=== PATIENT | female | born 1950 | race Caucasian/White ===

== ENCOUNTER → 2018-08-29 16:45 | Outpatient (REF) | payer MEDICARE, MEDICAID, SELFPAY ==
[2018-08-29 17:40] LABS: Alanine Aminotransferase 22 IU/L (9-52); Albumin 3.6 g/dL (3.5-5.0); Albumin Globulin Ratio 0.9 (1.0-2.8); Alkaline Phosphatase 146 U/L (38-126); Aspartate Aminotransferase 27 IU/L (14-36); BUN Creatinine Ratio 43.3 (6-22); Bilirubin Total 0.4 mg/dL (0.2-1.3); Blood Urea Nitrogen 65 mg/dL (7-17); Calcium 8.4 mg/dL (8.4-10.2); Carbon Dioxide 22 mmol/L (22-32); Chloride 106 mmol/L (98-107); Estimated Glomerular Filt Rate 34.4 mL/min (>60); Globulin 3.8 g/dL (1.7-4.1); Glucose 96 mg/dL (80-110); HEMOLYSIS < 15 (0-50); Sodium 140 mmol/L (137-145); Total Protein 7.4 g/dL (6.3-8.2)
[2018-08-29 17:43] LABS: Potassium 5.4 mmol/L (3.4-5.1)
[2018-08-29 18:14] LABS: Add Manual Diff / Slide Review NO; Basophils Absolute Auto 0 /uL (0-100); Basophils Percent Auto 0.9 % (0-2); Eosinophils Absolute Auto 300 /uL (0-450); Eosinophils Percent Auto 9.5 % (2-4); Hematocrit 30.8 % (36-46); Hemoglobin 9.7 g/dL (12.0-16.0); Lymphocytes Absolute Auto 600 /uL (1100-4500); Lymphocytes Percent Auto 20.4 % (25-40); Mean Corpuscular HGB Conc 31.6 % (30-36); Mean Corpuscular Hemoglobin 31.8 PG (26-34); Mean Corpuscular Volume 100.4 fL (80-100); Monocytes Absolute Auto 500 /uL (0-900); Monocytes Percent Auto 15.3 % (3-14); Neutrophils Absolute Auto 1700 /uL (1500-7000); Neutrophils Percent Auto 53.9 % (50-75); Platelet Count 181 X10^3/uL (150-400); Red Blood Cell Count 3.07 X10^6/uL (4.0-5.2); Red Cell Distribution Width 14.1 % (11.6-14.8); White Blood Cell Count 3.1 X10^3/uL (4.5-11.0)
== END ==
LOC: LAB 16:45
PROVIDERS: Visit Provider Nurse Practitioner Family
DX: I48.91 Unspecified atrial fibrillation (principal); M31.30 Wegener's granulomatosis without renal involvement; N18.9 Chronic kidney disease, unspecified
CPT/HCPCS: 80053; 85025

== ENCOUNTER → 2018-09-01 11:01 | Outpatient (REF) | payer MEDICARE, MEDICAID, SELFPAY ==
[2018-09-01 11:16] LABS: INR 1.5 (0.9-1.3); Prothrombin Time 17.6 SECONDS (10.1-12.7)
== END ==
LOC: LAB 11:01
PROVIDERS: Visit Provider Nurse Practitioner Family
DX: I48.91 Unspecified atrial fibrillation (principal)
CPT/HCPCS: 85610

== ENCOUNTER → 2018-09-04 07:12 | Outpatient (REF) | payer MEDICARE, MEDICAID, SELFPAY ==
[2018-09-04 08:14] LABS: Add Manual Diff / Slide Review NO; Basophils Absolute Auto 0 /uL (0-100); Eosinophils Absolute Auto 200 /uL (0-450); Eosinophils Percent Auto 7.8 % (2-4); Hematocrit 27.9 % (36-46); Hemoglobin 9.3 g/dL (12.0-16.0); Lymphocytes Absolute Auto 500 /uL (1100-4500); Lymphocytes Percent Auto 18.3 % (25-40); Mean Corpuscular HGB Conc 33.4 % (30-36); Mean Corpuscular Hemoglobin 32.8 PG (26-34); Mean Corpuscular Volume 98.2 fL (80-100); Monocytes Absolute Auto 500 /uL (0-900); Monocytes Percent Auto 17.6 % (3-14); Neutrophils Absolute Auto 1600 /uL (1500-7000); Neutrophils Percent Auto 55.3 % (50-75); Platelet Count 183 X10^3/uL (150-400); Red Blood Cell Count 2.84 X10^6/uL (4.0-5.2); Red Cell Distribution Width 13.6 % (11.6-14.8); White Blood Cell Count 2.9 X10^3/uL (4.5-11.0)
[2018-09-04 08:39] LABS: Alanine Aminotransferase 18 IU/L (9-52); Albumin 3.5 g/dL (3.5-5.0); Albumin Globulin Ratio 0.9 (1.0-2.8); Alkaline Phosphatase 140 U/L (38-126); Aspartate Aminotransferase 22 IU/L (14-36); BUN Creatinine Ratio 38.8 (6-22); Bilirubin Total 0.6 mg/dL (0.2-1.3); Blood Urea Nitrogen 66 mg/dL (7-17); Calcium 8.2 mg/dL (8.4-10.2); Carbon Dioxide 23 mmol/L (22-32); Chloride 105 mmol/L (98-107); Estimated Glomerular Filt Rate 29.8 mL/min (>60); Glucose 100 mg/dL (80-110); HEMOLYSIS < 15 (0-50); Sodium 139 mmol/L (137-145); Total Protein 7.5 g/dL (6.3-8.2)
== END ==
LOC: LAB 07:12
PROVIDERS: Visit Provider Registered Nurse
DX: N18.9 Chronic kidney disease, unspecified (principal); A50.02 Early congenital syphilitic osteochondropathy
CPT/HCPCS: 36415; 80053; 85025

== ENCOUNTER → 2018-09-09 07:46 | Outpatient (REF) | payer MEDICARE, MEDICAID, SELFPAY ==
[2018-09-09 08:13] LABS: INR 1.7 (0.9-1.3); Prothrombin Time 19.7 SECONDS (10.1-12.7)
== END ==
LOC: LAB 07:46
PROVIDERS: Visit Provider Internal Medicine
DX: I48.91 Unspecified atrial fibrillation (principal)
CPT/HCPCS: 36415; 85610

== ENCOUNTER 2018-09-09 21:55 | Emergency (ER) | payer MEDICARE, MEDICAID, SELFPAY ==
--- NOTE | 2018-09-09 22:00 | DI.RAD.S_ITS ---
PROCEDURE: XR CHEST 1V INDICATIONS: hypoxia, cyanosis TECHNIQUE: One view of the chest was acquired. COMPARISON: [facility], CT, CT ANGIO CHEST PE PROTOCOL, 09/09/2018, 23:33. [facility], CR, XR CHEST 1VW (PORTABLE), 03/22/2015, 13:01. FINDINGS: Surgical changes and devices: None. Lungs and pleura: Increased pulmonary vascularity is present. Trace effusions are noted. Mediastinum: Mediastinal contours appear normal. Heart size is enlarged. Bones and chest wall: No suspicious bony lesions. Overlying soft tissues appear unremarkable. IMPRESSION: Cardiomegaly with trace effusions and increased vascularity consistent with edema. Dictated by: Tracie Gallagher M.D. on 09/10/2018 at 8:19 Approved by: Tracie Gallagher M.D. on 09/10/2018 at 8:20
[2018-09-09 22:07] VITALS: BP 136/91; PULSE 104; RESP 25; TEMP 37.7; O2SAT 91
--- NOTE | 2018-09-09 22:15 | ED_ITS ---
HPI - SOB/Dyspnea General Chief Complaint: Shortness of Breath/Dyspnea Stated Complaint: Possible Cyanosis Time Seen by Provider: 09/09/18 21:55 Source: patient and EMS Mode of arrival: EMS Limitations: no limitations History of Present Illness 68-year-old female never smoker with extensive history including chronic kidney disease, CHF, AFib and pulmonary embolism presents with significant shortness of breath, hypoxia and cyanosis. the symptoms started these evening and on arrival EMS found the patient is cyanotic with a recent reported pulse ox of 55%. The patient quickly rebounded with 2 L by nasal cannula.She is remarkably calm and has very little to complain about, just stating she has been turning blue like this for ages and people always get super excited about it. She was recently converted from Coumadin to Eliquis because of recurrent nose bleeds. Most recent hospitalization was in [place] in July under similar circumstances in which she became very short of breath and hypoxic. MD Complaint: shortness of breath Onset (ago): minute(s) Severity: moderate Consistency/Duration: constant Relieving factors: nothing Exacerbating factors: nothing Treatment prior to arrival: oxygen Related Data Home oxygen amount: none Allergies Allergy/AdvReac Type Severity Reaction Status Date / Time acetaminophen [From Tylenol] Allergy Verified 09/09/18 22:36 adhesive tape Allergy Verified 09/09/18 22:36 basil Allergy Verified 09/09/18 22:36 cephalexin [From Keflex] Allergy Verified 09/09/18 22:36 marlena Allergy Verified 09/09/18 22:36 Penicillins Allergy Verified 09/09/18 22:36 Review of Systems Constitutional Denies chills, Denies fever(s), Denies lethargy and Denies weakness Eyes Denies change in vision, Denies eye discharge, Denies irritation and Denies loss of vision ENT Ears, Nose, Mouth, and Throat: Denies change in voice, Denies neck pain and Denies sore throat Cardiovascular Denies chest pain, Denies irregular heart rhythm, Denies lightheadedness, Denies palpitations, Reports dyspnea, Denies dyspnea on exertion and Denies orthopnea Respiratory Denies cough, Reports dyspnea, Denies dyspnea on exertion and Denies wheezing Gastrointestinal Gastrointestinal: Denies abdominal pain, Denies change in bowel habits, Denies diarrhea, Denies nausea and Denies vomiting Genitourinary Denies hematuria, Denies flank pain, Denies urinary incontinence and Denies urinary urgency Musculoskeletal Denies neck pain Integumentary/Breasts Denies pruritus, Denies erythema, Denies rash and Denies wounds Neurologic Denies confusion, Denies loss of vision and Denies weakness Psychiatric Denies anxiety, Denies confusion, Denies depression, Denies homicidal ideation and Denies suicidal ideation Endocrine Denies palpitations Hematologic/Lymphatic Denies easy bruising Allergic/Immunologic Denies wheezing [facility] Medical History (Updated 09/10/18 @ 01:11 by Ronak Ozuna DO) Chronic kidney disease (Acute) Cor pulmonale (Acute) Depression (Acute) Diastolic heart failure (Acute) Hyperlipidemia (Acute) Iron (Fe) deficiency anemia (Acute) Osteoarthritis (Acute) Polyneuropathy (Acute) Pulmonary embolism (Acute) Crow's granulomatosis (Acute) Social History Smoking Status: Never smoker Social History Smoking Status: Never smoker Exam Narrative Exam Narrative: GENERAL: 68F appears older than stated age. Cyanotic at rest with some respiratory difficulty including recruitment of accessory muscles. Ill appearing HEAD: Atraumatic. Normocephalic. No temporal or scalp tenderness. EYES: Pupils equal round and reactive. Extraocular motions intact. No scleral icterus. No injection or drainage. ENT: Nose without bleeding, purulent drainage or septal hematoma. Throat without erythema, tonsillar hypertrophy or exudate. Uvula midline. Airway patent. NECK: Trachea midline. No JVD or lymphadenopathy. Supple, nontender, no meningeal signs. CARDIOVASCULAR: Regular rate and rhythm without murmurs, gallops, or rubs. RESPIRATORY: Decreased breath sounds B/L with crackles, prolonged expiratory phase. GASTROINTESTINAL: Abdomen soft, non-tender, nondistended. No hepato-splenomega ly, or palpable masses. No guarding. EXTREMITIES: No clubbing, cyanosis, or edema. No joint tenderness, effusion, or edema noted. BACK: Nontender without deformity or crepitance. No flank tenderness. NEURO: AOx3. SKIN: No rash or erythema. Cyanotic lips and ears Initial Vital Signs Initial Vital Signs: Vital Signs Temperature 100 F H 09/09/18 22:07 Pulse Rate 104 H 09/09/18 22:07 Respiratory Rate 25 H 09/09/18 22:07 Blood Pressure 136/91 H 09/09/18 22:07 Pulse Oximetry 91 09/09/18 22:07 Course Orders Ordered: ED Orders 09/09/18 21:59 Consult to Respiratory Therapy Evaluate & Treat Arterial Blood Gas Stat EKG-12 Lead Stat 09/09/18 22:00 XR chest 1V Stat 09/09/18 22:10 B Type Natriuretic Peptide Stat Complete Blood Count AUTO DIFF Stat Procalcitonin Stat 09/09/18 22:12 Influenza A and B by PCR Rapid Stat Lactate (Lactic Acid) Stat 09/09/18 22:21 Arterial Blood Gas Stat 09/09/18 22:41 Basic Metabolic Panel Stat Blood Culture Stat Magnesium Stat Partial Thromboplastin Time Stat Prothrombin Time INR Stat Troponin & CK Cardiac Panel Stat 09/09/18 23:20 CT angio chest PE protocol Stat 09/09/18 23:23 Urine Culture Stat Urine Microscopic Stat Albuterol/Ipratropium (Duoneb) 3 ml INH NOW PRN PRN Reason: Wheezing Last Admin: 09/09/18 23:06 Dose: 3 ml Admin: 09/09/18 22:56 Dose: 3 ml Admin: 09/09/18 22:52 Dose: 3 ml Sodium Chloride (Normal Saline 0.9%) 1,000 mls @ 150 mls/hr IV CONT NOLA Last Admin: 09/09/18 22:56 Dose: 150 mls/hr Discontinued Medications Furosemide (Lasix) 40 mg IV NOW ONE Stop: 09/09/18 23:13 Last Admin: 09/09/18 23:19 Dose: 40 mg Reevaluation(s) Reevaluation #1: patient improves after use of oxygen by nasal cannula, but she is tiring, will switch to hi flow, hi humidity records requested from [place] (recent hospitalization in Jul) also location of pulmonology. Iron Piler is Dr. Hernandez from [facility]. patient improved with high flow / high humidity nasal cannula. She is making dilute urine after Lasix and pulse ox is now in the upper 90s Consultations Consultation #1: I've spoken with our hospitalist and discussed the case with him. She has a very complex medical history and the etiology of her decompensation is thus unclear. She very well may need consultation with cardiology, pulmonary, or nephrology. None of which are available here. He states that we are unable to care for this patient here given her impressive presentation with unclear etiology and very complex medical history which is likely to require specialty care not available at this hospital. This is explained to the patient whom then requests [facility] as that is where she is from, where her PCP is, and where her most recent hospitalization was Consultation #2: call to [place] nursing aircraft cleaning supervisor whom states that they have plenty of appropriate beds and asks that we call hospitalist. I've spoken to Dr. Bledsoe whom is happy to accept this patient. He states that it does not obviously need specialty involvement yet and that he would like patient to be eyeballed in the ED to get repeat vitals to ensure no decompensation during transport When resting her HR is 100-105, any exertion will cause her to bump to 115ish. Vital Signs - 8 hr 09/09/18 22:07 09/09/18 22:44 09/09/18 22:52 Temperature 100 F H Pulse Rate 104 H 105 H Respiratory Rate 25 H 29 H Blood Pressure 136/91 H Blood Pressure [Right Arm] 134/89 Pulse Oximetry 91 94 09/09/18 22:55 09/09/18 23:00 09/10/18 00:20 Temperature Pulse Rate 104 H 117 H Respiratory Rate 25 H 28 H Blood Pressure Blood Pressure [Right Arm] 133/92 H 121/90 Pulse Oximetry 94 09/10/18 01:01 09/10/18 01:30 Temperature Pulse Rate 115 H 117 H Respiratory Rate 15 25 H Blood Pressure Blood Pressure [Right Arm] 112/77 120/49 L Pulse Oximetry 98 98 MDM - SOB/Dyspnea Differential Diagnosis Likely congestive heart failure and pulmonary embolism Medical Records Attestation: I reviewed the patient's medical records. Lab Data Attestation: I reviewed the patient's lab results. Result diagrams: 09/09/18 22:10 09/09/18 22:41 Lab Results 09/09/18 09/09/18 09/09/18 Range/Units 22:10 22:10 22:12 WBC 7.9 (4.5-11.0) X10^3/uL RBC 3.38 L (4.0-5.2) X10^6/uL Hgb 10.9 L (12.0-16.0) g/dL Hct 33.6 L (36-46) % MCV 99.5 (80-100) fL MCH 32.3 (26-34) PG MCHC 32.4 (30-36) % RDW 14.4 (11.6-14.8) % Plt Count 216 (150-400) X10^3/uL Neut % (Auto) 86.5 H (50-75) % Lymph % (Auto) 5.5 L (25-40) % Jefferson % (Auto) 4.6 (3-14) % Eos % (Auto) 3.4 (2-4) % Baso % (Auto) 0.0 (0-2) % Neut # (Auto) 6800 (8978-9654) /uL Lymph # (Auto) 400 L (9451-5799) /uL Jefferson # (Auto) 400 (0-900) /uL Eos # (Auto) 300 (0-450) /uL Baso # (Auto) 0 (0-100) /uL PT (10.1-12.7) SECONDS INR (0.9-1.3) APTT (26.4-36.2) SECONDS ABG pH (7.35-7.45) ABG pCO2 (35-45) mmHg ABG pO2 (80-100) mmHg ABG HCO3 (22-26) mmol/L ABG Total CO2 (21-31) mmol/L ABG O2 Saturation (95-100) % ABG Base Excess (-2-2) mmol/L FiO2 Sodium (137-145) mmol/L Potassium (3.4-5.1) mmol/L Chloride (98-107) mmol/L Carbon Dioxide (22-32) mmol/L BUN (7-17) mg/dL Creatinine (0.52-1.04) mg/dL Estimated GFR (>60) mL/min BUN/Creatinine Ratio (6-22) Glucose (80-110) mg/dL Lactate 2.0 (0.7-2.1) mmol/L Calcium (8.4-10.2) mg/dL Magnesium (1.6-2.3) mg/dL Total Creatine Kinase (30-135) U/L CK-MB (CK-2) CK-MB (CK-2) Rel Index Troponin I (0.01-0.034) ng/mL B-Natriuretic Peptide 1020 H (<100) Procalcitonin < 0.05 (<0.5) ng/mL Urine RBC (0-5/HPF) Urine WBC (0-5/HPF) Ur Squamous Epith Cells Urine Bacteria (None) Ur Culture Indicated? Influenza A & B (PCR) (Negative) 09/09/18 09/09/18 09/09/18 Range/Units 22:12 22:21 22:41 WBC (4.5-11.0) X10^3/uL RBC (4.0-5.2) X10^6/uL Hgb (12.0-16.0) g/dL Hct (36-46) % MCV (80-100) fL MCH (26-34) PG MCHC (30-36) % RDW (11.6-14.8) % Plt Count (150-400) X10^3/uL Neut % (Auto) (50-75) % Lymph % (Auto) (25-40) % Jefferson % (Auto) (3-14) % Eos % (Auto) (2-4) % Baso % (Auto) (0-2) % Neut # (Auto) (1251-7318) /uL Lymph # (Auto) (5098-6539) /uL Jefferson # (Auto) (0-900) /uL Eos # (Auto) (0-450) /uL Baso # (Auto) (0-100) /uL PT 20.3 H (10.1-12.7) SECONDS INR 1.7 H (0.9-1.3) APTT 30 (26.4-36.2) SECONDS ABG pH 7.39 (7.35-7.45) ABG pCO2 33.5 L (35-45) mmHg ABG pO2 50 L (80-100) mmHg ABG HCO3 20 L (22-26) mmol/L ABG Total CO2 21 (21-31) mmol/L ABG O2 Saturation 85 L (95-100) % ABG Base Excess -5.0 L (-2-2) mmol/L FiO2 0.21 Sodium (137-145) mmol/L Potassium (3.4-5.1) mmol/L Chloride (98-107) mmol/L Carbon Dioxide (22-32) mmol/L BUN (7-17) mg/dL Creatinine (0.52-1.04) mg/dL Estimated GFR (>60) mL/min BUN/Creatinine Ratio (6-22) Glucose (80-110) mg/dL Lactate (0.7-2.1) mmol/L Calcium (8.4-10.2) mg/dL Magnesium (1.6-2.3) mg/dL Total Creatine Kinase (30-135) U/L CK-MB (CK-2) CK-MB (CK-2) Rel Index Troponin I (0.01-0.034) ng/mL B-Natriuretic Peptide (<100) Procalcitonin (<0.5) ng/mL Urine RBC (0-5/HPF) Urine WBC (0-5/HPF) Ur Squamous Epith Cells Urine Bacteria (None) Ur Culture Indicated? Influenza A & B (PCR) Negative (Negative) 09/09/18 09/09/18 Range/Units 22:41 23:23 WBC (4.5-11.0) X10^3/uL RBC (4.0-5.2) X10^6/uL Hgb (12.0-16.0) g/dL Hct (36-46) % MCV (80-100) fL MCH (26-34) PG MCHC (30-36) % RDW (11.6-14.8) % Plt Count (150-400) X10^3/uL Neut % (Auto) (50-75) % Lymph % (Auto) (25-40) % Jefferson % (Auto) (3-14) % Eos % (Auto) (2-4) % Baso % (Auto) (0-2) % Neut # (Auto) (3475-0463) /uL Lymph # (Auto) (2822-9085) /uL Jefferson # (Auto) (0-900) /uL Eos # (Auto) (0-450) /uL Baso # (Auto) (0-100) /uL PT (10.1-12.7) SECONDS INR (0.9-1.3) APTT (26.4-36.2) SECONDS ABG pH (7.35-7.45) ABG pCO2 (35-45) mmHg ABG pO2 (80-100) mmHg ABG HCO3 (22-26) mmol/L ABG Total CO2 (21-31) mmol/L ABG O2 Saturation (95-100) % ABG Base Excess (-2-2) mmol/L FiO2 Sodium 140 (137-145) mmol/L Potassium 5.5 H (3.4-5.1) mmol/L Chloride 106 (98-107) mmol/L Carbon Dioxide 20 L (22-32) mmol/L BUN 63 H (7-17) mg/dL Creatinine 1.80 H (0.52-1.04) mg/dL Estimated GFR 27.9 L (>60) mL/min BUN/Creatinine Ratio 35.0 H (6-22) Glucose 85 (80-110) mg/dL Lactate (0.7-2.1) mmol/L Calcium 8.6 (8.4-10.2) mg/dL Magnesium 2.0 (1.6-2.3) mg/dL Total Creatine Kinase < 20 L (30-135) U/L CK-MB (CK-2) TNP CK-MB (CK-2) Rel Index TNP Troponin I < 0.012 (0.01-0.034) ng/mL B-Natriuretic Peptide (<100) Procalcitonin (<0.5) ng/mL Urine RBC 0-1/hpf (0-5/HPF) Urine WBC 1-5/hpf (0-5/HPF) Ur Squamous Epith Cells 1-5 /hpf Urine Bacteria Few (2-10) H (None) Ur Culture Indicated? Specimen cultured Influenza A & B (PCR) (Negative) Urine Dip Bedside Urine Glucose Negative Bedside Urine Bilirubin - Negative Bedside Urine Ketone - Negative Urine Specific [place] 1.025 Bedside Urine Occult Blood - Negative Bedside Urine pH 5.0 Bedside Urine Protein + 30 Bedside Urine Nitrite - Negative Bedside Urine Leukocytes + 70 Esterase Imaging Data Chest x-ray: My impression: CHF CT scan - chest: Radiologist's impression: No PE, aneurysm or dissection CHF noted Critical Care Time Critical Care Time: Yes Total Critical Care Time: 30 Attestation: The high probability of a clinically significant, sudden or life threatening deterioration of the [] system(s) required my full and direct attention, intervention and personal management. The aggregate critical care time was [] minutes. This time is in addition to time spent performing reported procedures but includes the following: [x] Data Review and interpretation [x] Patient assessment and monitoring of vital signs [x] Documentation [x] Medication orders and management Discharge Plan Departure Patient Disposition: [facility] Clinical Impression: Acute and chronic respiratory failure with hypoxia Acute CHF Qualifiers: Heart failure type: combined systolic and diastolic Qualified Code(s): I50.41 - Acute combined systolic (congestive) and diastolic (congestive) heart failure Referrals: Bri Vargas MD [Primary Care Provider] -
[2018-09-09 22:23] LABS: Add Manual Diff / Slide Review NO; Basophils Absolute Auto 0 /uL (0-100); Eosinophils Absolute Auto 300 /uL (0-450); Eosinophils Percent Auto 3.4 % (2-4); Hematocrit 33.6 % (36-46); Hemoglobin 10.9 g/dL (12.0-16.0); Lymphocytes Absolute Auto 400 /uL (1100-4500); Lymphocytes Percent Auto 5.5 % (25-40); Mean Corpuscular HGB Conc 32.4 % (30-36); Mean Corpuscular Hemoglobin 32.3 PG (26-34); Mean Corpuscular Volume 99.5 fL (80-100); Monocytes Absolute Auto 400 /uL (0-900); Monocytes Percent Auto 4.6 % (3-14); Neutrophils Absolute Auto 6800 /uL (1500-7000); Neutrophils Percent Auto 86.5 % (50-75); Platelet Count 216 X10^3/uL (150-400); Red Blood Cell Count 3.38 X10^6/uL (4.0-5.2); Red Cell Distribution Width 14.4 % (11.6-14.8); White Blood Cell Count 7.9 X10^3/uL (4.5-11.0)
[2018-09-09 22:37] LABS: Influenza A and B by PCR Rapid Negative (Negative)
[2018-09-09 22:37] LABS: HCO3 ABG 20 mmol/L (22-26); Oxygen Saturation ABG 85 % (95-100); PCO2 ABG 33.5 mmHg (35-45); PO2 ABG 50 mmHg (80-100); TCO2 ABG 21 mmol/L (21-31); pH ABG 7.39 (7.35-7.45)
[2018-09-09 22:38] LABS: Fractionated Inspired Oxygen 0.21
[2018-09-09 22:44] VITALS: BP 134/89; PULSE 105; RESP 29
[2018-09-09 22:45] LABS: B Type Natriuretic Peptide 1020 (<100)
[2018-09-09 22:52] VITALS: O2SAT 94
[2018-09-09] MEDS: ALBUTEROL/IPRATROPIUM 3 ML AMPUL INH ×3 (22:52→23:06)
[2018-09-09 22:55] VITALS: O2SAT 94
[2018-09-09] MEDS: SODIUM CHLORIDE 0.9% 1,000 ML 150 ML IV (22:56)
[2018-09-09 22:57] LABS: Procalcitonin < 0.05 ng/mL (<0.5)
[2018-09-09 22:59] LABS: INR 1.7 (0.9-1.3); Prothrombin Time 20.3 SECONDS (10.1-12.7)
[2018-09-09 23:00] VITALS: BP 133/92; PULSE 104; RESP 25
[2018-09-09 23:00] LABS: Blood Urea Nitrogen 63 mg/dL (7-17); Calcium 8.6 mg/dL (8.4-10.2); Carbon Dioxide 20 mmol/L (22-32); Chloride 106 mmol/L (98-107); Creatine Kinase < 20 U/L (30-135); Estimated Glomerular Filt Rate 27.9 mL/min (>60); Glucose 85 mg/dL (80-110); HEMOLYSIS 25 (0-50); Sodium 140 mmol/L (137-145)
[2018-09-09 23:01] LABS: PTT Partial Thromboplastin Tim 30 SECONDS (26.4-36.2); Potassium 5.5 mmol/L (3.4-5.1)
[2018-09-09 23:11] LABS: Troponin I < 0.012 ng/mL (0.01-0.034)
[2018-09-09] MEDS: FUROSEMIDE 40 MG/4 ML VIAL IV (23:19)
--- NOTE | 2018-09-09 23:20 | DI.CT.S_ITS ---
PROCEDURE: CT ANGIO CHEST PE PROTOCOL INDICATIONS: severely hypoxic TECHNIQUE: After the administration of intravenous contrast, 2 mm thick sections acquired from the pulmonary apices to the posterior costophrenic angles. 3-dimensional maximum intensity projection (MIP) coronal and sagittal reformats were then acquired through the thorax. For radiation dose reduction, the following was used: automated exposure control, adjustment of mA and/or kV according to patient size. COMPARISON: [facility], CR, XR CHEST 1V, 09/09/2018, 22:09. FINDINGS: Image quality: Excellent. Pulmonary arteries: Pulmonary arteries are normal in size, and demonstrate no intraluminal filling defects to suggest central pulmonary embolism. Lungs and pleura: Minimal bilateral pleural effusions. Pulmonary interstitial edema is present. Central and peripheral airways are patent. Mediastinum: Heart size is enlarged, without pericardial effusion numerous mediastinal and hilar lymph nodes are present. While the majority are subcentimeter in size, there are several enlarged nodes identified ranging from 10-14 mm. Thoracic aorta is normal in caliber and enhancement. Esophagus is normal in caliber, without hiatal hernia. Bones and chest wall: No suspicious bony lesions. Ribs and thoracic spine appear intact throughout. Thyroid gland is unremarkable. No axillary or supraclavicular adenopathy. Abdomen: Elevated central venous pressure noted with contrast refluxing into the distended inferior vena cava and hepatic veins. Otherwise, visualized upper abdominal solid organs appear normal in the early arterial phase of enhancement. IMPRESSION: 1. No pulmonary embolism. 2. Minimal effusions with pulmonary vascularity consistent with edema. 3. Mild mediastinal and hilar adenopathy. This could be reactive in nature and recommend followup as indicated. The above findings are concordant with preliminary report. Dictated by: Tracie Gallagher M.D. on 09/10/2018 at 8:11 Approved by: Tracie Gallagher M.D. on 09/10/2018 at 8:15
[2018-09-09 23:49] LABS: Bacteria Urine Few (2-10); RBC Urine 0-1/HPF (0-5/HPF); Squamous Epithelial Cell Urine 1-5 /HPF; WBC Urine 1-5/HPF (0-5/HPF)
[2018-09-09 23:50] LABS: Culture Indicated Urine Specimen Cultured
[2018-09-10 00:20] VITALS: BP 121/90; PULSE 117; RESP 28
[2018-09-10 01:01] VITALS: BP 112/77; PULSE 115; RESP 15; O2SAT 98
--- NOTE | 2018-09-10 01:04 | PC.NURSE ---
Pt with pink lips and fingers at this time. Continues with Hi flow oxygen at 50%. Pulse ox finally picking up with good pleth.
[2018-09-10 01:30] VITALS: BP 120/49; PULSE 117; RESP 25; O2SAT 98
[2018-09-10 02:11] VITALS: BP 105/66; PULSE 104; RESP 26; TEMP 37.7; O2SAT 95
== END 2018-09-10 02:46 | disposition short-term general hospital (02) ==
PROVIDERS: Emergency Provider Emergency Medicine; Family Provider Internal Medicine; PCP Internal Medicine
DX: J96.21 Acute and chronic respiratory failure with hypoxia (principal); I50.9 Heart failure, unspecified
CPT/HCPCS: 36415; 36591; 36600; 71045; 71275; 80048; 81003; 81015; 82550; 82553; 82805; 83605; 83735; 83880; 84145; 84484; 85025; 85610; 85730; 87040; 87086; 87400; 93005; 94640; 96361; 96374; 99285; J1940; Q9967

== ENCOUNTER → 2018-09-30 07:01 | Outpatient (REF) | payer MEDICARE, MEDICAID, SELFPAY ==
[2018-09-30 07:40] LABS: Add Manual Diff / Slide Review NO; Basophils Absolute Auto 0 /uL (0-100); Basophils Percent Auto 1.1 % (0-2); Eosinophils Absolute Auto 300 /uL (0-450); Eosinophils Percent Auto 6.1 % (2-4); Hematocrit 33.2 % (36-46); Hemoglobin 10.6 g/dL (12.0-16.0); Lymphocytes Absolute Auto 500 /uL (1100-4500); Lymphocytes Percent Auto 11.8 % (25-40); Mean Corpuscular HGB Conc 31.9 % (30-36); Mean Corpuscular Volume 100.6 fL (80-100); Monocytes Absolute Auto 500 /uL (0-900); Monocytes Percent Auto 9.7 % (3-14); Neutrophils Absolute Auto 3300 /uL (1500-7000); Neutrophils Percent Auto 71.3 % (50-75); Platelet Count 211 X10^3/uL (150-400); Red Cell Distribution Width 15.6 % (11.6-14.8); White Blood Cell Count 4.6 X10^3/uL (4.5-11.0)
[2018-09-30 07:53] LABS: Blood Urea Nitrogen 54 mg/dL (7-17); Calcium 8.4 mg/dL (8.4-10.2); Carbon Dioxide 29 mmol/L (22-32); Chloride 105 mmol/L (98-107); Estimated Glomerular Filt Rate 27.9 mL/min (>60); Glucose 109 mg/dL (80-110); HEMOLYSIS < 15 (0-50); Potassium 4.8 mmol/L (3.4-5.1); Sodium 141 mmol/L (137-145)
== END ==
LOC: LAB 07:01
PROVIDERS: Family Provider Internal Medicine; PCP Internal Medicine; Visit Provider Nurse Practitioner Family
DX: D64.9 Anemia, unspecified (principal); N18.9 Chronic kidney disease, unspecified; R60.9 Edema, unspecified
CPT/HCPCS: 36415; 80048; 85025

== ENCOUNTER → 2018-10-03 13:01 | Outpatient (CLI) | payer MEDICARE, MEDICAID, SELFPAY | PROVIDERS: Family Provider Internal Medicine; PCP Internal Medicine; Visit Provider Family Medicine | DX: M31.31 Wegener's granulomatosis with renal involvement (principal); S81.801A Unspecified open wound, right lower leg, initial encounter; S81.802A Unspecified open wound, left lower leg, initial encounter; R53.83 Other fatigue | CPT/HCPCS: 11104; 11105; 99203; 99214 ==

== ENCOUNTER → 2018-10-09 09:24 | Outpatient (CLI) | payer MEDICARE, MEDICAID, SELFPAY | PROVIDERS: Family Provider Internal Medicine; PCP Internal Medicine; Visit Provider Family Medicine | DX: S81.801A Unspecified open wound, right lower leg, initial encounter (principal); S81.802A Unspecified open wound, left lower leg, initial encounter; M31.31 Wegener's granulomatosis with renal involvement; I50.9 Heart failure, unspecified | CPT/HCPCS: 99212 ==

== ENCOUNTER → 2018-10-14 09:37 | Outpatient (ROUT) | payer MEDICARE, MEDICAID, SELFPAY ==
[2018-10-14 10:10] LABS: Hematocrit 30.4 % (36-46); Hemoglobin 9.8 g/dL (12.0-16.0)
[2018-10-14 10:27] LABS: BUN Creatinine Ratio 30.5 (6-22); Blood Urea Nitrogen 58 mg/dL (7-17); Calcium 8.2 mg/dL (8.4-10.2); Carbon Dioxide 27 mmol/L (22-32); Chloride 103 mmol/L (98-107); Estimated Glomerular Filt Rate 26.2 mL/min (>60); Glucose 67 mg/dL (80-110); HEMOLYSIS < 15 (0-50); Sodium 139 mmol/L (137-145)
== END ==
PROVIDERS: Family Provider Internal Medicine; PCP Internal Medicine; Visit Provider Nurse Practitioner Family
DX: D64.9 Anemia, unspecified (principal); N18.9 Chronic kidney disease, unspecified
CPT/HCPCS: 36415; 80048; 85014; 85018

== ENCOUNTER → 2018-10-16 08:56 | Outpatient (CLI) | payer MEDICARE, MEDICAID, SELFPAY | PROVIDERS: Family Provider Internal Medicine; PCP Internal Medicine; Visit Provider Family Medicine | DX: M31.31 Wegener's granulomatosis with renal involvement (principal); S81.801A Unspecified open wound, right lower leg, initial encounter; S81.802A Unspecified open wound, left lower leg, initial encounter; R53.83 Other fatigue; L30.9 Dermatitis, unspecified | CPT/HCPCS: 11042; 99214 ==

== ENCOUNTER → 2018-10-23 08:57 | Outpatient (CLI) | payer MEDICARE, MEDICAID, SELFPAY | PROVIDERS: Family Provider Internal Medicine; PCP Internal Medicine; Visit Provider Family Medicine | DX: M31.31 Wegener's granulomatosis with renal involvement (principal); S81.801A Unspecified open wound, right lower leg, initial encounter; S81.802A Unspecified open wound, left lower leg, initial encounter; R53.83 Other fatigue; L30.9 Dermatitis, unspecified | CPT/HCPCS: 11042 ==

== ENCOUNTER → 2018-10-28 07:01 | Outpatient (ROUT) | payer MEDICARE, MEDICAID, SELFPAY ==
[2018-10-28 08:45] LABS: Hematocrit 30.1 % (36-46); Hemoglobin 9.9 g/dL (12.0-16.0)
[2018-10-28 09:04] LABS: BUN Creatinine Ratio 34.1 (6-22); Blood Urea Nitrogen 58 mg/dL (7-17); Calcium 8.4 mg/dL (8.4-10.2); Carbon Dioxide 23 mmol/L (22-32); Chloride 105 mmol/L (98-107); Estimated Glomerular Filt Rate 29.8 mL/min (>60); Glucose 73 mg/dL (80-110); HEMOLYSIS 18 (0-50); Sodium 139 mmol/L (137-145)
[2018-10-28 09:07] LABS: Potassium 5.5 mmol/L (3.4-5.1)
== END ==
PROVIDERS: Family Provider Internal Medicine; PCP Internal Medicine; Visit Provider Nurse Practitioner Family
DX: D64.9 Anemia, unspecified (principal); N17.9 Acute kidney failure, unspecified
CPT/HCPCS: 36415; 80048; 85014; 85018

== ENCOUNTER → 2018-10-30 07:21 | Outpatient (ROUT) | payer MEDICARE, MEDICAID, SELFPAY ==
[2018-10-30 09:06] LABS: HEMOLYSIS 22 (0-50)
== END ==
PROVIDERS: Family Provider Internal Medicine; PCP Internal Medicine; Visit Provider Nurse Practitioner Family
DX: E87.5 Hyperkalemia (principal)
CPT/HCPCS: 36415; 84132

== ENCOUNTER → 2018-10-30 08:39 | Outpatient (CLI) | payer MEDICARE, MEDICAID, SELFPAY | PROVIDERS: Family Provider Internal Medicine; PCP Internal Medicine; Visit Provider Family Medicine | DX: S81.801A Unspecified open wound, right lower leg, initial encounter (principal); M31.31 Wegener's granulomatosis with renal involvement; R53.83 Other fatigue | CPT/HCPCS: 11042 ==

== ENCOUNTER → 2018-11-06 08:40 | Outpatient (CLI) | payer MEDICARE, MEDICAID, SELFPAY | PROVIDERS: Family Provider Internal Medicine; PCP Internal Medicine; Visit Provider Family Medicine | DX: S81.801A Unspecified open wound, right lower leg, initial encounter (principal); M31.31 Wegener's granulomatosis with renal involvement; R53.83 Other fatigue; L30.9 Dermatitis, unspecified | CPT/HCPCS: 97597 ==

== ENCOUNTER → 2018-11-11 07:26 | Outpatient (ROUT) | payer MEDICARE, MEDICAID, SELFPAY ==
[2018-11-11 08:57] LABS: Add Manual Diff / Slide Review NO; Basophils Absolute Auto 0 /uL (0-100); Basophils Percent Auto 0.5 % (0-2); Eosinophils Absolute Auto 300 /uL (0-450); Eosinophils Percent Auto 4.8 % (2-4); Hematocrit 28.3 % (36-46); Hemoglobin 9.5 g/dL (12.0-16.0); Lymphocytes Absolute Auto 500 /uL (1100-4500); Lymphocytes Percent Auto 9.6 % (25-40); Mean Corpuscular HGB Conc 33.6 % (30-36); Mean Corpuscular Hemoglobin 32.9 PG (26-34); Mean Corpuscular Volume 97.8 fL (80-100); Monocytes Absolute Auto 700 /uL (0-900); Monocytes Percent Auto 13.8 % (3-14); Neutrophils Absolute Auto 3800 /uL (1500-7000); Neutrophils Percent Auto 71.3 % (50-75); Platelet Count 184 X10^3/uL (150-400); Red Blood Cell Count 2.89 X10^6/uL (4.0-5.2); Red Cell Distribution Width 15.4 % (11.6-14.8); White Blood Cell Count 5.3 X10^3/uL (4.5-11.0)
[2018-11-11 09:10] LABS: Blood Urea Nitrogen 51 mg/dL (7-17); Calcium 8.6 mg/dL (8.4-10.2); Carbon Dioxide 24 mmol/L (22-32); Chloride 105 mmol/L (98-107); Estimated Glomerular Filt Rate 34.4 mL/min (>60); Glucose 92 mg/dL (80-110); HEMOLYSIS < 15 (0-50); Potassium 5.3 mmol/L (3.4-5.1); Sodium 138 mmol/L (137-145)
== END ==
PROVIDERS: Family Provider Internal Medicine; PCP Internal Medicine; Visit Provider Nurse Practitioner Family
DX: I77.5 Necrosis of artery (principal); N05.9 Unspecified nephritic syndrome with unspecified morphologic changes; D70.9 Neutropenia, unspecified; D63.1 Anemia in chronic kidney disease; R80.9 Proteinuria, unspecified; I77.6 Arteritis, unspecified
CPT/HCPCS: 36415; 80048; 85025; 86021

== ENCOUNTER → 2018-11-13 08:40 | Outpatient (CLI) | payer MEDICARE, MEDICAID, SELFPAY | PROVIDERS: Family Provider Internal Medicine; PCP Internal Medicine; Visit Provider Family Medicine | DX: S81.801A Unspecified open wound, right lower leg, initial encounter (principal) | CPT/HCPCS: 97597 ==

== ENCOUNTER → 2018-11-20 07:18 | Outpatient (ROUT) | payer MEDICARE, MEDICAID, SELFPAY ==
[2018-11-20 08:05] LABS: Blood Urea Nitrogen 35 mg/dL (7-17); Calcium 8.4 mg/dL (8.4-10.2); Carbon Dioxide 27 mmol/L (22-32); Chloride 108 mmol/L (98-107); Estimated Glomerular Filt Rate 37.3 mL/min (>60); Glucose 83 mg/dL (80-110); HEMOLYSIS < 15 (0-50); Potassium 5.1 mmol/L (3.4-5.1); Sodium 139 mmol/L (137-145)
== END ==
PROVIDERS: Family Provider Internal Medicine; PCP Internal Medicine; Visit Provider Nurse Practitioner Family
DX: N18.9 Chronic kidney disease, unspecified (principal); E87.5 Hyperkalemia
CPT/HCPCS: 36415; 80048

== ENCOUNTER → 2018-11-20 09:17 | Outpatient (CLI) | payer MEDICARE, MEDICAID, SELFPAY | PROVIDERS: Family Provider Internal Medicine; PCP Internal Medicine; Visit Provider Family Medicine | DX: I87.311 Chronic venous hypertension (idiopathic) with ulcer of right lower extremity (principal); L97.812 Non-pressure chronic ulcer of other part of right lower leg with fat layer exposed; M31.31 Wegener's granulomatosis with renal involvement; R53.83 Other fatigue; L30.9 Dermatitis, unspecified | CPT/HCPCS: 99213; 99214 ==

== ENCOUNTER → 2018-11-27 09:22 | Outpatient (CLI) | payer MEDICARE, MEDICAID, SELFPAY | PROVIDERS: Family Provider Internal Medicine; PCP Internal Medicine; Visit Provider Family Medicine | DX: I87.311 Chronic venous hypertension (idiopathic) with ulcer of right lower extremity (principal); L97.812 Non-pressure chronic ulcer of other part of right lower leg with fat layer exposed; I77.6 Arteritis, unspecified; R53.83 Other fatigue; L30.9 Dermatitis, unspecified | CPT/HCPCS: 11042; 99213 ==

== ENCOUNTER → 2018-11-27 09:58 | Outpatient (CLI) | payer MEDICARE, MEDICAID, SELFPAY ==
--- NOTE | 2018-11-27 | DI.RAD.S_ITS ---
PROCEDURE: XR CHEST 2V INDICATIONS: COUGH TECHNIQUE: 2 views of the chest were acquired. COMPARISON: [facility], CR, XR CHEST 1V, 09/09/2018, 22:09. FINDINGS: Surgical changes and devices: None. Lungs and pleura: Lungs are clear. No pleural effusions or pneumothorax. Aeration of the lungs is improved. Mediastinum: Mediastinal contours are normal. Heart size is enlarged. There is aortic atherosclerosis. Bones and chest wall: No suspicious bony abnormalities. Soft tissues appear unremarkable. IMPRESSION: Cardiomegaly without overt heart failure. No definite pneumonia. Dictated by: Emeka Nichols M.D. on 11/27/2018 at 10:48 Approved by: Emeka Nichols M.D. on 11/27/2018 at 10:52
== END ==
PROVIDERS: Family Provider Internal Medicine; PCP Internal Medicine; Visit Provider Internal Medicine
DX: R05 Cough (principal); I51.7 Cardiomegaly
CPT/HCPCS: 11042; 71046; 99213

== ENCOUNTER → 2018-12-04 08:39 | Outpatient (CLI) | payer MEDICARE, MEDICAID, SELFPAY | PROVIDERS: Family Provider Internal Medicine; PCP Internal Medicine; Visit Provider Family Medicine | DX: I87.311 Chronic venous hypertension (idiopathic) with ulcer of right lower extremity (principal); L97.811 Non-pressure chronic ulcer of other part of right lower leg limited to breakdown of skin; L30.9 Dermatitis, unspecified | CPT/HCPCS: 11042; 99214 ==

== ENCOUNTER → 2018-12-18 11:15 | Outpatient (CLI) | payer MEDICARE, MEDICAID, SELFPAY | PROVIDERS: Family Provider Internal Medicine; PCP Internal Medicine; Visit Provider Family Medicine | DX: I87.2 Venous insufficiency (chronic) (peripheral) (principal); L97.811 Non-pressure chronic ulcer of other part of right lower leg limited to breakdown of skin; L97.821 Non-pressure chronic ulcer of other part of left lower leg limited to breakdown of skin; L30.9 Dermatitis, unspecified; I50.9 Heart failure, unspecified; R60.0 Localized edema | CPT/HCPCS: 97597; 99212; 99214 ==

== ENCOUNTER → 2018-12-25 10:12 | Outpatient (CLI) | payer MEDICARE, MEDICAID, SELFPAY | PROVIDERS: Family Provider Internal Medicine; PCP Internal Medicine; Visit Provider Family Medicine | DX: L30.9 Dermatitis, unspecified (principal); I50.9 Heart failure, unspecified; I87.2 Venous insufficiency (chronic) (peripheral); L97.811 Non-pressure chronic ulcer of other part of right lower leg limited to breakdown of skin; L97.821 Non-pressure chronic ulcer of other part of left lower leg limited to breakdown of skin; M79.661 Pain in right lower leg | CPT/HCPCS: 97597 ==

== ENCOUNTER 2018-12-25 15:10 | Emergency (ER) | payer MEDICARE, MEDICAID, SELFPAY ==
[2018-12-25 15:07] VITALS: BP 123/97; PULSE 82; RESP 14; TEMP 36.9; O2SAT 100; BMI 32.7
--- NOTE | 2018-12-25 15:09 | DI.RAD.S_ITS ---
PROCEDURE: XR CHEST 1V INDICATIONS: chest pain TECHNIQUE: One view of the chest was acquired. COMPARISON: [facility], CR, XR CHEST 2V, 11/27/2018, 10:05. FINDINGS: Surgical changes and devices: None. Lungs and pleura: Lungs are clear. No pleural effusions or pneumothorax. Mediastinum: Mediastinal contours appear normal. Heart size is markedly enlarged. Bones and chest wall: No suspicious bony lesions. Overlying soft tissues appear unremarkable. IMPRESSION: Marked cardiomegaly. No acute pulmonary pathology. Dictated by: Ron Ambrose M.D. on 12/25/2018 at 15:36 Approved by: Ron Ambrose M.D. on 12/25/2018 at 15:45
[2018-12-25 15:17] VITALS: BP 122/88; PULSE 86; RESP 19; TEMP 36.6; O2SAT 96
--- NOTE | 2018-12-25 15:55 | PC.NURSE ---
s/p eeg, now presents with epigastric pain.
[2018-12-25 16:09] LABS: Add Manual Diff / Slide Review NO; Basophils Absolute Auto 100 /uL (0-100); Basophils Percent Auto 0.9 % (0-2); Eosinophils Absolute Auto 200 /uL (0-450); Eosinophils Percent Auto 4.1 % (2-4); Hematocrit 33.4 % (36-46); Hemoglobin 10.8 g/dL (12.0-16.0); Lymphocytes Absolute Auto 1100 /uL (1100-4500); Lymphocytes Percent Auto 19.1 % (25-40); Mean Corpuscular HGB Conc 32.3 % (30-36); Mean Corpuscular Hemoglobin 32.3 PG (26-34); Monocytes Absolute Auto 700 /uL (0-900); Monocytes Percent Auto 11.8 % (3-14); Neutrophils Absolute Auto 3800 /uL (1500-7000); Neutrophils Percent Auto 64.1 % (50-75); Platelet Count 241 X10^3/uL (150-400); Red Blood Cell Count 3.34 X10^6/uL (4.0-5.2); Red Cell Distribution Width 15.9 % (11.6-14.8)
[2018-12-25 16:16] LABS: INR 1.4 (0.9-1.3); Prothrombin Time 16.3 SECONDS (10.1-12.7)
[2018-12-25 16:18] LABS: PTT Partial Thromboplastin Tim 35 SECONDS (26.4-36.2)
[2018-12-25 16:21] LABS: Alanine Aminotransferase 9 IU/L (9-52); Albumin 3.8 g/dL (3.5-5.0); Albumin Globulin Ratio 0.9 (1.0-2.8); Alkaline Phosphatase 137 U/L (38-126); Aspartate Aminotransferase 18 IU/L (14-36); BUN Creatinine Ratio 30.5 (6-22); Bilirubin Total 0.6 mg/dL (0.2-1.3); Blood Urea Nitrogen 61 mg/dL (7-17); Calcium 8.7 mg/dL (8.4-10.2); Carbon Dioxide 23 mmol/L (22-32); Chloride 109 mmol/L (98-107); Creatine Kinase < 20 U/L (30-135); Estimated Glomerular Filt Rate 24.7 mL/min (>60); Globulin 4.3 g/dL (1.7-4.1); Glucose 85 mg/dL (80-110); HEMOLYSIS < 15 (0-50); Lipase 78 U/L (23-300); Sodium 142 mmol/L (137-145); Total Protein 8.1 g/dL (6.3-8.2)
[2018-12-25 16:22] LABS: Potassium 5.7 mmol/L (3.4-5.1)
[2018-12-25 16:32] LABS: Troponin I < 0.012 ng/mL (0.01-0.034)
[2018-12-25 16:36] LABS: B Type Natriuretic Peptide 1040 (<100)
[2018-12-25 16:45] LABS: Procalcitonin < 0.05 ng/mL (<0.5)
--- NOTE | 2018-12-25 16:57 | ED.CHESTPAIN ---
HPI - Chest Pain <MISTY Stein-BC - Last Filed: 12/25/18 21:52> General Chief Complaint: Chest Pain Stated Complaint: CP Time Seen by Provider: 12/25/18 16:09 Source: patient Mode of arrival: ambulatory Limitations: no limitations History of Present Illness HPI narrative: 68-year-old female never smoker who presents by EMS for a chief complaint of chest pain. She states this has been going on for several weeks, and she had an endoscope a few days ago in order to evaluated. She has an extensive medical history including CHF, AFib, pulmonary embolism and chronic kidney disease. She takes Eliquis. She states that the chest pain has been going on for several weeks, but got worse today. She states it self resolved. She is pain free on my evaluation. She states that she was recently discharged from [facility]. This she endorses shortness of breath. She denies any current chest pain. She states she has some swelling of her legs. She denies any shortness of breath. She denies any dizziness or lightheadedness. Related Data Home Medications Medication Instructions Recorded Confirmed acetaminophen 650 mg PO Q6H PRN 12/25/18 12/25/18 albuterol sulfate 2 inh INHALATION Q4H PRN 12/25/18 12/25/18 apixaban [Eliquis] 5 mg PO BID 12/25/18 12/25/18 benzocaine 1 applic MUCOUS MEMBRANE Q6H PRN 12/25/18 12/25/18 dextromethorphan-guaifenesin 10 ml PO Q4H PRN 12/25/18 12/25/18 [Robitussin Cough-Chest Sandro DM] duloxetine 60 mg PO DAILY 12/25/18 12/25/18 gabapentin 100 mg PO BID 12/25/18 12/25/18 hydroxyzine HCl 25 mg PO Q8H PRN 12/25/18 12/25/18 menthol [Aspercreme Max] 1 applic TOPICAL BID 12/25/18 12/25/18 metoprolol succinate 50 mg PO BID 12/25/18 12/25/18 nystatin 1 applic TOPICAL Q12H PRN 12/25/18 12/25/18 olopatadine [Pataday] 1 drp EYE-BOTH PRN PRN 12/25/18 12/25/18 omeprazole 40 mg PO QAM 12/25/18 12/25/18 omeprazole 40 mg PO [id number] 12/25/18 12/25/18 oxycodone 2.5 mg PO Q6H PRN 12/25/18 12/25/18 oxycodone 5 mg PO Q6H PRN 12/25/18 12/25/18 ropinirole 0.25 mg PO BEDTIME 12/25/18 12/25/18 sodium chloride [[place] Nasal] 1 spray INTRANASAL TID 12/25/18 12/25/18 torsemide 20 mg PO Q OTHER DAY 12/25/18 12/25/18 Allergies Allergy/AdvReac Type Severity Reaction Status Date / Time acetaminophen [From Tylenol] Allergy Verified 09/09/18 22:36 adhesive tape Allergy Verified 09/09/18 22:36 basil Allergy Verified 09/09/18 22:36 cephalexin [From Keflex] Allergy Verified 09/09/18 22:36 marlena Allergy Verified 09/09/18 22:36 Penicillins Allergy Verified 09/09/18 22:36 Review of Systems <EZIO Stein - Last Filed: 12/25/18 21:52> Review of Systems GENERAL: Denies chills, fatigue, malaise, fever, sweats. HEENT: Denies sinus pain, ear pain, sore throat, difficulty swallowing, dizziness. RESPIRATORY: See HPI CARDIOVASCULAR: See HPI GASTROINTESTINAL: Denies nausea, vomiting, abdominal pain, diarrhea, constipation, melena. : Denies dysuria, frequency, incontinence, hematuria, urinary retention. MUSCULOSKELETAL: denies weakness, joint pain, or bony pain SKIN: Denies rash, skin lesions, or other NEUROLOGIC: Denies weakness, headache, numbness, change in speech, confusion, seizures, incoordination. PSYCHIATRIC: No concerning psychosocial issues. 12 point review of systems is negative except for those stated above PFSH <EZIO Stein - Last Filed: 12/25/18 21:52> Medical History Chronic kidney disease (Acute) Cor pulmonale (Acute) Depression (Acute) Diastolic heart failure (Acute) Hyperlipidemia (Acute) Iron (Fe) deficiency anemia (Acute) Osteoarthritis (Acute) Polyneuropathy (Acute) Pulmonary embolism (Acute) Crow's granulomatosis (Acute) Social History Smoking Status: Unknown if ever smoked Social History Smoking Status: Unknown if ever smoked Exam <EZIO Stein - Last Filed: 12/25/18 21:52> Narrative Exam Narrative: GENERAL: Chronically ill female lying on stretcher HEAD: Atraumatic. Normocephalic. No temporal or scalp tenderness. EYES: Pupils equal round and reactive. Extraocular motions intact. No scleral icterus. No injection or drainage. ENT: Nose without bleeding, purulent drainage or septal hematoma. Throat without erythema, tonsillar hypertrophy or exudate. Uvula midline. Airway patent. NECK: Trachea midline. No JVD or lymphadenopathy. Supple, nontender, no meningeal signs. CARDIOVASCULAR: Regular rate with irregular rhythm and holosystolic murmur RESPIRATORY: Decreased bilaterally to auscultation. Breath sounds equal bilaterally. No wheezes, rales, or rhonchi. No accessory muscle use. No retractions. No stridor. No cough. GASTROINTESTINAL: Abdomen soft, non-tender, nondistended. No hepato-splenomegaly, or palpable masses. No guarding. Active bowel sounds all 4 quadrants. EXTREMITIES: +1 edema noted bilateral lower extremities BACK: Nontender without deformity or crepitance. No flank tenderness. NEURO: AOx3. Initial Vital Signs Initial Vital Signs: Vital Signs Temperature 98.4 F 12/25/18 15:07 Pulse Rate 82 12/25/18 15:07 Respiratory Rate 14 12/25/18 15:07 Blood Pressure 123/97 H 12/25/18 15:07 Pulse Oximetry 100 12/25/18 15:07 <Beto Ndiaye MD - Last Filed: 12/26/18 06:25> Initial Vital Signs Initial Vital Signs: Vital Signs Temperature 98.4 F 12/25/18 15:07 Pulse Rate 82 12/25/18 15:07 Respiratory Rate 14 12/25/18 15:07 Blood Pressure 123/97 H 12/25/18 15:07 Pulse Oximetry 100 12/25/18 15:07 Course <EZIO Stein - Last Filed: 12/25/18 21:52> Orders Ordered: Discontinued Medications Furosemide (Lasix) 40 mg IV NOW ONE Stop: 12/25/18 16:49 Last Admin: 12/25/18 17:03 Dose: 40 mg Vital Signs - 8 hr 12/26/18 00:02 12/26/18 00:58 Temperature 97.5 F L Pulse Rate 80 95 H Respiratory Rate 19 19 Blood Pressure [Right Arm] 127/87 115/79 Pulse Oximetry 92 94 <Beto Ndiaye MD - Last Filed: 12/26/18 06:25> Orders Ordered: Discontinued Medications Furosemide (Lasix) 40 mg IV NOW ONE Stop: 12/25/18 16:49 Last Admin: 12/25/18 17:03 Dose: 40 mg Vital Signs - 8 hr 12/26/18 00:02 12/26/18 00:58 Temperature 97.5 F L Pulse Rate 80 95 H Respiratory Rate 19 19 Blood Pressure [Right Arm] 127/87 115/79 Pulse Oximetry 92 94 MDM - Chest Pain <EZIO Stein - Last Filed: 12/25/18 21:52> Lab Data Result diagrams: 12/25/18 16:01 12/25/18 19:57 Lab Results 12/25/18 12/25/18 12/25/18 Range/Units 16:01 16:01 16:01 WBC 6.0 (4.5-11.0) X10^3/uL RBC 3.34 L (4.0-5.2) X10^6/uL Hgb 10.8 L (12.0-16.0) g/dL Hct 33.4 L (36-46) % MCV 100.0 (80-100) fL MCH 32.3 (26-34) PG MCHC 32.3 (30-36) % RDW 15.9 H (11.6-14.8) % Plt Count 241 (150-400) X10^3/uL Neut % (Auto) 64.1 (50-75) % Lymph % (Auto) 19.1 L (25-40) % Mcdonough % (Auto) 11.8 (3-14) % Eos % (Auto) 4.1 H (2-4) % Baso % (Auto) 0.9 (0-2) % Neut # (Auto) 3800 (9101-6638) /uL Lymph # (Auto) 1100 (4553-2196) /uL Mcdonough # (Auto) 700 (0-900) /uL Eos # (Auto) 200 (0-450) /uL Baso # (Auto) 100 (0-100) /uL PT 16.3 H (10.1-12.7) SECONDS INR 1.4 H (0.9-1.3) APTT 35 D (26.4-36.2) SECONDS Sodium 142 (137-145) mmol/L Potassium 5.7 H (3.4-5.1) mmol/L Chloride 109 H (98-107) mmol/L Carbon Dioxide 23 (22-32) mmol/L BUN 61 H (7-17) mg/dL Creatinine 2.00 H (0.52-1.04) mg/dL Estimated GFR 24.7 L (>60) mL/min BUN/Creatinine Ratio 30.5 H (6-22) Glucose 85 (80-110) mg/dL Calcium 8.7 (8.4-10.2) mg/dL Total Bilirubin 0.6 (0.2-1.3) mg/dL AST 18 (14-36) IU/L ALT 9 (9-52) IU/L Alkaline Phosphatase 137 H (38-126) U/L Total Creatine Kinase < 20 L (30-135) U/L CK-MB (CK-2) TNP CK-MB (CK-2) Rel Index TNP Troponin I < 0.012 (0.01-0.034) ng/mL B-Natriuretic Peptide (<100) Total Protein 8.1 (6.3-8.2) g/dL Albumin 3.8 (3.5-5.0) g/dL Globulin 4.3 H (1.7-4.1) g/dL Albumin/Globulin Ratio 0.9 L (1.0-2.8) Lipase 78 (23-300) U/L Procalcitonin (<0.5) ng/mL 12/25/18 12/25/18 12/25/18 Range/Units 16:01 16:01 19:57 WBC (4.5-11.0) X10^3/uL RBC (4.0-5.2) X10^6/uL Hgb (12.0-16.0) g/dL Hct (36-46) % MCV (80-100) fL MCH (26-34) PG MCHC (30-36) % RDW (11.6-14.8) % Plt Count (150-400) X10^3/uL Neut % (Auto) (50-75) % Lymph % (Auto) (25-40) % Mcdonough % (Auto) (3-14) % Eos % (Auto) (2-4) % Baso % (Auto) (0-2) % Neut # (Auto) (7613-3139) /uL Lymph # (Auto) (1157-4645) /uL Mcdonough # (Auto) (0-900) /uL Eos # (Auto) (0-450) /uL Baso # (Auto) (0-100) /uL PT (10.1-12.7) SECONDS INR (0.9-1.3) APTT (26.4-36.2) SECONDS Sodium 141 (137-145) mmol/L Potassium 5.7 H (3.4-5.1) mmol/L Chloride 111 H (98-107) mmol/L Carbon Dioxide 21 L (22-32) mmol/L BUN 63 H (7-17) mg/dL Creatinine 1.90 H (0.52-1.04) mg/dL Estimated GFR 26.2 L (>60) mL/min BUN/Creatinine Ratio 33.2 H (6-22) Glucose 79 L (80-110) mg/dL Calcium 8.5 (8.4-10.2) mg/dL Total Bilirubin (0.2-1.3) mg/dL AST (14-36) IU/L ALT (9-52) IU/L Alkaline Phosphatase (38-126) U/L Total Creatine Kinase < 20 L (30-135) U/L CK-MB (CK-2) TNP CK-MB (CK-2) Rel Index TNP Troponin I < 0.012 (0.01-0.034) ng/mL B-Natriuretic Peptide 1040 H (<100) Total Protein (6.3-8.2) g/dL Albumin (3.5-5.0) g/dL Globulin (1.7-4.1) g/dL Albumin/Globulin Ratio (1.0-2.8) Lipase (23-300) U/L Procalcitonin < 0.05 (<0.5) ng/mL Imaging Data Chest x-ray: Radiologist's impression: [address] [address] XRay Report Signed Patient: Edi Shore#: [id number] : 1950Acct:[id number] Age/Sex: 68 / FDate of Service: 12/25/18 Loc: ED Accession Number: [id number] Procedure: XR chest 1V Ordering Provider: Ani Anderson D.O. PROCEDURE: XR CHEST 1V INDICATIONS: chest pain TECHNIQUE: One view of the chest was acquired. COMPARISON: [facility], , XR CHEST 2V, 11/27/2018, 10:05. FINDINGS: Surgical changes and devices: None. Lungs and pleura: Lungs are clear. No pleural effusions or pneumothorax. Mediastinum: Mediastinal contours appear normal. Heart size is markedly enlarged. Bones and chest wall: No suspicious bony lesions. Overlying soft tissues appear unremarkable. IMPRESSION: Marked cardiomegaly. No acute pulmonary pathology. Dictated by: Ron Ambrose M.D. on 12/25/2018 at 15:36 Approved by: Ron Ambrose M.D. on 12/25/2018 at 15:45 ECG Data Attestation: I personally reviewed and interpreted this ECG as follows: Interpretation: Atrial fibrillation. Ventricular rate 77. No ST elevation or depression noted. No ectopy. Veiwed by Dr Justin OLIVEIRA Narrative Medical decision making narrative: The patient is a 68-year-old female who presents with a chief complaint of chest pain. She has 2-troponins. However her BNP is very elevated at 10 40. She is not hypoxic on exam. Her potassium is 5.7 her creatinine is 2. I spoke with the hospitalist at this facility, Dr. Flores who states that we do not have availability to have a stress test at this facility. I contacted [facility] in [place] as the patient has been at this facility recently. However they have no beds. I attempted for several hours to get a hold of [facility], and spoke with Dr. Plaza who kindly accepted the patient for transfer. She was given Lasix in the emergency department given her elevated BNP. She is without respiratory distress in the ER and states understanding of her admission. She has no questions or concerns. She has denied chest pain throughout her stay in the ER. Patient signed out to Dr. Ndiaye at 10:00 p.m. with a bed and transportation arranged. <Beto Ndiaye MD - Last Filed: 12/26/18 06:25> Lab Data Lab Results 12/25/18 12/25/18 12/25/18 Range/Units 16:01 16:01 16:01 WBC 6.0 (4.5-11.0) X10^3/uL RBC 3.34 L (4.0-5.2) X10^6/uL Hgb 10.8 L (12.0-16.0) g/dL Hct 33.4 L (36-46) % MCV 100.0 (80-100) fL MCH 32.3 (26-34) PG MCHC 32.3 (30-36) % RDW 15.9 H (11.6-14.8) % Plt Count 241 (150-400) X10^3/uL Neut % (Auto) 64.1 (50-75) % Lymph % (Auto) 19.1 L (25-40) % Mcdonough % (Auto) 11.8 (3-14) % Eos % (Auto) 4.1 H (2-4) % Baso % (Auto) 0.9 (0-2) % Neut # (Auto) 3800 (6915-1926) /uL Lymph # (Auto) 1100 (5003-6009) /uL Mcdonough # (Auto) 700 (0-900) /uL Eos # (Auto) 200 (0-450) /uL Baso # (Auto) 100 (0-100) /uL PT 16.3 H (10.1-12.7) SECONDS INR 1.4 H (0.9-1.3) APTT 35 D (26.4-36.2) SECONDS Sodium 142 (137-145) mmol/L Potassium 5.7 H (3.4-5.1) mmol/L Chloride 109 H (98-107) mmol/L Carbon Dioxide 23 (22-32) mmol/L BUN 61 H (7-17) mg/dL Creatinine 2.00 H (0.52-1.04) mg/dL Estimated GFR 24.7 L (>60) mL/min BUN/Creatinine Ratio 30.5 H (6-22) Glucose 85 (80-110) mg/dL Calcium 8.7 (8.4-10.2) mg/dL Total Bilirubin 0.6 (0.2-1.3) mg/dL AST 18 (14-36) IU/L ALT 9 (9-52) IU/L Alkaline Phosphatase 137 H (38-126) U/L Total Creatine Kinase < 20 L (30-135) U/L CK-MB (CK-2) TNP CK-MB (CK-2) Rel Index TNP Troponin I < 0.012 (0.01-0.034) ng/mL B-Natriuretic Peptide (<100) Total Protein 8.1 (6.3-8.2) g/dL Albumin 3.8 (3.5-5.0) g/dL Globulin 4.3 H (1.7-4.1) g/dL Albumin/Globulin Ratio 0.9 L (1.0-2.8) Lipase 78 (23-300) U/L Procalcitonin (<0.5) ng/mL 12/25/18 12/25/18 12/25/18 Range/Units 16:01 16:01 19:57 WBC (4.5-11.0) X10^3/uL RBC (4.0-5.2) X10^6/uL Hgb (12.0-16.0) g/dL Hct (36-46) % MCV (80-100) fL MCH (26-34) PG MCHC (30-36) % RDW (11.6-14.8) % Plt Count (150-400) X10^3/uL Neut % (Auto) (50-75) % Lymph % (Auto) (25-40) % Mcdonough % (Auto) (3-14) % Eos % (Auto) (2-4) % Baso % (Auto) (0-2) % Neut # (Auto) (7277-9984) /uL Lymph # (Auto) (3216-3114) /uL Mcdonough # (Auto) (0-900) /uL Eos # (Auto) (0-450) /uL Baso # (Auto) (0-100) /uL PT (10.1-12.7) SECONDS INR (0.9-1.3) APTT (26.4-36.2) SECONDS Sodium 141 (137-145) mmol/L Potassium 5.7 H (3.4-5.1) mmol/L Chloride 111 H (98-107) mmol/L Carbon Dioxide 21 L (22-32) mmol/L BUN 63 H (7-17) mg/dL Creatinine 1.90 H (0.52-1.04) mg/dL Estimated GFR 26.2 L (>60) mL/min BUN/Creatinine Ratio 33.2 H (6-22) Glucose 79 L (80-110) mg/dL Calcium 8.5 (8.4-10.2) mg/dL Total Bilirubin (0.2-1.3) mg/dL AST (14-36) IU/L ALT (9-52) IU/L Alkaline Phosphatase (38-126) U/L Total Creatine Kinase < 20 L (30-135) U/L CK-MB (CK-2) TNP CK-MB (CK-2) Rel Index TNP Troponin I < 0.012 (0.01-0.034) ng/mL B-Natriuretic Peptide 1040 H (<100) Total Protein (6.3-8.2) g/dL Albumin (3.5-5.0) g/dL Globulin (1.7-4.1) g/dL Albumin/Globulin Ratio (1.0-2.8) Lipase (23-300) U/L Procalcitonin < 0.05 (<0.5) ng/mL Discharge Plan Departure Patient Disposition: [facility] Clinical Impression: Chest pain Qualifiers: Chest pain type: unspecified Qualified Code(s): R07.9 - Chest pain, unspecified CHF (congestive heart failure) Qualifiers: Heart failure type: unspecified Heart failure chronicity: acute on chronic Qualified Code(s): I50.9 - Heart failure, unspecified Discharge Date/Time: 12/26/18 01:37 Interventions: ED Discharge Assessment Last Done: 12/26/18 01:36 Prescriptions: No Action acetaminophen 325 mg Tablet 650 mg PO Q6H PRN (Reason: Fever Or Pain) RF: 0 torsemide 20 mg tablet 20 mg PO Q OTHER DAY RF: 0 metoprolol succinate 50 mg tablet extended release 24 hr 50 mg PO BID RF: 0 omeprazole 40 mg capsule,delayed release(DR/EC) 40 mg PO [id number] RF: 0 omeprazole 40 mg capsule,delayed release(DR/EC) 40 mg PO QAM RF: 0 ropinirole 0.25 mg tablet 0.25 mg PO BEDTIME RF: 0 hydroxyzine HCl 25 mg tablet 25 mg PO Q8H PRN (Reason: Itching) RF: 0 gabapentin 100 mg capsule 100 mg PO BID RF: 0 nystatin 100,000 unit/gram powder 1 applic topical Q12H PRN (Reason: yeast) RF: 0 Robitussin Cough-Chest Sandro DM 5-100 mg/5 mL Liquid 10 ml PO Q4H PRN (Reason: Cough) RF: 0 benzocaine 20 % Gel 1 applic MUCOUS MEMBRANE Q6H PRN (Reason: canker sore) RF: 0 oxycodone 5 mg tablet 2.5 mg PO Q6H PRN (Reason: pain) RF: 0 oxycodone 5 mg tablet 5 mg PO Q6H PRN (Reason: pain) RF: 0 sodium chloride [[place] Nasal] 0.65 % Aerosol,[place] 1 spray intranasal TID RF: 0 duloxetine 60 mg capsule,delayed release(DR/EC) 60 mg PO DAILY RF: 0 olopatadine [Pataday] 0.2 % Drops 1 drp EYE-BOTH PRN PRN (Reason: allergic conjunctivitis) RF: 0 Aspercreme Max 16 % Liquid 1 applic topical BID RF: 0 Eliquis 5 mg tablet 5 mg PO BID RF: 0 albuterol sulfate 90 mcg/actuation Aerosol Powdr Breath Activated 2 inh INHALATION Q4H PRN (Reason: Cough) RF: 0 Referrals: Bri Vargas MD [Primary Care Provider] - <Beto Ndiaye MD - Last Filed: 12/26/18 06:25> [facility] I was present in the ER at the time this patient's care. I was available for consultation or to see the patient directly if needed. I agree with evaluation, the assessment and treatment plan.
[2018-12-25] MEDS: FUROSEMIDE 40 MG/4 ML VIAL IV (17:03)
--- NOTE | 2018-12-25 17:22 | ED_ITS ---
HPI - Chest Pain <MISTY Stein-BC - Last Filed: 12/25/18 21:52> General Chief Complaint: Chest Pain Stated Complaint: CP Time Seen by Provider: 12/25/18 16:09 Source: patient Mode of arrival: ambulatory Limitations: no limitations History of Present Illness HPI narrative: 68-year-old female never smoker who presents by EMS for a chief complaint of chest pain. She states this has been going on for several weeks, and she had an endoscope a few days ago in order to evaluated. She has an extensive medical history including CHF, AFib, pulmonary embolism and chronic kidney disease. She takes Eliquis. She states that the chest pain has been going on for several weeks, but got worse today. She states it self resolved. She is pain free on my evaluation. She states that she was recently discharged from [facility]. This she endorses shortness of dimple ath. She denies any current chest pain. She states she has some swelling of her legs. She denies any shortness of breath. She denies any dizziness or lightheadedness. Related Data Home Medications Medication Instructions Recorded Confirmed acetaminophen 650 mg PO Q6H PRN 12/25/18 12/25/18 albuterol sulfate 2 inh INHALATION Q4H PRN 12/25/18 12/25/18 apixaban [Eliquis] 5 mg PO BID 12/25/18 12/25/18 benzocaine 1 applic MUCOUS MEMBRANE Q6H PRN 12/25/18 12/25/18 dextromethorphan-guaifenesin 10 ml PO Q4H PRN 12/25/18 12/25/18 [Robitussin Cough-Chest Sandro DM] duloxetine 60 mg PO DAILY 12/25/18 12/25/18 gabapentin 100 mg PO BID 12/25/18 12/25/18 hydroxyzine HCl 25 mg PO Q8H PRN 12/25/18 12/25/18 menthol [Aspercreme Max] 1 applic TOPICAL BID 12/25/18 12/25/18 metoprolol succinate 50 mg PO BID 12/25/18 12/25/18 nystatin 1 applic TOPICAL Q12H PRN 12/25/18 12/25/18 olopatadine [Pataday] 1 drp EYE-BOTH PRN PRN 12/25/18 12/25/18 omeprazole 40 mg PO QAM 12/25/18 12/25/18 omeprazole 40 mg PO [id number] 12/25/18 12/25/18 oxycodone 2.5 mg PO Q6H PRN 12/25/18 12/25/18 oxycodone 5 mg PO Q6H PRN 12/25/18 12/25/18 ropinirole 0.25 mg PO BEDTIME 12/25/18 12/25/18 sodium chloride [[place] Nasal] 1 spray INTRANASAL TID 12/25/18 12/25/18 torsemide 20 mg PO Q OTHER DAY 12/25/18 12/25/18 Allergies Allergy/AdvReac Type Severity Reaction Status Date / Time acetaminophen [From Tylenol] Allergy Verified 09/09/18 22:36 adhesive tape Allergy Verified 09/09/18 22:36 basil Allergy Verified 09/09/18 22:36 cephalexin [From Keflex] Allergy Verified 09/09/18 22:36 marlena Allergy Verified 09/09/18 22:36 Penicillins Allergy Verified 09/09/18 22:36 Review of Systems <EZIO Stein - Last Filed: 12/25/18 21:52> Review of Systems GENERAL: Denies chills, fatigue, malaise, fever, sweats. HEENT: Denies sinus pain, ear pain, sore throat, difficulty swallowing, dizziness. RESPIRATORY: See HPI CARDIOVASCULAR: See HPI GASTROINTESTINAL: Denies nausea, vomiting, abdominal pain, diarrhea, constipation, melena. : Denies dysuria, frequency, incontinence, hematuria, urinary retention. MUSCULOSKELETAL: denies weakness, joint pain, or bony pain SKIN: Denies rash, skin lesions, or other NEUROLOGIC: Denies weakness, headache, numbness, change in speech, confusion, seizures, incoordination. PSYCHIATRIC: No concerning psychosocial issues. 12 point review of systems is negative except for those stated above PFSH <EZIO Stein - Last Filed: 12/25/18 21:52> Medical History Chronic kidney disease (Acute) Cor pulmonale (Acute) Depression (Acute) Diastolic heart failure (Acute) Hyperlipidemia (Acute) Iron (Fe) deficiency anemia (Acute) Osteoarthritis (Acute) Polyneuropathy (Acute) Pulmonary embolism (Acute) Crow's granulomatosis (Acute) Social History Smoking Status: Unknown if ever smoked Social History Smoking Status: Unknown if ever smoked Exam <EZIO Stein - Last Filed: 12/25/18 21:52> Narrative Exam Narrative: GENERAL: Chronically ill female lying on stretcher HEAD: Atraumatic. Normocephalic. No temporal or scalp tenderness. EYES: Pupils equal round and reactive. Extraocular motions intact. No scleral icterus. No injection or drainage. ENT: Nose without bleeding, purulent drainage or septal hematoma. Throat without erythema, tonsillar hypertrophy or exudate. Uvula midline. Airway patent. NECK: Trachea midline. No JVD or lymphadenopathy. Supple, nontender, no meningeal signs. CARDIOVASCULAR: Regular rate with irregular rhythm and holosystolic murmur RESPIRATORY: Decreased bilaterally to auscultation. Breath sounds equal bilaterally. No wheezes, rales, or rhonchi. No accessory muscle use. No retractions. No stridor. No cough. GASTROINTESTINAL: Abdomen soft, non-tender, nondistended. No hepato- splenomegaly, or palpable masses. No guarding. Active bowel sounds all 4 quadrants. EXTREMITIES: +1 edema noted bilateral lower extremities BACK: Nontender without deformity or crepitance. No flank tenderness. NEURO: AOx3. Initial Vital Signs Initial Vital Signs: Vital Signs Temperature 98.4 F 12/25/18 15:07 Pulse Rate 82 12/25/18 15:07 Respiratory Rate 14 12/25/18 15:07 Blood Pressure 123/97 H 12/25/18 15:07 Pulse Oximetry 100 12/25/18 15:07 <Beto Ndiaye MD - Last Filed: 12/26/18 06:25> Initial Vital Signs Initial Vital Signs: Vital Signs Temperature 98.4 F 12/25/18 15:07 Pulse Rate 82 12/25/18 15:07 Respiratory Rate 14 12/25/18 15:07 Blood Pressure 123/97 H 12/25/18 15:07 Pulse Oximetry 100 12/25/18 15:07 Course <MISTY Stein-BC - Last Filed: 12/25/18 21:52> Orders Ordered: Discontinued Medications Furosemide (Lasix) 40 mg IV NOW ONE Stop: 12/25/18 16:49 Last Admin: 12/25/18 17:03 Dose: 40 mg Vital Signs - 8 hr 12/26/18 00:02 12/26/18 00:58 Temperature 97.5 F L Pulse Rate 80 95 H Respiratory Rate 19 19 Blood Pressure [Right Arm] 127/87 115/79 Pulse Oximetry 92 94 <Beto Ndiaye MD - Last Filed: 12/26/18 06:25> Orders Ordered: Discontinued Medications Furosemide (Lasix) 40 mg IV NOW ONE Stop: 12/25/18 16:49 Last Admin: 12/25/18 17:03 Dose: 40 mg Vital Signs - 8 hr 12/26/18 00:02 12/26/18 00:58 Temperature 97.5 F L Pulse Rate 80 95 H Respiratory Rate 19 19 Blood Pressure [Right Arm] 127/87 115/79 Pulse Oximetry 92 94 MDM - Chest Pain <EZIO Stein - Last Filed: 12/25/18 21:52> Lab Data Result diagrams: 12/25/18 16:01 12/25/18 19:57 Lab Results 12/25/18 12/25/18 12/25/18 Range/Units 16:01 16:01 16:01 WBC 6.0 (4.5-11.0) X10^3/uL RBC 3.34 L (4.0-5.2) X10^6/uL Hgb 10.8 L (12.0-16.0) g/dL Hct 33.4 L (36-46) % MCV 100.0 (80-100) fL MCH 32.3 (26-34) PG MCHC 32.3 (30-36) % RDW 15.9 H (11.6-14.8) % Plt Count 241 (150-400) X10^3/uL Neut % (Auto) 64.1 (50-75) % Lymph % (Auto) 19.1 L (25-40) % [place] % (Auto) 11.8 (3-14) % Eos % (Auto) 4.1 H (2-4) % Baso % (Auto) 0.9 (0-2) % Neut # (Auto) 3800 (4318-0269) /uL Lymph # (Auto) 1100 (5377-9329) /uL [place] # (Auto) 700 (0-900) /uL Eos # (Auto) 200 (0-450) /uL Baso # (Auto) 100 (0-100) /uL PT 16.3 H (10.1-12.7) SECONDS INR 1.4 H (0.9-1.3) APTT 35 D (26.4-36.2) SECONDS Sodium 142 (137-145) mmol/L Potassium 5.7 H (3.4-5.1) mmol/L Chloride 109 H (98-107) mmol/L Carbon Dioxide 23 (22-32) mmol/L BUN 61 H (7-17) mg/dL Creatinine 2.00 H (0.52-1.04) mg/dL Estimated GFR 24.7 L (>60) mL/min BUN/Creatinine Ratio 30.5 H (6-22) Glucose 85 (80-110) mg/dL Calcium 8.7 (8.4-10.2) mg/dL Total Bilirubin 0.6 (0.2-1.3) mg/dL AST 18 (14-36) IU/L ALT 9 (9-52) IU/L Alkaline Phosphatase 137 H (38-126) U/L Total Creatine Kinase < 20 L (30-135) U/L CK-MB (CK-2) TNP CK-MB (CK-2) Rel Index TNP Troponin I < 0.012 (0.01-0.034) ng/mL B-Natriuretic Peptide (<100) Total Protein 8.1 (6.3-8.2) g/dL Albumin 3.8 (3.5-5.0) g/dL Globulin 4.3 H (1.7-4.1) g/dL Albumin/Globulin Ratio 0.9 L (1.0-2.8) Lipase 78 (23-300) U/L Procalcitonin (<0.5) ng/mL 12/25/18 12/25/18 12/25/18 Range/Units 16:01 16:01 19:57 WBC (4.5-11.0) X10^3/uL RBC (4.0-5.2) X10^6/uL Hgb (12.0-16.0) g/dL Hct (36-46) % MCV (80-100) fL MCH (26-34) PG MCHC (30-36) % RDW (11.6-14.8) % Plt Count (150-400) X10^3/uL Neut % (Auto) (50-75) % Lymph % (Auto) (25-40) % [place] % (Auto) (3-14) % Eos % (Auto) (2-4) % Baso % (Auto) (0-2) % Neut # (Auto) (7410-2978) /uL Lymph # (Auto) (9010-9110) /uL [place] # (Auto) (0-900) /uL Eos # (Auto) (0-450) /uL Baso # (Auto) (0-100) /uL PT (10.1-12.7) SECONDS INR (0.9-1.3) APTT (26.4-36.2) SECONDS Sodium 141 (137-145) mmol/L Potassium 5.7 H (3.4-5.1) mmol/L Chloride 111 H (98-107) mmol/L Carbon Dioxide 21 L (22-32) mmol/L BUN 63 H (7-17) mg/dL Creatinine 1.90 H (0.52-1.04) mg/dL Estimated GFR 26.2 L (>60) mL/min BUN/Creatinine Ratio 33.2 H (6-22) Glucose 79 L (80-110) mg/dL Calcium 8.5 (8.4-10.2) mg/dL Total Bilirubin (0.2-1.3) mg/dL AST (14-36) IU/L ALT (9-52) IU/L Alkaline Phosphatase (38-126) U/L Total Creatine Kinase < 20 L (30-135) U/L CK-MB (CK-2) TNP CK-MB (CK-2) Rel Index TNP Troponin I < 0.012 (0.01-0.034) ng/mL B-Natriuretic Peptide 1040 H (<100) Total Protein (6.3-8.2) g/dL Albumin (3.5-5.0) g/dL Globulin (1.7-4.1) g/dL Albumin/Globulin Ratio (1.0-2.8) Lipase (23-300) U/L Procalcitonin < 0.05 (<0.5) ng/mL Imaging Data Chest x-ray: Radiologist's impression: [address] [address] XRay Report Signed Patient: Edi Shore#: [id number] : 1950Acct:[id number] Age/Sex: 68 / FDate of Service: 12/25/18 Loc: ED Accession Number: [id number] Procedure: XR chest 1V Ordering Provider: Ani Anderson D.O. PROCEDURE: XR CHEST 1V INDICATIONS: chest pain TECHNIQUE: One view of the chest was acquired. COMPARISON: [facility], , XR CHEST 2V, 11/27/2018, 10:05. FINDINGS: Surgical changes and devices: None. Lungs and pleura: Lungs are clear. No pleural effusions or pneumothorax. Mediastinum: Mediastinal contours appear normal. Heart size is markedly enlarg ed. Bones and chest wall: No suspicious bony lesions. Overlying soft tissues appear unremarkable. IMPRESSION: Marked cardiomegaly. No acute pulmonary pathology. Dictated by: Ron Ambrose M.D. on 12/25/2018 at 15:36 Approved by: Ron Ambrose M.D. on 12/25/2018 at 15:45 ECG Data Attestation: I personally reviewed and interpreted this ECG as follows: Interpretation: Atrial fibrillation. Ventricular rate 77. No ST elevation or depression noted. No ectopy. Veiwed by Dr Anderson [facility] Narrative Medical decision making narrative: The patient is a 68-year-old female who presents with a chief complaint of chest pain. She has 2-troponins. However her BNP is very elevated at 10 40. She is not hypoxic on exam. Her potassium is 5.7 her creatinine is 2. I spoke with the hospitalist at this facility, Dr. Flores who states that we do not have availability to have a stress test at this facility. I contacted [facility] in [place] as the patient has been at this facility recently. However they have no beds. I attempted for several hours to get a hold of [facility], and spoke with Dr. Plaza who kindly accepted the patient for transfer. She was given Lasix in the emergency department given her elevated BNP. She is without respiratory distress in the ER and states understanding of her admission. She has no questions or concerns. She has denied chest pain throughout her stay in the ER. Patient signed out to Dr. Ndiaye at 10:00 p.m. with a bed and transportation arranged. <Beto Ndiaye MD - Last Filed: 12/26/18 06:25> Lab Data Lab Results 12/25/18 12/25/18 12/25/18 Range/Units 16:01 16:01 16:01 WBC 6.0 (4.5-11.0) X10^3/uL RBC 3.34 L (4.0-5.2) X10^6/uL Hgb 10.8 L (12.0-16.0) g/dL Hct 33.4 L (36-46) % MCV 100.0 (80-100) fL MCH 32.3 (26-34) PG MCHC 32.3 (30-36) % RDW 15.9 H (11.6-14.8) % Plt Count 241 (150-400) X10^3/uL Neut % (Auto) 64.1 (50-75) % Lymph % (Auto) 19.1 L (25-40) % [place]ip[place] % (Auto) 11.8 (3-14) % Eos % (Auto) 4.1 H (2-4) % Baso % (Auto) 0.9 (0-2) % Neut # (Auto) 3800 (7405-1582) /uL Lymph # (Auto) 1100 (4548-2218) /uL [place]ip[place] # (Auto) 700 (0-900) /uL Eos # (Auto) 200 (0-450) /uL Baso # (Auto) 100 (0-100) /uL PT 16.3 H (10.1-12.7) SECONDS INR 1.4 H (0.9-1.3) APTT 35 D (26.4-36.2) SECONDS Sodium 142 (137-145) mmol/L Potassium 5.7 H (3.4-5.1) mmol/L Chloride 109 H (98-107) mmol/L Carbon Dioxide 23 (22-32) mmol/L BUN 61 H (7-17) mg/dL Creatinine 2.00 H (0.52-1.04) mg/dL Estimated GFR 24.7 L (>60) mL/min BUN/Creatinine Ratio 30.5 H (6-22) Glucose 85 (80-110) mg/dL Calcium 8.7 (8.4-10.2) mg/dL Total Bilirubin 0.6 (0.2-1.3) mg/dL AST 18 (14-36) IU/L ALT 9 (9-52) IU/L Alkaline Phosphatase 137 H (38-126) U/L Total Creatine Kinase < 20 L (30-135) U/L CK-MB (CK-2) TNP CK-MB (CK-2) Rel Index TNP Troponin I < 0.012 (0.01-0.034) ng/mL B-Natriuretic Peptide (<100) Total Protein 8.1 (6.3-8.2) g/dL Albumin 3.8 (3.5-5.0) g/dL Globulin 4.3 H (1.7-4.1) g/dL Albumin/Globulin Ratio 0.9 L (1.0-2.8) Lipase 78 (23-300) U/L Procalcitonin (<0.5) ng/mL 12/25/18 12/25/18 12/25/18 Range/Units 16:01 16:01 19:57 WBC (4.5-11.0) X10^3/uL RBC (4.0-5.2) X10^6/uL Hgb (12.0-16.0) g/dL Hct (36-46) % MCV (80-100) fL MCH (26-34) PG MCHC (30-36) % RDW (11.6-14.8) % Plt Count (150-400) X10^3/uL Neut % (Auto) (50-75) % Lymph % (Auto) (25-40) % [place] % (Auto) (3-14) % Eos % (Auto) (2-4) % Baso % (Auto) (0-2) % Neut # (Auto) (3960-7382) /uL Lymph # (Auto) (1276-2341) /uL [place] # (Auto) (0-900) /uL Eos # (Auto) (0-450) /uL Baso # (Auto) (0-100) /uL PT (10.1-12.7) SECONDS INR (0.9-1.3) APTT (26.4-36.2) SECONDS Sodium 141 (137-145) mmol/L Potassium 5.7 H (3.4-5.1) mmol/L Chloride 111 H (98-107) mmol/L Carbon Dioxide 21 L (22-32) mmol/L BUN 63 H (7-17) mg/dL Creatinine 1.90 H (0.52-1.04) mg/dL Estimated GFR 26.2 L (>60) mL/min BUN/Creatinine Ratio 33.2 H (6-22) Glucose 79 L (80-110) mg/dL Calcium 8.5 (8.4-10.2) mg/dL Total Bilirubin (0.2-1.3) mg/dL AST (14-36) IU/L ALT (9-52) IU/L Alkaline Phosphatase (38-126) U/L Total Creatine Kinase < 20 L (30-135) U/L CK-MB (CK-2) TNP CK-MB (CK-2) Rel Index TNP Troponin I < 0.012 (0.01-0.034) ng/mL B-Natriuretic Peptide 1040 H (<100) Total Protein (6.3-8.2) g/dL Albumin (3.5-5.0) g/dL Globulin (1.7-4.1) g/dL Albumin/Globulin Ratio (1.0-2.8) Lipase (23-300) U/L Procalcitonin < 0.05 (<0.5) ng/mL Discharge Plan Departure Patient Disposition: [facility] Clinical Impression: Chest pain Qualifiers: Chest pain type: unspecified Qualified Code(s): R07.9 - Chest pain, unspecified CHF (congestive heart failure) Qualifiers: Heart failure type: unspecified Heart failure chronicity: acute on chronic Qualified Code(s): I50.9 - Heart failure, unspecified Discharge Date/Time: 12/26/18 01:37 Interventions: ED Discharge Assessment Last Done: 12/26/18 01:36 Prescriptions: No Action acetaminophen 325 mg Tablet 650 mg PO Q6H PRN (Reason: Fever Or Pain) RF: 0 torsemide 20 mg tablet 20 mg PO Q OTHER DAY RF: 0 metoprolol succinate 50 mg tablet extended release 24 hr 50 mg PO BID RF: 0 omeprazole 40 mg capsule,delayed release(DR/EC) 40 mg PO [id number] RF: 0 omeprazole 40 mg capsule,delayed release(DR/EC) 40 mg PO QAM RF: 0 ropinirole 0.25 mg tablet 0.25 mg PO BEDTIME RF: 0 hydroxyzine HCl 25 mg tablet 25 mg PO Q8H PRN (Reason: Itching) RF: 0 gabapentin 100 mg capsule 100 mg PO BID RF: 0 nystatin 100,000 unit/gram powder 1 applic topical Q12H PRN (Reason: yeast) RF: 0 Robitussin Cough-Chest Sandro DM 5-100 mg/5 mL Liquid 10 ml PO Q4H PRN (Reason: Cough) RF: 0 benzocaine 20 % Gel 1 applic MUCOUS MEMBRANE Q6H PRN (Reason: canker sore) RF: 0 oxycodone 5 mg tablet 2.5 mg PO Q6H PRN (Reason: pain) RF: 0 oxycodone 5 mg tablet 5 mg PO Q6H PRN (Reason: pain) RF: 0 sodium chloride [[place] Nasal] 0.65 % Aerosol,[place] 1 spray intranasal TID RF: 0 duloxetine 60 mg capsule,delayed release(DR/EC) 60 mg PO DAILY RF: 0 olopatadine [Pataday] 0.2 % Drops 1 drp EYE-BOTH PRN PRN (Reason: allergic conjunctivitis) RF: 0 Aspercreme Max 16 % Liquid 1 applic topical BID RF: 0 Eliquis 5 mg tablet 5 mg PO BID RF: 0 albuterol sulfate 90 mcg/actuation Aerosol Powdr Breath Activated 2 inh INHALATION Q4H PRN (Reason: Cough) RF: 0 Referrals: Bri Vargas MD [Primary Care Provider] - <Beto Ndiaye MD - Last Filed: 12/26/18 06:25> [facility] I was present in the ER at the time this patient's care. I was available for consultation or to see the patient directly if needed. I agree with evaluation, the assessment and treatment plan.
[2018-12-25 19:04] VITALS: BP 113/74; PULSE 87; RESP 20; O2SAT 97
[2018-12-25 19:55] VITALS: BP 117/67; PULSE 89; RESP 16; TEMP 36.9; O2SAT 100
--- NOTE | 2018-12-25 19:55 | PC.NURSE ---
Update called to BUCK Navarro at [facility]. Pt to be admitted and is still awaiting an admit bed. Pt sleeping at this time. Call light within reach.
[2018-12-25 20:14] LABS: BUN Creatinine Ratio 33.2 (6-22); Blood Urea Nitrogen 63 mg/dL (7-17); Calcium 8.5 mg/dL (8.4-10.2); Carbon Dioxide 21 mmol/L (22-32); Chloride 111 mmol/L (98-107); Creatine Kinase < 20 U/L (30-135); Estimated Glomerular Filt Rate 26.2 mL/min (>60); Glucose 79 mg/dL (80-110); HEMOLYSIS 17 (0-50); Sodium 141 mmol/L (137-145)
[2018-12-25 20:25] LABS: Troponin I < 0.012 ng/mL (0.01-0.034)
[2018-12-25 20:26] LABS: Potassium 5.7 mmol/L (3.4-5.1)
[2018-12-25 21:00] VITALS: BP 115/94; PULSE 88; RESP 18; O2SAT 95
[2018-12-25 21:42] VITALS: BP 118/57; PULSE 88; RESP 20; O2SAT 95
--- NOTE | 2018-12-25 22:52 | PC.NURSE ---
Patient mostly sleeping. Up to BSC with minimal assistance. Patient to be admitted to [facility], awaiting room assignment.
[2018-12-26 00:02] VITALS: BP 127/87; PULSE 80; RESP 19; O2SAT 92
[2018-12-26 00:58] VITALS: BP 115/79; PULSE 95; RESP 19; TEMP 36.4; O2SAT 94
--- NOTE | 2018-12-26 01:37 | PC.NURSE ---
Nurse report to BUCK Mondragon. Pt alert and oriented x4. Pt transferred to [facility] to receive stress test.
== END 2018-12-26 01:37 | disposition short-term general hospital (02) ==
PROVIDERS: Emergency Medicine; Nurse Practitioner Family; Emergency Provider Emergency Medicine; Family Provider Internal Medicine; PCP Internal Medicine
DX: R07.9 Chest pain, unspecified (principal); I50.9 Heart failure, unspecified; L30.9 Dermatitis, unspecified; I87.2 Venous insufficiency (chronic) (peripheral); L97.811 Non-pressure chronic ulcer of other part of right lower leg limited to breakdown of skin; L97.821 Non-pressure chronic ulcer of other part of left lower leg limited to breakdown of skin; M79.661 Pain in right lower leg
CPT/HCPCS: 36415; 71045; 80048; 80053; 82550; 83690; 83880; 84145; 84484; 85025; 85610; 85730; 93005; 96374; 97597; 99285; J1940

== ENCOUNTER → 2019-01-01 07:07 | Outpatient (ROUT) | payer MEDICARE, MEDICAID, SELFPAY ==
[2019-01-01 08:15] LABS: Add Manual Diff / Slide Review NO; Basophils Absolute Auto 0 /uL (0-100); Basophils Percent Auto 0.6 % (0-2); Eosinophils Absolute Auto 300 /uL (0-450); Eosinophils Percent Auto 5.7 % (2-4); Hematocrit 31.6 % (36-46); Hemoglobin 10.6 g/dL (12.0-16.0); Lymphocytes Absolute Auto 700 /uL (1100-4500); Mean Corpuscular HGB Conc 33.6 % (30-36); Mean Corpuscular Hemoglobin 32.4 PG (26-34); Mean Corpuscular Volume 96.4 fL (80-100); Monocytes Absolute Auto 800 /uL (0-900); Monocytes Percent Auto 15.7 % (3-14); Neutrophils Absolute Auto 3500 /uL (1500-7000); Platelet Count 225 X10^3/uL (150-400); Red Blood Cell Count 3.28 X10^6/uL (4.0-5.2); Red Cell Distribution Width 14.9 % (11.6-14.8); White Blood Cell Count 5.4 X10^3/uL (4.5-11.0)
[2019-01-01 08:28] LABS: Blood Urea Nitrogen 82 mg/dL (7-17); Calcium 8.5 mg/dL (8.4-10.2); Carbon Dioxide 25 mmol/L (22-32); Chloride 104 mmol/L (98-107); Estimated Glomerular Filt Rate 24.7 mL/min (>60); Glucose 96 mg/dL (80-110); HEMOLYSIS < 15 (0-50); Potassium 4.7 mmol/L (3.4-5.1); Sodium 140 mmol/L (137-145)
== END ==
PROVIDERS: Family Provider Internal Medicine; PCP Internal Medicine; Visit Provider Nurse Practitioner Family
DX: N18.9 Chronic kidney disease, unspecified (principal); I10 Essential (primary) hypertension
CPT/HCPCS: 36415; 80048; 85025

== ENCOUNTER → 2019-01-03 13:10 | Outpatient (ROUT) | payer MEDICARE, MEDICAID, SELFPAY ==
[2019-01-03 13:18] LABS: Add Manual Diff / Slide Review NO; Basophils Absolute Auto 0 /uL (0-100); Basophils Percent Auto 0.8 % (0-2); Eosinophils Absolute Auto 400 /uL (0-450); Eosinophils Percent Auto 7.7 % (2-4); Hematocrit 33.6 % (36-46); Hemoglobin 11.1 g/dL (12.0-16.0); Lymphocytes Absolute Auto 600 /uL (1100-4500); Lymphocytes Percent Auto 12.3 % (25-40); Mean Corpuscular HGB Conc 33.1 % (30-36); Mean Corpuscular Hemoglobin 32.3 PG (26-34); Mean Corpuscular Volume 97.8 fL (80-100); Monocytes Absolute Auto 500 /uL (0-900); Monocytes Percent Auto 10.9 % (3-14); Neutrophils Absolute Auto 3300 /uL (1500-7000); Neutrophils Percent Auto 68.3 % (50-75); Platelet Count 257 X10^3/uL (150-400); Red Blood Cell Count 3.44 X10^6/uL (4.0-5.2); Red Cell Distribution Width 15.2 % (11.6-14.8); White Blood Cell Count 4.8 X10^3/uL (4.5-11.0)
[2019-01-03 13:28] LABS: BUN Creatinine Ratio 40.5 (6-22); Blood Urea Nitrogen 77 mg/dL (7-17); Calcium 8.8 mg/dL (8.4-10.2); Carbon Dioxide 25 mmol/L (22-32); Chloride 108 mmol/L (98-107); Estimated Glomerular Filt Rate 26.2 mL/min (>60); Glucose 110 mg/dL (80-110); HEMOLYSIS < 15 (0-50); Potassium 4.9 mmol/L (3.4-5.1); Sodium 143 mmol/L (137-145)
== END ==
PROVIDERS: Family Provider Internal Medicine; PCP Internal Medicine; Visit Provider Internal Medicine
DX: E87.6 Hypokalemia (principal); A50.02 Early congenital syphilitic osteochondropathy
CPT/HCPCS: 80048; 85025

== ENCOUNTER → 2019-01-08 07:45 | Outpatient (ROUT) | payer MEDICARE, MEDICAID, SELFPAY ==
[2019-01-08 07:50] LABS: RBC Urine None Seen (0-5/HPF)
[2019-01-08 08:08] LABS: Appearance Urine UA CLEAR; Bilirubin Urine UA NEGATIVE (NEGATIVE); Color Urine UA YELLOW; Glucose Urine UA NEGATIVE (Negative); Ketones Urine UA NEGATIVE (NEGATIVE); Leukocyte Esterase Urine UA 1+ (NEGATIVE); Nitrite Urine UA NEGATIVE (Negative); Occult Blood Urine UA NEGATIVE (Negative); Protein Urine UA NEGATIVE (Negative); Specific Gravity Urine UA 1.015 (1.000-1.035); Urobilinogen Urine UA 0.2 E.U./dL (0.2)
[2019-01-08 08:26] LABS: B Type Natriuretic Peptide 1190 (<100)
[2019-01-08 08:39] LABS: Creatinine Urine Random 64.2 mg/dL
[2019-01-08 08:44] LABS: BUN Creatinine Ratio 32.6 (6-22); Blood Urea Nitrogen 62 mg/dL (7-17); Calcium 8.4 mg/dL (8.4-10.2); Carbon Dioxide 23 mmol/L (22-32); Chloride 107 mmol/L (98-107); Estimated Glomerular Filt Rate 26.2 mL/min (>60); Glucose 98 mg/dL (80-110); HEMOLYSIS 17 (0-50); Sodium 138 mmol/L (137-145)
[2019-01-08 08:48] LABS: Bacteria Urine Few (2-10); Culture Indicated Urine Cult Not Indicated; Squamous Epithelial Cell Urine 5-10 /HPF (0-5/HPF); Transitional Epi Cells Urine 1-5/HPF (0-5/HPF); WBC Urine 5-10/HPF (0-5/HPF)
[2019-01-08 08:59] LABS: Potassium 5.5 mmol/L (3.4-5.1)
[2019-01-10 13:53] LABS: Complement C3 125 mg/dL (83-193)
[2019-01-10 18:14] LABS: ANCA Screen Negative (Negative)
== END ==
PROVIDERS: Family Provider Internal Medicine; PCP Internal Medicine; Visit Provider Internal Medicine
DX: N18.9 Chronic kidney disease, unspecified (principal); A50.02 Early congenital syphilitic osteochondropathy
CPT/HCPCS: 36415; 80048; 81001; 82570; 83880; 84156; 84166; 86021; 86160

== ENCOUNTER → 2019-01-08 10:45 | Outpatient (CLI) | payer MEDICARE, MEDICAID, SELFPAY | PROVIDERS: Family Provider Internal Medicine; PCP Internal Medicine; Visit Provider Family Medicine | DX: I87.2 Venous insufficiency (chronic) (peripheral) (principal); L97.811 Non-pressure chronic ulcer of other part of right lower leg limited to breakdown of skin; L97.821 Non-pressure chronic ulcer of other part of left lower leg limited to breakdown of skin; M79.661 Pain in right lower leg; R60.0 Localized edema | CPT/HCPCS: 99215 ==

== ENCOUNTER → 2019-01-27 08:15 | Outpatient (ROUT) | payer MEDICARE, MEDICAID, SELFPAY ==
[2019-01-27 09:11] LABS: Alanine Aminotransferase 7 IU/L (9-52); Albumin Globulin Ratio 0.8 (1.0-2.8); Alkaline Phosphatase 134 U/L (38-126); Amylase 43 U/L (30-110); Aspartate Aminotransferase 16 IU/L (14-36); BUN Creatinine Ratio 34.2 (6-22); Bilirubin Total 0.3 mg/dL (0.2-1.3); Blood Urea Nitrogen 65 mg/dL (7-17); Carbon Dioxide 24 mmol/L (22-32); Chloride 108 mmol/L (98-107); Estimated Glomerular Filt Rate 26.2 mL/min (>60); Globulin 3.7 g/dL (1.7-4.1); Glucose 75 mg/dL (80-110); HEMOLYSIS < 15 (0-50); Lipase 60 U/L (23-300); Sodium 140 mmol/L (137-145); Total Protein 6.7 g/dL (6.3-8.2)
== END ==
PROVIDERS: Family Provider Internal Medicine; PCP Internal Medicine; Visit Provider Internal Medicine
DX: R10.9 Unspecified abdominal pain (principal)
CPT/HCPCS: 36415; 80053; 82150; 83690

== ENCOUNTER → 2019-01-29 13:12 | Outpatient (CLI) | payer MEDICARE, MEDICAID, SELFPAY | PROVIDERS: Family Provider Internal Medicine; PCP Internal Medicine; Visit Provider Family Medicine | DX: I87.311 Chronic venous hypertension (idiopathic) with ulcer of right lower extremity (principal); L97.822 Non-pressure chronic ulcer of other part of left lower leg with fat layer exposed; L97.812 Non-pressure chronic ulcer of other part of right lower leg with fat layer exposed; L30.9 Dermatitis, unspecified; I50.9 Heart failure, unspecified | CPT/HCPCS: 99213; 99215 ==

== ENCOUNTER → 2019-02-03 07:32 | Outpatient (ROUT) | payer MEDICARE, MEDICAID, SELFPAY ==
[2019-02-03 08:47] LABS: Amylase 38 U/L (30-110); Lipase 42 U/L (23-300)
== END ==
PROVIDERS: Family Provider Internal Medicine; PCP Internal Medicine; Visit Provider Nurse Practitioner Family
DX: R10.9 Unspecified abdominal pain (principal)
CPT/HCPCS: 36415; 82150; 83690

== ENCOUNTER → 2019-02-03 13:10 | Outpatient (CLI) | payer MEDICARE, MEDICAID, SELFPAY ==
--- NOTE | 2019-02-03 | DI.US.S_ITS ---
PROCEDURE: US ABDOMEN COMPLETE INDICATIONS: EPIGASTRIC PAIN TECHNIQUE: Real-time scanning was performed of the abdominal and retroperitoneal organs, with image documentation. COMPARISON: None. FINDINGS: Liver: Liver is normal in size. Heterogeneous liver parenchymal echotexture is seen. No discrete hepatic lesion is noted. Gallbladder: Mobile stones are seen in dependent portion of gallbladder lumen. Mild gallbladder wall thickening is seen. No pericholecystic fluid or sonographic Chan's sign. Biliary ducts: Intrahepatic bile ducts are non-dilated. Extrahepatic bile duct caliber measures 3.6 mm. Normal is 6-7 mm or less in diameter, or 10 mm or less post-cholecystectomy. Pancreas: Visualized portions of the pancreas are sonographically normal. Spleen: Spleen is normal in size. No discrete splenic lesion is seen. Tiny calcifications are seen in splenic parenchyma likely represent calcified granuloma. Kidneys: Kidneys are normal in size. Slightly increased renal parenchymal echotexture is seen. Right kidney measures 9.3 cm long; left kidney measures 10.7 cm long. No hydronephrosis or nephrolithiasis. No solid masses. Aorta: Visualized aorta is normal in caliber at less than 3 cm. Iliacs: Proximal common iliac arteries are normal in caliber at less than 2.5 cm. IVC: Intrahepatic inferior vena cava is patent. Miscellaneous: Trace amount of free fluid is seen adjacent to main portal vein and gallbladder fossa.. IMPRESSION: 1. Heterogeneously increased liver parenchymal echotexture suggestive of hepatocellular disease. No discrete hepatic lesion is identified. 2. Cholelithiasis. Mild gallbladder wall thickening. No sonographic evidence of acute cholecystitis. No biliary ductal dilatation. 3. Increased renal parenchymal echotexture suggestive of medical renal disease. 4. Trace amount of free fluid adjacent to gallbladder fossa. Dictated by: Ron Ambrose M.D. on 02/03/2019 at 14:59 Approved by: Ron Ambrose M.D. on 02/03/2019 at 15:02
== END ==
PROVIDERS: Family Provider Internal Medicine; PCP Internal Medicine; Visit Provider Internal Medicine
DX: R10.13 Epigastric pain (principal); K80.20 Calculus of gallbladder without cholecystitis without obstruction
CPT/HCPCS: 36415; 76700; 82150; 83690

== ENCOUNTER → 2019-02-05 09:48 | Outpatient (CLI) | payer MEDICARE, MEDICAID, SELFPAY | PROVIDERS: Family Provider Internal Medicine; PCP Internal Medicine; Visit Provider Family Medicine | DX: I87.2 Venous insufficiency (chronic) (peripheral) (principal); L97.811 Non-pressure chronic ulcer of other part of right lower leg limited to breakdown of skin; L97.821 Non-pressure chronic ulcer of other part of left lower leg limited to breakdown of skin; I50.9 Heart failure, unspecified; M79.661 Pain in right lower leg; M79.662 Pain in left lower leg; I89.0 Lymphedema, not elsewhere classified | CPT/HCPCS: 99214 ==

== ENCOUNTER → 2019-02-07 11:46 | Outpatient (ROUT) | payer MEDICARE, MEDICAID, SELFPAY | PROVIDERS: Family Provider Internal Medicine; PCP Internal Medicine; Visit Provider Registered Nurse | DX: B96.81 Helicobacter pylori [H. pylori] as the cause of diseases classified elsewhere (principal) | CPT/HCPCS: 86677 ==

== ENCOUNTER → 2019-02-12 10:38 | Outpatient (CLI) | payer MEDICARE, MEDICAID, SELFPAY | PROVIDERS: Family Provider Internal Medicine; PCP Internal Medicine; Visit Provider Family Medicine | DX: I87.2 Venous insufficiency (chronic) (peripheral) (principal); L97.811 Non-pressure chronic ulcer of other part of right lower leg limited to breakdown of skin; L30.9 Dermatitis, unspecified; I50.9 Heart failure, unspecified; I87.1 Compression of vein; R60.0 Localized edema | CPT/HCPCS: 87070; 87075; 87077; 87147; 87186; 87205; 97597 ==

== ENCOUNTER → 2019-02-19 09:51 | Outpatient (CLI) | payer MEDICARE, MEDICAID, SELFPAY | PROVIDERS: Family Provider Internal Medicine; PCP Internal Medicine; Visit Provider Family Medicine | DX: B95.61 Methicillin susceptible Staphylococcus aureus infection as the cause of diseases classified elsewhere (principal); L97.822 Non-pressure chronic ulcer of other part of left lower leg with fat layer exposed; L97.812 Non-pressure chronic ulcer of other part of right lower leg with fat layer exposed; I87.2 Venous insufficiency (chronic) (peripheral); R60.9 Edema, unspecified | CPT/HCPCS: 29580; 29581; 97597; 99212 ==

== ENCOUNTER → 2019-02-26 10:29 | Outpatient (CLI) | payer MEDICARE, MEDICAID, SELFPAY | PROVIDERS: Family Provider Internal Medicine; PCP Internal Medicine; Visit Provider Family Medicine | DX: L97.822 Non-pressure chronic ulcer of other part of left lower leg with fat layer exposed (principal); L97.812 Non-pressure chronic ulcer of other part of right lower leg with fat layer exposed; I87.2 Venous insufficiency (chronic) (peripheral); R60.9 Edema, unspecified | CPT/HCPCS: 11042; 29580; 99213 ==

== ENCOUNTER → 2019-03-05 13:13 | Outpatient (CLI) | payer MEDICARE, MEDICAID, SELFPAY | PROVIDERS: Family Provider Internal Medicine; PCP Internal Medicine; Visit Provider Family Medicine | DX: L97.822 Non-pressure chronic ulcer of other part of left lower leg with fat layer exposed (principal); L97.812 Non-pressure chronic ulcer of other part of right lower leg with fat layer exposed; L30.9 Dermatitis, unspecified; I50.9 Heart failure, unspecified; I87.1 Compression of vein; L08.9 Local infection of the skin and subcutaneous tissue, unspecified | CPT/HCPCS: 87070; 87077; 87186; 87205; 93010; 97597; 99214 ==

== ENCOUNTER → 2019-03-05 15:34 | Outpatient (CLI) | payer MEDICARE, MEDICAID, SELFPAY ==
[2019-03-05 16:05] LABS: Add Manual Diff / Slide Review NO; Basophils Absolute Auto 0 /uL (0-100); Basophils Percent Auto 1.2 % (0-2); Eosinophils Absolute Auto 200 /uL (0-450); Hemoglobin 10.9 g/dL (12.0-16.0); Lymphocytes Absolute Auto 600 /uL (1100-4500); Mean Corpuscular Hemoglobin 32.4 PG (26-34); Mean Corpuscular Volume 98.1 fL (80-100); Monocytes Absolute Auto 500 /uL (0-900); Monocytes Percent Auto 13.5 % (3-14); Neutrophils Absolute Auto 2600 /uL (1500-7000); Neutrophils Percent Auto 64.3 % (50-75); Platelet Count 188 X10^3/uL (150-400); Red Blood Cell Count 3.36 X10^6/uL (4.0-5.2); Red Cell Distribution Width 17.2 % (11.6-14.8)
[2019-03-05 16:41] LABS: BUN Creatinine Ratio 24.1 (6-22); Blood Urea Nitrogen 41 mg/dL (7-17); Calcium 8.5 mg/dL (8.4-10.2); Carbon Dioxide 24 mmol/L (22-32); Chloride 106 mmol/L (98-107); Estimated Glomerular Filt Rate 29.8 mL/min (>60); Glucose 111 mg/dL (80-110); HEMOLYSIS < 15 (0-50); Potassium 4.4 mmol/L (3.4-5.1); Sodium 143 mmol/L (137-145)
== END ==
PROVIDERS: PCP Internal Medicine; Visit Provider Internal Medicine
DX: R53.82 Chronic fatigue, unspecified (principal); N18.9 Chronic kidney disease, unspecified; R00.2 Palpitations; I48.91 Unspecified atrial fibrillation; C08.9 Malignant neoplasm of major salivary gland, unspecified
CPT/HCPCS: 36415; 80048; 85025; 87070; 87077; 87186; 87205; 93005; 97597

== ENCOUNTER → 2019-03-11 14:23 | Outpatient (ROUT) | payer MEDICARE, MEDICAID, SELFPAY ==
[2019-03-11 14:53] LABS: BUN Creatinine Ratio 16.2 (6-22); Blood Urea Nitrogen 42 mg/dL (7-17); Carbon Dioxide 21 mmol/L (22-32); Chloride 106 mmol/L (98-107); Estimated Glomerular Filt Rate 18.3 mL/min (>60); Glucose 82 mg/dL (80-110); HEMOLYSIS < 15 (0-50); Sodium 141 mmol/L (137-145)
[2019-03-11 14:55] LABS: Add Manual Diff / Slide Review NO; Basophils Absolute Auto 100 /uL (0-100); Eosinophils Absolute Auto 200 /uL (0-450); Eosinophils Percent Auto 3.4 % (2-4); Hematocrit 34.5 % (36-46); Hemoglobin 11.4 g/dL (12.0-16.0); Lymphocytes Absolute Auto 600 /uL (1100-4500); Lymphocytes Percent Auto 12.2 % (25-40); Mean Corpuscular HGB Conc 32.9 % (30-36); Mean Corpuscular Hemoglobin 32.3 PG (26-34); Mean Corpuscular Volume 98.2 fL (80-100); Monocytes Absolute Auto 500 /uL (0-900); Monocytes Percent Auto 10.9 % (3-14); Neutrophils Absolute Auto 3600 /uL (1500-7000); Neutrophils Percent Auto 72.5 % (50-75); Platelet Count 203 X10^3/uL (150-400); Red Blood Cell Count 3.51 X10^6/uL (4.0-5.2)
[2019-03-11 15:05] LABS: Troponin I < 0.012 ng/mL (0.01-0.034)
[2019-03-11 15:14] LABS: Potassium 6.9 mmol/L (3.4-5.1)
== END ==
PROVIDERS: PCP Internal Medicine; Visit Provider Internal Medicine
DX: R07.9 Chest pain, unspecified (principal)
CPT/HCPCS: 80048; 84484; 85025

== ENCOUNTER 2019-03-11 15:53 | Inpatient (IN) | payer MEDICARE, MEDICAID, SELFPAY ==
[2019-03-11] VITALS (11 sets, daily range): BP systolic 113–158; BP diastolic 69–114; PULSE 51–118; RESP 17–23; TEMP 36.3–36.6; O2SAT 92–100; BMI 32.9; BMI 33.3
--- NOTE | 2019-03-11 16:08 | DI.RAD.S_ITS ---
PROCEDURE: XR CHEST 1V INDICATIONS: hyperkalemia TECHNIQUE: One view of the chest was acquired. COMPARISON: [facility], CR, XR CHEST 2V, 11/27/2018, 10:05. [facility], CR, XR CHEST 1V, 12/25/2018, 15:25. FINDINGS: Surgical changes and devices: None. Lungs and pleura: There is cephalization of pulmonary vasculature and interstitial prominence concerning for CHF. Small left-sided pleural fluid collection. No pneumothorax. Mediastinum: Mediastinal contours appear normal. Heart is enlarged. Bones and chest wall: No suspicious bony lesions. Overlying soft tissues appear unremarkable. IMPRESSION: Cardiomegaly with small left pleural effusion, cephalization of pulmonary vasculature and interstitial prominence suspicious for CHF. Dictated by: Constance Sellers MD, PhD on 03/11/2019 at 16:40 Approved by: Constance Sellers MD, PhD on 03/11/2019 at 16:41
--- NOTE | 2019-03-11 16:27 | ED_ITS ---
HPI - Recheck/Abnormal Lab/Rx General Chief Complaint: Recheck/Abnormal Lab/Rx Stated Complaint: Hyperkalemia Time Seen by Provider: 03/11/19 16:07 Source: patient and EMS Mode of arrival: EMS Limitations: no limitations History of Present Illness HPI narrative: To the emergency department with complaint of elevated potassium. Patient had some chest pain yesterday. They got blood work today at her care facility and was noted she was hyperkalemic. Patient states her chest pain was more and palpitations she states she still sort of a palpitation fluttering like feeling in her chest. Patient states that she has atrial fibrillation that is normal for her she can tell when she is normally in it but she feels more palpitations today. Patient denies any shortness of breath, she has had some dry heaves but no vomiting. She has had no issues with bowel movements, she has not appreciated any new changes with her urine. She has recently been placed on a diuretic so she has been urinating more frequently but no dysuria urgency or frequency. She has not noticed a decrease in her urine output. Patient has also been on a antibiotic for chronic wounds on her lower extremities it was noted that her renal function had decreased. She has had dialysis for a couple months for 5 years ago still has official in pace but is no longer on dialysis. Related Data Home Medications Medication Instructions Recorded Confirmed acetaminophen 650 mg PO Q6H PRN 12/25/18 03/11/19 albuterol sulfate 2 inh INHALATION Q6H PRN 12/25/18 03/11/19 apixaban [Eliquis] 5 mg PO BID 12/25/18 03/11/19 benzocaine 1 applic MUCOUS MEMBRANE Q6H PRN 12/25/18 03/11/19 duloxetine 60 mg PO DAILY 12/25/18 03/11/19 gabapentin 100 mg PO BID 12/25/18 03/11/19 hydroxyzine HCl 25 mg PO Q8H PRN 12/25/18 03/11/19 menthol [Aspercreme Max] 1 applic TOPICAL BID 12/25/18 03/11/19 nystatin 1 applic TOPICAL QID 12/25/18 03/11/19 olopatadine [Pataday] 1 drp EYE-BOTH PRN PRN 12/25/18 03/11/19 oxycodone 2.5 - 5 mg PO Q6H PRN 12/25/18 03/11/19 sodium chloride [[place] Nasal] 1 spray INTRANASAL TID 12/25/18 03/11/19 torsemide 40 mg PO DAILY 12/25/18 03/11/19 ascorbic acid (vitamin C) 500 mg PO DAILY 03/11/19 03/11/19 cyanocobalamin (vitamin B-12) 1,000 mcg PO DAILY 03/11/19 03/11/19 [Vitamin B-12] ferrous sulfate 325 mg PO DAILY 03/11/19 03/11/19 fluticasone propionate 1 spray INTRANASAL DAILY 03/11/19 03/11/19 guaifenesin 200 mg PO Q8H PRN 03/11/19 03/11/19 hydrocortisone 1 applic TOPICAL BID PRN 03/11/19 03/11/19 melatonin 6 mg PO DAILY 03/11/19 03/11/19 metoprolol succinate 75 mg PO BID 03/11/19 03/11/19 ondansetron HCl 8 mg PO DAILY PRN 03/11/19 03/11/19 pantoprazole 40 mg PO BID 03/11/19 03/11/19 patiromer calcium sorbitex 8.4 g PO DAILY 03/11/19 03/11/19 polyethylene glycol 3350 17 g PO DAILY 03/11/19 03/11/19 sulfamethoxazole-trimethoprim 1 tab PO BID 03/11/19 03/11/19 Allergies Allergy/AdvReac Type Severity Reaction Status Date / Time adhesive tape Allergy Verified 09/09/18 22:36 basil Allergy Verified 09/09/18 22:36 cephalexin [From Keflex] Allergy Verified 09/09/18 22:36 marlena Allergy Verified 09/09/18 22:36 Penicillins Allergy Verified 09/09/18 22:36 Review of Systems Review of Systems ROS Unobtainable: All systems reviewed & are unremarkable except as noted in HPI and below Cardiovascular Cardiovascular: Denies chest pain, Denies syncope, Denies rapid heart rate, Denies edema, Reports irregular heart rhythm, Denies lightheadedness, Reports palpitations, Denies dyspnea, Denies dyspnea on exertion and Denies orthopnea Respiratory Respiratory: Denies change in phlegm color, Denies chest congestion, Denies cough, Denies dyspnea and Denies dyspnea on exertion Gastrointestinal Gastrointestinal: Denies abdominal pain, Denies constipation, Denies diarrhea, Reports nausea and Reports vomiting (Dry heaves only) Genitourinary Genitourinary: Denies hematuria, Reports urinary frequency, Denies dysuria, Denies flank pain, Denies urinary incontinence, Denies urinary urgency and Reports other (Patient states she does make urine regularly, denies decrease in output) Musculoskeletal Musculoskeletal: Denies muscle weakness, Denies numbness and Denies tingling Integumentary/Breasts Skin/Breast: Reports wounds (Infection on bilateral lower extremities) Neurologic Neurologic: Denies syncope, Denies numbness and Denies tingling Endocrine Endocrine: Reports palpitations [facility] Social History (Updated 03/11/19 @ 18:17 by Ani Anderson DO) household members: none Smoking Status: Never smoker alcohol intake: current substance use type: does not use Exam Narrative Exam Narrative: GENERAL: Alert and oriented x three, obese female in no acute distress. Patient has poor skin color but states she feels fine. HEENT: Head normocephalic, atraumatic, EOMI, pupils reactive, face symmetric, moist mucous membranes NECK: Supple, full range of motion CARDIOVASCULAR: Irregularly irregular rate and rhythm without murmurs, rubs or gallops. RESPIRATORY: Breath sounds equal bilaterally, no wheezes rales or rhonchi. No tachypnea or accessory muscle use. ABDOMEN: Soft, nontender. Normoactive bowel sounds all 4 quadrants. No guarding or rebound, rigidity, no mass : No CVA tenderness EXTREMITIES: Normal range of motion, patient has Unna boot dressings on bilateral lower extremities. There is no significant edema noted in her toes or pedal. Neurovascularly intact NEUROLOGICAL: Cranial nerves II through XII grossly intact. Moving all extremities SKIN: Warm, dry, no petechiae, no rashes or lesions. Initial Vital Signs Initial Vital Signs: Vital Signs Temperature 97.9 F 03/11/19 16:10 Pulse Rate 81 03/11/19 16:10 Respiratory Rate 18 03/11/19 16:10 Blood Pressure 120/80 03/11/19 16:10 Pulse Oximetry 94 03/11/19 16:10 Course Orders Ordered: ED Orders 03/11/19 16:08 XR chest 1V Stat 03/11/19 17:50 Complete Blood Count AUTO DIFF Stat Comprehensive Metabolic Panel Stat Lipase Stat Partial Thromboplastin Time Stat Prothrombin Time INR Stat Troponin & CK Cardiac Panel Stat Acetaminophen (Tylenol) 650 mg PO Q6H PRN PRN Reason: Fever Or Pain Al Hydrox/Mg Hydrox/Simethicone (Maalox Plus) 30 ml PO Q6HR PRN PRN Reason: Dyspepsia Apixaban (Eliquis) 5 mg PO BID [facility] Bisacodyl (Dulcolax) 10 mg DC DAILY PRN PRN Reason: Constipation Calcium Carbonate (Tums) 1,000 mg PO Q4HR PRN PRN Reason: Dyspepsia Docusate Sodium (Colace) 100 mg PO BID PRN PRN Reason: Constipation Duloxetine HCl (Cymbalta) 60 mg PO DAILY [facility] Gabapentin (Neurontin) 100 mg PO BID [facility] Heparin Sodium (Porcine) (Heparin) 5,000 unit SUBCUT BID [facility] Hydroxyzine Pamoate (Vistaril) 25 mg PO Q8H PRN PRN Reason: Itching Melatonin (Melatonin) 6 mg PO DAILY [facility] Metoprolol Succinate (Toprol Xl) 75 mg PO BID [facility] Naloxone HCl (Narcan) 0.2 mg IV Q2MIN PRN PRN Reason: Opiate Reversal Non-Formulary Medication (Patiromer Calcium Sorbitex) 8.4 gram PO DAILY [facility] Ondansetron HCl (Zofran) 4 mg IV Q8HR PRN PRN Reason: Nausea And Vomiting Oxycodone HCl (Percolone) 5 mg PO Q6H PRN PRN Reason: Pain, Moderate (4-6) Pantoprazole Sodium (Protonix) 40 mg PO BID [facility] Polyethylene Glycol (Miralax) 17 gm PO DAILY PRN PRN Reason: Constipation Sodium Chloride (Deep Sea) 1 spray NASAL TID [facility] Torsemide (Demadex) 40 mg PO DAILY [facility] Discontinued Medications Albuterol (Ventolin) 2.5 mg INH NOW ONE Stop: 03/11/19 16:39 Last Admin: 03/11/19 16:59 Dose: 2.5 mg Documented by: MICHAEL Dextrose (D50w) 25 gm IV NOW ONE Stop: 03/11/19 16:39 Last Admin: 03/11/19 18:35 Dose: 25 gm Documented by: HFARRINGTO Sodium Chloride (Normal Saline 0.9%) 1,000 mls @ 1,000 mls/hr IV BOLUS ONE Stop: 03/11/19 17:06 Last Admin: 03/11/19 16:58 Dose: Not Given Documented by: AMBER Sodium Chloride (Normal Saline 0.9%) 1,000 mls @ 500 mls/hr IV BOLUS ONE Stop: 03/11/19 18:37 Last Infusion: 03/11/19 19:03 Dose: 0 mls/hr Documented by: Admin: 03/11/19 18:30 Dose: 500 mls/hr Documented by: XENIA Calcium Gluconate 9.3 meq/ (Sodium Chloride) 70 mls @ 140 mls/hr IV NOW ONE Stop: 03/11/19 16:39 Last Infusion: 03/11/19 19:03 Dose: 0 mls/hr Documented by: Admin: 03/11/19 18:28 Dose: 140 mls/hr Documented by: XENIA Influenza Virus Vaccine (Flu Vaccine) 0.5 ml IM .ONCE ONE Stop: 03/11/19 19:57 Insulin Human Regular (Humulin R) 10 unit IV NOW ONE Stop: 03/11/19 16:39 Last Admin: 03/11/19 18:34 Dose: 10 unit Documented by: XENIA Cosigned by: GABBY Ondansetron HCl (Zofran) 4 mg IV NOW ONE Stop: 03/11/19 18:41 Last Admin: 03/11/19 18:47 Dose: 4 mg Documented by: XENIA Sodium Polystyrene Sulfonate (Kayexalate) 30 gm PO NOW ONE Stop: 03/11/19 16:39 Last Admin: 03/11/19 18:31 Dose: 30 gm Documented by: XENIA Vital Signs Vital signs: Vital Signs - 8 hr 03/11/19 16:10 03/11/19 16:59 03/11/19 17:30 Temperature 97.9 F Pulse Rate 81 91 H 51 L Respiratory Rate 18 18 19 Blood Pressure 120/80 Blood Pressure [Right Arm] 116/84 Pulse Oximetry 94 94 95 03/11/19 18:45 03/11/19 19:01 Temperature Pulse Rate 89 88 Respiratory Rate 19 23 Blood Pressure Blood Pressure [Right Arm] 138/83 132/69 Pulse Oximetry 96 92 MDM - Recheck/Abnormal Lab/Rx Lab Data Attestation: I reviewed the patient's lab results. Result diagrams: 03/11/19 17:50 03/11/19 17:50 Labs: Lab Results 03/11/19 03/11/19 03/11/19 Range/Units 17:50 17:50 17:50 WBC 4.3 L (4.5-11.0) X10^3/uL RBC 3.32 L (4.0-5.2) X10^6/uL Hgb 10.6 L (12.0-16.0) g/dL Hct 32.7 L (36-46) % MCV 98.6 (80-100) fL MCH 31.9 (26-34) PG MCHC 32.4 (30-36) % RDW 16.5 H (11.6-14.8) % Plt Count 188 (150-400) X10^3/uL Neut % (Auto) 66.8 (50-75) % Lymph % (Auto) 15.3 L (25-40) % [place] % (Auto) 12.2 (3-14) % Eos % (Auto) 3.9 (2-4) % Baso % (Auto) 1.8 (0-2) % Neut # (Auto) 2800 (1583-6065) /uL Lymph # (Auto) 700 L (7717-7586) /uL [place] # (Auto) 500 (0-900) /uL Eos # (Auto) 200 (0-450) /uL Baso # (Auto) 100 (0-100) /uL PT 18.4 H (10.1-12.7) SECONDS INR 1.6 H (0.9-1.3) APTT 41 H D (26.4-36.2) SECONDS Sodium 141 (137-145) mmol/L Potassium 6.5 H* (3.4-5.1) mmol/L Chloride 108 H (98-107) mmol/L Carbon Dioxide 22 (22-32) mmol/L BUN 45 H (7-17) mg/dL Creatinine 2.60 H (0.52-1.04) mg/dL Estimated GFR 18.3 L (>60) mL/min BUN/Creatinine Ratio 17.3 (6-22) Glucose 92 (80-110) mg/dL Calcium 8.8 (8.4-10.2) mg/dL Total Bilirubin 0.6 (0.2-1.3) mg/dL AST 25 (14-36) IU/L ALT 10 (9-52) IU/L Alkaline Phosphatase 118 (38-126) U/L Total Creatine Kinase 34 (30-135) U/L CK-MB (CK-2) TNP CK-MB (CK-2) Rel Index TNP Troponin I < 0.012 (0.01-0.034) ng/mL Total Protein 8.0 (6.3-8.2) g/dL Albumin 3.8 (3.5-5.0) g/dL Globulin 4.2 H (1.7-4.1) g/dL Albumin/Globulin Ratio 0.9 L (1.0-2.8) Lipase 98 (23-300) U/L Urine Dip Bedside Urine Glucose Negative Bedside Urine Bilirubin - Negative Bedside Urine Ketone - Negative Urine Specific [place] 1.010 Bedside Urine Occult Blood - Negative Bedside Urine pH 6.5 Bedside Urine Protein - Negative Bedside Urine Urobilinogen - Negative Bedside Urine Nitrite - Negative Bedside Urine Leukocytes - Negative Esterase Imaging Data Chest x-ray: Radiologist's impression: [address] [address] XRay Report Signed Patient: Edi Shore#: [id number] : 1950Acct:[id number] Age/Sex: 68 / FDate of Service: 03/11/19 Loc: ED Accession Number: [id number] Procedure: XR chest 1V Ordering Provider: Ani Anderson D.O. PROCEDURE: XR CHEST 1V INDICATIONS: hyperkalemia TECHNIQUE: One view of the chest was acquired. COMPARISON: [facility], CR, XR CHEST 2V, 11/27/2018, 10:05. [facility], CR, XR CHEST 1V, 12/25/2018, 15:25. FINDINGS: Surgical changes and devices: None. Lungs and pleura: There is cephalization of pulmonary vasculature and interstitial prominence concerning for CHF. Small left-sided pleural fluid collection. No pneumothorax. Mediastinum: Mediastinal contours appear normal. Heart is enlarged. Bones and chest wall: No suspicious bony lesions. Overlying soft tissues appear unremarkable. IMPRESSION: Cardiomegaly with small left pleural effusion, cephalization of pulmonary vasculature and interstitial prominence suspicious for CHF. Dictated by: Constance Sellers MD, PhD on 03/11/2019 at 16:40 Approved by: Constance Sellers MD, PhD on 03/11/2019 at 16:41 ECG Data Attestation: I personally reviewed and interpreted this ECG as follows: Interpretation: Atrial flutter with a rate of 94, QRS of 113 and QTC of 451. Patient has right axis deviation, patient elevation in V1 V2 but appears similar to prior EKGs. incomplete RBBB. MDM Narrative Medical decision making narrative: In with complaint of palpitations and hyperkalemia. She likely has acute on chronic renal failure secondary to recent diuretics as well as being on Bactrim. Patient otherwise states she is asymptomatic her hemoglobin is 10.6 which appears consistent with priors and chronic anemia. Repeat renal function shows a potassium of 6.5 about 6 hours after, patient's creatinine is at 2.6 still with a BUN of 45, chloride is 108 and sodium is 141, patient's LFTs are normal range with an elevated globulin and her troponin is negative. Chest x-ray showed cardiomegaly with small left pleural effusion, some cephalization of pulmonary vasculature and has some from the suspicious for CHF. Patient does have known CHF, she has not noted any recent shortness of breath or similar symptoms. Patient received calcium gluconate, 10 units regular insulin, 1 amp D5, albutero neb, 500 cc bolus of fluids and Kayexalate after her repeat potassium today. Patient had 1 episode of heaves as emesis and was given Zofran. She is full code. Hong catheter was ordered for strict I&Os but patient refused. I spoke with Dr. Meade hospitalist who accepts hyperkalemia with acute on chronic renal failure. Discharge Plan Departure Patient Disposition: Admitted As Inpatient Clinical Impression: Hyperkalemia, Acute on chronic kidney failure, Palpitations Discharge Date/Time: 03/11/19 19:28 Admit Date/Time: 03/11/19 19:09 Admit Provider: Marcella Meade
[2019-03-11] MEDS: ALBUTEROL 2.5 MG/3 ML NEB (ADULT) INH (16:59)
[2019-03-11 17:57] LABS: Add Manual Diff / Slide Review NO; Basophils Absolute Auto 100 /uL (0-100); Basophils Percent Auto 1.8 % (0-2); Eosinophils Absolute Auto 200 /uL (0-450); Eosinophils Percent Auto 3.9 % (2-4); Hematocrit 32.7 % (36-46); Hemoglobin 10.6 g/dL (12.0-16.0); Lymphocytes Absolute Auto 700 /uL (1100-4500); Lymphocytes Percent Auto 15.3 % (25-40); Mean Corpuscular HGB Conc 32.4 % (30-36); Mean Corpuscular Hemoglobin 31.9 PG (26-34); Mean Corpuscular Volume 98.6 fL (80-100); Monocytes Absolute Auto 500 /uL (0-900); Monocytes Percent Auto 12.2 % (3-14); Neutrophils Absolute Auto 2800 /uL (1500-7000); Neutrophils Percent Auto 66.8 % (50-75); Platelet Count 188 X10^3/uL (150-400); Red Blood Cell Count 3.32 X10^6/uL (4.0-5.2); Red Cell Distribution Width 16.5 % (11.6-14.8); White Blood Cell Count 4.3 X10^3/uL (4.5-11.0)
[2019-03-11 18:03] LABS: INR 1.6 (0.9-1.3); Prothrombin Time 18.4 SECONDS (10.1-12.7)
[2019-03-11 18:05] LABS: PTT Partial Thromboplastin Tim 41 SECONDS (26.4-36.2)
[2019-03-11 18:09] LABS: Alanine Aminotransferase 10 IU/L (9-52); Albumin 3.8 g/dL (3.5-5.0); Albumin Globulin Ratio 0.9 (1.0-2.8); Alkaline Phosphatase 118 U/L (38-126); Aspartate Aminotransferase 25 IU/L (14-36); BUN Creatinine Ratio 17.3 (6-22); Bilirubin Total 0.6 mg/dL (0.2-1.3); Blood Urea Nitrogen 45 mg/dL (7-17); Calcium 8.8 mg/dL (8.4-10.2); Carbon Dioxide 22 mmol/L (22-32); Chloride 108 mmol/L (98-107); Creatine Kinase 34 U/L (30-135); Estimated Glomerular Filt Rate 18.3 mL/min (>60); Globulin 4.2 g/dL (1.7-4.1); Glucose 92 mg/dL (80-110); HEMOLYSIS < 15 (0-50); Lipase 98 U/L (23-300); Sodium 141 mmol/L (137-145)
[2019-03-11 18:13] LABS: Potassium 6.5 mmol/L (3.4-5.1)
[2019-03-11 18:20] LABS: Troponin I < 0.012 ng/mL (0.01-0.034)
[2019-03-11] MEDS: CALCIUM GLUCONATE 9.3 MEQ in SODIUM CHLORIDE 0.9% 50 ML 140 ML IV (18:28)
[2019-03-11] MEDS: SODIUM CHLORIDE 0.9% 1,000 ML 500 ML IV (18:30)
[2019-03-11] MEDS: SODIUM POLYSTYRENE SULFON/SORB 15 GM/60 ML CUP 30 GM PO (18:31)
[2019-03-11] MEDS: INSULIN REGULAR 100 UNIT/ML 3 ML VIAL 10 UNIT IV (18:34)
[2019-03-11] MEDS: DEXTROSE 50 % IN WATER 25 GM/50 ML SYRINGE IV ×2 (18:35→23:11)
[2019-03-11] MEDS: ONDANSETRON 4 MG/2 ML INJ IV (18:47)
--- NOTE | 2019-03-11 19:23 | PC.NURSE ---
pt declined urinary catheter
--- NOTE | 2019-03-11 20:05 | PC.ADMIT ---
[address] [place] [address] Admission Note: The patient,Debi Shore,68 y/o, was given written information regarding hospital policies, unit procedures and contact persons. Patient's smoking status: Never smoker. Vital Signs - 8 hr 03/11/19 16:10 03/11/19 16:59 03/11/19 17:30 Temperature 97.9 F Pulse Rate 81 91 H 51 L Respiratory Rate 18 18 19 Blood Pressure 120/80 Blood Pressure [Right Arm] 116/84 Pulse Oximetry 94 94 95 03/11/19 18:45 03/11/19 19:01 03/11/19 19:25 Temperature Pulse Rate 89 88 87 Respiratory Rate 19 23 21 Blood Pressure Blood Pressure [Right Arm] 138/83 132/69 132/73 Pulse Oximetry 96 92 95 Patient up from ED via stretcher. Patient able to get off of the stretcher and ambulate to ac bed and then ambulate to bathroom w/minimal assist and FWW. Patient A&O, calm and cooperative. Tele in place. Mychal EVANS in to see patient.
--- NOTE | 2019-03-11 20:17 | P.HP_ITS ---
History of Present Illness History of Present Illness Date Patient Seen: 03/11/19 Time Patient Seen: 19:36 Chief complaint: Hyperkalemia Narrative: Ms. Rhoda Shore is a 68-year-old female patient with a history significant for atrial fibrillation on Eliquis, diastolic heart failure, cor pulmonale, chronic kidney disease with remote history of dialysis, iron de ficiency anemia, hyperlipidemia, depression and Crow's granulomatosis with vasculitis who was sent to the ER following lab results from her facility demonstrating high potassium level. His reported that the patient had chest pain yesterday with some worsening today with increased frequency of p alpitations described as fluttering in her chest. She has associated shortness of breath and nausea with dry heaves. The patient recently had been transitioned to torsemide for diuresis and is also on a course of Bactrim for chronic leg wounds bilateral lower extremities. Patient reports no recent fevers or chills. She has no complaints of headaches, dizziness or visual changes. She presently denies complaints chest pain or shortness of breath. At baseline the patient has marked exertional dyspnea and is unable to ascend a flight of stairs without stopping to rest. She denies abdominal pain and has no nausea. She describes no changes in bowel or bladder habits. The patient ambulates predominantly with a cane or walker but will ambulated around her room independently and has sustained no falls. Upon arrival to the ER the patient is afebrile with temperature 97.9?, heart rate of 81, blood pressure 116/84, respirations 16 and oxygen saturation 94%. An EKG was obtained found atrial flutter at 94 without evidence of infarct or ischemia. Chest x-ray was obtained which found cardiomyopathy with a small left pleural effusion but no evidence of pulmonary edema. On laboratory analysis she has white count of 4.3, hemoglobin and hematocrit of 10.6 and 32.7 with platelets of 188. On chemistries her sodium is normal 141 with most recent potassium of 6.5. She has a BUN of 45 and creatinine 2.6 (baseline creatinine is 1.7-2.0). Patient's present on Eliquis and has elevated coag studies with a PT of 18.4, INR of 1.6 and PTT of 41. Her LFTs are all within normal range in her troponin is negative at less than 0.012. The patient is admitted to the hospital for hyperkalemia. Patient's quality control microbiologist is Dr. Hernandez in [place]. Patient History Medical History (Updated 03/11/19 @ 18:49 by Ani Anderson DO) Chronic kidney disease (Acute) Cor pulmonale (Acute) Depression (Acute) Diastolic heart failure (Acute) Hyperlipidemia (Acute) Iron (Fe) deficiency anemia (Acute) Osteoarthritis (Acute) Polyneuropathy (Acute) Pulmonary embolism (Acute) Crow's granulomatosis (Acute) Surgical History (Updated 03/11/19 @ 20:20 by NATHAN Heredia) History of Achilles tendon repair (Acute) History of esophagogastroduodenoscopy (EGD) (Acute) Status post creation of arteriovenous fistula (Acute) Social History (Updated 03/11/19 @ 18:17 by Ani Anderson DO) household members: none Smoking Status: Never smoker alcohol intake: current substance use type: does not use Family & Social History Social History: household members none Prior Living Arrangements Assisted Living Safety & Behavioral: Feels Safe in Current Yes Environment Been Physically Hurt or No Threatened By a Person Suicidal Ideation Description None Suicide Plan Description No Plan Tobacco & Substance use: Smoking Status Never smoker alcohol intake current alcohol intake frequency holiday/special occasion Substance Use Type does not use Comment: The patient is for the last 40 years. She currently resides at [facility] as resident. She provides family history father passing away at age 59 with history of hypertension and massive stroke. Her mother age 78 with strokes from atrial fibrillation. She has younger brother who sustained a stroke and has kidney cancer. She has an older sister with history of hypertension with osteoarthritis and hip replacement. Smoking: The patient denies use of tobacco products. Alcohol: Patient has had no alcoholic beverage for 6 months, prior to she with drink occasionally. Substance use: Patient denies recreation pharmaceuticals herbal or cannabis products. Advanced directives: The patient states she does have a POLST form completed but not present for review. She states her wishes to be FULL CODE. She designates her daughter Elizabeth to be her surrogate decision maker. Meds Home Medications and Allergies Home Medications Medication Instructions Recorded Confirmed Type acetaminophen 650 mg PO Q6H PRN 12/25/18 03/11/19 History apixaban [Eliquis] 5 mg PO BID 12/25/18 03/11/19 History benzocaine 1 applic MUCOUS MEMBRANE Q6H PRN 12/25/18 03/11/19 History duloxetine 60 mg PO DAILY 12/25/18 03/11/19 History gabapentin 100 mg PO BID 12/25/18 03/11/19 History hydroxyzine HCl 25 mg PO Q8H PRN 12/25/18 03/11/19 History menthol [Aspercreme Max] 1 applic TOPICAL BID 12/25/18 03/11/19 History nystatin 1 applic TOPICAL QID 12/25/18 03/11/19 History oxycodone 2.5 - 5 mg PO Q6H PRN 12/25/18 03/11/19 History sodium chloride [Avery Nasal] 1 spray INTRANASAL TID 12/25/18 03/11/19 History torsemide 40 mg PO DAILY 12/25/18 03/11/19 History ascorbic acid (vitamin C) 500 mg PO DAILY 03/11/19 03/11/19 History cyanocobalamin (vitamin B-12) 1,000 mcg PO DAILY 03/11/19 03/11/19 History [Vitamin B-12] ferrous sulfate 325 mg PO DAILY 03/11/19 03/11/19 History fluticasone propionate 1 spray INTRANASAL DAILY 03/11/19 03/11/19 History guaifenesin 200 mg PO Q8H PRN 03/11/19 03/11/19 History hydrocortisone 1 applic TOPICAL BID PRN 03/11/19 03/11/19 History melatonin 6 mg PO DAILY 03/11/19 03/11/19 History metoprolol succinate 75 mg PO BID 03/11/19 03/11/19 History ondansetron HCl 8 mg PO DAILY PRN 03/11/19 03/11/19 History pantoprazole 40 mg PO BID 03/11/19 03/11/19 History patiromer calcium sorbitex 8.4 g PO DAILY 03/11/19 03/11/19 History polyethylene glycol 3350 17 g PO DAILY 03/11/19 03/11/19 History sulfamethoxazole-trimethoprim 1 tab PO BID 03/11/19 03/11/19 History Allergies Allergy/AdvReac Type Severity Reaction Status Date / Time adhesive tape Allergy Verified 09/09/18 22:36 basil Allergy Verified 04/02/19 22:36 cephalexin [From Keflex] Allergy Verified 09/09/18 22:36 marlena Allergy Verified 09/09/18 22:36 Penicillins Allergy Verified 09/09/18 22:36 Review of Systems Review of Systems ROS Unobtainable: All systems reviewed & are unremarkable except as noted in HPI and below Exam Vital Signs (past 8 hours): - 03/11/19 16:10 03/11/19 16:59 03/11/19 17:30 Temperature 97.9 F Pulse Rate 81 91 H 51 L Respiratory Rate 18 18 19 Blood Pressure 120/80 Blood Pressure [Right Arm] 116/84 Pulse Oximetry 94 94 95 03/11/19 18:45 03/11/19 19:01 03/11/19 19:25 Temperature Pulse Rate 89 88 87 Respiratory Rate 19 23 21 Blood Pressure Blood Pressure [Right Arm] 138/83 132/69 132/73 Pulse Oximetry 96 92 95 Oxygen Delivery Method Room Air Narrative Exam Narrative: GENERAL APPEARANCE: well developed, obese female with a BMI of 33.3, sitting up in bed in no acute distress. HEENT: Normocephalic, PERRLA, conjunctiva clear, EOMs intact without nystagmus, no sinus tenderness to percussion, no rhinorrhea, mucous membranes are moist and pink without lesions or exudate. NECK/THYROID: neck supple, no JVD, no carotid bruit, no thyromegaly, trachea midline. LYMPH NODES: no cervical or supraclavicular lymphadenopathy. SKIN: warm and dry, bilateral lower leg wraps, venous stasis dermatitis, 2.3 cm ulcer left lateral leg with circumferential redness and tenderness, 1.3 cm ulcer right medial lower extremity without redness or tenderness HEART: regular rate and rhythm, S1-S2, no murmur, no rubs or gallops, brisk capillary refill, trace edema, dusky feet bilaterally with delayed capillary refill right-5 seconds, left-for seconds LUNGS: clear to auscultation bilaterally, no coarseness crackles or wheezing, no cough present CHEST: Symmetrical movement, no accessory muscle use, no pain to AP and lateral compression. ABDOMEN: Soft, mild generalized abdominal tenderness, no guarding or peritoneal signs, no organomegaly, no flank or suprapubic tenderness, active bowel tones. BACK: Normal curvature, nontender to palpation, no CVA tenderness on percussion EXTREMITIES: AvVfistula left arm, good thrill and bruit, moves all extremities, strength is 5/5 and symmetrical, ambulates to bathroom using walker without difficulty. NEUROLOGIC: AAO x4, no focal neurologic deficits, sensation intact to light touch, hearing grossly normal to speech. PSYCH: alert, cognitive function intact, good eye contact, appropriate with stable behavior Objective Labs Result Diagrams: 03/11/19 20:45 03/11/19 20:45 Labs: Laboratory Results - last 24 hr 03/11/19 03/11/19 03/11/19 17:50 17:50 17:50 WBC 4.3 L RBC 3.32 L Hgb 10.6 L Hct 32.7 L MCV 98.6 MCH 31.9 MCHC 32.4 RDW 16.5 H Plt Count 188 Neut % (Auto) 66.8 Lymph % (Auto) 15.3 L Creek % (Auto) 12.2 Eos % (Auto) 3.9 Baso % (Auto) 1.8 Neut # (Auto) 2800 Lymph # (Auto) 700 L Creek # (Auto) 500 Eos # (Auto) 200 Baso # (Auto) 100 PT 18.4 H INR 1.6 H APTT 41 H D Sodium 141 Potassium 6.5 H* Chloride 108 H Carbon Dioxide 22 BUN 45 H Creatinine 2.60 H Estimated GFR 18.3 L BUN/Creatinine Ratio 17.3 Glucose 92 Calcium 8.8 Total Bilirubin 0.6 AST 25 ALT 10 Alkaline Phosphatase 118 Total Creatine Kinase 34 CK-MB (CK-2) TNP CK-MB (CK-2) Rel Index TNP Troponin I < 0.012 Total Protein 8.0 Albumin 3.8 Globulin 4.2 H Albumin/Globulin Ratio 0.9 L Lipase 98 Assessment & Plan Assessment & Plan narrative: This is a 68-year-old female patient who is admitted to the hospital for hyperkalemia and acute on chronic renal failure. Patient was recently started on Bactrim DS for her leg wounds. Previous complaints chest pain is resolved with palpitations persisting. 1. Hyperkalemia, acute, present on admission, active -patient presents with a potassium of 6.9, no active complaints of chest pain but positive nausea. -elevated K likely related to decreased renal function with creatinine increased to 2.6 and receiving Bactrim DS twice daily. -patient was treated in the ER with IV fluids albuterol, calcium gluconate, insulin 10 units IV with 25 g of dextrose and Kayexalate 30 g p.o. -initial recheck the potassium found decreased to 6.5. -will recheck potassium level at 11:00 p.m. and treat accordingly. 2. 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 -CKD stage 4 at baseline with creatinine varying between 1.7 and 2.0. -recent changed to torsemide [address] Hernandez, quality control microbiologist in [facility]. -continue torsemide 40 mg p.o. daily. Discontinue Bactrim DS. -avoid all nephrotoxic agents -will follow renal function, will consult Dr. Hernandez patient's quality control microbiologist as needed. 3. Diastolic heart failure, chronic, present on admission, active. -in the ER the patient received 1500 cc of normal saline, cardiomegaly on chest x-ray without evidence of pulmonary edema. Patient with exertional dyspnea unable climb a flight of stairs. -echocardiogram completed 12/26/2018 finds LV wall thickening with an EF of 50- 55%, right ventricle is severely dilated, right ventricular systolic function is mildly reduced, both atria severely dilated, mild mitral regurgitation, tricuspid annulus dilatation, severe tricuspid regurgitation. -breath sounds are clear without coarseness or crackles, patient saturating 94- 95% on room air. -will maintain diuresis with torsemide 40 mg daily 4. Longstanding persistent Atrial fibrillation, present on admission, active -protracted history of atrial fibrillation, presently in atrial flutter, at co ntrolled rate of 90s to 100, with multifocal PVCs and couplets with no chest pain. -will continue Eliquis 5 mg twice daily for anticoagulation, no evidence of bleeding or bruising. -continue metoprolol succinate 75 mg twice daily. 5. GERD, chronic, present on admission, stable -patient denies complaints of difficulty swallowing or acid taste in her mouth. -continue home regimen of pantoprazole 40 mg twice daily. The patient is admitted for treatment of acute hyperkalemia secondary to acute on chronic renal failure and the associated risks at complications and adverse events. The patient is admitted as an inpatient with expected length of stay to be greater than 2 midnights. Scores GCS Guerrero coma scale eye opening: Spontaneous Tarkio coma scale verbal response: Orientated Guerrero coma scale motor response: Obey commands Tarkio coma scale total score: 15 Quality VTE Deep Vein Thrombosis/Pulmonary Embolism Present on Admission: No
[2019-03-11] MEDS: DEXTROSE 50 % IN WATER 25 GM/50 ML SYRINGE (20:36)
[2019-03-11] MEDS: DEXTROSE 5%-0.9% NS 1,000 ML 100 ML IV (20:42)
[2019-03-11 20:57] LABS: Add Manual Diff / Slide Review NO; Basophils Absolute Auto 100 /uL (0-100); Basophils Percent Auto 1.1 % (0-2); Eosinophils Absolute Auto 200 /uL (0-450); Eosinophils Percent Auto 3.3 % (2-4); Hematocrit 33.9 % (36-46); Hemoglobin 10.9 g/dL (12.0-16.0); Lymphocytes Absolute Auto 1100 /uL (1100-4500); Lymphocytes Percent Auto 21.8 % (25-40); Mean Corpuscular HGB Conc 32.1 % (30-36); Mean Corpuscular Hemoglobin 31.6 PG (26-34); Mean Corpuscular Volume 98.3 fL (80-100); Monocytes Absolute Auto 700 /uL (0-900); Monocytes Percent Auto 13.4 % (3-14); Neutrophils Absolute Auto 3000 /uL (1500-7000); Neutrophils Percent Auto 60.4 % (50-75); Platelet Count 200 X10^3/uL (150-400); Red Blood Cell Count 3.45 X10^6/uL (4.0-5.2)
[2019-03-11 21:05] LABS: BUN Creatinine Ratio 16.5 (6-22); Blood Urea Nitrogen 43 mg/dL (7-17); Calcium 9.4 mg/dL (8.4-10.2); Carbon Dioxide 21 mmol/L (22-32); Chloride 109 mmol/L (98-107); Estimated Glomerular Filt Rate 18.3 mL/min (>60); Glucose 132 mg/dL (80-110); HEMOLYSIS < 15 (0-50); Potassium 5.1 mmol/L (3.4-5.1); Sodium 143 mmol/L (137-145)
[2019-03-11 21:18] LABS: Troponin I < 0.012 ng/mL (0.01-0.034)
[2019-03-11 21:30] LABS: Magnesium 2.1 mg/dL (1.6-2.3)
[2019-03-11] MEDS: PANTOPRAZOLE 40 MG TABLET PO (21:41)
[2019-03-11] MEDS: APIXABAN 5 MG TABLET PO (21:41)
[2019-03-11] MEDS: METOPROLOL ER 25 MG TABLET 75 MG PO (21:41)
--- NOTE | 2019-03-11 22:07 | PC.NURSE ---
After patients low blood sugar episode she is drowsy most of the time. Did get her to wake up long enough to take her po meds and. She was able to stay awake to ambulate to the BSC. Patient wakes startled at times and then falls back to sleep quickly most of the time.
[2019-03-11] MEDS: INFLUENZA VACCINE 0.5 ML SYRINGE IM (22:15)
[2019-03-11] MEDS: DEXTROSE 5%-0.45% NS 1,000 ML 50 ML IV (22:27)
--- NOTE | 2019-03-11 23:37 | PC.NURSE ---
Jeana shift note: 2029 This RN returned to patients bedside after stepping out to get water, noted patient awake, pallor surrounding mouth and mottled to face. She states she is not feeling well. Notified provider, obtained VS and SUPERVISOR [employer]SEM[employer] to perform BG check. EKG stat. BG 45 mg/dl. Administered Dextrose AMP 50% x 1 and initiated IVF with Dextrose. Patient without loss of consciousness, drowsy, states feels like whole body is heavy. Clammy hands. 2037 BG 121 mg/dl 2014 BG 112 mg/dl 2100 Awake enough to take oral intake, Bacon Juice, Milk, and sandwich. 2299 BG 55 mg/dl Provider notified. Adm, second AMP Dextrose 50% x 1 Bedside report given to Cinthia JANE.
[2019-03-12] VITALS (7 sets, daily range): BP systolic 116–140; BP diastolic 64–89; PULSE 95–112; RESP 16–18; TEMP 36.6–37.6; O2SAT 92–100
[2019-03-12] MEDS: ACETAMINOPHEN 325 MG TABLET 650 MG PO ×3 (01:36→17:03)
--- NOTE | 2019-03-12 03:30 | PM.EVENT ---
Event Note Date Patient Seen: 03/11/19 Time Patient Seen: 20:25 Event Note: Called emergently to the patient's bedside due to acute altered mental status. The patient had been responding appropriately and completed the admission process with the nursing staff with no complaints. Approximately 10-15 minutes later there is return to the room and found the patient extremely lethargic requiring continuous stimulation to remain awake and she would drift off with eyes closed. With repeated questioning it is ascertained the patient had no complaints of headache or dizziness, no chest pain but continued palpitations and no worsening shortness of breath. Blood sugars obtained and a neuro exam completed. -blood sugars obtained at 45 mg/dL, patient is given 1 amp of D 50 IV. -on neuro exam she has an NIH score of 1 for some slight dysarthria, no movement or sensory deficits. -stat 12 lead EKG is obtained, telemetry record is reviewed finding no acute rhythm changes. -stat labs ordered including chemistry and troponin. The patient received 10 units of insulin and dextrose 25 g in the ER in treatment of her hyperkalemia. The patient had improved responsiveness with D50 but not back to prior baseline. Patient observed with continued improvement. This appears to be isolated hypoglycemic event. Will await lab results and treat as indicated. The patient's evening metoprolol is administered with marked improvement in her ectopy. Phone call placed to the patient's daughter Elizabeth who is also her surrogate decision maker. Informed her of the event describes a situation and her current presentation. Other and her both state that she will fall asleep mid-sentence frequently, and 1 is being observed is not uncommon. Review the lab results when received noting improvement in potassium to 5.1 from 6.5 and her renal function being unchanged with a creatinine 2.6. Additionally noted that troponin was negative at less than 0.012. Discussed her plan of care with re-evaluation in the morning. They acknowledge the information.
[2019-03-12 06:48] LABS: Albumin 3.6 g/dL (3.5-5.0); BUN Creatinine Ratio 17.9 (6-22); Blood Urea Nitrogen 43 mg/dL (7-17); Calcium 8.7 mg/dL (8.4-10.2); Carbon Dioxide 21 mmol/L (22-32); Chloride 107 mmol/L (98-107); Glucose 85 mg/dL (80-110); HEMOLYSIS < 15 (0-50); Phosphorous 4.9 mg/dL (2.8-4.1); Sodium 140 mmol/L (137-145)
[2019-03-12 07:01] LABS: Potassium 6.6 mmol/L (3.4-5.1)
[2019-03-12] MEDS: SODIUM POLYSTYRENE SULFON/SORB 15 GM/60 ML CUP 30 GM PO ×2 (07:53→13:10)
[2019-03-12] MEDS: CALCIUM GLUCONATE 9.3 MEQ in SODIUM CHLORIDE 0.9% 50 ML 140 ML IV (07:54)
[2019-03-12] MEDS: DEXTROSE 50 % IN WATER 25 GM/50 ML SYRINGE IV ×2 (07:55→13:43)
[2019-03-12] MEDS: INSULIN REGULAR 100 UNIT/ML 3 ML VIAL IV (07:56)
--- NOTE | 2019-03-12 08:23 | PC.NURSE ---
Pt reported to have critical potassium level of 6.6 this morning with lab draw. docent coordinator Kaycee Dawson reported this lab result to this nurse at 0705. This nurse made contact with Nurse Practitioner John, who was aware of this critical lab and was placing orders. Pt's blood glucose was checked at 0750 and recorded as 91 before the following medications were administered: Per orders patient was administered, 30mg kayexalate, 9.3 meqs calcium gluconate IV, 5 units insulin and one syringe of 25g of Dextrose 50 at 0756. Pt was closely monitored for symptoms of low blood glucose.
--- NOTE | 2019-03-12 08:58 | CM.DANOTE ---
Addendum entered by Lucia Peters R.N. 03/12/19 16:13: Charlene from [facility] is here seeing another patient. Asked her to assess this patient in case she gets discharged home tomorrow. This will depend upon her Potassium readings. Charlene is seeing patient now. Original Note: DCP: Case received, EMR reviewed and met with patient. Introduced self and role. Met with patient in her room. Was able to obtain information regarding her baseline function and living situation. DCP template/assessment completed with information currently available. Patient is a 68 year old female who admitted yesterday evening to the care of the hospitalist team. PCP: Dr. Vargas. Payer: confirmed: Medicare/Medicaid. Patient came to the hospital via ambulance secondary to hyperkalemia. Patient had also been having some chest discomfort and palpitations. She resides at [facility], and had labs drawn at the facility. Looking at her lab results, was recommended that she come here to hospital, since she was also symptomatic. Met with patient in her room. Alert and oriented, pleasant. She mentioned that she has been living at [facility] for approximately 6 months. She stated that she has a walker that she mostly sits on, as well as uses a cane. She stated that she is independent with showers, and has a private room. She goes to meals, and the facility does manage her meds. P: DCP to continue to follow for any needs. She should be able to return to [facility] when she is medically stable. Will discuss at team rounds to see if she will be here another day. Lucia Peters RN/Brewery Worker
[2019-03-12] MEDS: DULOXETINE 30 MG CAPSULE 60 MG PO (09:45)
[2019-03-12] MEDS: APIXABAN 5 MG TABLET PO ×2 (09:45→21:03)
[2019-03-12] MEDS: METOPROLOL ER 25 MG TABLET 75 MG PO ×2 (09:46→21:13)
[2019-03-12] MEDS: PANTOPRAZOLE 40 MG TABLET PO ×2 (09:47→21:04)
[2019-03-12] MEDS: SODIUM CHLORIDE NASAL SPRAY 1 SPRAY NASAL ×3 (09:47→21:04)
[2019-03-12] MEDS: hydrOXYzine pamoate 25 MG CAPSULE PO (09:52)
[2019-03-12 11:27] LABS: BUN Creatinine Ratio 17.9 (6-22); Blood Urea Nitrogen 43 mg/dL (7-17); Calcium 8.8 mg/dL (8.4-10.2); Carbon Dioxide 21 mmol/L (22-32); Chloride 107 mmol/L (98-107); Glucose 84 mg/dL (80-110); HEMOLYSIS < 15 (0-50); Sodium 139 mmol/L (137-145)
[2019-03-12 11:30] LABS: Potassium 6.5 mmol/L (3.4-5.1)
[2019-03-12] MEDS: TORSEMIDE 10 MG TABLET 40 MG PO (11:32)
--- NOTE | 2019-03-12 12:05 | DIET.PN ---
Dietary Progress Note Assessment: Ms. Shore is a 68 yo old female with hyperkalemia, CHF, Acute on Chronic Kidney Disease, and Crow's Granulomatosis with remote hx of dialysis. She has bilateral leg wounds. HT: 157.48 cm WT: 84kg AdjBW: 63.7kg BMI: 33.9 Labs: K: 6.6 Cr: 2.4 GFR: 20 P: 4.9 Alb: 3.6 Gluc: 92,132,85 MNA: 14 Jj: 20 Nutrition Diagnosis: Altered nutrition related lab values r/t altered renal function aeb elevated K, Cr, P and decreased GFR. Interventions: 1. Provided information on renal diet including recommended protein choices w/ amounts, low/med/high potassium and phosphorus food choices and meal pattern management. Diet Order: HH/Cardiac EER: 1900 shahnaz @ 30cal /kg AdjBW Pro: 80g @ 1.3g/kg AdjBW or 1g/kg actual weight Monitoring/Evaluations: Weight, PO's, associated labs.
[2019-03-12] MEDS: SODIUM POLYSTYRENE SULFON/SORB 15 GM/60 ML CUP 30 GM PR (13:30)
[2019-03-12] MEDS: INSULIN REGULAR 100 UNIT/ML 3 ML VIAL 10 UNIT IV (13:42)
--- NOTE | 2019-03-12 14:50 | PC.NURSE ---
Abnormal lab reported at [address] Meade notified. New orders for 30mg kaexylate PO and 30mg kaexylate rectally, as well as 10 units insulin with 25g of Dextrose 50 and administered at 1343. Pt's CBG checked at 1450 and reported as 82. Pt has had one watery stool 40 mins after administration of kaexylate.
--- NOTE | 2019-03-12 15:31 | PM.PN.1 ---
Subjective Subjective Date Patient Seen: 03/12/19 Interval history: The patient reports leg pain, has no shortness of breath, feels weak overall, had but has no other complaints she was admitted to the hospital yesterday for hyperkalemia. Patient was treated with Bactrim in addition to to resume a for lower extremity cellulitis/venous stasis ulcer. Since that time she has developed persistent hyperkalemia given the tubular damage done by Bactrim. The patient was resuscitated with Kayexalate insulin glucose and calcium yesterday. Her potassium came down to 5.1 but rebounded to 6.5 this morning. She was treated again with oral and rectal Kayexalate in addition to another dose of insulin and we are awaiting a repeat potassium at this time. Her primary manager pathology Dr. Hernandez is with [facility]. His recommendation is to continue current treatment plan and if needed discharge the patient home on 15 mg of Kayexalate orally daily until she follows up with him in the office. Exam Vital Signs (past 8 hours): - 03/12/19 08:48 03/12/19 14:00 Temperature 98 F 98 F Pulse Rate 95 H 102 H Respiratory Rate 17 17 Blood Pressure 116/74 121/75 Pulse Oximetry 94 92 Oxygen Delivery Method Room Air Oxygen Flow Rate 0 Narrative Exam Narrative: Ill-appearing female in no obvious distress Lungs: Clear to auscultation Cardiac exam: Irregularly irregular normal S1-S2 Abdomen: Soft nontender nondistended Extremity: Tender to palpation Objective Labs Result Diagrams: 03/11/19 20:45 03/12/19 05:50 Labs: Laboratory Results - last 24 hr 03/11/19 03/11/19 03/11/19 17:50 17:50 17:50 WBC 4.3 L RBC 3.32 L Hgb 10.6 L Hct 32.7 L MCV 98.6 MCH 31.9 MCHC 32.4 RDW 16.5 H Plt Count 188 Neut % (Auto) 66.8 Lymph % (Auto) 15.3 L [place] % (Auto) 12.2 Eos % (Auto) 3.9 Baso % (Auto) 1.8 Neut # (Auto) 2800 Lymph # (Auto) 700 L [place] # (Auto) 500 Eos # (Auto) 200 Baso # (Auto) 100 PT 18.4 H INR 1.6 H APTT 41 H D Sodium 141 Potassium 6.5 H* Chloride 108 H Carbon Dioxide 22 BUN 45 H Creatinine 2.60 H Estimated GFR 18.3 L BUN/Creatinine Ratio 17.3 Glucose 92 Calcium 8.8 Phosphorus Magnesium Total Bilirubin 0.6 AST 25 ALT 10 Alkaline Phosphatase 118 Total Creatine Kinase 34 CK-MB (CK-2) TNP CK-MB (CK-2) Rel Index TNP Troponin I < 0.012 Total Protein 8.0 Albumin 3.8 Globulin 4.2 H Albumin/Globulin Ratio 0.9 L Lipase 98 03/11/19 03/11/19 03/11/19 20:45 20:45 20:45 WBC 5.0 RBC 3.45 L Hgb 10.9 L Hct 33.9 L MCV 98.3 MCH 31.6 MCHC 32.1 RDW 17.0 H Plt Count 200 Neut % (Auto) 60.4 Lymph % (Auto) 21.8 L [place] % (Auto) 13.4 Eos % (Auto) 3.3 Baso % (Auto) 1.1 Neut # (Auto) 3000 Lymph # (Auto) 1100 [place] # (Auto) 700 Eos # (Auto) 200 Baso # (Auto) 100 PT INR APTT Sodium 143 Potassium 5.1 D Chloride 109 H Carbon Dioxide 21 L BUN 43 H Creatinine 2.60 H Estimated GFR 18.3 L BUN/Creatinine Ratio 16.5 Glucose 132 H Calcium 9.4 Phosphorus Magnesium Total Bilirubin AST ALT Alkaline Phosphatase Total Creatine Kinase CK-MB (CK-2) CK-MB (CK-2) Rel Index Troponin I < 0.012 Total Protein Albumin Globulin Albumin/Globulin Ratio Lipase 03/11/19 03/12/19 03/12/19 20:45 05:50 05:50 WBC RBC Hgb Hct MCV MCH MCHC RDW Plt Count Neut % (Auto) Lymph % (Auto) [place] % (Auto) Eos % (Auto) Baso % (Auto) Neut # (Auto) Lymph # (Auto) [place] # (Auto) Eos # (Auto) Baso # (Auto) PT INR APTT Sodium 140 139 Potassium 6.6 H* D 6.5 H* Chloride 107 107 Carbon Dioxide 21 L 21 L BUN 43 H 43 H Creatinine 2.40 H 2.40 H Estimated GFR 20.0 L 20.0 L BUN/Creatinine Ratio 17.9 17.9 Glucose 85 84 Calcium 8.7 8.8 Phosphorus 4.9 H Magnesium 2.1 Total Bilirubin AST ALT Alkaline Phosphatase Total Creatine Kinase CK-MB (CK-2) CK-MB (CK-2) Rel Index Troponin I Total Protein Albumin 3.6 Globulin Albumin/Globulin Ratio Lipase Assessment & Plan Assessment & Plan narrative: Impression 1. Hyperkalemia likely secondary to recent Bactrim use. Patient has received 1-2 doses of treatment for her hyperkalemia including Kayexalate and insulin but continues to have persistent elevated potassium. Will repeat her potassium at this time. Will continue daily Kayexalate as needed. The patient should not take Bactrim ever as this is likely to recur again. 2. Acute on chronic renal failure. It secondary to both Bactrim torsemide. Torsemide has had will recheck her labs again this evening 3. Chronic diastolic heart failure, 4. Persistent atrial fibrillation, continue apixaban and metoprolol 5. GERD he continue proton Patient will be discharged home once we can't determine her potassium remains at 6 or less. Quality VTE Deep Vein Thrombosis/Pulmonary Embolism Present on Admission: No
[2019-03-12 15:34] LABS: BUN Creatinine Ratio 17.1 (6-22); Blood Urea Nitrogen 41 mg/dL (7-17); Calcium 9.2 mg/dL (8.4-10.2); Carbon Dioxide 22 mmol/L (22-32); Chloride 108 mmol/L (98-107); Glucose 47 mg/dL (80-110); HEMOLYSIS < 15 (0-50); Potassium 5.3 mmol/L (3.4-5.1); Sodium 142 mmol/L (137-145)
[2019-03-12 19:37] LABS: BUN Creatinine Ratio 16.5 (6-22); Blood Urea Nitrogen 43 mg/dL (7-17); Calcium 8.8 mg/dL (8.4-10.2); Carbon Dioxide 24 mmol/L (22-32); Chloride 105 mmol/L (98-107); Estimated Glomerular Filt Rate 18.3 mL/min (>60); Glucose 84 mg/dL (80-110); HEMOLYSIS < 15 (0-50); Potassium 5.5 mmol/L (3.4-5.1); Sodium 140 mmol/L (137-145)
[2019-03-12 20:12] LABS: Creatine Kinase 30 U/L (30-135)
[2019-03-12] MEDS: GABAPENTIN 100 MG CAPSULE PO (21:04)
[2019-03-12] MEDS: HYDROCORTISONE 1% CREAM 28 GM 1 APPLIC TOP (21:37)
[2019-03-12] MEDS: SODIUM POLYSTYRENE SULFON/SORB 15 GM/60 ML CUP PO (21:45)
[2019-03-13] MEDS: MELATONIN 3 MG TABLET 6 MG PO (00:32)
--- NOTE | 2019-03-13 00:46 | PC.NURSE ---
Patient is alert and oriented. Breath sounds with inspiratory crackles in left LL; RA sat 93%. HR irregular and tachy at 107 bpm; telemetry reading was afib RVR w/frequent PVC's. Denies nausea. BT present and abdomen is soft (earlier loose stools related to Kaexylate). Denies dysuria, frequency or urgency. Denies pain. Dialysis fistula present in left upper arm with positive bruits. Noted pinpoint scabbed abrasions from scratching on back, abdomen, bilateral arms and legs. Requested LUX stockings be removed for night. Noted venous stasis discoloration bilateral LE and has Allevyn dressings to both legs (venous stasis ulcers) which are CDI. 0000 CBG was 107 and result called to John EVANS with no new orders. Is able to turn self in bed and receives SBA when up to bathroom although appears steady on feet and denies feeling weak. Fall risk score is moderate; bed alarm is activated.
[2019-03-13] MEDS: hydrOXYzine pamoate 25 MG CAPSULE PO (03:05)
[2019-03-13 04:15] VITALS: BP 108/76; PULSE 108; RESP 18; TEMP 37.1; O2SAT 93
[2019-03-13 05:17] LABS: BUN Creatinine Ratio 17.5 (6-22); Blood Urea Nitrogen 42 mg/dL (7-17); Calcium 8.2 mg/dL (8.4-10.2); Carbon Dioxide 24 mmol/L (22-32); Chloride 105 mmol/L (98-107); Glucose 90 mg/dL (80-110); HEMOLYSIS < 15 (0-50); Potassium 5.3 mmol/L (3.4-5.1); Sodium 140 mmol/L (137-145)
[2019-03-13 08:00] VITALS: BP 143/91; PULSE 110; RESP 16; TEMP 36.6; O2SAT 94
--- NOTE | 2019-03-13 08:43 | PM.DS.1 ---
History of Present Illness History of Present Illness Date Patient Seen: 03/11/19 Chief complaint: Hyperkalemia Narrative: Written by Paxton EVANS: Ms. Rhoda Shore is a 68-year-old female patient with a history significant for atrial fibrillation on Eliquis, diastolic heart failure, cor pulmonale, chronic kidney disease with remote history of dialysis, iron deficiency anemia, hyperlipidemia, depression and Crow's granulomatosis with vasculitis who was sent to the ER following lab results from her facility demonstrating high potassium level. His reported that the patient had chest pain yesterday with some worsening today with increased frequency of palpitations described as fluttering in her chest. She has associated shortness of breath and nausea with dry heaves. The patient recently had been transitioned to torsemide for diuresis and is also on a course of Bactrim for chronic leg wounds bilateral lower extremities. Patient reports no recent fevers or chills. She has no complaints of headaches, dizziness or visual changes. She presently denies complaints chest pain or shortness of breath. At baseline the patient has marked exertional dyspnea and is unable to ascend a flight of stairs without stopping to rest. She denies abdominal pain and has no nausea. She describes no changes in bowel or bladder habits. The patient ambulates predominantly with a cane or walker but will ambulated around her room independently and has sustained no falls. Upon arrival to the ER the patient is afebrile with temperature 97.9?, heart rate of 81, blood pressure 116/84, respirations 16 and oxygen saturation 94%. An EKG was obtained found atrial flutter at 94 without evidence of infarct or ischemia. Chest x-ray was obtained which found cardiomyopathy with a small left pleural effusion but no evidence of pulmonary edema. On laboratory analysis she has white count of 4.3, hemoglobin and hematocrit of 10.6 and 32.7 with platelets of 188. On chemistries her sodium is normal 141 with most recent potassium of 6.5. She has a BUN of 45 and creatinine 2.6 (baseline creatinine is 1.7-2.0). Patient's present on Eliquis and has elevated coag studies with a PT of 18.4, INR of 1.6 and PTT of 41. Her LFTs are all within normal range in her troponin is negative at less than 0.012. The patient is admitted to the hospital for hyperkalemia. Patient's voip engineer is Dr. Hernandez in [place]. Discharge Providers Provider Date of admission: 03/11/19 19:28 Discharge Date: 03/13/19 Primary care physician: Bri Vargas MD Consults: 03/11/19 19:27 Consult to Dietitian, Adult Routine Comment: Reason For Exam: CHF, CKD, hyperkalemia Consult to Discharge Planning Routine Comment: Discharge provider: Shayy Munguia DO Summary Hospital Course Discharge Diagnosis: 1. Acute on chronic hyperkalemia, likely secondary to recent Bactrim use, present on admission. Stable/improving. 2. Acute kidney injury on chronic kidney disease stage IV, present on admission. Resolving. 3. Chronic diastolic heart failure, chronic, present on admission. Stable. 5. Persistent atrial fibrillation, chronic, present on admission. Stable. 6. GERD, chronic, present on admission. Stable. he continue proton. Hospital Course: Debi Shore is a 68-year-old female patient with a history significant for atrial fibrillation on Eliquis, diastolic heart failure, cor pulmonale, chronic kidney disease with remote history of dialysis, iron deficiency anemia, hyperlipidemia, depression and Crow's granulomatosis with vasculitis who was sent to the ER following lab results from her facility demonstrating high potassium level. 1. Acute on chronic hyperkalemia, likely secondary to recent Bactrim use, present on admission. Stable/improving. -Patient presented with palpitations and fluttering in her chest. -Continued IV fluids until adequately hydrated then discontinued. -Patient found to hyperkalemic with potassium 6.5. She had received 135 mg total in kayexalate with transient drop and rise now trending down and appears to be stable. Discharged on Kayexalate 15 g daily until able to follow up with her voip engineer Dr. Hernandez. -Recommended avoidance of Bactrim use because likely to recur and listed as an allergy. 2. Acute kidney injury on chronic kidney disease stage IV, present on admission. Resolving. -Secondary to resent Bactrim use for venous stasis ulcer infection with concurrent use of torsemide. -Baseline creatinine 1.5-2.0 over last year. Initial creatinine is 2.6. Trending down to 2.4. -Avoided nephrotoxic agents. Bactrim now listed as an allergy. -Continued IV fluids until adequately hydrated then discontinued. 3. Chronic diastolic heart failure, chronic, present on admission. Stable. -Restarted torsemide 40 mg daily. Appears euvolemic. -Continued daily weights and strict I&O's. 4. Anemia of chronic kidney disease, present on admission. Stable. -Initial hemoglobin 11.4 and stable. -No overt signs of bleeding. -Continued to monitor closely. 5. Persistent atrial fibrillation, chronic, present on admission. Stable. -Continued apixaban 5 mg twice daily and metoprolol succinate 75 mg daily. 6. GERD, chronic, present on admission. Stable. he continue proton. -Continued PPI. Exam Vital Signs (past 8 hours): - 03/13/19 04:15 Temperature 98.8 F Pulse Rate 108 H Respiratory Rate 18 Blood Pressure 108/76 Pulse Oximetry 93 Oxygen Delivery Method Room Air Oxygen Flow Rate 0 Narrative Exam Narrative: General: Elderly female lying in bed and in no acute distress, appears chronically ill and older than stated age, appropriately interactive HEENT: Normocephalic, atraumatic. External ears without defect. Pupils equal, round, and reactive to light. Anicteric sclerae, moist conjunctivae, and no lid lag. Oropharynx free of erythema and cobble stoning with moist mucosa. Neck: Supple with full range of motion. No jugular venous distension. No lymphadenopathy or thyromegaly. Cardiovascular: Regular rate and rhythm without murmurs, rubs, or gallops appreciated Pulmonary: Clear to auscultation bilaterally without crackles, wheezes, or rhonchi. Normal respiratory effort with no use of accessory muscles. Abdomen: Soft, bowel sounds present, nontender, nondistended. No hepatosplenomegaly or masses appreciated. Extremities: No clubbing, cyanosis, or edema. AV fistula in left arm. Skin: Normal temperature, turgor, and texture; no rash, ulcers, or subcutaneous nodules appreciated. Neurological: Cranial nerves grossly intact. Psychiatric: Mildly depressed mood and normal affect. Alert and oriented to person, place, and time. Objective Labs Result Diagrams: 03/11/19 20:45 03/13/19 04:35 Labs: Laboratory Results - last 24 hr 03/12/19 03/12/19 03/12/19 05:50 15:15 19:20 Sodium 139 142 140 Potassium 6.5 H* 5.3 H D 5.5 H Chloride 107 108 H 105 Carbon Dioxide 21 L 22 24 BUN 43 H 41 H 43 H Creatinine 2.40 H 2.40 H 2.60 H Estimated GFR 20.0 L 20.0 L 18.3 L BUN/Creatinine Ratio 17.9 17.1 16.5 Glucose 84 47 L 84 Calcium 8.8 9.2 8.8 Total Creatine Kinase 03/12/19 03/13/19 19:20 04:35 Sodium 140 Potassium 5.3 H Chloride 105 Carbon Dioxide 24 BUN 42 H Creatinine 2.40 H Estimated GFR 20.0 L BUN/Creatinine Ratio 17.5 Glucose 90 Calcium 8.2 L Total Creatine Kinase 30 Discharge Plan Discharge Plan Patient Disposition: Assisted Living Transfer to: [facility] Labs: BMP in 2-3 days (potassium and creatinine levels) Discharge comment: All belongings given to pt. Pt educated on follow up, s/s of worsening condition. Rx given to pt. All questions answered. Discharge Med Rec/Prescriptions Prescriptions: New sodium polystyrene sulfonate 15 gram/60 mL suspension 60 ml PO DAILY Qty: 500 RF: 0 Continued acetaminophen 325 mg Tablet 650 mg PO Q6H PRN (Reason: Fever Or Pain) RF: 0 torsemide 20 mg tablet 40 mg PO DAILY RF: 0 hydroxyzine HCl 25 mg tablet 25 mg PO Q8H PRN (Reason: Itching) RF: 0 gabapentin 100 mg capsule 100 mg PO BID RF: 0 nystatin 100,000 unit/gram powder 1 applic topical QID RF: 0 benzocaine 20 % Gel 1 applic MUCOUS MEMBRANE Q6H PRN (Reason: canker sore) RF: 0 sodium chloride [[place] Nasal] 0.65 % Aerosol,[place] 1 spray intranasal TID RF: 0 duloxetine 60 mg capsule,delayed release(DR/EC) 60 mg PO DAILY RF: 0 Aspercreme Max 16 % Liquid 1 applic topical BID RF: 0 apixaban 5 mg tablet 5 mg PO BID RF: 0 metoprolol succinate 25 mg tablet extended release 24 hr 75 mg PO BID RF: 0 pantoprazole 40 mg tablet,delayed release (DR/EC) 40 mg PO BID RF: 0 polyethylene glycol 3350 17 gram Powder In Packet 17 g PO DAILY RF: 0 cyanocobalamin (vitamin B-12) [Vitamin B-12] 1,000 mcg Tablet 1,000 mcg PO DAILY RF: 0 melatonin 3 mg Tablet 6 mg PO DAILY RF: 0 ascorbic acid (vitamin C) 500 mg Tablet 500 mg PO DAILY RF: 0 ferrous sulfate 325 mg (65 mg iron) Tablet 325 mg PO DAILY RF: 0 fluticasone propionate 50 mcg/actuation spray,suspension 1 spray INTRANASAL DAILY RF: 0 ondansetron HCl 8 mg tablet 8 mg PO DAILY PRN (Reason: Nausea) RF: 0 guaifenesin 100 mg/5 mL Liquid 200 mg PO Q8H PRN (Reason: Cough) RF: 0 hydrocortisone 1 % Cream 1 applic TOPICAL BID PRN (Reason: Rash) RF: 0 oxycodone 5 mg tablet 2.5 - 5 mg PO Q6H PRN (Reason: pain) Qty: 10 RF: 0 Discontinued sulfamethoxazole-trimethoprim 800-160 mg tablet 1 tab PO BID RF: 0 patiromer calcium sorbitex 8.4 gram Powder In Packet 8.4 g PO DAILY RF: 0 Follow up/Referrals: Manuel Hernandez MD [Non-Staff] - 3-5 Days Bri Vargas MD [Primary Care Provider] - Tay Cote MD [Physician] - 3-5 Days Discharge Orders: Discharge (Order); Ordered 03/13/19 Ordered By: Shayy Munguia Discharge Health Status Brief summary of current health status: Debi Shore is a 68-year-old female patient with a history significant for atrial fibrillation on Eliquis, diastolic heart failure, cor pulmonale, chronic kidney disease with remote history of dialysis, iron deficiency anemia, hyperlipidemia, depression and Crow's granulomatosis with vasculitis who was sent to the ED following lab results from [facility] demonstrating high potassium level due to Bactrim to treat chronic LE venous stasis ulcers infection. Provider Discharge Instructions Diet: Low-protein/Renal Activity: Activity as tolerated with forward wheeled walker and PT/OT [facility] Rehab type: Physical therapy and Occupational therapy Discharge Data Primary Care Provider: Bri Vargas Discharges patient from system. Discharge Date/Time: 03/13/19 11:31 Quality VTE Deep Vein Thrombosis/Pulmonary Embolism Present on Admission: No
--- NOTE | 2019-03-13 08:51 | CM.DPC ---
Addendum entered by Mari Dumont LPN 03/13/19 09:02: All are updated: will follow prn until pt leaves. Original Note: DCP: continued: Case received and discussed the Dr. Munguia this morning. She reports pt is stable for a return to her [facility]) and with outpt followup with specialty provider. Spoke with Kirstin/[facility]. She confirms that pt had been assessed yesterday and they are ready to take her back when stable. w/c van can pick her up at 1130. Dr. Munguia is updated and will update pt and RN caring for her now. Will fax final orders when received and the dc summary with CMsp assist.
[2019-03-13 09:41] VITALS: BP 143/91; PULSE 110
[2019-03-13] MEDS: APIXABAN 5 MG TABLET PO (09:41)
[2019-03-13] MEDS: PANTOPRAZOLE 40 MG TABLET PO (09:41)
[2019-03-13] MEDS: DULOXETINE 30 MG CAPSULE 60 MG PO (09:41)
[2019-03-13] MEDS: METOPROLOL ER 25 MG TABLET 75 MG PO (09:41)
[2019-03-13] MEDS: SODIUM CHLORIDE NASAL SPRAY 1 SPRAY NASAL (09:43)
[2019-03-13] MEDS: GABAPENTIN 100 MG CAPSULE PO (09:44)
== END 2019-03-13 11:31 | DRG 641 ==
LOC: ED 18:49 → AC 19:17
PROVIDERS: Nurse Practitioner Adult Health; Admitting Provider Internal Medicine; Emergency Provider Emergency Medicine; PCP Internal Medicine; Visit Provider Internal Medicine
DX: E87.5 Hyperkalemia (principal); I48.11 Longstanding persistent atrial fibrillation; I48.92 Unspecified atrial flutter; N17.9 Acute kidney failure, unspecified; N18.4 Chronic kidney disease, stage 4 (severe); L97.829 Non-pressure chronic ulcer of other part of left lower leg with unspecified severity; L97.819 Non-pressure chronic ulcer of other part of right lower leg with unspecified severity; M31.30 Wegener's granulomatosis without renal involvement; I50.32 Chronic diastolic (congestive) heart failure; I27.81 Cor pulmonale (chronic); D63.1 Anemia in chronic kidney disease; N14.1 Nephropathy induced by other drugs, medicaments and biological substances; T36.8X5A Adverse effect of other systemic antibiotics, initial encounter; Z79.01 Long term (current) use of anticoagulants; I87.2 Venous insufficiency (chronic) (peripheral); E16.2 Hypoglycemia, unspecified; R01.1 Cardiac murmur, unspecified
CPT/HCPCS: 36415; 71045; 80048; 80053; 80069; 81003; 82550; 82962; 83690; 83735; 84484; 85025; 85610; 85730; 90471; 90656; 93005; 94640; 96365; 96375; 99284; 99285; J0610; J2405; J7613; Q2038

== ENCOUNTER → 2019-03-17 07:58 | Outpatient (ROUT) | payer MEDICARE, MEDICAID, SELFPAY ==
[2019-03-11 22:23] VITALS: BMI 33.3
[2019-03-17 09:23] LABS: BUN Creatinine Ratio 20.5 (6-22); Blood Urea Nitrogen 41 mg/dL (7-17); Calcium 8.4 mg/dL (8.4-10.2); Carbon Dioxide 25 mmol/L (22-32); Chloride 106 mmol/L (98-107); Estimated Glomerular Filt Rate 24.7 mL/min (>60); Glucose 85 mg/dL (80-110); HEMOLYSIS < 15 (0-50); Potassium 5.2 mmol/L (3.4-5.1); Sodium 140 mmol/L (137-145)
== END ==
PROVIDERS: PCP Internal Medicine; Visit Provider Internal Medicine
DX: N18.9 Chronic kidney disease, unspecified (principal); D64.9 Anemia, unspecified; E87.5 Hyperkalemia
CPT/HCPCS: 36415; 80048

== ENCOUNTER → 2019-03-25 10:40 | Outpatient (CLI) | payer MEDICARE, MEDICAID, SELFPAY ==
[2019-03-11 22:23] VITALS: BMI 33.3
== END ==
PROVIDERS: PCP Internal Medicine; Visit Provider Family Medicine
DX: I87.2 Venous insufficiency (chronic) (peripheral) (principal); L97.811 Non-pressure chronic ulcer of other part of right lower leg limited to breakdown of skin; L97.821 Non-pressure chronic ulcer of other part of left lower leg limited to breakdown of skin; R60.0 Localized edema; I50.32 Chronic diastolic (congestive) heart failure; L30.9 Dermatitis, unspecified; N18.4 Chronic kidney disease, stage 4 (severe)
CPT/HCPCS: 97597

== ENCOUNTER → 2019-04-01 13:00 | Outpatient (CLI) | payer MEDICARE, MEDICAID, SELFPAY ==
[2019-03-11 22:23] VITALS: BMI 33.3
== END ==
PROVIDERS: PCP Internal Medicine; Visit Provider Family Medicine
DX: I87.2 Venous insufficiency (chronic) (peripheral) (principal); L97.829 Non-pressure chronic ulcer of other part of left lower leg with unspecified severity; L30.9 Dermatitis, unspecified; N18.4 Chronic kidney disease, stage 4 (severe); I50.22 Chronic systolic (congestive) heart failure; L59.9 Disorder of the skin and subcutaneous tissue related to radiation, unspecified; R60.0 Localized edema
CPT/HCPCS: 29581; 99213

== ENCOUNTER 2019-04-03 00:46 | Emergency (ER) | payer MEDICARE, MEDICAID, SELFPAY ==
[2019-03-11 22:23] VITALS: BMI 33.3
[2019-04-03 01:01] VITALS: BP 119/80; PULSE 82; RESP 15; TEMP 36.1; O2SAT 97; BMI 30.9
[2019-04-03 01:18] LABS: Add Manual Diff / Slide Review NO; Basophils Absolute Auto 100 /uL (0-100); Basophils Percent Auto 1.4 % (0-2); Eosinophils Absolute Auto 200 /uL (0-450); Eosinophils Percent Auto 6.1 % (2-4); Hematocrit 33.8 % (36-46); Hemoglobin 11.3 g/dL (12.0-16.0); Lymphocytes Absolute Auto 800 /uL (1100-4500); Lymphocytes Percent Auto 21.9 % (25-40); Mean Corpuscular HGB Conc 33.3 % (30-36); Mean Corpuscular Hemoglobin 32.7 PG (26-34); Mean Corpuscular Volume 98.2 fL (80-100); Monocytes Absolute Auto 500 /uL (0-900); Monocytes Percent Auto 13.1 % (3-14); Neutrophils Absolute Auto 2200 /uL (1500-7000); Neutrophils Percent Auto 57.5 % (50-75); Platelet Count 191 X10^3/uL (150-400); Red Blood Cell Count 3.44 X10^6/uL (4.0-5.2); Red Cell Distribution Width 16.3 % (11.6-14.8); White Blood Cell Count 3.9 X10^3/uL (4.5-11.0)
[2019-04-03 01:25] LABS: INR 1.8 (0.9-1.3); Prothrombin Time 21.5 SECONDS (10.1-12.7)
--- NOTE | 2019-04-03 01:26 | ED.EPISTAXIS ---
HPI - Epistaxis General Chief complaint: Nasal Problem Stated complaint: Nosebleed Time Seen by Provider: 04/03/19 00:56 Source: patient and EMS Mode of arrival: EMS History of Present Illness HPI Narrative: Patient is a 68-year-old female on Coumadin for atrial fibrillation presenting with bilateral epistaxis. She said that she has had off and on yesterday today she did use some Afrin however continues to bleed. She says that she has hole in her septum so is coming out both sides. A clamp was placed now does not seem to be running down her throat. MD complaint: epistaxis Location: bilateral nostril Duration: intermittent Related Data Home Medications Medication Instructions Recorded Confirmed Aspercreme Max 1 applic TOPICAL BID 12/25/18 03/11/19 acetaminophen 650 mg PO Q6H PRN 12/25/18 03/11/19 apixaban 5 mg PO BID 12/25/18 03/11/19 benzocaine 1 applic MUCOUS MEMBRANE Q6H PRN 12/25/18 03/11/19 duloxetine 60 mg PO DAILY 12/25/18 03/11/19 gabapentin 100 mg PO BID 12/25/18 03/11/19 hydroxyzine HCl 25 mg PO Q8H PRN 12/25/18 03/11/19 nystatin 1 applic TOPICAL QID 12/25/18 03/11/19 sodium chloride [[place] Nasal] 1 spray INTRANASAL TID 12/25/18 03/11/19 torsemide 40 mg PO DAILY 12/25/18 03/11/19 ascorbic acid (vitamin C) 500 mg PO DAILY 03/11/19 03/11/19 cyanocobalamin (vitamin B-12) 1,000 mcg PO DAILY 03/11/19 03/11/19 [Vitamin B-12] ferrous sulfate 325 mg PO DAILY 03/11/19 03/11/19 fluticasone propionate 1 spray INTRANASAL DAILY 03/11/19 03/11/19 guaifenesin 200 mg PO Q8H PRN 03/11/19 03/11/19 hydrocortisone 1 applic TOPICAL BID PRN 03/11/19 03/11/19 melatonin 6 mg PO DAILY 03/11/19 03/11/19 metoprolol succinate 75 mg PO BID 03/11/19 03/11/19 ondansetron HCl 8 mg PO DAILY PRN 03/11/19 03/11/19 pantoprazole 40 mg PO BID 03/11/19 03/11/19 polyethylene glycol 3350 17 g PO DAILY 03/11/19 03/11/19 Previous Rx's Medication Instructions Recorded oxycodone 2.5 - 5 mg PO Q6H PRN #10 tab 03/13/19 sodium polystyrene sulfonate 60 ml PO DAILY #500 ml 03/13/19 Allergies Allergy/AdvReac Type Severity Reaction Status Date / Time adhesive tape Allergy Verified 09/09/18 22:36 basil Allergy Verified 09/09/18 22:36 cephalexin [From Keflex] Allergy Verified 09/09/18 22:36 marlena Allergy Verified 09/09/18 22:36 Penicillins Allergy Verified 09/09/18 22:36 sulfamethoxazole AdvReac Severe Hyperkalemia/worsening Verified 03/13/19 08:36 [From Bactrim] CKD trimethoprim [From Bactrim] AdvReac Severe Hyperkalemia/worsening Verified 03/13/19 08:36 CKD Review of Systems Review of Systems Narrative: GENERAL: Denies chills,fever HEENT: See HPI RESPIRATORY: Denies dyspnea, cough, wheezing CARDIOVASCULAR: Denies chest pain, palpitations GASTROINTESTINAL: Denies nausea, vomiting MUSCULOSKELETAL: Denies extremity pain, injury SKIN: No rash, no laceration, no pruritus NEUROLOGIC: Denies weakness, dizziness, headache, numbness 8 point review of systems is negative except for those stated above and HPI Patient History Medical History Chronic kidney disease (Acute) Cor pulmonale (Acute) Depression (Acute) Diastolic heart failure (Acute) Hyperlipidemia (Acute) Iron (Fe) deficiency anemia (Acute) Osteoarthritis (Acute) Polyneuropathy (Acute) Pulmonary embolism (Acute) Crow's granulomatosis (Acute) Surgical History History of Achilles tendon repair (Acute) History of esophagogastroduodenoscopy (EGD) (Acute) Status post creation of arteriovenous fistula (Acute) Social History household members: none Smoking Status: Never smoker alcohol intake: current substance use type: does not use alcohol intake frequency: holidays/special occasions only Substance Use Type: does not use Exam Initial Vital Signs Initial Vital Signs: Vital Signs Temperature 97 F L 04/03/19 01:01 Pulse Rate 82 04/03/19 01:01 Respiratory Rate 15 04/03/19 01:01 Blood Pressure 119/80 04/03/19 01:01 Pulse Oximetry 97 04/03/19 01:01 GENERAL: Well-appearing, well-nourished and in no acute distress. Nose CARDIOVASCULAR: peripheral pulses in tact, cap refill <2 sec RESPIRATORY: No respiratory distress, speaks in full sentences without difficulty [ABDOMEN: Soft, nontender, no guarding or rebound] EXTREMITIES: Normal range of motion, no clubbing or edema. Neurovascularly intact NEUROLOGICAL: Cranial nerves II through XII grossly intact. Normal gait and speech. SKIN: Warm, dry, no petechiae, no rashes or lesions. Procedures Epistaxis Control Nostril: bilateral Nose Prepped With: other (txa) Direct Inspection: unable to visualize Cautery Used: none Device Inserted: hemostatic balloon Course Orders Ordered: ED Orders 04/03/19 01:05 Complete Blood Count AUTO DIFF Stat Prothrombin Time INR Stat Discontinued Medications Acetaminophen (Tylenol) 975 mg PO NOW ONE Stop: 04/03/19 03:52 Last Admin: 04/03/19 03:56 Dose: 975 mg Documented by: ARASELI Tranexamic Acid (Cyklokapron) 1,000 mg MM NOW ONE Stop: 04/03/19 01:59 Last Admin: 04/03/19 02:20 Dose: 1,000 mg Documented by: LETY Consultations Consultation #1: Dr. Orosco ENT, [facility] the [facility] for 3 days. He has given her information and will schedule follow-up for Saturday Time: 06:33 Vital Signs Vital signs: Vital Signs - 8 hr 04/03/19 01:01 04/03/19 03:21 Temperature 97 F L Pulse Rate 82 82 Respiratory Rate 15 22 Blood Pressure 119/80 Blood Pressure [Right Arm] 131/95 H Pulse Oximetry 97 MDM - Epistaxis Lab Data Attestation: I reviewed the patient's lab results. Result diagrams: 04/03/19 01:05 Labs: Lab Results 04/03/19 04/03/19 Range/Units 01:05 01:05 WBC 3.9 L (4.5-11.0) X10^3/uL RBC 3.44 L (4.0-5.2) X10^6/uL Hgb 11.3 L (12.0-16.0) g/dL Hct 33.8 L (36-46) % MCV 98.2 (80-100) fL MCH 32.7 (26-34) PG MCHC 33.3 (30-36) % RDW 16.3 H (11.6-14.8) % Plt Count 191 (150-400) X10^3/uL Neut % (Auto) 57.5 (50-75) % Lymph % (Auto) 21.9 L (25-40) % [place] % (Auto) 13.1 (3-14) % Eos % (Auto) 6.1 H (2-4) % Baso % (Auto) 1.4 (0-2) % Neut # (Auto) 2200 (5997-3947) /uL Lymph # (Auto) 800 L (2305-9669) /uL [place] # (Auto) 500 (0-900) /uL Eos # (Auto) 200 (0-450) /uL Baso # (Auto) 100 (0-100) /uL PT 21.5 H (10.1-12.7) SECONDS INR 1.8 H (0.9-1.3) MDM Narrative Medical decision making narrative: Initially clamp was placed for about 45 minutes patient was having blood dripping down her throat. More bleeding was coming out the right than the left. Rhino rocket was placed with Txa on it. She continued to have some mild bleeding out the left nare. A Merocel packing was placed on the left also with TxA. The patient developed a very large clot and her pharynx. Suction was attempted for the clot however unsuccessful. Merocel packing was removed she was able to blow out the large clot out of the left side. Initially bleeding seemed to be better however it started up again worse than prior. Rhino rocket was now placed on the left side as well. Patient has bilateral rhino rockets all bleeding now seems to be controlled and stopped. Blood pressure is within normal limits her INR is actually 1.8 and subtherapeutic. She was having some bloody tears but that seems to have resolved now. Patient no sleeping. Discharge Plan Departure Patient Disposition: Home Clinical Impression: Epistaxis Instructions: DI for Nosebleed Activity Restrictions/Additional Instructions: *You have been diagnosed with bilateral nose bleeding *What to do: Keep packing in nose until seen by ENT. *Continue to take medications as directed -stop taking Coumadin until bleeding has for sure stopped. *Follow up with your primary care provider in 2-3 days ENT should call your cellphone today to schedule appointment on Saturday *Return to ER if you should have persistent bleeding or any new, worsening or concerning symptoms Prescriptions: No Action acetaminophen 325 mg Tablet 650 mg PO Q6H PRN (Reason: Fever Or Pain) RF: 0 torsemide 20 mg tablet 40 mg PO DAILY RF: 0 hydroxyzine HCl 25 mg tablet 25 mg PO Q8H PRN (Reason: Itching) RF: 0 gabapentin 100 mg capsule 100 mg PO BID RF: 0 nystatin 100,000 unit/gram powder 1 applic topical QID RF: 0 benzocaine 20 % Gel 1 applic MUCOUS MEMBRANE Q6H PRN (Reason: canker sore) RF: 0 sodium chloride [[place] Nasal] 0.65 % Aerosol,[place] 1 spray intranasal TID RF: 0 duloxetine 60 mg capsule,delayed release(DR/EC) 60 mg PO DAILY RF: 0 Aspercreme Max 16 % Liquid 1 applic topical BID RF: 0 apixaban 5 mg tablet 5 mg PO BID RF: 0 metoprolol succinate 25 mg tablet extended release 24 hr 75 mg PO BID RF: 0 pantoprazole 40 mg tablet,delayed release (DR/EC) 40 mg PO BID RF: 0 polyethylene glycol 3350 17 gram Powder In Packet 17 g PO DAILY RF: 0 cyanocobalamin (vitamin B-12) [Vitamin B-12] 1,000 mcg Tablet 1,000 mcg PO DAILY RF: 0 melatonin 3 mg Tablet 6 mg PO DAILY RF: 0 ascorbic acid (vitamin C) 500 mg Tablet 500 mg PO DAILY RF: 0 ferrous sulfate 325 mg (65 mg iron) Tablet 325 mg PO DAILY RF: 0 fluticasone propionate 50 mcg/actuation spray,suspension 1 spray INTRANASAL DAILY RF: 0 ondansetron HCl 8 mg tablet 8 mg PO DAILY PRN (Reason: Nausea) RF: 0 guaifenesin 100 mg/5 mL Liquid 200 mg PO Q8H PRN (Reason: Cough) RF: 0 hydrocortisone 1 % Cream 1 applic TOPICAL BID PRN (Reason: Rash) RF: 0 sodium polystyrene sulfonate 15 gram/60 mL suspension 60 ml PO DAILY Qty: 500 RF: 0 oxycodone 5 mg tablet 2.5 - 5 mg PO Q6H PRN (Reason: pain) Qty: 10 RF: 0 Referrals: Dustin Orosco MD [Physician] - Marc Villalobos MD [Physician] - Bri Vargas MD [Primary Care Provider] -
[2019-04-03] MEDS: TRANEXAMIC ACID 1,000 MG VIAL 1000 MG MM (02:20)
[2019-04-03 03:21] VITALS: BP 131/95; PULSE 82; RESP 22
[2019-04-03] MEDS: ACETAMINOPHEN 325 MG TABLET 975 MG PO (03:56)
[2019-04-03 08:12] VITALS: BP 133/81; PULSE 82; RESP 16; O2SAT 95
== END 2019-04-03 08:14 | disposition home or self-care (01) ==
PROVIDERS: Emergency Provider Emergency Medicine; PCP Internal Medicine
DX: R04.0 Epistaxis (principal); Z79.01 Long term (current) use of anticoagulants
CPT/HCPCS: 30901; 30905; 36415; 85025; 85610; 99283

== ENCOUNTER → 2019-04-08 14:24 | Outpatient (CLI) | payer MEDICARE, MEDICAID, SELFPAY ==
[2019-03-11 22:23] VITALS: BMI 33.3
== END ==
PROVIDERS: PCP Internal Medicine; Visit Provider Family Medicine
DX: I87.2 Venous insufficiency (chronic) (peripheral) (principal); L97.821 Non-pressure chronic ulcer of other part of left lower leg limited to breakdown of skin; L95.9 Vasculitis limited to the skin, unspecified; R60.0 Localized edema; N18.4 Chronic kidney disease, stage 4 (severe); I50.22 Chronic systolic (congestive) heart failure
CPT/HCPCS: 29580; 29581; 99213

== ENCOUNTER → 2019-04-09 08:08 | Outpatient (ROUT) | payer MEDICARE, MEDICAID, SELFPAY ==
[2019-03-11 22:23] VITALS: BMI 33.3
[2019-04-09 08:54] LABS: BUN Creatinine Ratio 26.2 (6-22); Blood Urea Nitrogen 55 mg/dL (7-17); Calcium 8.5 mg/dL (8.4-10.2); Carbon Dioxide 22 mmol/L (22-32); Chloride 110 mmol/L (98-107); Estimated Glomerular Filt Rate 23.4 mL/min (>60); Glucose 90 mg/dL (80-110); HEMOLYSIS < 15 (0-50); Potassium 4.6 mmol/L (3.4-5.1); Sodium 142 mmol/L (137-145)
== END ==
PROVIDERS: PCP Internal Medicine; Visit Provider Internal Medicine Nephrology
DX: N05.9 Unspecified nephritic syndrome with unspecified morphologic changes (principal)
CPT/HCPCS: 36415; 80048

== ENCOUNTER → 2019-04-15 13:04 | Outpatient (CLI) | payer MEDICARE, MEDICAID, SELFPAY ==
[2019-03-11 22:23] VITALS: BMI 33.3
== END ==
PROVIDERS: PCP Internal Medicine; Visit Provider Family Medicine
DX: I87.302 Chronic venous hypertension (idiopathic) without complications of left lower extremity (principal); N18.4 Chronic kidney disease, stage 4 (severe); I50.22 Chronic systolic (congestive) heart failure; L30.8 Other specified dermatitis
CPT/HCPCS: 99212

== ENCOUNTER → 2019-04-16 08:15 | Outpatient (ROUT) | payer MEDICARE, MEDICAID, SELFPAY ==
[2019-03-11 22:23] VITALS: BMI 33.3
[2019-04-16 09:18] LABS: Blood Urea Nitrogen 63 mg/dL (7-17); Calcium 8.5 mg/dL (8.4-10.2); Carbon Dioxide 21 mmol/L (22-32); Chloride 110 mmol/L (98-107); Estimated Glomerular Filt Rate 23.4 mL/min (>60); Glucose 89 mg/dL (80-110); HEMOLYSIS < 15 (0-50); Potassium 4.4 mmol/L (3.4-5.1); Sodium 143 mmol/L (137-145)
== END ==
PROVIDERS: PCP Internal Medicine; Visit Provider Internal Medicine
DX: N18.9 Chronic kidney disease, unspecified (principal)
CPT/HCPCS: 36415; 80048

== ENCOUNTER → 2019-04-24 08:03 | Outpatient (ROUT) | payer MEDICARE, MEDICAID, SELFPAY ==
[2019-03-11 22:23] VITALS: BMI 33.3
[2019-04-24 09:35] LABS: BUN Creatinine Ratio 29.2 (6-22); Blood Urea Nitrogen 70 mg/dL (7-17); Calcium 8.6 mg/dL (8.4-10.2); Carbon Dioxide 25 mmol/L (22-32); Chloride 105 mmol/L (98-107); Glucose 79 mg/dL (80-110); HEMOLYSIS < 15 (0-50); Potassium 4.5 mmol/L (3.4-5.1); Sodium 140 mmol/L (137-145)
== END ==
PROVIDERS: PCP Internal Medicine; Visit Provider Internal Medicine
DX: N19 Unspecified kidney failure (principal)
CPT/HCPCS: 36415; 80048

== ENCOUNTER → 2019-05-05 08:09 | Outpatient (ROUT) | payer MEDICARE, MEDICAID, SELFPAY ==
[2019-03-11 22:23] VITALS: BMI 33.3
[2019-05-05 09:08] LABS: BUN Creatinine Ratio 30.5 (6-22); Blood Urea Nitrogen 67 mg/dL (7-17); Calcium 8.2 mg/dL (8.4-10.2); Carbon Dioxide 26 mmol/L (22-32); Chloride 103 mmol/L (98-107); Estimated Glomerular Filt Rate 22.1 mL/min (>60); Glucose 88 mg/dL (80-110); HEMOLYSIS < 15 (0-50); Potassium 4.1 mmol/L (3.4-5.1); Sodium 138 mmol/L (137-145)
== END ==
PROVIDERS: PCP Internal Medicine; Visit Provider Internal Medicine
DX: E87.5 Hyperkalemia (principal)
CPT/HCPCS: 36415; 80048

== ENCOUNTER → 2019-05-19 13:17 | Outpatient (ROUT) | payer MEDICARE, MEDICAID, SELFPAY ==
[2019-03-11 22:23] VITALS: BMI 33.3
== END ==
PROVIDERS: PCP Internal Medicine; Visit Provider Internal Medicine
DX: T14.8XXA Other injury of unspecified body region, initial encounter (principal); R52 Pain, unspecified
CPT/HCPCS: 87070; 87077; 87147; 87186; 87205

== ENCOUNTER → 2019-05-20 13:39 | Outpatient (CLI) | payer MEDICARE, MEDICAID, SELFPAY ==
[2019-03-11 22:23] VITALS: BMI 33.3
== END ==
PROVIDERS: PCP Internal Medicine; Visit Provider Family Medicine
DX: I87.2 Venous insufficiency (chronic) (peripheral) (principal); L97.811 Non-pressure chronic ulcer of other part of right lower leg limited to breakdown of skin; L97.821 Non-pressure chronic ulcer of other part of left lower leg limited to breakdown of skin; R60.0 Localized edema
CPT/HCPCS: 29580; 99214

== ENCOUNTER → 2019-05-27 15:11 | Outpatient (CLI) | payer MEDICARE, MEDICAID, SELFPAY ==
[2019-03-11 22:23] VITALS: BMI 33.3
== END ==
PROVIDERS: PCP Internal Medicine; Visit Provider Family Medicine
DX: I87.313 Chronic venous hypertension (idiopathic) with ulcer of bilateral lower extremity (principal); L97.811 Non-pressure chronic ulcer of other part of right lower leg limited to breakdown of skin; L97.821 Non-pressure chronic ulcer of other part of left lower leg limited to breakdown of skin; L30.8 Other specified dermatitis; N18.4 Chronic kidney disease, stage 4 (severe); I50.22 Chronic systolic (congestive) heart failure; D68.59 Other primary thrombophilia; Z79.01 Long term (current) use of anticoagulants; B95.61 Methicillin susceptible Staphylococcus aureus infection as the cause of diseases classified elsewhere
CPT/HCPCS: 29581; 99213

== ENCOUNTER → 2019-05-28 07:30 | Outpatient (ROUT) | payer MEDICARE, MEDICAID, SELFPAY ==
[2019-03-11 22:23] VITALS: BMI 33.3
[2019-05-28 08:19] LABS: Blood Urea Nitrogen 81 mg/dL (7-17); Calcium 8.6 mg/dL (8.4-10.2); Carbon Dioxide 24 mmol/L (22-32); Chloride 108 mmol/L (98-107); Estimated Glomerular Filt Rate 17.5 mL/min (>60); Glucose 89 mg/dL (80-110); HEMOLYSIS < 15 (0-50); Potassium 4.5 mmol/L (3.4-5.1); Sodium 145 mmol/L (137-145)
== END ==
PROVIDERS: PCP Internal Medicine; Visit Provider Nurse Practitioner Family
DX: E87.5 Hyperkalemia (principal); N19 Unspecified kidney failure
CPT/HCPCS: 36415; 80048

== ENCOUNTER → 2019-06-05 15:11 | Outpatient (CLI) | payer MEDICARE, MEDICAID, SELFPAY ==
[2019-03-11 22:23] VITALS: BMI 33.3
== END ==
PROVIDERS: PCP Internal Medicine; Referring Provider Internal Medicine; Visit Provider Family Medicine
DX: I87.2 Venous insufficiency (chronic) (peripheral) (principal); L97.821 Non-pressure chronic ulcer of other part of left lower leg limited to breakdown of skin; L97.811 Non-pressure chronic ulcer of other part of right lower leg limited to breakdown of skin; L30.8 Other specified dermatitis; N18.4 Chronic kidney disease, stage 4 (severe); R60.0 Localized edema; M79.661 Pain in right lower leg; M79.662 Pain in left lower leg
CPT/HCPCS: 97597; 99213

== ENCOUNTER → 2019-06-09 07:28 | Outpatient (ROUT) | payer MEDICARE, MEDICAID, SELFPAY ==
[2019-03-11 22:23] VITALS: BMI 33.3
[2019-06-09 08:15] LABS: BUN Creatinine Ratio 31.3 (6-22); Blood Urea Nitrogen 72 mg/dL (7-17); Calcium 8.5 mg/dL (8.4-10.2); Carbon Dioxide 22 mmol/L (22-32); Chloride 108 mmol/L (98-107); Glucose 86 mg/dL (80-110); HEMOLYSIS < 15 (0-50); Potassium 4.5 mmol/L (3.4-5.1); Sodium 141 mmol/L (137-145)
== END ==
PROVIDERS: PCP Internal Medicine; Visit Provider Nurse Practitioner Family
DX: E87.5 Hyperkalemia (principal); N19 Unspecified kidney failure
CPT/HCPCS: 36415; 80048

== ENCOUNTER → 2019-06-16 10:05 | Outpatient (ROUT) | payer MEDICARE, MEDICAID, SELFPAY ==
[2019-03-11 22:23] VITALS: BMI 33.3
[2019-06-16 10:32] LABS: Add Manual Diff / Slide Review NO; Basophils Absolute Auto 100 /uL (0-100); Basophils Percent Auto 1.1 % (0-2); Eosinophils Absolute Auto 200 /uL (0-450); Hematocrit 34.5 % (36-46); Hemoglobin 11.5 g/dL (12.0-16.0); Lymphocytes Absolute Auto 500 /uL (1100-4500); Lymphocytes Percent Auto 10.3 % (25-40); Mean Corpuscular HGB Conc 33.3 % (30-36); Mean Corpuscular Hemoglobin 32.5 PG (26-34); Mean Corpuscular Volume 97.9 fL (80-100); Monocytes Absolute Auto 500 /uL (0-900); Monocytes Percent Auto 9.4 % (3-14); Neutrophils Absolute Auto 3900 /uL (1500-7000); Neutrophils Percent Auto 75.2 % (50-75); Platelet Count 170 X10^3/uL (150-400); Red Blood Cell Count 3.53 X10^6/uL (4.0-5.2); Red Cell Distribution Width 16.2 % (11.6-14.8); White Blood Cell Count 5.2 X10^3/uL (4.5-11.0)
[2019-06-16 10:50] LABS: Alanine Aminotransferase 8 IU/L (<35); Albumin 4.3 g/dL (3.5-5.0); Albumin Globulin Ratio 1.1 (1.0-2.8); Alkaline Phosphatase 117 U/L (38-126); Aspartate Aminotransferase 21 IU/L (14-36); Bilirubin Total 1.2 mg/dL (0.2-1.3); Blood Urea Nitrogen 88 mg/dL (7-17); Calcium 8.9 mg/dL (8.4-10.2); Carbon Dioxide 25 mmol/L (22-32); Chloride 105 mmol/L (98-107); Estimated Glomerular Filt Rate 22.1 mL/min (>60); Glucose 69 mg/dL (80-110); HEMOLYSIS < 15 (0-50); Magnesium 1.9 mg/dL (1.6-2.3); Potassium 4.4 mmol/L (3.4-5.1); Sodium 142 mmol/L (137-145); Total Protein 8.3 g/dL (6.3-8.2)
== END ==
PROVIDERS: PCP Internal Medicine; Visit Provider Nurse Practitioner Family
DX: R11.0 Nausea (principal)
CPT/HCPCS: 36415; 80053; 83735; 85025

== ENCOUNTER 2019-06-16 10:11 | Emergency (ER) | payer MEDICARE, MEDICAID, SELFPAY ==
[2019-03-11 22:23] VITALS: BMI 33.3
[2019-06-16 10:18] VITALS: BP 108/65; PULSE 80; RESP 18; TEMP 36.7; O2SAT 96
--- NOTE | 2019-06-16 10:23 | DI.US.S_ITS ---
PROCEDURE: US PERIPH VENOUS LOW EXTREM LT INDICATIONS: LT LEG PAIN, SWELLING, H/O DVT TECHNIQUE: Real-time imaging, as well as color and pulse Doppler interrogation, were performed of the lower extremity deep veins from the inguinal ligament to the popliteal fossa. COMPARISON: None. FINDINGS: The common femoral, femoral and popliteal veins are normally compressible, and free of intraluminal thrombus. Color and pulse Doppler demonstrate normal phasic intraluminal flow. There is normal augmentation response to distal compression maneuver. IMPRESSION: No evidence of deep venous thrombosis. Dictated by: Gio Horvath M.D. on 06/16/2019 at 11:15 Approved by: Gio Horvath M.D. on 06/16/2019 at 11:16
[2019-06-16 10:32] VITALS: PULSE 80
--- NOTE | 2019-06-16 10:35 | PC.NURSE ---
CSM wnl for patient. Pt has chronic pvd and it is unchanged.
--- NOTE | 2019-06-16 10:36 | PC.NURSE ---
of note, labs drawn at facility and currently pending.
--- NOTE | 2019-06-16 10:37 | ED_ITS ---
HPI - Extremity Problem General Chief complaint: Extremity Problem,Nontraumatic Stated complaint: L Leg Pain Time Seen by Provider: 06/16/19 10:14 Source: patient and EMS Mode of arrival: EMS Limitations: no limitations History of Present Illness HPI Narrative: Patient comes emergency department complaining left leg pain for the last 24 hours. She states she did not have a specific incident that seemed to set the pain off and has otherwise been feeling well. She states she has noticed a little bit of increased redness in the left leg, though she does have chronic erythematous changes, secondary to peripheral vascular disease and chronic ulcers. Patient has a history of DVT previously, but takes Eliquis for this. She did have an approximately 1 month lapse in the Eliquis therapy, secondary to being directed by her physician to stop the Eliquis due to nosebleeds. However, the patient states she has been back on the Eliquis for about 3 weeks. The patient denies fevers or chills. No body aches. She has some mild swelling in both of her lower extremities. Patient states that she has had some intermittent nausea over the last few weeks, which seems to come on randomly. However, she states that this is not bothering her right now she does not feel nauseated at all. She states that she has been able to hold down both fluids and food since her nausea began. She states that usually, when the nausea comes on, she has some gagging and dry heaves but does not actually vomit. Medics report that when they came to pick the patient up, she was walking around her apartment at [facility], [facility]. The patient states she has been able to walk on the left lower extremity without difficulty, even since the pain began. Related Data Home Medications Medication Instructions Recorded Confirmed Aspercreme Max 1 applic TOPICAL BID 12/25/18 06/16/19 acetaminophen 650 mg PO TID 12/25/18 06/16/19 apixaban 5 mg PO BID 12/25/18 06/16/19 benzocaine 1 applic MUCOUS MEMBRANE Q6H PRN 12/25/18 06/16/19 duloxetine 60 mg PO DAILY 12/25/18 06/16/19 gabapentin 100 mg PO BID 12/25/18 06/16/19 hydroxyzine HCl 25 mg PO Q8H PRN 12/25/18 06/16/19 nystatin 1 applic TOPICAL QID 12/25/18 06/16/19 sodium chloride [[place] Nasal] 1 spray INTRANASAL TID 12/25/18 06/16/19 torsemide 40 mg PO QAM 12/25/18 06/16/19 ascorbic acid (vitamin C) 500 mg PO QAM 03/11/19 06/16/19 cyanocobalamin (vitamin B-12) 1,000 mcg PO QAM 03/11/19 06/16/19 [Vitamin B-12] ferrous sulfate 325 mg PO DAILY 03/11/19 06/16/19 fluticasone propionate 1 spray INTRANASAL DAILY 03/11/19 06/16/19 guaifenesin 200 mg PO Q8H PRN 03/11/19 06/16/19 hydrocortisone 1 applic TOPICAL Q12H PRN 03/11/19 06/16/19 melatonin 6 mg PO BEDTIME 03/11/19 06/16/19 metoprolol succinate 75 mg PO BID 03/11/19 06/16/19 ondansetron HCl 8 mg PO DAILY PRN 03/11/19 06/16/19 pantoprazole 40 mg PO BID 03/11/19 06/16/19 polyethylene glycol 3350 17 g PO QAM 03/11/19 06/16/19 albuterol sulfate [Ventolin HFA] 2 puff INHALATION Q6H PRN 06/16/19 06/16/19 betamethasone valerate 1 applic TOPICAL DAILY 06/16/19 06/16/19 lanolin-mineral oil [Eucerin 1 applic TOPICAL BID 06/16/19 06/16/19 Original] patiromer calcium sorbitex 8.4 g PO QAM 06/16/19 06/16/19 Previous Rx's Medication Instructions Recorded oxycodone 2.5 - 5 mg PO Q6H PRN #10 tab 03/13/19 clindamycin HCl 300 mg PO Q8H #20 cap 06/16/19 ondansetron 4 mg PO Q6H PRN #20 tab 06/16/19 Allergies Allergy/AdvReac Type Severity Reaction Status Date / Time adhesive tape Allergy Verified 06/16/19 10:45 basil Allergy Verified 06/16/19 10:45 cephalexin [From Keflex] Allergy Verified 06/16/19 10:45 marlena Allergy Verified 06/16/19 10:45 Penicillins Allergy Verified 06/16/19 10:45 sulfamethoxazole AdvReac Severe Hyperkalemia/worsening Verified 06/16/19 10:45 [From Bactrim] CKD trimethoprim [From Bactrim] AdvReac Severe Hyperkalemia/worsening Verified 06/16/19 10:45 CKD Review of Systems Review of Systems ROS Unobtainable: All systems reviewed & are unremarkable except as noted in HPI and below Constitutional Constitutional: Denies chills, Denies fatigue, Denies fever(s), Denies frequent falls, Denies lethargy and Denies weakness Eyes Eyes: Denies change in vision, Denies eye discharge, Denies irritation and Denies loss of vision ENT Ears, Nose, Mouth, and Throat: Denies change in voice, Denies dizziness, Denies neck pain, Denies sore throat and Denies throat swelling Cardiovascular Cardiovascular: Denies chest pain, Denies irregular heart rhythm, Denies lightheadedness, Denies palpitations, Denies dyspnea, Denies dyspnea on exertion and Denies orthopnea Respiratory Respiratory: Denies cough, Denies dyspnea, Denies dyspnea on exertion and Denies wheezing Gastrointestinal Gastrointestinal: Denies abdominal pain, Denies change in bowel habits, Denies diarrhea, Denies nausea and Denies vomiting Genitourinary Genitourinary: Denies hematuria, Denies flank pain, Denies urinary incontinence and Denies urinary urgency Musculoskeletal Musculoskeletal: Denies back pain, Denies muscle weakness, Denies neck pain, Denies numbness and Denies tingling Comments: Left leg pain, posterior to the medial aspect of the patient's knee. Integumentary/Breasts Skin/Breast: Denies pruritus, Reports erythema, Denies rash and Reports wounds (Chronic, both legs) Neurologic Neurologic: Denies behavioral changes, Denies confusion, Denies dizziness, Denies frequent falls, Denies loss of vision, Denies numbness, Denies tingling and Denies weakness Psychiatric Psychiatric: Denies anxiety, Denies behavioral changes, Denies confusion, Denies depression, Denies homicidal ideation and Denies suicidal ideation Endocrine Endocrine: Denies fatigue, Denies flushing and Denies palpitations Hematologic/Lymphatic Hematologic/Lymphatic: Denies easy bruising Allergic/Immunologic Allergic/Immunologic: Denies urticaria, Denies throat swelling and Denies wheezing Patient History Medical History Chronic kidney disease (Acute) Cor pulmonale (Acute) Depression (Acute) Diastolic heart failure (Acute) Hyperlipidemia (Acute) Iron (Fe) deficiency anemia (Acute) Osteoarthritis (Acute) Polyneuropathy (Acute) Pulmonary embolism (Acute) Crow's granulomatosis (Acute) Surgical History History of Achilles tendon repair (Acute) History of esophagogastroduodenoscopy (EGD) (Acute) Status post creation of arteriovenous fistula (Acute) Social History household members: none Smoking Status: Never smoker alcohol intake: current substance use type: does not use Smoking Status: Never smoker alcohol intake frequency: holidays/special occasions only Substance Use Type: does not use Exam Initial Vital Signs Initial Vital Signs: Vital Signs Temperature 98.0 F 06/16/19 10:18 Pulse Rate 80 06/16/19 10:18 Respiratory Rate 18 06/16/19 10:18 Blood Pressure 108/65 06/16/19 10:18 Pulse Oximetry 96 06/16/19 10:18 Const General: cooperative and well developed Nutritional Appearance: well nourished Orientation: alert, awake, oriented x3 and not confused [facility] Head: normocephalic and atraumatic Ears: external ears normal Nose: external nose normal and No nasal discharge Face and sinus: face symmetric and No dry mucous membranes Mouth: oral mucosae normal and moist mucous membranes Teeth and gingiva: dentition normal Eyes General: appearance normal, both eyes and all related structures Eyelids: eyelids normal Conjunctivae: conjunctivae normal Sclera: sclerae normal Pupils: PERRL EOM: EOM intact bilaterally Neck Neck: normal visual inspection, trachea midline, No lymphadenopathy, No midline deformity and No JVD Lymphatic: No lymphedema Chest Chest: normal inspection of the chest Resp Effort & Inspection: normal respiratory effort, able to speak in complete sentences, no respiratory distress and no use of accessory muscles Auscultation: clear to auscultation bilaterally, no rales, no rhonchi and no wheezes Cardio Rate: regular rate Rhythm: regular rhythm Heart Sounds: no click, no gallops, no murmurs and no rubs Pulses: normal peripheral pulses GI Inspection: non-distended Palpation: soft, no hepatosplenomegaly, No guarding, No pulsatile mass and No tender Back/Spine/Pelvis Back: No CVA tenderness Cervical Spine: cervical ROM normal and No pain with cervical ROM Thoracic/Lumbar Spine: thoracic and lumbar spine normal to inspection Skin General: No jaundice and No petechiae Other: Patient has chronic ulcers on her bilateral lower legs, with chronic appearing bronzy and erythematous changes over the bilateral anterior tibial areas. Erythema extends slightly more superiorly on the left than the right. Patient has nonblanching, nearly coalesced petechiae involving the left medial posterior knee region, as discussed above. No streaking, induration, or fluctuance is noted. Neuro General: alert, oriented x3, gait normal and no focal motor deficits Speech: speech normal Extrem Other: Patient has good range of motion of both knees. She does have tenderness to palpation with vasculitic appearing petechiae over the medial proximal lower leg and extending posteriorly to the right knee and distal posterior thigh. There is no edema or mass. No evidence of trauma. Calves are mildly tender bilaterally. No cords. Psych Appearance: well kempt Mental Status: mental status grossly normal Attitude: cooperative Thought Content: normal and suicidality Judgment: judgment good Course Course Course Narrative: The patient was very well-appearing in the emergency department, and her complaints were fairly minimal. The patient was not currently nauseated and was ambulatory on the leg without difficulty. She was afebrile and did not complain of fevers at home or of body aches. The patient had been back on her Eliquis for 3 weeks, which made the likelihood of DVT much lower. I did obtain an ultrasound of the left lower extremity to be sure, given patient's history. This was negative. The patient was given a dose of anti biotics in the emergency department. She was very well-appearing and did not report any difficulty with ambulation. As such, I felt she was stable for discharge home, and the patient, who is alert and coherent and grossly oriented, was in agreement. We've discussed home management of symptoms, as well as the usual indications for return. Orders Ordered: Discontinued Medications Clindamycin HCl (Cleocin) 300 mg PO NOW ONE Stop: 06/16/19 11:16 Last Admin: 06/16/19 11:30 Dose: 300 mg Documented by: GABY Vital Signs Vital signs: Vital Signs - 8 hr 06/16/19 10:18 06/16/19 10:32 Temperature 98.0 F Pulse Rate 80 Pulse Rate [Left Dorsalis Pedis] 80 Respiratory Rate 18 Blood Pressure 108/65 Pulse Oximetry 96 MDM - Extremity (Nontraumatic) Medical Records Attestation: I reviewed the patient's medical records. Imaging Data US - DVT: Radiologist's Impression: PROCEDURE: US PERIPH VENOUS LOW EXTREM LT INDICATIONS: LT LEG PAIN, SWELLING, H/O DVT TECHNIQUE: Real-time imaging, as well as color and pulse Doppler interrogation, were performed of the lower extremity deep veins from the inguinal ligament to the popliteal fossa. COMPARISON: None. FINDINGS: The common femoral, femoral and popliteal veins are normally compressible, and free of intraluminal thrombus. Color and pulse Doppler demonstrate normal phasic intraluminal flow. There is normal augmentation response to distal compression maneuver. IMPRESSION: No evidence of deep venous thrombosis. Dictated by: Gio Horvath M.D. on 06/16/2019 at 11:15 Approved by: Gio Horvath M.D. on 06/16/2019 at 11:16 Discharge Plan Departure Patient Disposition: Home Clinical Impression: Cellulitis Qualifiers: Site of cellulitis: extremity Site of cellulitis of extremity: lower extremity Laterality: left Qualified Code(s): L03.116 - Cellulitis of left lower limb Acute leg pain Qualifiers: Laterality: left Qualified Code(s): M79.605 - Pain in left leg Discharge Date/Time: 06/16/19 12:04 Instructions: DI for Cellulitis -- Adult Activity Restrictions/Additional Instructions: Your ultrasound does not show any evidence of a blood clot in your leg. You may have some mild cellulitis, or skin infection, which has caused you to be a little redder on the left leg. You will be treated with antibiotics for this. You may take the nausea medication, as needed. Prescriptions: New clindamycin HCl 300 mg capsule 300 mg PO Q8H Qty: 20 RF: 0 ondansetron 4 mg tablet,disintegrating 4 mg PO Q6H PRN (Reason: nausea and vomiting) Qty: 20 RF: 0 No Action acetaminophen 325 mg Tablet 650 mg PO TID RF: 0 torsemide 20 mg tablet 40 mg PO QAM RF: 0 hydroxyzine HCl 25 mg tablet 25 mg PO Q8H PRN (Reason: Itching) RF: 0 gabapentin 100 mg capsule 100 mg PO BID RF: 0 nystatin 100,000 unit/gram powder 1 applic topical QID RF: 0 benzocaine 20 % Gel 1 applic MUCOUS MEMBRANE Q6H PRN (Reason: canker sore) RF: 0 sodium chloride [[place] Nasal] 0.65 % Aerosol,[place] 1 spray intranasal TID RF: 0 duloxetine 60 mg capsule,delayed release(DR/EC) 60 mg PO DAILY RF: 0 Aspercreme Max 16 % Liquid 1 applic topical BID RF: 0 apixaban 5 mg tablet 5 mg PO BID RF: 0 metoprolol succinate 25 mg tablet extended release 24 hr 75 mg PO BID RF: 0 pantoprazole 40 mg tablet,delayed release (DR/EC) 40 mg PO BID RF: 0 polyethylene glycol 3350 17 gram Powder In Packet 17 g PO QAM RF: 0 cyanocobalamin (vitamin B-12) [Vitamin B-12] 1,000 mcg Tablet 1,000 mcg PO QAM RF: 0 melatonin 3 mg Tablet 6 mg PO BEDTIME RF: 0 ascorbic acid (vitamin C) 500 mg Tablet 500 mg PO QAM RF: 0 ferrous sulfate 325 mg (65 mg iron) Tablet 325 mg PO DAILY RF: 0 fluticasone propionate 50 mcg/actuation spray,suspension 1 spray INTRANASAL DAILY RF: 0 ondansetron HCl 8 mg tablet 8 mg PO DAILY PRN (Reason: Nausea) RF: 0 guaifenesin 100 mg/5 mL Liquid 200 mg PO Q8H PRN (Reason: Cough) RF: 0 hydrocortisone 1 % Cream 1 applic TOPICAL Q12H PRN (Reason: Rash) RF: 0 oxycodone 5 mg tablet 2.5 - 5 mg PO Q6H PRN (Reason: pain) Qty: 10 RF: 0 betamethasone valerate 0.1 % ointment 1 applic TOPICAL DAILY RF: 0 patiromer calcium sorbitex 8.4 gram Powder In Packet 8.4 g PO QAM RF: 0 albuterol sulfate [Ventolin HFA] 90 mcg/actuation HFA aerosol inhaler 2 puff INHALATION Q6H PRN (Reason: Shortness Of Breath) RF: 0 Eucerin Original Lotion 1 applic TOPICAL BID RF: 0 Referrals: Sam,Bri, MD [Primary Care Provider] -
[2019-06-16 11:01] VITALS: BP 100/67; PULSE 78; RESP 18; O2SAT 100
[2019-06-16] MEDS: CLINDAMYCIN 150 MG CAPSULE 300 MG PO (11:30)
[2019-06-16 11:36] VITALS: BP 96/65; PULSE 78; RESP 18; O2SAT 97
== END 2019-06-16 12:04 | disposition home or self-care (01) ==
PROVIDERS: Emergency Provider Emergency Medicine; PCP Internal Medicine
DX: L03.116 Cellulitis of left lower limb (principal)
CPT/HCPCS: 36415; 80053; 83735; 85025; 93971; 99283

== ENCOUNTER → 2019-06-17 10:20 | Outpatient (CLI) | payer MEDICARE, MEDICAID, SELFPAY ==
[2019-03-11 22:23] VITALS: BMI 33.3
== END ==
PROVIDERS: PCP Internal Medicine; Visit Provider Family Medicine
DX: I87.2 Venous insufficiency (chronic) (peripheral) (principal); L97.821 Non-pressure chronic ulcer of other part of left lower leg limited to breakdown of skin; L03.116 Cellulitis of left lower limb; L30.8 Other specified dermatitis; R60.0 Localized edema
CPT/HCPCS: 99213; 99214

== ENCOUNTER → 2019-06-18 07:29 | Outpatient (ROUT) | payer MEDICARE, MEDICAID, SELFPAY ==
[2019-03-11 22:23] VITALS: BMI 33.3
[2019-06-18 08:21] LABS: BUN Creatinine Ratio 41.3 (6-22); Blood Urea Nitrogen 95 mg/dL (7-17); Calcium 8.5 mg/dL (8.4-10.2); Carbon Dioxide 23 mmol/L (22-32); Chloride 106 mmol/L (98-107); Glucose 79 mg/dL (80-110); HEMOLYSIS < 15 (0-50); Potassium 4.3 mmol/L (3.4-5.1); Sodium 140 mmol/L (137-145)
== END ==
PROVIDERS: PCP Internal Medicine; Visit Provider Nurse Practitioner Family
DX: E87.6 Hypokalemia (principal); N19 Unspecified kidney failure
CPT/HCPCS: 36415; 80048

== ENCOUNTER 2019-06-26 06:23 | Emergency (ER) | payer MEDICARE, MEDICAID, SELFPAY ==
[2019-03-11 22:23] VITALS: BMI 33.3
[2019-06-26 06:30] VITALS: BP 115/69; PULSE 73; RESP 15; TEMP 36.6; O2SAT 100; BMI 30.8
--- NOTE | 2019-06-26 06:51 | ED_ITS ---
HPI - Epistaxis <Ronakmikie Ozuna, DO - Last Filed: 06/27/19 01:07> General Chief complaint: Nasal Problem Stated complaint: Nose bleed Time Seen by Provider: 06/26/19 06:25 Source: patient and EMS Mode of arrival: EMS Limitations: no limitations History of Present Illness HPI Narrative: 68-year-old female nonsmoker with history of atrial fibrillation on apixaban presents by EMS with a chief complaint of a severe bilateral nose bleed which started spontaneously yesterday afternoon but was resolved with pressure. It started again this morning while she was working on the computer. She denies any recent illness nor injuries or trauma. Because of the slight bleeding yesterday afternoon she withheld her evening dose of apixaban. She is not dizzy nor weak or lightheaded. She denies any chest pain or shortness of breath. She was seen here a few months ago under similar circumstances and required bilateral placement of large rhino rockets complaint: epistaxis Location: bilateral nostril Onset (ago): minute(s) Duration: constant Context: history of previous and other anticoagulant use Treatment prior to arrival: nose pinching and head leaned forward Related Data Home Medications Medication Instructions Recorded Confirmed Aspercreme Max 1 applic TOPICAL BID 12/25/18 06/16/19 acetaminophen 650 mg PO TID 12/25/18 06/16/19 apixaban 5 mg PO BID 12/25/18 06/16/19 benzocaine 1 applic MUCOUS MEMBRANE Q6H PRN 12/25/18 06/16/19 duloxetine 60 mg PO DAILY 12/25/18 06/16/19 gabapentin 100 mg PO BID 12/25/18 06/16/19 hydroxyzine HCl 25 mg PO Q8H PRN 12/25/18 06/16/19 nystatin 1 applic TOPICAL QID 12/25/18 06/16/19 sodium chloride [[place] Nasal] 1 spray INTRANASAL TID 12/25/18 06/16/19 torsemide 40 mg PO QAM 12/25/18 06/16/19 ascorbic acid (vitamin C) 500 mg PO QAM 03/11/19 06/16/19 cyanocobalamin (vitamin B-12) 1,000 mcg PO QAM 03/11/19 06/16/19 [Vitamin B-12] ferrous sulfate 325 mg PO DAILY 03/11/19 06/16/19 fluticasone propionate 1 spray INTRANASAL DAILY 03/11/19 06/16/19 guaifenesin 200 mg PO Q8H PRN 03/11/19 06/16/19 hydrocortisone 1 applic TOPICAL Q12H PRN 03/11/19 06/16/19 melatonin 6 mg PO BEDTIME 03/11/19 06/16/19 metoprolol succinate 75 mg PO BID 03/11/19 06/16/19 ondansetron HCl 8 mg PO DAILY PRN 03/11/19 06/16/19 pantoprazole 40 mg PO BID 03/11/19 06/16/19 polyethylene glycol 3350 17 g PO QAM 03/11/19 06/16/19 albuterol sulfate [Ventolin HFA] 2 puff INHALATION Q6H PRN 06/16/19 06/16/19 betamethasone valerate 1 applic TOPICAL DAILY 06/16/19 06/16/19 lanolin-mineral oil [Eucerin 1 applic TOPICAL BID 06/16/19 06/16/19 Original] patiromer calcium sorbitex 8.4 g PO QAM 06/16/19 06/16/19 Previous Rx's Medication Instructions Recorded oxycodone 2.5 - 5 mg PO Q6H PRN #10 tab 03/13/19 clindamycin HCl 300 mg PO Q8H #20 cap 06/16/19 ondansetron 4 mg PO Q6H PRN #20 tab 06/16/19 Allergies Allergy/AdvReac Type Severity Reaction Status Date / Time adhesive tape Allergy Verified 06/16/19 10:45 basil Allergy Verified 06/16/19 10:45 cephalexin [From Keflex] Allergy Verified 06/16/19 10:45 marlena Allergy Verified 06/16/19 10:45 Penicillins Allergy Verified 06/16/19 10:45 sulfamethoxazole AdvReac Severe Hyperkalemia/worsening Verified 06/16/19 10:45 [From Bactrim] CKD trimethoprim [From Bactrim] AdvReac Severe Hyperkalemia/worsening Verified 06/16/19 10:45 CKD Review of Systems <Ronak Ozuna, - Last Filed: 06/27/19 01:07> Constitutional Constitutional: Denies chills, Denies fatigue, Denies fever(s), Denies frequent falls, Denies lethargy and Denies weakness Eyes Eyes: Denies change in vision, Denies eye discharge, Denies irritation and Denies loss of vision ENT Ears, Nose, Mouth, and Throat: Denies change in voice, Denies dizziness, Denies neck pain, Denies sore throat and Denies throat swelling Comments: Epistaxis Cardiovascular Cardiovascular: Denies chest pain, Denies irregular heart rhythm, Denies lightheadedness, Denies palpitations, Denies dyspnea, Denies dyspnea on exertion and Denies orthopnea Respiratory Respiratory: Denies cough, Denies dyspnea, Denies dyspnea on exertion and Denies wheezing Gastrointestinal Gastrointestinal: Denies abdominal pain, Denies change in bowel habits, Denies diarrhea, Denies nausea and Denies vomiting Genitourinary Genitourinary: Denies hematuria, Denies flank pain, Denies urinary incontinence and Denies urinary urgency Musculoskeletal Musculoskeletal: Denies back pain, Denies muscle weakness, Denies neck pain, Denies numbness and Denies tingling Integumentary/Breasts Skin/Breast: Denies pruritus, Denies erythema, Denies rash and Denies wounds Neurologic Neurologic: Denies behavioral changes, Denies confusion, Denies dizziness, Denies frequent falls, Denies loss of vision, Denies numbness, Denies tingling and Denies weakness Psychiatric Psychiatric: Denies anxiety, Denies behavioral changes, Denies confusion, Denies depression, Denies homicidal ideation and Denies suicidal ideation Endocrine Endocrine: Denies fatigue, Denies flushing and Denies palpitations Hematologic/Lymphatic Hematologic/Lymphatic: Denies easy bruising Allergic/Immunologic Allergic/Immunologic: Denies urticaria, Denies throat swelling and Denies wheezing Patient History <Ronak Ozuna DO - Last Filed: 06/27/19 01:07> Medical History Chronic kidney disease (Acute) Cor pulmonale (Acute) Depression (Acute) Diastolic heart failure (Acute) Hyperlipidemia (Acute) Iron (Fe) deficiency anemia (Acute) Osteoarthritis (Acute) Polyneuropathy (Acute) Pulmonary embolism (Acute) Crow's granulomatosis (Acute) Surgical History History of Achilles tendon repair (Acute) History of esophagogastroduodenoscopy (EGD) (Acute) Status post creation of arteriovenous fistula (Acute) Social History household members: none Smoking Status: Never smoker alcohol intake: current substance use type: does not use Smoking Status: Never smoker alcohol intake frequency: holidays/special occasions only Substance Use Type: does not use Exam <Ronak Ozuna DO - Last Filed: 06/27/19 01:07> Narrative Exam Narrative: GEN: AOx3 and in mild distress EYES: Pupils are equal, round, and reactive to light and accommodation. Extraoccular muscles are intact bilaterally. There is no subconjunctival hemorrhage or exudate. ENT: bright red blood bilateral nares with posterior pharynx drainage and L tear duct as well. Patient asked to clear clots bilaterally and heavy flow blood presumed. Patient is asked to lean forward and hold pressure while rhino rockets are prepared CHEST: Lungs are clear to auscultation bilaterally and free of wheezes, rales, or rhonchi. Heart rate is regular rhythm, there are no murmurs, clicks, rubs, or gallops. There is no chest wall tenderness. ABD: Abdomen is soft and nontender. There is no guarding or rebound. Bowel sounds are normal in all 4 quadrants. There is no mass or organomegaly. EXT: Full painless ROM of all extremities with no loss of sensation or strength. SKIN: Warm, pink, and dry. No erythema or rash Initial Vital Signs Initial Vital Signs: Vital Signs Temperature 97.9 F 06/26/19 06:30 Pulse Rate 73 06/26/19 06:30 Respiratory Rate 15 06/26/19 06:30 Blood Pressure 115/69 06/26/19 06:30 Pulse Oximetry 100 06/26/19 06:30 <Nieves Lozoya DO - Last Filed: 06/26/19 10:39> Initial Vital Signs Initial Vital Signs: Vital Signs Temperature 97.9 F 06/26/19 06:30 Pulse Rate 73 06/26/19 06:30 Respiratory Rate 15 06/26/19 06:30 Blood Pressure 115/69 06/26/19 06:30 Pulse Oximetry 100 06/26/19 06:30 Procedures <Ronak Ozuna DO - Last Filed: 06/27/19 01:07> Epistaxis Control Time Out Performed: Yes Nostril: bilateral Direct Inspection: unable to visualize Clots Removed by: blowing nose Cautery Used: none Device Inserted: hemostatic balloon Patient Tolerated Procedure: well Course <DO Sammi Kline Last Filed: 06/27/19 01:07> Course Course Narrative: sign out to Dr. Lozoya to follow labs and ensure hemostasis Orders Ordered: Discontinued Medications Oxymetazoline HCl (Afrin) 2 sprays NASAL NOW ONE Stop: 06/26/19 06:26 Last Admin: 06/26/19 07:53 Dose: Not Given Documented by: RSTONE Tranexamic Acid (Cyklokapron) 1,000 mg MM NOW ONE Stop: 06/26/19 06:26 Last Admin: 06/26/19 07:01 Dose: 1,000 mg Documented by: LETY Reevaluation(s) Reevaluation #1: B/L rockets placed, soaked in TXA, hemostasis achieved. H/H ordered Vital Signs Vital signs: Vital Signs - 8 hr 06/26/19 06:30 06/26/19 08:19 Temperature 97.9 F Pulse Rate 73 75 Respiratory Rate 15 18 Blood Pressure 115/69 Blood Pressure [Right Arm] 99/54 L Pulse Oximetry 100 98 <Nieves Lozoya, - Last Filed: 06/26/19 10:39> Orders Ordered: Discontinued Medications Oxymetazoline HCl (Afrin) 2 sprays NASAL NOW ONE Stop: 06/26/19 06:26 Last Admin: 06/26/19 07:53 Dose: Not Given Documented by: RSTONE Tranexamic Acid (Cyklokapron) 1,000 mg MM NOW ONE Stop: 06/26/19 06:26 Last Admin: 06/26/19 07:01 Dose: 1,000 mg Documented by: LETY Vital Signs Vital signs: Vital Signs - 8 hr 06/26/19 06:30 06/26/19 08:19 Temperature 97.9 F Pulse Rate 73 75 Respiratory Rate 15 18 Blood Pressure 115/69 Blood Pressure [Right Arm] 99/54 L Pulse Oximetry 100 98 MDM - Epistaxis <Ronak Ozuna DO - Last Filed: 06/27/19 01:07> Lab Data Result diagrams: 06/26/19 07:05 Labs: Lab Results 06/26/19 Range/Units 07:05 Hgb 10.9 L (12.0-16.0) g/dL Hct 33.0 L (36-46) % <Nieves Lozoya, DO - Last Filed: 06/26/19 10:39> Lab Data Attestation: I reviewed the patient's lab results. Labs: Lab Results 06/26/19 Range/Units 07:05 Hgb 10.9 L (12.0-16.0) g/dL Hct 33.0 L (36-46) % MDM Narrative Medical decision making narrative: Patient signed out to me by Dr. Ozuna I've seen and evaluated her she has 2 rhino rockets 1 in each nostril quite saturated but bleeding seems to have stopped. Patient is resting comfortably. She says last time we did take them out and had a reinsert them and they were in there for 4 days. She says that she has an appointment with ear nose and throat today at 10:00 a.m.. 8:[address] Villalobos updated on patient's symptoms and test results. His happy to see her in the clinic now. Discharge Plan Departure Patient Disposition: Home Clinical Impression: Epistaxis Discharge Date/Time: 06/26/19 08:30 Instructions: DI for Nosebleed Activity Restrictions/Additional Instructions: *You have been diagnosed with [ acute epistaxis ] *What to do: Go directly to Dr. Villalobos's office * do not blow your nose, stick your finger in her nose, or disturb nose for the next 24 hr. If you must sneeze please sneeze out your mouth like we talked about ask that you be seen in follow up *Return to ER if you should have any new, worsening or concerning symptoms *Leave nasal balloons in place until follow up. if you are bleeding starts again at home please apply external pressure with the nasal clamp or your fingers and lean your head forward, you will almost surely need to be seen in the ED if bleeding begins again. Prescriptions: No Action acetaminophen 325 mg Tablet 650 mg PO TID RF: 0 torsemide 20 mg tablet 40 mg PO QAM RF: 0 hydroxyzine HCl 25 mg tablet 25 mg PO Q8H PRN (Reason: Itching) RF: 0 gabapentin 100 mg capsule 100 mg PO BID RF: 0 nystatin 100,000 unit/gram powder 1 applic topical QID RF: 0 benzocaine 20 % Gel 1 applic MUCOUS MEMBRANE Q6H PRN (Reason: canker sore) RF: 0 sodium chloride [[place] Nasal] 0.65 % Aerosol,[place] 1 spray intranasal TID RF: 0 duloxetine 60 mg capsule,delayed release(DR/EC) 60 mg PO DAILY RF: 0 Aspercreme Max 16 % Liquid 1 applic topical BID RF: 0 apixaban 5 mg tablet 5 mg PO BID RF: 0 metoprolol succinate 25 mg tablet extended release 24 hr 75 mg PO BID RF: 0 pantoprazole 40 mg tablet,delayed release (DR/EC) 40 mg PO BID RF: 0 polyethylene glycol 3350 17 gram Powder In Packet 17 g PO QAM RF: 0 cyanocobalamin (vitamin B-12) [Vitamin B-12] 1,000 mcg Tablet 1,000 mcg PO QAM RF: 0 melatonin 3 mg Tablet 6 mg PO BEDTIME RF: 0 ascorbic acid (vitamin C) 500 mg Tablet 500 mg PO QAM RF: 0 ferrous sulfate 325 mg (65 mg iron) Tablet 325 mg PO DAILY RF: 0 fluticasone propionate 50 mcg/actuation spray,suspension 1 spray INTRANASAL DAILY RF: 0 ondansetron HCl 8 mg tablet 8 mg PO DAILY PRN (Reason: Nausea) RF: 0 guaifenesin 100 mg/5 mL Liquid 200 mg PO Q8H PRN (Reason: Cough) RF: 0 hydrocortisone 1 % Cream 1 applic TOPICAL Q12H PRN (Reason: Rash) RF: 0 oxycodone 5 mg tablet 2.5 - 5 mg PO Q6H PRN (Reason: pain) Qty: 10 RF: 0 betamethasone valerate 0.1 % ointment 1 applic TOPICAL DAILY RF: 0 patiromer calcium sorbitex 8.4 gram Powder In Packet 8.4 g PO QAM RF: 0 albuterol sulfate [Ventolin HFA] 90 mcg/actuation HFA aerosol inhaler 2 puff INHALATION Q6H PRN (Reason: Shortness Of Breath) RF: 0 Eucerin Original Lotion 1 applic TOPICAL BID RF: 0 clindamycin HCl 300 mg capsule 300 mg PO Q8H Qty: 20 RF: 0 ondansetron 4 mg tablet,disintegrating 4 mg PO Q6H PRN (Reason: nausea and vomiting) Qty: 20 RF: 0 Referrals: Marc Villalobos MD [Physician] - Bri Vargas MD [Primary Care Provider] -
[2019-06-26] MEDS: TRANEXAMIC ACID 1,000 MG VIAL 1000 MG MM (07:01)
[2019-06-26 07:17] LABS: Hemoglobin 10.9 g/dL (12.0-16.0)
[2019-06-26 08:19] VITALS: BP 99/54; PULSE 75; RESP 18; O2SAT 98
== END 2019-06-26 08:30 | disposition home or self-care (01) ==
PROVIDERS: Emergency Medicine; Emergency Provider Emergency Medicine; PCP Internal Medicine
DX: R04.0 Epistaxis (principal)
CPT/HCPCS: 30903; 36415; 85014; 85018; 99283

== ENCOUNTER → 2019-06-30 07:52 | Outpatient (ROUT) | payer MEDICARE, MEDICAID, SELFPAY ==
[2019-03-11 22:23] VITALS: BMI 33.3
[2019-06-30 08:36] LABS: BUN Creatinine Ratio 41.8 (6-22); Blood Urea Nitrogen 92 mg/dL (7-17); Calcium 8.7 mg/dL (8.4-10.2); Carbon Dioxide 24 mmol/L (22-32); Chloride 106 mmol/L (98-107); Estimated Glomerular Filt Rate 22.1 mL/min (>60); Glucose 92 mg/dL (80-110); HEMOLYSIS < 15 (0-50); Potassium 4.4 mmol/L (3.4-5.1); Sodium 142 mmol/L (137-145)
== END ==
PROVIDERS: PCP Internal Medicine; Visit Provider Internal Medicine Nephrology
DX: I11.0 Hypertensive heart disease with heart failure (principal)
CPT/HCPCS: 36415; 80048

== ENCOUNTER → 2019-07-02 14:19 | Outpatient (CLI) | payer MEDICARE, MEDICAID, SELFPAY ==
[2019-03-11 22:23] VITALS: BMI 33.3
== END ==
PROVIDERS: PCP Internal Medicine; Visit Provider Family Medicine
DX: I87.2 Venous insufficiency (chronic) (peripheral) (principal); L97.821 Non-pressure chronic ulcer of other part of left lower leg limited to breakdown of skin; L30.8 Other specified dermatitis; R60.0 Localized edema
CPT/HCPCS: 87070; 87075; 87077; 87147; 87186; 87205; 97597

== ENCOUNTER → 2019-07-09 10:36 | Outpatient (CLI) | payer MEDICARE, MEDICAID, SELFPAY ==
[2019-03-11 22:23] VITALS: BMI 33.3
== END ==
PROVIDERS: PCP Internal Medicine; Visit Provider Family Medicine
DX: I87.2 Venous insufficiency (chronic) (peripheral) (principal); S81.801A Unspecified open wound, right lower leg, initial encounter; L97.821 Non-pressure chronic ulcer of other part of left lower leg limited to breakdown of skin; L97.811 Non-pressure chronic ulcer of other part of right lower leg limited to breakdown of skin; L30.9 Dermatitis, unspecified; I77.6 Arteritis, unspecified; R60.0 Localized edema
CPT/HCPCS: 29581; 99214

== ENCOUNTER → 2019-07-14 07:41 | Outpatient (ROUT) | payer MEDICARE, MEDICAID, SELFPAY ==
[2019-03-11 22:23] VITALS: BMI 33.3
[2019-07-14 08:36] LABS: Phosphorous 4.5 mg/dL (2.8-4.1)
[2019-07-16 15:23] LABS: Parathyroid Hormone Int 63 pg/mL (14-64)
== END ==
PROVIDERS: PCP Internal Medicine; Visit Provider Internal Medicine Nephrology
DX: I11.0 Hypertensive heart disease with heart failure (principal); I50.33 Acute on chronic diastolic (congestive) heart failure
CPT/HCPCS: 36415; 83970; 84100

== ENCOUNTER → 2019-07-15 09:05 | Outpatient (CLI) | payer MEDICARE, MEDICAID, SELFPAY ==
[2019-03-11 22:23] VITALS: BMI 33.3
== END ==
PROVIDERS: PCP Internal Medicine; Referring Provider Internal Medicine; Visit Provider Family Medicine
DX: I87.332 Chronic venous hypertension (idiopathic) with ulcer and inflammation of left lower extremity (principal); L97.821 Non-pressure chronic ulcer of other part of left lower leg limited to breakdown of skin; S81.801A Unspecified open wound, right lower leg, initial encounter; L30.8 Other specified dermatitis; B95.61 Methicillin susceptible Staphylococcus aureus infection as the cause of diseases classified elsewhere; L08.9 Local infection of the skin and subcutaneous tissue, unspecified
CPT/HCPCS: 87070; 87075; 87077; 87186; 87205; 97597

== ENCOUNTER → 2019-07-22 15:22 | Outpatient (CLI) | payer MEDICARE, MEDICAID, SELFPAY ==
[2019-03-11 22:23] VITALS: BMI 33.3
== END ==
PROVIDERS: PCP Internal Medicine; Referring Provider Internal Medicine; Visit Provider Family Medicine
DX: I87.332 Chronic venous hypertension (idiopathic) with ulcer and inflammation of left lower extremity (principal); L97.821 Non-pressure chronic ulcer of other part of left lower leg limited to breakdown of skin; S81.801A Unspecified open wound, right lower leg, initial encounter; L30.8 Other specified dermatitis; L08.9 Local infection of the skin and subcutaneous tissue, unspecified
CPT/HCPCS: 97597

== ENCOUNTER → 2019-07-28 07:46 | Outpatient (ROUT) | payer MEDICARE, MEDICAID, SELFPAY ==
[2019-03-11 22:23] VITALS: BMI 33.3
[2019-07-28 08:46] LABS: BUN Creatinine Ratio 31.6 (6-22); Blood Urea Nitrogen 60 mg/dL (7-17); Calcium 9.1 mg/dL (8.4-10.2); Carbon Dioxide 20 mmol/L (22-32); Chloride 112 mmol/L (98-107); Estimated Glomerular Filt Rate 26.1 mL/min (>60); Glucose 94 mg/dL (80-110); HEMOLYSIS < 15 (0-50); Potassium 4.7 mmol/L (3.4-5.1); Sodium 143 mmol/L (137-145)
== END ==
PROVIDERS: PCP Internal Medicine; Visit Provider Internal Medicine
DX: N18.9 Chronic kidney disease, unspecified (principal); M31.30 Wegener's granulomatosis without renal involvement
CPT/HCPCS: 36415; 80048

== ENCOUNTER → 2019-07-29 10:17 | Outpatient (CLI) | payer MEDICARE, MEDICAID, SELFPAY ==
[2019-03-11 22:23] VITALS: BMI 33.3
== END ==
PROVIDERS: PCP Internal Medicine; Referring Provider Internal Medicine; Visit Provider Family Medicine
DX: I87.2 Venous insufficiency (chronic) (peripheral) (principal); L97.821 Non-pressure chronic ulcer of other part of left lower leg limited to breakdown of skin; L30.8 Other specified dermatitis; L08.9 Local infection of the skin and subcutaneous tissue, unspecified; R60.0 Localized edema; S81.801D Unspecified open wound, right lower leg, subsequent encounter
CPT/HCPCS: 87070; 87075; 87077; 87147; 87186; 87205; 97597; 99214

== ENCOUNTER 2019-08-01 23:19 | Emergency (ER) | payer MEDICARE, MEDICAID, SELFPAY ==
[2019-03-11 22:23] VITALS: BMI 33.3
--- NOTE | 2019-08-01 23:23 | ED_ITS ---
HPI - General Adult General Chief complaint: Nasal Problem Stated complaint: Nose bleed Time Seen by Provider: 08/01/19 23:23 History of Present Illness HPI narrative: 6o yo woman with recurrent epistaxis on apixaban presents to day with left side nose bleed continuing for 3 hours. She has tried pressure at home and continues to bleed. Last time she required bilateral posterior nasal packing and was seen at the ENT clinic following. They were able to cauterize her nose and she has done well until today. No significant hypertension, no trauma, no headache. Nausea after swallowing quite a bit of blood from the epistaxis. Related Data Home Medications Medication Instructions Recorded Confirmed Aspercreme Max 1 applic TOPICAL BID 12/25/18 06/16/19 acetaminophen 650 mg PO TID 12/25/18 06/16/19 apixaban 5 mg PO BID 12/25/18 06/16/19 benzocaine 1 applic MUCOUS MEMBRANE Q6H PRN 12/25/18 06/16/19 duloxetine 60 mg PO DAILY 12/25/18 06/16/19 gabapentin 100 mg PO BID 12/25/18 06/16/19 hydroxyzine HCl 25 mg PO Q8H PRN 12/25/18 06/16/19 nystatin 1 applic TOPICAL QID 12/25/18 06/16/19 sodium chloride [[place] Nasal] 1 spray INTRANASAL TID 12/25/18 06/16/19 torsemide 40 mg PO QAM 12/25/18 06/16/19 ascorbic acid (vitamin C) 500 mg PO QAM 03/11/19 06/16/19 cyanocobalamin (vitamin B-12) 1,000 mcg PO QAM 03/11/19 06/16/19 [Vitamin B-12] ferrous sulfate 325 mg PO DAILY 03/11/19 06/16/19 fluticasone propionate 1 spray INTRANASAL DAILY 03/11/19 06/16/19 guaifenesin 200 mg PO Q8H PRN 03/11/19 06/16/19 hydrocortisone 1 applic TOPICAL Q12H PRN 03/11/19 06/16/19 melatonin 6 mg PO BEDTIME 03/11/19 06/16/19 metoprolol succinate 75 mg PO BID 03/11/19 06/16/19 ondansetron HCl 8 mg PO DAILY PRN 03/11/19 06/16/19 pantoprazole 40 mg PO BID 03/11/19 06/16/19 polyethylene glycol 3350 17 g PO QAM 03/11/19 06/16/19 albuterol sulfate [Ventolin HFA] 2 puff INHALATION Q6H PRN 06/16/19 06/16/19 betamethasone valerate 1 applic TOPICAL DAILY 06/16/19 06/16/19 lanolin-mineral oil [Eucerin 1 applic TOPICAL BID 06/16/19 06/16/19 Original] patiromer calcium sorbitex 8.4 g PO QAM 06/16/19 06/16/19 Previous Rx's Medication Instructions Recorded oxycodone 2.5 - 5 mg PO Q6H PRN #10 tab 03/13/19 clindamycin HCl 300 mg PO Q8H #20 cap 06/16/19 ondansetron 4 mg PO Q6H PRN #20 tab 06/16/19 Allergies Allergy/AdvReac Type Severity Reaction Status Date / Time adhesive tape Allergy Verified 06/16/19 10:45 basil Allergy Verified 06/16/19 10:45 cephalexin [From Keflex] Allergy Verified 06/16/19 10:45 marlena Allergy Verified 06/16/19 10:45 Penicillins Allergy Verified 06/16/19 10:45 sulfamethoxazole AdvReac Severe Hyperkalemia/worsening Verified 06/16/19 10:45 [From Bactrim] CKD trimethoprim [From Bactrim] AdvReac Severe Hyperkalemia/worsening Verified 06/16/19 10:45 CKD Review of Systems Review of Systems Narrative: remiainder of ROS is otherwise noncontributory Patient History Medical History Chronic kidney disease (Acute) Cor pulmonale (Acute) Depression (Acute) Diastolic heart failure (Acute) Hyperlipidemia (Acute) Iron (Fe) deficiency anemia (Acute) Osteoarthritis (Acute) Polyneuropathy (Acute) Pulmonary embolism (Acute) Crow's granulomatosis (Acute) Surgical History History of Achilles tendon repair (Acute) History of esophagogastroduodenoscopy (EGD) (Acute) Status post creation of arteriovenous fistula (Acute) Social History household members: none Smoking Status: Never smoker alcohol intake: current substance use type: does not use Smoking Status: Never smoker alcohol intake frequency: holidays/special occasions only Substance Use Type: does not use Exam Narrative Exam Narrative: General: Healthy appearing, moderate distress due to severity of nose bleed HEENT: Moist mucous membranes, normal sclera with reactive pupils, blood is backing up through the lacrimal duct on the left side. There is some clot seen in the posterior pharynx. Nasal clamp did place Neck: No JVD, supple Respiratory: Lungs are clear to auscultation, no wheezing no rales no rhonchi. Full and symmetrical air movement Cardiac: Regular rate and rhythm no murmurs no bruits Abdomen: Soft nontender good bowel tones, no flank pain Skin: Warm and dry, no rashes Neurologic: Grossly neurologically intact with no obvious asymmetries or abnormalities Extremities: No trauma, well perfused Psych: Cooperative, appropriate insight and affect Initial Vital Signs Initial Vital Signs: Vital Signs Temperature 97.9 F 08/01/19 23:24 Pulse Rate 79 08/01/19 23:24 Respiratory Rate 20 08/01/19 23:24 Blood Pressure 116/72 08/01/19 23:24 Pulse Oximetry 100 08/01/19 23:24 Course Orders Ordered: Discontinued Medications Lorazepam (Ativan) 0.5 mg PO NOW ONE Stop: 08/01/19 23:32 Last Admin: 08/01/19 23:40 Dose: 0.5 mg Documented by: LETY Ondansetron HCl (Zofran Odt) 4 mg SL NOW ONE Stop: 08/01/19 23:32 Last Admin: 08/01/19 23:40 Dose: 4 mg Documented by: LETY Oxycodone/Acetaminophen (Percocet 5/325) 1 tab PO NOW ONE Stop: 08/01/19 23:32 Last Admin: 08/01/19 23:40 Dose: 1 tab Documented by: LETY Tranexamic Acid (Cyklokapron) 2,000 mg INJ INTRA-OP ONE Stop: 08/02/19 00:26 Tranexamic Acid (Cyklokapron) 1,000 mg MM NOW ONE Stop: 02/23/20 00:32 Last Admin: 08/02/19 00:32 Dose: 1,000 mg Documented by: HGKARLAN Vital Signs Vital signs: Vital Signs - 8 hr 08/01/19 23:24 08/01/19 23:33 Temperature 97.9 F 98 F Pulse Rate 79 80 Respiratory Rate 20 16 Blood Pressure 116/72 Blood Pressure [Right Arm] 116/72 Pulse Oximetry 100 93 Medical Decision Making Medical Records Medical records reviewed: Yes I reviewed the patient's medical records. [facility] Narrative Medical decision making narrative: Ongoing epistaxis. After an hour of nasal clamping the bleeding has slowed somewhat but still continues. She gently blows quite a bit of clot out of her nose and it is clear that it is only the left side that continues to bleed. A TXA soaked rhino- rocket is placed in the anterior portion of the nose. With this packing there is adequate hemostasis. She is observed in the emergency room for an additional 45 minutes and still not having additional bleeding around the nasal packing. She is discharged home with instructions to [facility] further evaluation help in removing the nasal packing. She is instructed to return should bleeding recur. She is hemodynamically stable and safe for home discharge at this time. Discharge Plan Departure Patient Disposition: Home Clinical Impression: Epistaxis Instructions: DI for Nosebleed Activity Restrictions/Additional Instructions: Thank you for coming in today. I'm so sorry your nose started bleeding again. I am going to suggest you skip your apixaban/eliquis on Saturday. You have nasal packing in now. You will need to call the ENT office on Saturday and let them know you were in the ER again for a nose bleed and there is packing that needs to be removed. If you have any additional issues, please return to the ER. Prescriptions: No Action acetaminophen 325 mg Tablet 650 mg PO TID RF: 0 torsemide 20 mg tablet 40 mg PO QAM RF: 0 hydroxyzine HCl 25 mg tablet 25 mg PO Q8H PRN (Reason: Itching) RF: 0 gabapentin 100 mg capsule 100 mg PO BID RF: 0 nystatin 100,000 unit/gram powder 1 applic topical QID RF: 0 benzocaine 20 % Gel 1 applic MUCOUS MEMBRANE Q6H PRN (Reason: canker sore) RF: 0 sodium chloride [[place] Nasal] 0.65 % Aerosol,[place] 1 spray intranasal TID RF: 0 duloxetine 60 mg capsule,delayed release(DR/EC) 60 mg PO DAILY RF: 0 Aspercreme Max 16 % Liquid 1 applic topical BID RF: 0 apixaban 5 mg tablet 5 mg PO BID RF: 0 metoprolol succinate 25 mg tablet extended release 24 hr 75 mg PO BID RF: 0 pantoprazole 40 mg tablet,delayed release (DR/EC) 40 mg PO BID RF: 0 polyethylene glycol 3350 17 gram Powder In Packet 17 g PO QAM RF: 0 cyanocobalamin (vitamin B-12) [Vitamin B-12] 1,000 mcg Tablet 1,000 mcg PO QAM RF: 0 melatonin 3 mg Tablet 6 mg PO BEDTIME RF: 0 ascorbic acid (vitamin C) 500 mg Tablet 500 mg PO QAM RF: 0 ferrous sulfate 325 mg (65 mg iron) Tablet 325 mg PO DAILY RF: 0 fluticasone propionate 50 mcg/actuation spray,suspension 1 spray INTRANASAL DAILY RF: 0 ondansetron HCl 8 mg tablet 8 mg PO DAILY PRN (Reason: Nausea) RF: 0 guaifenesin 100 mg/5 mL Liquid 200 mg PO Q8H PRN (Reason: Cough) RF: 0 hydrocortisone 1 % Cream 1 applic TOPICAL Q12H PRN (Reason: Rash) RF: 0 oxycodone 5 mg tablet 2.5 - 5 mg PO Q6H PRN (Reason: pain) Qty: 10 RF: 0 betamethasone valerate 0.1 % ointment 1 applic TOPICAL DAILY RF: 0 patiromer calcium sorbitex 8.4 gram Powder In Packet 8.4 g PO QAM RF: 0 albuterol sulfate [Ventolin HFA] 90 mcg/actuation HFA aerosol inhaler 2 puff INHALATION Q6H PRN (Reason: Shortness Of Breath) RF: 0 Eucerin Original Lotion 1 applic TOPICAL BID RF: 0 clindamycin HCl 300 mg capsule 300 mg PO Q8H Qty: 20 RF: 0 ondansetron 4 mg tablet,disintegrating 4 mg PO Q6H PRN (Reason: nausea and vomiting) Qty: 20 RF: 0 Referrals: Bri Vragas MD [Primary Care Provider] -
[2019-08-01 23:24] VITALS: BP 116/72; PULSE 79; RESP 20; TEMP 36.6; O2SAT 100
[2019-08-01 23:33] VITALS: BP 116/72; PULSE 80; RESP 16; TEMP 36.6; O2SAT 93; BMI 31.8
[2019-08-01] MEDS: ONDANSETRON 4 MG ODT SL (23:40)
[2019-08-01] MEDS: LORazepam 0.5 MG TABLET PO (23:40)
[2019-08-01] MEDS: OXYCODONE/ACETAMINOPHEN 5/325 TABLET 1 TAB PO (23:40)
[2019-08-02] MEDS: TRANEXAMIC ACID 1,000 MG VIAL 1000 MG MM (00:32)
[2019-08-02 01:41] VITALS: BP 106/63; PULSE 99; RESP 15; O2SAT 98
== END 2019-08-02 01:42 | disposition home or self-care (01) ==
PROVIDERS: Emergency Provider Emergency Medicine; PCP Internal Medicine
DX: R04.0 Epistaxis (principal)
CPT/HCPCS: 30901; 99283

== ENCOUNTER → 2019-08-05 10:33 | Outpatient (CLI) | payer MEDICARE, MEDICAID, SELFPAY ==
[2019-03-11 22:23] VITALS: BMI 33.3
== END ==
PROVIDERS: PCP Internal Medicine; Referring Provider Internal Medicine; Visit Provider Family Medicine
DX: I87.2 Venous insufficiency (chronic) (peripheral) (principal); L97.821 Non-pressure chronic ulcer of other part of left lower leg limited to breakdown of skin; L30.8 Other specified dermatitis; L08.9 Local infection of the skin and subcutaneous tissue, unspecified; B96.29 Other Escherichia coli [E. coli] as the cause of diseases classified elsewhere; R60.0 Localized edema
CPT/HCPCS: 97597; 99212; 99213

== ENCOUNTER → 2019-08-12 10:12 | Outpatient (CLI) | payer MEDICARE, MEDICAID, SELFPAY ==
[2019-03-11 22:23] VITALS: BMI 33.3
== END ==
PROVIDERS: PCP Internal Medicine; Referring Provider Internal Medicine; Visit Provider Family Medicine
DX: I87.2 Venous insufficiency (chronic) (peripheral) (principal); L97.821 Non-pressure chronic ulcer of other part of left lower leg limited to breakdown of skin; R60.0 Localized edema
CPT/HCPCS: 29581

== ENCOUNTER → 2019-08-17 13:09 | Outpatient (CLI) | payer MEDICARE, MEDICAID, SELFPAY ==
[2019-03-11 22:23] VITALS: BMI 33.3
== END ==
PROVIDERS: PCP Internal Medicine; Referring Provider Internal Medicine; Visit Provider Family Medicine
DX: I87.332 Chronic venous hypertension (idiopathic) with ulcer and inflammation of left lower extremity (principal); L97.821 Non-pressure chronic ulcer of other part of left lower leg limited to breakdown of skin; L30.8 Other specified dermatitis; N18.4 Chronic kidney disease, stage 4 (severe); I50.22 Chronic systolic (congestive) heart failure; D68.59 Other primary thrombophilia; Z79.01 Long term (current) use of anticoagulants; L08.9 Local infection of the skin and subcutaneous tissue, unspecified; B96.29 Other Escherichia coli [E. coli] as the cause of diseases classified elsewhere
CPT/HCPCS: 11042; 87070; 87075; 87077; 87186; 87205

== ENCOUNTER → 2019-08-24 14:47 | Outpatient (CLI) | payer MEDICARE, MEDICAID, SELFPAY ==
[2019-03-11 22:23] VITALS: BMI 33.3
== END ==
PROVIDERS: PCP Internal Medicine; Referring Provider Internal Medicine; Visit Provider Family Medicine
DX: I87.332 Chronic venous hypertension (idiopathic) with ulcer and inflammation of left lower extremity (principal); L97.821 Non-pressure chronic ulcer of other part of left lower leg limited to breakdown of skin; L08.9 Local infection of the skin and subcutaneous tissue, unspecified; B96.29 Other Escherichia coli [E. coli] as the cause of diseases classified elsewhere
CPT/HCPCS: 97597; 99213

== ENCOUNTER → 2019-08-25 07:36 | Outpatient (ROUT) | payer MEDICARE, MEDICAID, SELFPAY ==
[2019-03-11 22:23] VITALS: BMI 33.3
[2019-08-25 08:07] LABS: Hematocrit 28.4 % (36-46); Hemoglobin 9.3 g/dL (12.0-16.0)
[2019-08-25 08:25] LABS: BUN Creatinine Ratio 31.4 (6-22); Blood Urea Nitrogen 82 mg/dL (7-17); Calcium 8.5 mg/dL (8.4-10.2); Carbon Dioxide 26 mmol/L (22-32); Chloride 104 mmol/L (98-107); Estimated Glomerular Filt Rate 18.1 mL/min (>60); Glucose 72 mg/dL (80-110); HEMOLYSIS < 15 (0-50); Potassium 4.9 mmol/L (3.4-5.1); Sodium 139 mmol/L (137-145)
== END ==
PROVIDERS: PCP Internal Medicine; Visit Provider Nurse Practitioner Family
DX: N18.9 Chronic kidney disease, unspecified (principal); D64.9 Anemia, unspecified
CPT/HCPCS: 36415; 80048; 85014; 85018

== ENCOUNTER → 2019-09-24 07:36 | Outpatient (ROUT) | payer MEDICARE, MEDICAID, SELFPAY ==
[2019-03-11 22:23] VITALS: BMI 33.3
[2019-09-24 10:01] LABS: Hematocrit 30.1 % (36-46); Hemoglobin 9.6 g/dL (12.0-16.0)
[2019-09-24 10:05] LABS: Calcium 8.7 mg/dL (8.4-10.2); Carbon Dioxide 20 mmol/L (22-32); Chloride 109 mmol/L (98-107); Glucose 94 mg/dL (80-110); HEMOLYSIS 32 (0-50); Potassium 3.8 mmol/L (3.4-5.1); Sodium 141 mmol/L (137-145)
[2019-09-24 10:17] LABS: BUN Creatinine Ratio 48.7 (6-22)
[2019-09-24 10:21] LABS: Blood Urea Nitrogen 112 mg/dL (7-17)
== END ==
PROVIDERS: PCP Internal Medicine; Visit Provider Internal Medicine
DX: D64.9 Anemia, unspecified (principal); N18.9 Chronic kidney disease, unspecified
CPT/HCPCS: 36415; 80048; 85014; 85018

== ENCOUNTER → 2019-09-28 10:28 | Outpatient (CLI) | payer MEDICARE, MEDICAID, SELFPAY ==
[2019-03-11 22:23] VITALS: BMI 33.3
== END ==
PROVIDERS: PCP Internal Medicine; Referring Provider Internal Medicine; Visit Provider Family Medicine
DX: I87.2 Venous insufficiency (chronic) (peripheral) (principal); L97.821 Non-pressure chronic ulcer of other part of left lower leg limited to breakdown of skin; D68.59 Other primary thrombophilia; Z79.01 Long term (current) use of anticoagulants; L03.116 Cellulitis of left lower limb
CPT/HCPCS: 87070; 87077; 87147; 87186; 87205; 97597; 99213; 99214

== ENCOUNTER → 2019-09-28 11:20 | Outpatient (CLI) | payer MEDICARE, MEDICAID, SELFPAY ==
[2019-03-11 22:23] VITALS: BMI 33.3
[2019-09-28 12:21] LABS: Add Manual Diff / Slide Review NO; Basophils Absolute Auto 0 /uL (0-100); Eosinophils Absolute Auto 300 /uL (0-450); Eosinophils Percent Auto 7.2 % (2-4); Hematocrit 30.1 % (36-46); Lymphocytes Absolute Auto 600 /uL (1100-4500); Lymphocytes Percent Auto 16.1 % (25-40); Mean Corpuscular HGB Conc 33.1 % (30-36); Mean Corpuscular Hemoglobin 34.1 PG (26-34); Monocytes Absolute Auto 500 /uL (0-900); Monocytes Percent Auto 12.7 % (3-14); Neutrophils Absolute Auto 2500 /uL (1500-7000); Platelet Count 189 X10^3/uL (150-400); Red Blood Cell Count 2.92 X10^6/uL (4.0-5.2); Red Cell Distribution Width 15.1 % (11.6-14.8)
[2019-09-28 13:21] LABS: BUN Creatinine Ratio 49.5 (6-22); Calcium 8.8 mg/dL (8.4-10.2); Carbon Dioxide 25 mmol/L (22-32); Chloride 104 mmol/L (98-107); Estimated Glomerular Filt Rate 22.1 mL/min (>60); Glucose 81 mg/dL (80-110); HEMOLYSIS < 15 (0-50); Potassium 4.2 mmol/L (3.4-5.1); Sodium 140 mmol/L (137-145)
[2019-09-28 13:34] LABS: Blood Urea Nitrogen 109 mg/dL (7-17)
== END ==
PROVIDERS: PCP Internal Medicine; Referring Provider Internal Medicine; Visit Provider Internal Medicine
DX: D64.9 Anemia, unspecified (principal); N18.1 Chronic kidney disease, stage 1
CPT/HCPCS: 36415; 80048; 85025

== ENCOUNTER → 2019-10-01 09:49 | Outpatient (ROUT) | payer MEDICARE, MEDICAID, SELFPAY ==
[2019-03-11 22:23] VITALS: BMI 33.3
[2019-10-01 11:55] LABS: Add Manual Diff / Slide Review NO; Basophils Absolute Auto 0 /uL (0-100); Eosinophils Absolute Auto 300 /uL (0-450); Eosinophils Percent Auto 7.6 % (2-4); Hemoglobin 8.7 g/dL (12.0-16.0); Lymphocytes Absolute Auto 700 /uL (1100-4500); Lymphocytes Percent Auto 19.9 % (25-40); Mean Corpuscular HGB Conc 33.6 % (30-36); Mean Corpuscular Hemoglobin 34.6 PG (26-34); Monocytes Absolute Auto 500 /uL (0-900); Monocytes Percent Auto 15.2 % (3-14); Neutrophils Absolute Auto 2000 /uL (1500-7000); Neutrophils Percent Auto 56.3 % (50-75); Platelet Count 170 X10^3/uL (150-400); Red Blood Cell Count 2.52 X10^6/uL (4.0-5.2); White Blood Cell Count 3.6 X10^3/uL (4.5-11.0)
[2019-10-01 12:35] LABS: BUN Creatinine Ratio 45.3 (6-22); Blood Urea Nitrogen 86 mg/dL (7-17); Calcium 8.6 mg/dL (8.4-10.2); Carbon Dioxide 22 mmol/L (22-32); Chloride 108 mmol/L (98-107); Estimated Glomerular Filt Rate 26.1 mL/min (>60); Glucose 65 mg/dL (80-110); HEMOLYSIS < 15 (0-50); Potassium 4.4 mmol/L (3.4-5.1); Sodium 139 mmol/L (137-145)
== END ==
PROVIDERS: PCP Internal Medicine; Visit Provider Internal Medicine
DX: N18.9 Chronic kidney disease, unspecified (principal)
CPT/HCPCS: 36415; 80048; 85025

== ENCOUNTER → 2019-10-03 16:20 | Outpatient (ROUT) | payer MEDICARE, MEDICAID, SELFPAY ==
[2019-03-11 22:23] VITALS: BMI 33.3
[2019-10-03 16:35] LABS: Hematocrit 28.6 % (36-46); Hemoglobin 9.1 g/dL (12.0-16.0)
== END ==
PROVIDERS: PCP Internal Medicine; Visit Provider Registered Nurse
DX: D64.9 Anemia, unspecified (principal)
CPT/HCPCS: 85014; 85018

== ENCOUNTER → 2019-10-05 07:55 | Outpatient (ROUT) | payer MEDICARE, MEDICAID, SELFPAY ==
[2019-03-11 22:23] VITALS: BMI 33.3
[2019-10-05 08:42] LABS: Hemoglobin 8.3 g/dL (12.0-16.0)
== END ==
PROVIDERS: PCP Internal Medicine; Visit Provider Registered Nurse
DX: D53.9 Nutritional anemia, unspecified (principal)
CPT/HCPCS: 36415; 85014; 85018

== ENCOUNTER → 2019-10-05 14:16 | Outpatient (CLI) | payer MEDICARE, MEDICAID, SELFPAY ==
[2019-03-11 22:23] VITALS: BMI 33.3
== END ==
PROVIDERS: PCP Internal Medicine; Referring Provider Internal Medicine; Visit Provider Family Medicine
DX: I87.2 Venous insufficiency (chronic) (peripheral) (principal); L97.811 Non-pressure chronic ulcer of other part of right lower leg limited to breakdown of skin; L97.821 Non-pressure chronic ulcer of other part of left lower leg limited to breakdown of skin; B95.61 Methicillin susceptible Staphylococcus aureus infection as the cause of diseases classified elsewhere
CPT/HCPCS: 99212

== ENCOUNTER → 2019-10-08 09:02 | Outpatient (CLI) | payer MEDICARE, MEDICAID, SELFPAY ==
[2019-03-11 22:23] VITALS: BMI 33.3
[2019-10-08 10:29] LABS: Add Manual Diff / Slide Review NO; Basophils Absolute Auto 100 /uL (0-100); Basophils Percent Auto 1.4 % (0-2); Eosinophils Absolute Auto 200 /uL (0-450); Eosinophils Percent Auto 5.9 % (2-4); Hematocrit 30.4 % (36-46); Hemoglobin 9.7 g/dL (12.0-16.0); Lymphocytes Absolute Auto 700 /uL (1100-4500); Lymphocytes Percent Auto 19.6 % (25-40); Mean Corpuscular Hemoglobin 33.5 PG (26-34); Mean Corpuscular Volume 104.6 fL (80-100); Monocytes Absolute Auto 500 /uL (0-900); Monocytes Percent Auto 14.1 % (3-14); Neutrophils Absolute Auto 2200 /uL (1500-7000); Platelet Count 170 X10^3/uL (150-400); Red Blood Cell Count 2.91 X10^6/uL (4.0-5.2); Red Cell Distribution Width 15.1 % (11.6-14.8); White Blood Cell Count 3.7 X10^3/uL (4.5-11.0)
[2019-10-08 10:36] LABS: BUN Creatinine Ratio 32.4 (6-22); Blood Urea Nitrogen 60 mg/dL (7-17); Calcium 9.1 mg/dL (8.4-10.2); Carbon Dioxide 19 mmol/L (22-32); Chloride 110 mmol/L (98-107); Glucose 99 mg/dL (80-110); HEMOLYSIS < 15 (0-50); Potassium 4.6 mmol/L (3.4-5.1); Sodium 142 mmol/L (137-145)
== END ==
PROVIDERS: PCP Internal Medicine; Referring Provider Internal Medicine; Visit Provider Internal Medicine
DX: N19 Unspecified kidney failure (principal)
CPT/HCPCS: 36415; 80048; 85025

== ENCOUNTER → 2019-10-12 11:40 | Outpatient (CLI) | payer MEDICARE, MEDICAID, SELFPAY ==
[2019-03-11 22:23] VITALS: BMI 33.3
== END ==
PROVIDERS: PCP Internal Medicine; Referring Provider Internal Medicine; Visit Provider Family Medicine
DX: I87.2 Venous insufficiency (chronic) (peripheral) (principal); L97.821 Non-pressure chronic ulcer of other part of left lower leg limited to breakdown of skin
CPT/HCPCS: 97597

== ENCOUNTER → 2019-10-15 10:07 | Outpatient (CLI) | payer MEDICARE, MEDICAID, SELFPAY ==
[2019-03-11 22:23] VITALS: BMI 33.3
[2019-10-15 12:13] LABS: BUN Creatinine Ratio 27.5 (6-22); Blood Urea Nitrogen 49 mg/dL (7-17); Calcium 8.8 mg/dL (8.4-10.2); Carbon Dioxide 21 mmol/L (22-32); Chloride 110 mmol/L (98-107); Estimated Glomerular Filt Rate 28.2 mL/min (>60); Glucose 85 mg/dL (80-110); HEMOLYSIS < 15 (0-50); Potassium 4.6 mmol/L (3.4-5.1); Sodium 139 mmol/L (137-145)
[2019-10-15 12:14] LABS: Add Manual Diff / Slide Review NO; Basophils Absolute Auto 0 /uL (0-100); Basophils Percent Auto 1.2 % (0-2); Eosinophils Absolute Auto 200 /uL (0-450); Eosinophils Percent Auto 5.5 % (2-4); Hematocrit 28.5 % (36-46); Hemoglobin 9.6 g/dL (12.0-16.0); Lymphocytes Absolute Auto 500 /uL (1100-4500); Lymphocytes Percent Auto 14.9 % (25-40); Mean Corpuscular HGB Conc 33.6 % (30-36); Mean Corpuscular Hemoglobin 34.3 PG (26-34); Mean Corpuscular Volume 102.1 fL (80-100); Monocytes Absolute Auto 400 /uL (0-900); Neutrophils Absolute Auto 2200 /uL (1500-7000); Neutrophils Percent Auto 65.4 % (50-75); Platelet Count 179 X10^3/uL (150-400); Red Blood Cell Count 2.79 X10^6/uL (4.0-5.2); Red Cell Distribution Width 15.1 % (11.6-14.8); White Blood Cell Count 3.3 X10^3/uL (4.5-11.0)
[2019-10-15 12:24] LABS: NT-proBNP (BNP-Adult 18+) 9830 pg/mL (<125)
== END ==
PROVIDERS: PCP Internal Medicine; Referring Provider Internal Medicine; Visit Provider Internal Medicine
DX: D64.9 Anemia, unspecified (principal); N18.9 Chronic kidney disease, unspecified
CPT/HCPCS: 36415; 80048; 83880; 85025

== ENCOUNTER → 2019-10-19 11:02 | Outpatient (CLI) | payer MEDICARE, MEDICAID, SELFPAY ==
[2019-03-11 22:23] VITALS: BMI 33.3
== END ==
PROVIDERS: PCP Internal Medicine; Referring Provider Internal Medicine; Visit Provider Family Medicine
DX: I87.2 Venous insufficiency (chronic) (peripheral) (principal); L97.821 Non-pressure chronic ulcer of other part of left lower leg limited to breakdown of skin
CPT/HCPCS: 29580

== ENCOUNTER → 2019-10-22 07:43 | Outpatient (ROUT) | payer MEDICARE, MEDICAID, SELFPAY ==
[2019-03-11 22:23] VITALS: BMI 33.3
[2019-10-22 08:30] LABS: BUN Creatinine Ratio 35.3 (6-22); Blood Urea Nitrogen 59 mg/dL (7-17); Calcium 8.2 mg/dL (8.4-10.2); Carbon Dioxide 25 mmol/L (22-32); Chloride 106 mmol/L (98-107); Estimated Glomerular Filt Rate 30.3 mL/min (>60); Glucose 78 mg/dL (80-110); HEMOLYSIS < 15 (0-50); Sodium 140 mmol/L (137-145)
== END ==
PROVIDERS: PCP Internal Medicine; Visit Provider Nurse Practitioner Family
DX: I50.9 Heart failure, unspecified (principal)
CPT/HCPCS: 36415; 80048

== ENCOUNTER → 2019-10-27 10:58 | Outpatient (CLI) | payer MEDICARE, MEDICAID, SELFPAY ==
[2019-03-11 22:23] VITALS: BMI 33.3
== END ==
PROVIDERS: PCP Internal Medicine; Referring Provider Internal Medicine; Visit Provider Family Medicine
DX: I87.2 Venous insufficiency (chronic) (peripheral) (principal); R60.0 Localized edema
CPT/HCPCS: 99213

== ENCOUNTER → 2019-10-29 07:37 | Outpatient (ROUT) | payer MEDICARE, MEDICAID, SELFPAY ==
[2019-03-11 22:23] VITALS: BMI 33.3
[2019-10-29 08:15] LABS: Add Manual Diff / Slide Review NO; Basophils Absolute Auto 0 /uL (0-100); Basophils Percent Auto 0.9 % (0-2); Eosinophils Absolute Auto 200 /uL (0-450); Eosinophils Percent Auto 4.6 % (2-4); Hematocrit 29.5 % (36-46); Lymphocytes Absolute Auto 800 /uL (1100-4500); Lymphocytes Percent Auto 23.1 % (25-40); Mean Corpuscular HGB Conc 33.9 % (30-36); Mean Corpuscular Hemoglobin 33.9 PG (26-34); Mean Corpuscular Volume 99.9 fL (80-100); Monocytes Absolute Auto 700 /uL (0-900); Monocytes Percent Auto 18.5 % (3-14); Neutrophils Absolute Auto 1900 /uL (1500-7000); Neutrophils Percent Auto 52.9 % (50-75); Platelet Count 190 X10^3/uL (150-400); Red Blood Cell Count 2.95 X10^6/uL (4.0-5.2); Red Cell Distribution Width 14.2 % (11.6-14.8); White Blood Cell Count 3.5 X10^3/uL (4.5-11.0)
[2019-10-29 08:31] LABS: BUN Creatinine Ratio 36.8 (6-22); Blood Urea Nitrogen 74 mg/dL (7-17); Calcium 8.6 mg/dL (8.4-10.2); Carbon Dioxide 27 mmol/L (22-32); Chloride 103 mmol/L (98-107); Estimated Glomerular Filt Rate 24.5 mL/min (>60); Glucose 80 mg/dL (80-110); HEMOLYSIS < 15 (0-50); Potassium 3.9 mmol/L (3.4-5.1); Sodium 139 mmol/L (137-145)
[2019-10-29 08:40] LABS: NT-proBNP (BNP-Adult 18+) 3610 pg/mL (<125)
== END ==
PROVIDERS: PCP Internal Medicine; Visit Provider Nurse Practitioner Family
DX: N18.9 Chronic kidney disease, unspecified (principal); D64.9 Anemia, unspecified
CPT/HCPCS: 36415; 80048; 83880; 85025

== ENCOUNTER → 2019-12-01 08:18 | Outpatient (ROUT) | payer MEDICARE, MEDICAID, SELFPAY ==
[2019-03-11 22:23] VITALS: BMI 33.3
[2019-12-01 08:37] LABS: BUN Creatinine Ratio 43.6 (6-22); Blood Urea Nitrogen 99 mg/dL (7-17); Calcium 8.4 mg/dL (8.4-10.2); Carbon Dioxide 25 mmol/L (22-32); Chloride 105 mmol/L (98-107); Estimated Glomerular Filt Rate 21.3 mL/min (>60); Glucose 79 mg/dL (80-110); HEMOLYSIS < 15 (0-50); Potassium 4.1 mmol/L (3.4-5.1); Sodium 138 mmol/L (137-145)
== END ==
PROVIDERS: PCP Internal Medicine; Visit Provider Nurse Practitioner Family
DX: N18.3 Chronic kidney disease, stage 3 (moderate) (principal)
CPT/HCPCS: 80048

== ENCOUNTER → 2019-12-08 08:48 | Outpatient (CLI) | payer MEDICARE, MEDICAID, SELFPAY ==
[2019-03-11 22:23] VITALS: BMI 33.3
[2019-12-08 09:16] LABS: Add Manual Diff / Slide Review NO; Basophils Absolute Auto 0 /uL (0-100); Basophils Percent Auto 1.3 % (0-2); Eosinophils Absolute Auto 300 /uL (0-450); Eosinophils Percent Auto 7.2 % (2-4); Hematocrit 27.1 % (36-46); Hemoglobin 9.3 g/dL (12.0-16.0); Lymphocytes Absolute Auto 700 /uL (1100-4500); Lymphocytes Percent Auto 18.1 % (25-40); Mean Corpuscular HGB Conc 34.2 % (30-36); Mean Corpuscular Hemoglobin 34.2 PG (26-34); Mean Corpuscular Volume 99.8 fL (80-100); Monocytes Absolute Auto 400 /uL (0-900); Monocytes Percent Auto 11.2 % (3-14); Neutrophils Absolute Auto 2400 /uL (1500-7000); Neutrophils Percent Auto 62.2 % (50-75); Platelet Count 200 X10^3/uL (150-400); Red Blood Cell Count 2.72 X10^6/uL (4.0-5.2); Red Cell Distribution Width 14.7 % (11.6-14.8); White Blood Cell Count 3.9 X10^3/uL (4.5-11.0)
[2019-12-08 09:24] LABS: Alanine Aminotransferase 10 IU/L (<35); Albumin Globulin Ratio 1.2 (1.0-2.8); Alkaline Phosphatase 101 U/L (38-126); Aspartate Aminotransferase 23 IU/L (14-36); BUN Creatinine Ratio 40.8 (6-22); Bilirubin Total 0.5 mg/dL (0.2-1.3); Blood Urea Nitrogen 78 mg/dL (7-17); Carbon Dioxide 24 mmol/L (22-32); Chloride 110 mmol/L (98-107); Globulin 3.4 g/dL (1.7-4.1); Glucose 128 mg/dL (80-110); HEMOLYSIS < 15 (0-50); Sodium 142 mmol/L (137-145); Total Protein 7.4 g/dL (6.3-8.2)
[2019-12-08 09:33] LABS: HEMOLYSIS < 15 (0-50); Iron 101 ug/dL (37-170)
[2019-12-08 09:43] LABS: Percent Iron Saturation 31 % (15-50); Total Iron Binding Capacity 323 ug/dL (265-497); Transferrin 230 mg/dL (206-381)
[2019-12-08 10:00] LABS: Ferritin 66 ng/mL (11-264)
[2019-12-08 10:30] LABS: Folate 17.5 ng/mL (2.76-20.0)
[2019-12-08 10:46] LABS: Vitamin B12 942 pg/mL (239-931)
[2019-12-10 08:12] LABS: Albumin 3.6 g/dL (2.9-4.4); Alpha-1-Globulin 0.2 g/dL (0.0-0.4); Alpha-2-Globulin 0.6 g/dL (0.4-1.0); Gamma Globulin 1.4 g/dL (0.4-1.8); Globulin Total 3.3 g/dL (2.2-3.9); Protein, Total 6.9 g/dL (6.0-8.5)
== END ==
PROVIDERS: PCP Internal Medicine; Referring Provider Internal Medicine Hematology & Oncology; Visit Provider Internal Medicine Hematology & Oncology
DX: D50.9 Iron deficiency anemia, unspecified (principal); D64.9 Anemia, unspecified
CPT/HCPCS: 36415; 80053; 82607; 82728; 82746; 83540; 83550; 84155; 84165; 85025

== ENCOUNTER → 2019-12-31 17:05 | Outpatient (ROUT) | payer MEDICARE, MEDICAID, SELFPAY ==
[2019-03-11 22:23] VITALS: BMI 33.3
[2020-01-02 13:11] LABS: COVID19 Sendout Not Detected (Not Detect)
== END ==
PROVIDERS: PCP Internal Medicine; Visit Provider Internal Medicine
DX: Z11.59 Encounter for screening for other viral diseases (principal)
CPT/HCPCS: 87635

== ENCOUNTER → 2020-01-07 07:35 | Outpatient (ROUT) | payer MEDICARE, MEDICAID, SELFPAY ==
[2019-03-11 22:23] VITALS: BMI 33.3
[2020-01-07 08:31] LABS: Blood Urea Nitrogen 61 mg/dL (7-17); Calcium 8.3 mg/dL (8.4-10.2); Carbon Dioxide 26 mmol/L (22-32); Chloride 107 mmol/L (98-107); Estimated Glomerular Filt Rate 30.8 mL/min (>60); Glucose 74 mg/dL (80-110); HEMOLYSIS < 15 (0-50); Potassium 4.2 mmol/L (3.4-5.1); Sodium 139 mmol/L (137-145)
== END ==
PROVIDERS: PCP Internal Medicine; Visit Provider Nurse Practitioner Family
DX: N18.9 Chronic kidney disease, unspecified (principal)
CPT/HCPCS: 36415; 80048

== ENCOUNTER → 2020-01-14 10:17 | Outpatient (CLI) | payer MEDICARE, MEDICAID, SELFPAY ==
[2019-03-11 22:23] VITALS: BMI 33.3
[2020-01-14 10:56] VITALS: BP 139/82; PULSE 70; RESP 18; O2SAT 96
== END ==
PROVIDERS: PCP Internal Medicine; Referring Provider Internal Medicine; Visit Provider Internal Medicine Hematology & Oncology
DX: N18.4 Chronic kidney disease, stage 4 (severe) (principal); D63.1 Anemia in chronic kidney disease

== ENCOUNTER → 2020-01-19 10:11 | Outpatient (ROUT) | payer MEDICARE, MEDICAID, SELFPAY ==
[2019-03-11 22:23] VITALS: BMI 33.3
== END ==
PROVIDERS: PCP Internal Medicine; Visit Provider Nurse Practitioner Family
DX: R63.5 Abnormal weight gain (principal)
CPT/HCPCS: 84443

== ENCOUNTER → 2020-02-04 08:18 | Outpatient (ROUT) | payer MEDICARE, MEDICAID, SELFPAY ==
[2019-03-11 22:23] VITALS: BMI 33.3
[2020-02-04 08:52] LABS: BUN Creatinine Ratio 32.6 (6-22); Blood Urea Nitrogen 61 mg/dL (7-17); Calcium 8.1 mg/dL (8.4-10.2); Carbon Dioxide 24 mmol/L (22-32); Chloride 109 mmol/L (98-107); Estimated Glomerular Filt Rate 26.6 mL/min (>60); Glucose 78 mg/dL (80-110); HEMOLYSIS < 15 (0-50); Sodium 139 mmol/L (137-145)
== END ==
PROVIDERS: PCP Internal Medicine; Visit Provider Nurse Practitioner Family
DX: N18.9 Chronic kidney disease, unspecified (principal)
CPT/HCPCS: 36415; 80048

== ENCOUNTER → 2020-02-11 08:37 | Outpatient (ROUT) | payer MEDICARE, MEDICAID, SELFPAY ==
[2019-03-11 22:23] VITALS: BMI 33.3
[2020-02-11 09:19] LABS: BUN Creatinine Ratio 28.7 (6-22); Blood Urea Nitrogen 58 mg/dL (7-17); Carbon Dioxide 25 mmol/L (22-32); Chloride 108 mmol/L (98-107); Estimated Glomerular Filt Rate 24.4 mL/min (>60); Glucose 66 mg/dL (80-110); HEMOLYSIS < 15 (0-50); Potassium 4.4 mmol/L (3.4-5.1); Sodium 139 mmol/L (137-145)
== END ==
PROVIDERS: PCP Internal Medicine; Visit Provider Nurse Practitioner Family
DX: N18.9 Chronic kidney disease, unspecified (principal); S81.809A Unspecified open wound, unspecified lower leg, initial encounter
CPT/HCPCS: 36415; 80048; 87070; 87075; 87205

== ENCOUNTER → 2020-02-11 09:39 | Outpatient (CLI) | payer MEDICARE, MEDICAID, SELFPAY ==
[2019-03-11 22:23] VITALS: BMI 33.3
[2020-02-11 09:51] VITALS: BP 124/74; PULSE 88; RESP 18; TEMP 36.7; O2SAT 96
[2020-02-11] MEDS: DARBEPOETIN 40 MCG/0.4 ML SYRINGE SUBCUT (10:13)
== END ==
PROVIDERS: PCP Internal Medicine; Referring Provider Internal Medicine Hematology & Oncology; Visit Provider Internal Medicine Hematology & Oncology
DX: N18.4 Chronic kidney disease, stage 4 (severe) (principal); D63.1 Anemia in chronic kidney disease; M31.31 Wegener's granulomatosis with renal involvement; S81.809A Unspecified open wound, unspecified lower leg, initial encounter
CPT/HCPCS: 36415; 80048; 82728; 83540; 83550; 85014; 85018; 87070; 87075; 87077; 87147; 87186; 87205; 96372; J0881

== ENCOUNTER → 2020-02-18 07:22 | Outpatient (ROUT) | payer MEDICARE, MEDICAID, SELFPAY ==
[2019-03-11 22:23] VITALS: BMI 33.3
[2020-02-18 07:51] LABS: Add Manual Diff / Slide Review NO; Basophils Absolute Auto 0 /uL (0-100); Basophils Percent Auto 1.2 % (0-2); Eosinophils Absolute Auto 400 /uL (0-450); Eosinophils Percent Auto 9.2 % (2-4); Hematocrit 24.5 % (36-46); Hemoglobin 8.2 g/dL (12.0-16.0); Lymphocytes Absolute Auto 700 /uL (1100-4500); Lymphocytes Percent Auto 17.6 % (25-40); Mean Corpuscular HGB Conc 33.6 % (30-36); Mean Corpuscular Hemoglobin 33.9 PG (26-34); Mean Corpuscular Volume 100.9 fL (80-100); Monocytes Absolute Auto 700 /uL (0-900); Monocytes Percent Auto 16.2 % (3-14); Neutrophils Absolute Auto 2300 /uL (1500-7000); Neutrophils Percent Auto 55.8 % (50-75); Platelet Count 250 X10^3/uL (150-400); Red Blood Cell Count 2.42 X10^6/uL (4.0-5.2); Red Cell Distribution Width 13.8 % (11.6-14.8)
[2020-02-18 08:06] LABS: BUN Creatinine Ratio 29.4 (6-22); Blood Urea Nitrogen 72 mg/dL (7-17); Calcium 8.4 mg/dL (8.4-10.2); Carbon Dioxide 26 mmol/L (22-32); Chloride 106 mmol/L (98-107); Estimated Glomerular Filt Rate 19.5 mL/min (>60); Glucose 86 mg/dL (80-110); HEMOLYSIS < 15 (0-50); Potassium 4.8 mmol/L (3.4-5.1); Sodium 139 mmol/L (137-145)
== END ==
PROVIDERS: PCP Internal Medicine; Visit Provider Nurse Practitioner Family
DX: N18.9 Chronic kidney disease, unspecified (principal); L03.90 Cellulitis, unspecified
CPT/HCPCS: 36415; 80048; 85025

== ENCOUNTER → 2020-02-23 08:14 | Outpatient (ROUT) | payer MEDICARE, MEDICAID, SELFPAY ==
[2019-03-11 22:23] VITALS: BMI 33.3
[2020-02-23 08:48] LABS: BUN Creatinine Ratio 28.1 (6-22); Blood Urea Nitrogen 54 mg/dL (7-17); Calcium 7.7 mg/dL (8.4-10.2); Carbon Dioxide 21 mmol/L (22-32); Chloride 113 mmol/L (98-107); Estimated Glomerular Filt Rate 25.8 mL/min (>60); Glucose 81 mg/dL (80-110); HEMOLYSIS < 15 (0-50); Potassium 3.9 mmol/L (3.4-5.1); Sodium 141 mmol/L (137-145)
[2020-02-23 09:52] LABS: Folate 12.9 ng/mL (2.76-20.0); Vitamin B12 > 1000 pg/mL (239-931)
== END ==
PROVIDERS: PCP Internal Medicine; Visit Provider Internal Medicine
DX: N18.9 Chronic kidney disease, unspecified (principal); N17.9 Acute kidney failure, unspecified; D64.9 Anemia, unspecified
CPT/HCPCS: 36415; 80048; 82607; 82746

== ENCOUNTER → 2020-03-04 12:34 | Outpatient (ROUT) | payer MEDICARE, MEDICAID, SELFPAY ==
[2019-03-11 22:23] VITALS: BMI 33.3
[2020-03-05 10:08] LABS: COVID19 Sendout Not Detected (Not Detected)
== END ==
PROVIDERS: PCP Internal Medicine; Visit Provider Internal Medicine
DX: Z11.59 Encounter for screening for other viral diseases (principal)
CPT/HCPCS: 87635

== ENCOUNTER → 2020-03-10 07:28 | Outpatient (ROUT) | payer MEDICARE, MEDICAID, SELFPAY ==
[2019-03-11 22:23] VITALS: BMI 33.3
[2020-03-10 07:56] LABS: Blood Urea Nitrogen 65 mg/dL (7-17); Calcium 8.3 mg/dL (8.4-10.2); Carbon Dioxide 27 mmol/L (22-32); Chloride 106 mmol/L (98-107); Estimated Glomerular Filt Rate 25.1 mL/min (>60); Glucose 75 mg/dL (80-110); HEMOLYSIS < 15 (0-50); Potassium 4.7 mmol/L (3.4-5.1); Sodium 138 mmol/L (137-145)
== END ==
PROVIDERS: PCP Internal Medicine; Visit Provider Nurse Practitioner Family
DX: N18.9 Chronic kidney disease, unspecified (principal)
CPT/HCPCS: 36415; 80048

== ENCOUNTER → 2020-03-10 10:01 | Outpatient (CLI) | payer MEDICARE, MEDICAID, SELFPAY ==
[2019-03-11 22:23] VITALS: BMI 33.3
[2020-03-10 07:41] LABS: Hematocrit 25.2 % (36-46); Hemoglobin 8.3 g/dL (12.0-16.0)
[2020-03-10 07:55] LABS: HEMOLYSIS < 15 (0-50); Iron 63 ug/dL (37-170)
[2020-03-10 08:05] LABS: Percent Iron Saturation 21 % (15-50); Total Iron Binding Capacity 303 ug/dL (265-497); Transferrin 222 mg/dL (206-381)
[2020-03-10 08:29] LABS: Ferritin 54 ng/mL (11-264)
[2020-03-10] MEDS: DARBEPOETIN 40 MCG/0.4 ML SYRINGE SUBCUT (13:06)
== END ==
PROVIDERS: PCP Internal Medicine; Referring Provider Internal Medicine Hematology & Oncology; Visit Provider Internal Medicine Hematology & Oncology
DX: N18.4 Chronic kidney disease, stage 4 (severe) (principal); D63.1 Anemia in chronic kidney disease; M31.31 Wegener's granulomatosis with renal involvement; I50.30 Unspecified diastolic (congestive) heart failure; I48.91 Unspecified atrial fibrillation; Z79.01 Long term (current) use of anticoagulants
CPT/HCPCS: 36415; 80048; 82728; 83540; 83550; 85014; 85018; 96372; 99214; J0881

== ENCOUNTER → 2020-04-07 12:44 | Outpatient (CLI) | payer MEDICARE, MEDICAID, SELFPAY ==
[2019-03-11 22:23] VITALS: BMI 33.3
[2020-04-07 13:01] VITALS: BP 124/62; PULSE 86; RESP 18; TEMP 37.2; O2SAT 92
[2020-04-07] MEDS: DARBEPOETIN 40 MCG/0.4 ML SYRINGE SUBCUT (13:14)
== END ==
PROVIDERS: PCP Internal Medicine; Referring Provider Internal Medicine Hematology & Oncology; Visit Provider Internal Medicine Hematology & Oncology
DX: N18.4 Chronic kidney disease, stage 4 (severe) (principal); D63.1 Anemia in chronic kidney disease; M31.31 Wegener's granulomatosis with renal involvement
CPT/HCPCS: 36415; 82728; 83540; 83550; 85014; 85018; 96372; J0881

== ENCOUNTER → 2020-04-13 11:11 | Outpatient (CLI) | payer MEDICARE, MEDICAID, SELFPAY ==
[2019-03-11 22:23] VITALS: BMI 33.3
--- NOTE | 2020-04-13 | DI.RAD.S_ITS ---
PROCEDURE: XR HAND RT MIN 3V INDICATIONS: PAIN IN HAND, KNEES, AND LUMBAR SPINE TECHNIQUE: 3 views of the hand(s) acquired. COMPARISON: Reviewed.. FINDINGS: Bones: No fractures or dislocations. Carpal bones are normally aligned. No suspicious bony lesions. Note is made of moderate to moderately severe degenerative osteoarthritic change most pronounced at the 4th proximal interphalangeal joint, where osseous erosions are prominent, and mild periarticular lucencies are present. A minimal degree of degeneration is seen at the base of the 1st metacarpal.. Soft tissues: No suspicious soft tissue calcifications. IMPRESSION: Degenerative osteoarthritis with a erosive process at the 4th proximal interphalangeal joint. This might represent a manifestation of erosive osteoarthritis but consideration is recommended for rheumatoid arthritis or, more rarely, psoriatic arthritis as cause of this appearance. Dictated by: John Beltre M.D. on 04/13/2020 at 12:22 Approved by: John Beltre M.D. on 04/13/2020 at 12:42
--- NOTE | 2020-04-13 | DI.RAD.S_ITS ---
PROCEDURE: XR KNEE RT 3V INDICATIONS: PAIN IN HAND, KNEES, AND LUMBAR SPINE TECHNIQUE: 3 views of the knee were acquired. COMPARISON: None. FINDINGS: Bones: No fractures or dislocations. No suspicious bony lesions. Note is made of a moderately severe degree of medial compartment joint space narrowing on the frontal weight-bearing view and a moderate degree of lateral compartment degenerative change also. In addition, on the patellofemoral view the lateral facet shows severe degenerative osteoarthritic change with [id number] articulation. Soft tissues: No joint effusion. No suspicious soft tissue calcifications. IMPRESSION: The right knee when compared to the left knee plain films same day shows a similar degree of severe osteoarthritis at the lateral facet of the patellofemoral joint but a greater degree of medial compartment knee joint osteoarthritis than on the left. Dictated by: John Beltre M.D. on 04/13/2020 at 13:45 Approved by: John Beltre M.D. on 04/13/2020 at 13:46
--- NOTE | 2020-04-13 | DI.RAD.S_ITS ---
PROCEDURE: XR KNEE LT 3V INDICATIONS: PAIN IN HAND, KNEES, AND LUMBAR SPINE TECHNIQUE: 3 views of the knee were acquired. COMPARISON: None. FINDINGS: Bones: No fractures or dislocations but there is a [id number] degree of medial and lateral compartment knee joint space narrowing seen on the frontal weight-bearing view. At the patellar sunrise view there is a prominent degree of degenerative osteoarthritic change with tiwu-[id number] at the lateral facet of the patellofemoral joint.. No suspicious bony lesions. Soft tissues: No joint effusion. No suspicious soft tissue calcifications. IMPRESSION: Severe osteoarthritic change lateral facet of the patellofemoral joint but only buxf-us-gqvjmapw osteoarthritis is noted on standing weight-bearing view through the medial and lateral compartments. Dictated by: John Beltre M.D. on 04/13/2020 at 13:44 Approved by: John Beltre M.D. on 04/13/2020 at 13:45
--- NOTE | 2020-04-13 | DI.RAD.S_ITS ---
PROCEDURE: XR LUMBAR SPINE 2-3V INDICATIONS: PAIN IN HAND, KNEES, AND LUMBAR SPINE TECHNIQUE: 3 views of the lumbar spine were acquired. COMPARISON: None. FINDINGS: Bones: 5 ixy-aic-[id number] vertebrae are present. There is mildly levo scoliotic bony alignment centered at L 3 4. No vertebral body compression fractures. No suspicious bony lesions. The degenerative disc disease present is mild superiorly and inferiorly, most prominent at L2-L3 level. Facet osteoarthritis, however, becomes progressively more prominent from L3 inferiorly and is most pronounced at L4-5 and especially L5-S1. Grade 1 anterolisthesis of L4 on L5 is associated with disc height reduction and ligamentous laxity from the facet osteoarthritic change. Significant spinal and foraminal stenosis at the lower 2 levels of the LS spine would be expected. Soft tissues: Overlying bowel gas pattern is normal. No suspicious soft tissue calcifications. IMPRESSION: No compression fracture found. The degenerative changes discussed above are overall moderate in severity but associated with likelihood of significant spinal and foraminal stenosis at L4-5 and especially L5-S1. Dictated by: John Beltre M.D. on 04/13/2020 at 13:46 Approved by: John Beltre M.D. on 04/13/2020 at 13:48
--- NOTE | 2020-04-13 | DI.RAD.S_ITS ---
PROCEDURE: XR HAND LT MIN 3V INDICATIONS: PAIN IN HAND, KNEES, AND LUMBAR SPINE TECHNIQUE: 3 views of the left hand acquired. COMPARISON: None. FINDINGS: Bones: No fractures or dislocations. Carpal bones are normally aligned. No suspicious bony lesions. There is moderate to moderately severe degenerative osteoarthritic change at the interphalangeal joints and base of the 1st metacarpal. The joint degeneration is most prominent at the 2nd proximal interphalangeal joint. No areas of osteolytic change are seen. Soft tissues: No suspicious soft tissue calcifications. IMPRESSION: Moderate to moderately severe degenerative osteoarthritic change, as discussed, most prominent at the 2nd proximal interphalangeal joint. Dictated by: John Beltre M.D. on 04/13/2020 at 12:20 Approved by: John Beltre M.D. on 04/13/2020 at 12:22
[2020-04-13 11:59] LABS: Bacteria Urine None Seen; RBC Urine None Seen (0-5/HPF); WBC Urine None Seen (0-5/HPF)
[2020-04-13 12:39] LABS: Appearance Urine UA CLEAR; Bilirubin Urine UA NEGATIVE (NEGATIVE); Color Urine UA YELLOW; Glucose Urine UA NEGATIVE (Negative); Ketones Urine UA NEGATIVE (NEGATIVE); Leukocyte Esterase Urine UA NEGATIVE (NEGATIVE); Nitrite Urine UA NEGATIVE (Negative); Occult Blood Urine UA NEGATIVE (Negative); Protein Urine UA NEGATIVE (Negative); Urobilinogen Urine UA 0.2 E.U./dL (0.2)
[2020-04-13 12:47] LABS: Culture Indicated Urine Cult Not Indicated; Urine Comments Microscopic Normal
[2020-04-13 12:57] LABS: Add Manual Diff / Slide Review NO; Basophils Absolute Auto 100 /uL (0-100); Basophils Percent Auto 1.3 % (0-2); Eosinophils Absolute Auto 400 /uL (0-450); Eosinophils Percent Auto 5.9 % (2-4); Hematocrit 34.5 % (36-46); Hemoglobin 11.2 g/dL (12.0-16.0); Lymphocytes Absolute Auto 600 /uL (1100-4500); Lymphocytes Percent Auto 10.3 % (25-40); Mean Corpuscular HGB Conc 32.4 % (30-36); Mean Corpuscular Hemoglobin 31.9 PG (26-34); Mean Corpuscular Volume 98.5 fL (80-100); Monocytes Absolute Auto 600 /uL (0-900); Monocytes Percent Auto 9.4 % (3-14); Neutrophils Absolute Auto 4400 /uL (1500-7000); Neutrophils Percent Auto 73.1 % (50-75); Platelet Count 273 X10^3/uL (150-400); Red Cell Distribution Width 14.1 % (11.6-14.8)
[2020-04-13 13:10] LABS: HEMOLYSIS < 15 (0-50); Iron 123 ug/dL (37-170)
[2020-04-13 13:12] LABS: Alanine Aminotransferase 11 IU/L (<35); Albumin 3.9 g/dL (3.5-5.0); Alkaline Phosphatase 98 U/L (38-126); Aspartate Aminotransferase 25 IU/L (14-36); BUN Creatinine Ratio 32.1 (6-22); Bilirubin Total 0.5 mg/dL (0.2-1.3); Blood Urea Nitrogen 59 mg/dL (7-17); C-Reactive Protein Quant 0.7 mg/dL (<1.0); Calcium 8.4 mg/dL (8.4-10.2); Carbon Dioxide 26 mmol/L (22-32); Chloride 106 mmol/L (98-107); Estimated Glomerular Filt Rate 27.1 mL/min (>60); Globulin 3.9 g/dL (1.7-4.1); Glucose 100 mg/dL (80-110); HEMOLYSIS < 15 (0-50); Potassium 4.1 mmol/L (3.4-5.1); Sodium 141 mmol/L (137-145); Total Protein 7.8 g/dL (6.3-8.2)
[2020-04-13 13:15] LABS: Rheumatoid Factor < 8.6 IU/mL (<12.0)
[2020-04-13 13:20] LABS: Percent Iron Saturation 37 % (15-50); Total Iron Binding Capacity 335 ug/dL (265-497); Transferrin 255 mg/dL (206-381)
[2020-04-13 13:38] LABS: Erythrocyte Sedimentation Rate 54 MM/HR (0-20)
[2020-04-13 13:44] LABS: Ferritin 47 ng/mL (11-264)
[2020-04-13 14:57] LABS: Protein (Total) Urine Random 19 mg/dL (0-12); Protein Creatinine Ratio Urine 0.33 GRAM/24H
[2020-04-14 06:09] LABS: Complement C3 125 mg/dL (82-167)
[2020-04-15 01:36] LABS: Complement Total CH50 > 60 U/mL (>41)
[2020-04-15 22:07] LABS: CCP Antibodies IgG/IgA 8 units (0-19)
== END ==
PROVIDERS: PCP Internal Medicine; Referring Provider Internal Medicine Rheumatology; Visit Provider Internal Medicine Rheumatology
DX: M19.90 Unspecified osteoarthritis, unspecified site (principal); M06.4 Inflammatory polyarthropathy; M31.30 Wegener's granulomatosis without renal involvement
CPT/HCPCS: 36415; 72100; 73130; 73562; 80053; 81001; 82570; 82728; 83540; 83550; 84156; 85025; 85651; 86140; 86160; 86162; 86200; 86430

== ENCOUNTER → 2020-05-04 11:34 | Outpatient (CLI) | payer MEDICARE, MEDICAID, SELFPAY ==
[2019-03-11 22:23] VITALS: BMI 33.3
[2020-05-04 12:06] VITALS: BP 106/79; PULSE 84; RESP 18; TEMP 37.7; O2SAT 94
--- NOTE | 2020-05-04 16:36 | PC.NURSE ---
Pt did not need aranesp today as her H/H were withing the threshold to hold, will return to clinic in 3 weeks.
== END ==
PROVIDERS: PCP Internal Medicine; Referring Provider Internal Medicine Hematology & Oncology; Visit Provider Internal Medicine Hematology & Oncology
DX: N18.4 Chronic kidney disease, stage 4 (severe) (principal); D63.1 Anemia in chronic kidney disease; M31.31 Wegener's granulomatosis with renal involvement

== ENCOUNTER → 2020-05-24 07:16 | Outpatient (ROUT) | payer MEDICARE, MEDICAID, SELFPAY ==
[2019-03-11 22:23] VITALS: BMI 33.3
[2020-05-24 07:22] LABS: Hematocrit 29.9 % (36-46); Hemoglobin 9.9 g/dL (12.0-16.0)
== END ==
PROVIDERS: PCP Internal Medicine; Visit Provider Internal Medicine Hematology & Oncology
DX: D50.9 Iron deficiency anemia, unspecified (principal)
CPT/HCPCS: 36415; 85014; 85018

== ENCOUNTER → 2020-05-25 12:08 | Outpatient (CLI) | payer MEDICARE, MEDICAID, SELFPAY ==
[2019-03-11 22:23] VITALS: BMI 33.3
[2020-05-25 12:13] VITALS: BP 138/93; PULSE 79; RESP 18
[2020-05-25] MEDS: DARBEPOETIN 40 MCG/0.4 ML SYRINGE SUBCUT (12:28)
== END ==
PROVIDERS: PCP Internal Medicine; Referring Provider Internal Medicine Hematology & Oncology; Visit Provider Internal Medicine Hematology & Oncology
DX: N18.4 Chronic kidney disease, stage 4 (severe) (principal); D63.1 Anemia in chronic kidney disease; M31.31 Wegener's granulomatosis with renal involvement
CPT/HCPCS: 96372; J0881

== ENCOUNTER 2020-06-14 22:08 | Inpatient (IN) | payer MEDICARE, MEDICAID, SELFPAY ==
[2019-03-11 22:23] VITALS: BMI 33.3
[2020-06-14] VITALS (8 sets, daily range): BP systolic 114–136; BP diastolic 59–95; PULSE 69–89; RESP 16–17; TEMP 36.4–36.8; O2SAT 91–96
--- NOTE | 2020-06-14 22:16 | ED.NAVMDI ---
HPI - Nausea/Vomiting/Diarrhea General Chief complaint: GI Bleed Stated complaint: Abd pain x2 days Time Seen by Provider: 06/14/20 22:13 Source: patient and EMS Mode of arrival: EMS Limitations: no limitations History of Present Illness HPI Narrative: Patient is a 69-year-old female with history of atrial fibrillation on Eliquis, Galileo's granulomatosis in remission presenting with dark bloody stools today. She says that she had 2 very large dark bowel movements earlier today. She denies any abdominal pain dizziness lightheadedness nausea or vomiting. She overall feels well however the assisted living care she resides at was worried. She has no prior history of GI bleeding and has never had a colonoscopy. She was seen and evaluated at [facility] not last week after her fistula in her left arm ruptured. Was a fistula that is no longer used she is not on dialysis anymore. MD complaint: diarrhea Description of Diarrhea: bloody (dark red) Related Data Home Medications Medication Instructions Recorded Confirmed Aspercreme Max 1 applic TOPICAL BID 12/25/18 06/15/20 acetaminophen 650 mg PO TID 12/25/18 06/15/20 apixaban 5 mg PO BID 12/25/18 06/15/20 benzocaine 1 applic MUCOUS MEMBRANE Q6H PRN 12/25/18 06/15/20 duloxetine 60 mg PO DAILY 12/25/18 06/15/20 gabapentin 100 mg PO BID 12/25/18 06/15/20 hydroxyzine HCl 25 mg PO Q8H PRN 12/25/18 06/15/20 nystatin 1 applic TOPICAL QID 12/25/18 06/15/20 sodium chloride [[place] Nasal] 3 spray INTRANASAL BID 12/25/18 06/15/20 torsemide 20 mg PO QAM 12/25/18 06/15/20 ascorbic acid (vitamin C) 500 mg PO QAM 03/11/19 06/15/20 cyanocobalamin (vitamin B-12) 1,000 mcg PO QAM 03/11/19 06/15/20 [Vitamin B-12] ferrous sulfate 325 mg PO DAILY 03/11/19 06/15/20 hydrocortisone 1 applic TOPICAL Q12H PRN 03/11/19 06/15/20 melatonin 6 mg PO BEDTIME 03/11/19 06/15/20 ondansetron HCl 8 mg PO DAILY PRN 03/11/19 06/15/20 pantoprazole 40 mg PO BID 03/11/19 06/15/20 polyethylene glycol 3350 17 g PO QAM 03/11/19 06/15/20 albuterol sulfate [Ventolin HFA] 2 puff INHALATION Q6H PRN 06/16/19 06/15/20 betamethasone valerate 1 applic TOPICAL DAILY 06/16/19 06/15/20 lanolin-mineral oil [Eucerin 1 applic TOPICAL BID 06/16/19 06/15/20 Original] patiromer calcium sorbitex 8.4 g PO QAM 06/16/19 06/15/20 trazodone 25 mg PO BEDTIME 12/10/19 06/15/20 dextromethorphan-guaifenesin 1 tab PO Q12H PRN 03/10/20 06/15/20 [Mucinex DM] lorazepam 0.5 mg PO Q6HR PRN 03/10/20 06/15/20 metoprolol succinate 25 mg PO BID 03/10/20 06/15/20 Previous Rx's Medication Instructions Recorded oxycodone 2.5 - 5 mg PO Q6H PRN #10 tab 03/13/19 Allergies Allergy/AdvReac Type Severity Reaction Status Date / Time adhesive tape Allergy Verified 06/15/20 00:04 basil Allergy Verified 06/15/20 00:04 cephalexin [From Keflex] Allergy Verified 06/15/20 00:04 marlena Allergy Verified 06/15/20 00:04 Penicillins Allergy Verified 06/15/20 00:04 sulfamethoxazole AdvReac Severe Hyperkalemia/worsening Verified 06/15/20 00:04 [From Bactrim] CKD trimethoprim [From Bactrim] AdvReac Severe Hyperkalemia/worsening Verified 06/15/20 00:04 CKD Review of Systems Review of Systems Narrative: GENERAL: Denies chills, fatigue, malaise, fever, sweats, travel HEENT: Denies sinus pain, ear pain, sore throat, difficulty swallowing, neck pain RESPIRATORY: Denies dyspnea, cough, wheezing, hemoptysis, sputum. CARDIOVASCULAR: Denies chest pain, palpitations, orthopnea, edema GASTROINTESTINAL: See HPI : Denies dysuria, frequency, incontinence, hematuria, urinary retention, flank pain. MUSCULOSKELETAL: Denies weakness, joint pain, or bony pain SKIN: No rash, no erythema, no pruritus NEUROLOGIC: Denies weakness, dizziness, headache, numbness, change in speech, confusion PSYCHIATRIC: No concerning psychosocial issues. 12 point review of systems is negative except for those stated above and HPI Patient History Medical History Chronic kidney disease Cor pulmonale Depression Diastolic heart failure Hyperlipidemia Iron (Fe) deficiency anemia Left leg DVT Osteoarthritis Polyneuropathy Crow's granulomatosis Surgical History History of Achilles tendon repair History of esophagogastroduodenoscopy (EGD) Status post creation of arteriovenous fistula Family History (Updated 06/15/20 @ 01:34 by NATHAN Heredia) Brother FH: kidney cancer Father CVA (cerebral vascular accident) Mother CVA (cerebral vascular accident) Atrial fibrillation Social History household members: none Smoking Status: Never smoker alcohol intake: former substance use type: does not use Smoking Status: Never smoker alcohol intake frequency: holidays/special occasions only Substance Use Type: does not use Exam Initial Vital Signs Initial Vital Signs: Vital Signs Temperature 98.3 F 06/14/20 22:08 Pulse Rate 79 06/14/20 22:08 Respiratory Rate 16 06/14/20 22:08 Blood Pressure 134/87 06/14/20 22:08 Pulse Oximetry 96 06/14/20 22:08 GENERAL: Alert pleasant 69-year-old female and in [no acute] distress. HEENT: Head atraumatic,EOMI, pupils reactive, face symmetric, [moist] mucous membranes CARDIOVASCULAR: Irregularly irregular RESPIRATORY: Breath sounds equal bilaterally, no wheezes rales or rhonchi. ABDOMEN: Soft, nontender. Normoactive bowel sounds all 4 quadrants. No guarding or rebound. [RECTAL:] Hemoccult-positive dark melena like stool : No CVA tenderness EXTREMITIES: Normal range of motion, no clubbing or edema. Neurovascularly intact NEUROLOGICAL: Alert and oriented x4.Normal gait and speech. Cranial nerves II through XII grossly intact. SKIN: Warm, dry, no laceration, no petechiae, no rashes or lesions. Course Orders Ordered: ED Orders 06/14/20 22:00 Complete Blood Count AUTO DIFF Stat Comprehensive Metabolic Panel Stat Lactate (Lactic Acid) Stat Lipase Stat Partial Thromboplastin Time Stat Prothrombin Time INR Stat 06/14/20 22:18 EKG-12 Lead Stat 06/14/20 23:09 Consult to General Surgery Stat Acetaminophen (Acetaminophen 325 Mg Tablet) 650 mg PO Q6HR PRN PRN Reason: Fever/Mild Pain (1-3) Sodium Chloride (Normal Saline 0.9%) 1,000 mls @ 100 mls/hr IV CONT NOLA Last Admin: 06/15/20 01:29 Dose: 100 mls/hr Documented by: [facility] Morphine Sulfate (Morphine 2 Mg/Ml Inj) 2 mg IV Q4HR PRN PRN Reason: Pain, Moderate (4-6) Naloxone HCl (Naloxone 0.4 Mg/Ml Vial) 0.2 mg IV Q2MIN PRN PRN Reason: Opiate Reversal Ondansetron HCl (Ondansetron 4 Mg/2 Ml Inj) 4 mg IV Q8HR PRN PRN Reason: Nausea And Vomiting Pantoprazole Sodium (Pantoprazole 40 Mg Vial) 40 mg IV BID NOLA Discontinued Medications Sodium Chloride (Normal Saline 0.9%) 1,000 mls @ 150 mls/hr IV CONT NOLA Stop: 06/14/20 23:55 Last Infusion: 06/15/20 01:19 Dose: 150 mls/hr Documented by: Admin: 06/14/20 22:56 Dose: 150 mls/hr Documented by: AMBER Pantoprazole Sodium (Pantoprazole 40 Mg Vial) 40 mg IV NOW ONE Stop: 06/14/20 22:43 Last Admin: 06/14/20 22:56 Dose: 40 mg Documented by: AMBER Consultations Consultation #1: Karthik consulted. will see patient in AM. Time: 23:06 Vital Signs Vital signs: Vital Signs - 8 hr 06/14/20 22:08 06/14/20 22:10 06/14/20 22:30 Temperature 98.3 F Pulse Rate 79 89 72 Respiratory Rate 16 Blood Pressure 134/87 119/59 L Pulse Oximetry 96 91 96 06/14/20 23:00 Temperature Pulse Rate 69 Respiratory Rate Blood Pressure Pulse Oximetry 95 MDM - Nausea/Vomiting/Diarrhea Lab Data Attestation: I reviewed the patient's lab results. Result diagrams: 06/14/20 22:00 06/14/20 22:00 Labs: Lab Results 06/14/20 06/14/20 06/14/20 Range/Units 22:00 22:00 22:00 WBC 7.0 (4.5-11.0) X10^3/uL RBC 3.38 L (4.0-5.2) X10^6/uL Hgb 10.7 L (12.0-16.0) g/dL Hct 32.6 L (36-46) % MCV 96.5 (80-100) fL MCH 31.7 (26-34) PG MCHC 32.8 (30-36) % RDW 15.0 H (11.6-14.8) % Plt Count 315 (150-400) X10^3/uL Neut % (Auto) 71.1 (50-75) % Lymph % (Auto) 13.6 L (25-40) % Mathews % (Auto) 8.4 (3-14) % Eos % (Auto) 5.7 H (2-4) % Baso % (Auto) 1.2 (0-2) % Neut # (Auto) 5000 (7278-5956) /uL Lymph # (Auto) 900 L (9340-4916) /uL Mathews # (Auto) 600 (0-900) /uL Eos # (Auto) 400 (0-450) /uL Baso # (Auto) 100 (0-100) /uL PT 16.3 H (10.1-12.7) SECONDS INR 1.4 H (0.9-1.3) APTT 36 (26.4-36.2) SECONDS Sodium 139 (137-145) mmol/L Potassium 4.0 (3.4-5.1) mmol/L Chloride 107 (98-107) mmol/L Carbon Dioxide 26 (22-32) mmol/L BUN 57 H (7-17) mg/dL Creatinine 1.92 H (0.52-1.04) mg/dL Estimated GFR 25.8 L (>60) mL/min BUN/Creatinine Ratio 29.7 H (6-22) Glucose 125 H (80-110) mg/dL Lactate (0.7-2.1) mmol/L Calcium 8.7 (8.4-10.2) mg/dL Magnesium (1.6-2.3) mg/dL Total Bilirubin 0.2 (0.2-1.3) mg/dL AST 24 (14-36) IU/L ALT 13 (<35) IU/L Alkaline Phosphatase 160 H (38-126) U/L Total Protein 8.0 (6.3-8.2) g/dL Albumin 3.8 (3.5-5.0) g/dL Globulin 4.2 H (1.7-4.1) g/dL Albumin/Globulin Ratio 0.9 L (1.0-2.8) Lipase 123 (23-300) U/L Blood Type Antibody Screen 06/14/20 06/14/20 06/14/20 Range/Units 22:00 22:00 22:00 WBC (4.5-11.0) X10^3/uL RBC (4.0-5.2) X10^6/uL Hgb (12.0-16.0) g/dL Hct (36-46) % MCV (80-100) fL MCH (26-34) PG MCHC (30-36) % RDW (11.6-14.8) % Plt Count (150-400) X10^3/uL Neut % (Auto) (50-75) % Lymph % (Auto) (25-40) % Mathews % (Auto) (3-14) % Eos % (Auto) (2-4) % Baso % (Auto) (0-2) % Neut # (Auto) (0753-6378) /uL Lymph # (Auto) (7468-8522) /uL Mathews # (Auto) (0-900) /uL Eos # (Auto) (0-450) /uL Baso # (Auto) (0-100) /uL PT (10.1-12.7) SECONDS INR (0.9-1.3) APTT (26.4-36.2) SECONDS Sodium (137-145) mmol/L Potassium (3.4-5.1) mmol/L Chloride (98-107) mmol/L Carbon Dioxide (22-32) mmol/L BUN (7-17) mg/dL Creatinine (0.52-1.04) mg/dL Estimated GFR (>60) mL/min BUN/Creatinine Ratio (6-22) Glucose (80-110) mg/dL Lactate 1.2 (0.7-2.1) mmol/L Calcium (8.4-10.2) mg/dL Magnesium 1.8 (1.6-2.3) mg/dL Total Bilirubin (0.2-1.3) mg/dL AST (14-36) IU/L ALT (<35) IU/L Alkaline Phosphatase (38-126) U/L Total Protein (6.3-8.2) g/dL Albumin (3.5-5.0) g/dL Globulin (1.7-4.1) g/dL Albumin/Globulin Ratio (1.0-2.8) Lipase (23-300) U/L Blood Type O Positive Antibody Screen Negative ECG Data Attestation: I personally reviewed and interpreted this ECG as follows: Prior ECG tracings: available for review Interpretation: Atrial Fibrillation rate [address] changes similar or improved from previous EKG MDM Narrative Medical decision making narrative: Patient is hemodynamically stable she does have gross melena per rectum and is on Eliquis. She took both doses today. She is given 1 dose of Protonix. Surgery is consulted, will see patient in morning if hemodynamically stable. Mychal EVANS, in ED to see to evaluate patient accepts patient Discharge Plan Departure Patient Disposition: Admitted as Observation Clinical Impression: Acute GI bleeding Admit Date/Time: 06/14/20 23:10 Admit Provider: Paxton Lopez
[2020-06-14 22:30] LABS: Add Manual Diff / Slide Review NO; Basophils Absolute Auto 100 /uL (0-100); Basophils Percent Auto 1.2 % (0-2); Eosinophils Absolute Auto 400 /uL (0-450); Eosinophils Percent Auto 5.7 % (2-4); Hematocrit 32.6 % (36-46); Hemoglobin 10.7 g/dL (12.0-16.0); Lymphocytes Absolute Auto 900 /uL (1100-4500); Lymphocytes Percent Auto 13.6 % (25-40); Mean Corpuscular HGB Conc 32.8 % (30-36); Mean Corpuscular Hemoglobin 31.7 PG (26-34); Mean Corpuscular Volume 96.5 fL (80-100); Monocytes Absolute Auto 600 /uL (0-900); Monocytes Percent Auto 8.4 % (3-14); Neutrophils Absolute Auto 5000 /uL (1500-7000); Neutrophils Percent Auto 71.1 % (50-75); Platelet Count 315 X10^3/uL (150-400); Red Blood Cell Count 3.38 X10^6/uL (4.0-5.2)
[2020-06-14 22:33] LABS: INR 1.4 (0.9-1.3); Prothrombin Time 16.3 SECONDS (10.1-12.7)
[2020-06-14 22:35] LABS: PTT Partial Thromboplastin Tim 36 SECONDS (26.4-36.2)
[2020-06-14 22:37] LABS: Alanine Aminotransferase 13 IU/L (<35); Albumin 3.8 g/dL (3.5-5.0); Albumin Globulin Ratio 0.9 (1.0-2.8); Alkaline Phosphatase 160 U/L (38-126); Aspartate Aminotransferase 24 IU/L (14-36); BUN Creatinine Ratio 29.7 (6-22); Bilirubin Total 0.2 mg/dL (0.2-1.3); Blood Urea Nitrogen 57 mg/dL (7-17); Calcium 8.7 mg/dL (8.4-10.2); Carbon Dioxide 26 mmol/L (22-32); Chloride 107 mmol/L (98-107); Estimated Glomerular Filt Rate 25.8 mL/min (>60); Globulin 4.2 g/dL (1.7-4.1); Glucose 125 mg/dL (80-110); HEMOLYSIS 22 (0-50); Lipase 123 U/L (23-300); Sodium 139 mmol/L (137-145)
[2020-06-14] MEDS: SODIUM CHLORIDE 0.9% 1,000 ML 150 ML IV (22:56)
[2020-06-14] MEDS: PANTOPRAZOLE 40 MG VIAL IV (22:56)
[2020-06-14 22:59] LABS: Lactate (Lactic Acid) 1.2 mmol/L (0.7-2.1)
[2020-06-15] VITALS (17 sets, daily range): BP systolic 113–171; BP diastolic 59–108; PULSE 63–95; RESP 13–20; TEMP 36.3–37.2; O2SAT 89–97; BMI 36.6
[2020-06-15 00:10] LABS: COVID19 -Nasal RAPID Negative (Negative)
[2020-06-15 00:21] LABS: Magnesium 1.8 mg/dL (1.6-2.3)
--- NOTE | 2020-06-15 00:40 | P.HP_ITS ---
History of Present Illness History of Present Illness Date Patient Seen: 06/15/20 Time Patient Seen: 00:29 Chief complaint: Abd pain x2 days Narrative: Ms. Rhoda Shore is a 69-year-old female with a past medical history significant for chronic atrial fibrillation on apixaban, diastolic heart failure, cor pulmonale, Crow's granulomatosis, chronic kidney disease previously requiring dialysis, recent ruptured fistula left arm, hyperlipidemia and osteoarthritis who presents to the ER with abdominal pain and bloody stools. Patient states she began having abdominal pain yesterday and this afternoon had 2 soft to semi liquid black and maroon stools. The patient reports having a previous episode of GI bleeding 1 year ago which was monitored and resolved without treatment. The patient has had a previous EGD with esophageal dilation however states she is never had a colonoscopy and has not had previous blood transfusion. The patient does have chronic anemia and is followed by Dr. Fenton who notes her hemoglobin has varied between 8.3 and 11.4 (presently 10.7) and is currently being treated with ferrous sulfate 325 mg 1 daily and Aranesp 40 mcg every 4 weeks. 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 She has undergone chemotherapy which is greatly reduced her exacerbations will still continue to have occasional mouth sores, has sustained kidney damag however he has had no lung complications. The patient denies recent cold or flu symptoms has had no COVID-19 exposures. She denies fevers or chills. She does endorse chronic nasal congestion but no sore throat. She denies complaints of chest pain and will feel occasional palpitations from her atrial fibrillation. She denies shortness of breath cough or wheezing. She reports epigastric and right- sided abdominal pain that is crampy in character and rates at a 2/10 stating the gurgling and diarrhea are the most uncomfortable. She denies urinary symptoms of urgency frequency or burning. She denies peripheral edema that has venous stasis changes bilateral lower legs and reports ulcer of the left ankle. Upon arrival to the ER the patient's temperature 98.3?, heart rate of 79, blood pressure 134/87, respirations 16 saturating 96% on room air. No imaging is obtained, 12 lead EKG reveals atrial fibrillation with ventricular rate of 72 without ectopy or infarct. On laboratory analysis she has white count of 7.0, hemoglobin of 10.7, hematocrit of 32.6 and platelets of 315. PT is 16.3 with an INR of 1.4 and a PTT of 36. Electrolytes within normal range however BUN is 57 with a creatinine 1.92 for an EGFR of 25.8. Liver functions are within normal limits except for alkaline phosphatase elevated to 160. Lactic acid is 1.2. In the ER stools confirmed guaiac positive. The patient received Protonix 40 mg IV and normal saline. Dr. Angeles general surgery is contacted and agrees to consult and will evaluate the patient in the morning. The patient is admitted to the hospital service for GI bleed. Patient History Medical History Chronic kidney disease Cor pulmonale Depression Diastolic heart failure Hyperlipidemia Iron (Fe) deficiency anemia Left leg DVT Osteoarthritis Polyneuropathy Crow's granulomatosis Surgical History History of Achilles tendon repair History of esophagogastroduodenoscopy (EGD) Status post creation of arteriovenous fistula Family & Social History Family History (Updated 06/15/20 @ 01:34 by NATHAN Heredia) Brother FH: kidney cancer Father CVA (cerebral vascular accident) Mother CVA (cerebral vascular accident) Atrial fibrillation Social History: household members none Safety & Behavioral: Feels Safe in Current Yes Environment Been Physically Hurt or No Threatened By a Person Tobacco & Substance use: Smoking Status Never smoker alcohol intake former alcohol intake frequency holiday/special occasion Substance Use Type does not use Meds Home Medications and Allergies Home Medications Medication Instructions Recorded Confirmed Type Aspercreme Max 1 applic TOPICAL BID 12/25/18 12/10/19 History acetaminophen 650 mg PO TID 12/25/18 12/10/19 History apixaban 5 mg PO BID 12/25/18 06/15/20 History benzocaine 1 applic MUCOUS MEMBRANE Q6H PRN 12/25/18 12/10/19 History duloxetine 60 mg PO DAILY 12/25/18 12/10/19 History gabapentin 100 mg PO BID 12/25/18 12/10/19 History hydroxyzine HCl 25 mg PO Q8H PRN 12/25/18 12/10/19 History nystatin 1 applic TOPICAL QID 12/25/18 12/10/19 History sodium chloride [[place] Nasal] 1 spray INTRANASAL TID 12/25/18 12/10/19 History torsemide 40 mg PO QAM 12/25/18 12/10/19 History ascorbic acid (vitamin C) 500 mg PO QAM 03/11/19 12/10/19 History cyanocobalamin (vitamin B-12) 1,000 mcg PO QAM 03/11/19 12/10/19 History [Vitamin B-12] ferrous sulfate 325 mg PO DAILY 03/11/19 12/10/19 History hydrocortisone 1 applic TOPICAL Q12H PRN 03/11/19 12/10/19 History melatonin 6 mg PO BEDTIME 03/11/19 12/10/19 History ondansetron HCl 8 mg PO DAILY PRN 03/11/19 12/10/19 History pantoprazole 40 mg PO BID 03/11/19 12/10/19 History polyethylene glycol 3350 17 g PO QAM 03/11/19 12/10/19 History oxycodone 2.5 - 5 mg PO Q6H PRN #10 tab 03/13/19 12/10/19 Rx albuterol sulfate [Ventolin HFA] 2 puff INHALATION Q6H PRN 06/16/19 12/10/19 History betamethasone valerate 1 applic TOPICAL DAILY 06/16/19 12/10/19 History lanolin-mineral oil [Eucerin 1 applic TOPICAL BID 06/16/19 12/10/19 History Original] patiromer calcium sorbitex 8.4 g PO QAM 06/16/19 12/10/19 History trazodone 25 mg PO DAILY 12/10/19 12/10/19 History dextromethorphan-guaifenesin 1 tab PO Q12H PRN 03/10/20 03/10/20 History [Mucinex DM] lorazepam 0.5 mg PO Q6HR 03/10/20 03/10/20 History metoprolol succinate 25 mg PO BID 03/10/20 06/15/20 History Allergies Allergy/AdvReac Type Severity Reaction Status Date / Time adhesive tape Allergy Verified 06/15/20 00:04 basil Allergy Verified 06/15/20 00:04 cephalexin [From Keflex] Allergy Verified 06/15/20 00:04 marlena Allergy Verified 06/15/20 00:04 Penicillins Allergy Verified 06/15/20 00:04 sulfamethoxazole AdvReac Severe Hyperkalemia/worsening Verified 06/15/20 00:04 [From Bactrim] CKD trimethoprim [From Bactrim] AdvReac Severe Hyperkalemia/worsening Verified 06/15/20 00:04 CKD Review of Systems Review of Systems ROS: Yes All systems reviewed with the patient and are negative except as otherwise documented Exam Vital Signs (past 8 hours): - 06/14/20 22:08 06/14/20 22:10 06/14/20 22:30 Temperature 98.3 F Pulse Rate 79 89 72 Respiratory Rate 16 Blood Pressure 134/87 119/59 L Pulse Oximetry 96 91 96 06/14/20 23:00 06/14/20 23:22 Temperature Pulse Rate 69 73 Respiratory Rate Blood Pressure 119/59 L Pulse Oximetry 95 95 Oxygen Delivery Method Room Air Narrative Exam Narrative: GENERAL APPEARANCE: well developed, obese female with BMI of 36.6, lying semi recumbent in bed in no acute distress. HEENT: Normocephalic, PERRLA, conjunctiva pale, sclera anicteric, EOMs intact without nystagmus, mucous membranes are moist and pink without lesions or exudate. NECK/THYROID: neck supple, no JVD, no carotid bruit, no thyromegaly, trachea midline. LYMPH NODES: no cervical or supraclavicular lymphadenopathy. SKIN: [place], warm and dry, venous stasis skin changes bilateral lower extremities, will venous stasis wound left ankle HEART: Irregularly irregular, S1-S2, no murmur, no rubs or gallops, brisk capillary refill, no edema. LUNGS: Bibasilar crackles without coarseness or wheezing, no cough present CHEST: Symmetrical movement, no accessory muscle use, good tidal volume. ABDOMEN: Soft, protuberant, epigastric and right sided abdominal pain on palpation, no guarding or peritoneal signs, no organomegaly, no flank or suprapubic tenderness, active bowel tones.ion EXTREMITIES: moves all extremities, strength is 5/5 and symmetrical, no deformities or joint effusions. NEUROLOGIC: AAO x4, cranial nerves II-XII grossly intact, sensation intact to light touch, hearing grossly normal to speech. PSYCH: cooperative, appropriate with stable behavior Objective Labs Result Diagrams: 06/14/20 22:00 06/14/20 22:00 Labs: Laboratory Results - last 24 hr 06/14/20 06/14/20 06/14/20 22:00 22:00 22:00 WBC 7.0 RBC 3.38 L Hgb 10.7 L Hct 32.6 L MCV 96.5 MCH 31.7 MCHC 32.8 RDW 15.0 H Plt Count 315 Neut % (Auto) 71.1 Lymph % (Auto) 13.6 L [place] % (Auto) 8.4 Eos % (Auto) 5.7 H Baso % (Auto) 1.2 Neut # (Auto) 5000 Lymph # (Auto) 900 L [place] # (Auto) 600 Eos # (Auto) 400 Baso # (Auto) 100 PT 16.3 H INR 1.4 H APTT 36 Sodium 139 Potassium 4.0 Chloride 107 Carbon Dioxide 26 BUN 57 H Creatinine 1.92 H Estimated GFR 25.8 L BUN/Creatinine Ratio 29.7 H Glucose 125 H Lactate Calcium 8.7 Total Bilirubin 0.2 AST 24 ALT 13 Alkaline Phosphatase 160 H Total Protein 8.0 Albumin 3.8 Globulin 4.2 H Albumin/Globulin Ratio 0.9 L Lipase 123 06/14/20 22:00 WBC RBC Hgb Hct MCV MCH MCHC RDW Plt Count Neut % (Auto) Lymph % (Auto) [place] % (Auto) Eos % (Auto) Baso % (Auto) Neut # (Auto) Lymph # (Auto) [place] # (Auto) Eos # (Auto) Baso # (Auto) PT INR APTT Sodium Potassium Chloride Carbon Dioxide BUN Creatinine Estimated GFR BUN/Creatinine Ratio Glucose Lactate 1.2 Calcium Total Bilirubin AST ALT Alkaline Phosphatase Total Protein Albumin Globulin Albumin/Globulin Ratio Lipase Assessment & Plan Assessment & Plan narrative: This is a 69-year-old female patient who presents to the ER with 2 days of abdominal pain and reporting to bloody diarrhea stools today. The patient is presently anticoagulated on Eliquis for chronic atrial fibrillation and has had a previous history of GI bleed 1 year ago that was observed with no intervention and has had a previous upper endoscopy but no colonoscopy. 1. Gastrointestinal bleeding, acute, present on admission, active. -patient with 2 days of abdominal pain with 2 bloody bowel movements today described as between soft black maroon stools. Patient has been treated with daily iron supplement and Arancep every 4 weeks.. 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 Horvath. Hemoglobin is very between 8.3 and 11.4, hemoglobin on admit is 10.7. -patient complains of epigastric and right abdominal pain that is constant with intermittent cramping. She denies symptoms of orthostatic dizziness and has no chest pain or shortness of breath. -patient is on Eliquis for atrial fibrillation has a PT of 16.3, INR 1.4 and a PTT of 36. Eliquis is held and will recheck coags in the morning. -general surgery is contacted through the emergency department and Dr. Angeles has agreed to consult and will evaluate the patient in the morning. We appreciate his evaluation recommendations. -patient remains NPO. -IV normal saline 100 cc/hour. -CBC in the morning, patient has been typed and screened. 2. 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 -patient takes torsemide 40 mg daily, will hold morning dose of torsemide. -patient has AV fistula left antecubital fossa that had ruptured and was treated at [facility] with residual hematoma that appears resolving and reported clot extending to the shoulder. -avoid all nephrotoxic agents -will follow renal function, will consult Dr. Hernandez patient's planner chief as needed. 3. Diastolic heart failure, chronic, present on admission, active. -in the ER the patient received 1500 cc of normal saline, cardiomegaly on chest x-ray without evidence of pulmonary edema. Patient with exertional dyspnea unab le climb a flight of stairs. -breath sounds with bibasilar crackles without coarseness, patient saturating 96% on room air. -patient received IV fluids at 150 cc/hour in the emergency department. Patient is NPO Will continue IV fluid at 100 cc/hour. -will obtain proBNP in the morning in the morning 4. Chronic Atrial fibrillation, present on admission, stable -patient denies chest pain and acknowledges occasional palpitations, rate controlled in the 70s with metoprolol succinate twice daily which is continued. -will hold patient's Eliquis due to GI bleeding. 5. GERD, chronic, present on admission, stable -patient denies complaints of difficulty swallowing or acid taste in her mouth. -ordered pantoprazole 40 mg IV twice daily. The patient is admitted for further evaluation and treatment of acute GI bleed and the associated risks at complications and adverse events. The patient is admitted as an observation with expected length of stay to be less than 2 midnights. COVID-19 COVID-19 status: Negative Result date/Date tested (Pos, Neg/Pending): 06/15/20 Scores GCS Guerrero coma scale eye opening: Spontaneous [place] coma scale verbal response: Orientated [place] coma scale motor response: Obey commands Guerrero coma scale total score: 15
[2020-06-15] MEDS: SODIUM CHLORIDE 0.9% 1,000 ML 100 ML IV (01:29)
--- NOTE | 2020-06-15 02:56 | PC.NURSE ---
Addendum entered by Saira Miranda R.N. 06/15/20 06:53: BUCK Jackson, was able to successfully start an IV in the patient's right AC. IVF are now running again. Addendum entered by Saira Miranda R.N. 06/15/20 06:11: Pt accidently pulled out right hand PIV. Pressure applied to bleeding, and applied dressing. Attempted to start new IV in forearm, hand and AC; unfortunately each attempt failed. I was given permission to try 3/3 times by nursing coordinators Jenn and Kaitlynn. Will have another RN attempt. Original Note: Pt arrives to unit in stable condition. She transferred from the ED bed to the ACU bed via SBA. She in on room air, has a right hand PIV with NS infusing at 100mL/h. She is AOx4. She c/o abdominal discomfort, but declines pain medication. She is on telemetry, showing A-Fib which is baseline for her. Orthostatic blood pressures have been completed and documented. Informed patient of plan to have labs drawn in the morning and GI consult. Pt oriented to unit. No s/sx of distress.
[2020-06-15 05:40] LABS: INR 1.5 (0.9-1.3); Prothrombin Time 16.9 SECONDS (10.1-12.7)
[2020-06-15 05:41] LABS: Add Manual Diff / Slide Review NO; Basophils Absolute Auto 100 /uL (0-100); Basophils Percent Auto 1.1 % (0-2); Eosinophils Absolute Auto 300 /uL (0-450); Hematocrit 27.5 % (36-46); Hemoglobin 8.8 g/dL (12.0-16.0); Lymphocytes Absolute Auto 800 /uL (1100-4500); Lymphocytes Percent Auto 15.3 % (25-40); Mean Corpuscular HGB Conc 32.2 % (30-36); Mean Corpuscular Hemoglobin 31.5 PG (26-34); Mean Corpuscular Volume 97.8 fL (80-100); Monocytes Absolute Auto 600 /uL (0-900); Monocytes Percent Auto 11.6 % (3-14); Neutrophils Absolute Auto 3400 /uL (1500-7000); Platelet Count 234 X10^3/uL (150-400); Red Blood Cell Count 2.81 X10^6/uL (4.0-5.2); Red Cell Distribution Width 14.4 % (11.6-14.8); White Blood Cell Count 5.2 X10^3/uL (4.5-11.0)
[2020-06-15 05:47] LABS: BUN Creatinine Ratio 29.3 (6-22); Blood Urea Nitrogen 55 mg/dL (7-17); Calcium 7.9 mg/dL (8.4-10.2); Carbon Dioxide 28 mmol/L (22-32); Chloride 110 mmol/L (98-107); Estimated Glomerular Filt Rate 26.5 mL/min (>60); Glucose 93 mg/dL (80-110); HEMOLYSIS < 15 (0-50); Sodium 141 mmol/L (137-145)
[2020-06-15 05:55] LABS: NT-proBNP (BNP-Adult 18+) 2390 pg/mL (<125)
[2020-06-15] MEDS: SODIUM CHLORIDE 0.9% FLUSH 10 ML IV (09:17)
[2020-06-15] MEDS: PANTOPRAZOLE 40 MG VIAL IV (09:17)
--- NOTE | 2020-06-15 13:37 | PM.CN ---
History of Present Illness Consult details Date Patient Seen: 06/15/20 Time Patient Seen: 13:00 Chief complaint: Abd pain x2 days Reason for consult: Black bowel movements Requesting provider: Nieves Lozoya Narrative: The patient is a woman who is anticoagulated due to atrial fibrillation. She last took her dose of anticoagulant the morning of admission yesterday. She has been having cramping and abdominal discomfort like mine might with diarrhea and she has also been having diarrhea. She says her stools are black. They are not red. She has had multiple EGDs in the past which have included the need to dilate her. She sometimes has food stick. Meds Home Medications and Allergies Home Medications Medication Instructions Recorded Confirmed Type Aspercreme Max 1 applic TOPICAL BID 12/25/18 06/15/20 History acetaminophen 650 mg PO TID 12/25/18 06/15/20 History apixaban 5 mg PO BID 12/25/18 06/15/20 History benzocaine 1 applic MUCOUS MEMBRANE Q6H PRN 12/25/18 06/15/20 History duloxetine 60 mg PO DAILY 12/25/18 06/15/20 History gabapentin 100 mg PO BID 12/25/18 06/15/20 History hydroxyzine HCl 25 mg PO Q8H PRN 12/25/18 06/15/20 History nystatin 1 applic TOPICAL QID 12/25/18 06/15/20 History sodium chloride [[place] Nasal] 3 spray INTRANASAL BID 12/25/18 06/15/20 History torsemide 20 mg PO QAM 12/25/18 06/15/20 History ascorbic acid (vitamin C) 500 mg PO QAM 03/11/19 06/15/20 History cyanocobalamin (vitamin B-12) 1,000 mcg PO QAM 03/11/19 06/15/20 History [Vitamin B-12] ferrous sulfate 325 mg PO DAILY 03/11/19 06/15/20 History hydrocortisone 1 applic TOPICAL Q12H PRN 03/11/19 06/15/20 History melatonin 6 mg PO BEDTIME 03/11/19 06/15/20 History ondansetron HCl 8 mg PO DAILY PRN 03/11/19 06/15/20 History pantoprazole 40 mg PO BID 03/11/19 06/15/20 History polyethylene glycol 3350 17 g PO QAM 03/11/19 06/15/20 History oxycodone 2.5 - 5 mg PO Q6H PRN #10 tab 03/13/19 06/15/20 Rx albuterol sulfate [Ventolin HFA] 2 puff INHALATION Q6H PRN 06/16/19 06/15/20 History betamethasone valerate 1 applic TOPICAL DAILY 06/16/19 06/15/20 History lanolin-mineral oil [Eucerin 1 applic TOPICAL BID 06/16/19 06/15/20 History Original] patiromer calcium sorbitex 8.4 g PO QAM 06/16/19 06/15/20 History trazodone 25 mg PO BEDTIME 12/10/19 06/15/20 History dextromethorphan-guaifenesin 1 tab PO Q12H PRN 03/10/20 06/15/20 History [Mucinex DM] lorazepam 0.5 mg PO Q6HR PRN 03/10/20 06/15/20 History metoprolol succinate 25 mg PO BID 03/10/20 06/15/20 History Allergies Allergy/AdvReac Type Severity Reaction Status Date / Time adhesive tape Allergy Verified 06/15/20 00:04 basil Allergy Verified 06/15/20 00:04 cephalexin [From Keflex] Allergy Verified 06/15/20 00:04 marlena Allergy Verified 06/15/20 00:04 Penicillins Allergy Verified 06/15/20 00:04 sulfamethoxazole AdvReac Severe Hyperkalemia/worsening Verified 06/15/20 00:04 [From Bactrim] CKD trimethoprim [From Bactrim] AdvReac Severe Hyperkalemia/worsening Verified 06/15/20 00:04 CKD Review of Systems Review of Systems Narrative: Patient has tearing in her left eye. Otherwise no visual issues. No double vision. No tooth aches trouble with earaches. She does occasionally have food stick on swallowing. She has been dilated in the past. Patient has no cough cold or asthma at this time. She does have atrial fibrillation. Patient denies bloody bowel movements. Up until recently her appetite was good. No abdominal operations in the past. No history kidney stones or blood in her urine. She has had renal failure and required dialysis. She actually had an AV fistula graft that recently thrombosed. It was decided to leave it thrombosed and she was no longer being dialyzed. No seizures or blackouts. No anxiety or depression. Bruises easily. Exam Vital Signs (past 8 hours): - 06/15/20 09:06 Temperature 97.4 F L Pulse Rate 63 Respiratory Rate 14 Blood Pressure 126/71 Pulse Oximetry 95 Oxygen Delivery Method Room Air Oxygen Flow Rate 0 Narrative Exam Narrative: Cooperative woman no apparent distress. Her eyes are nonicteric. Pupils equal round reactive to light. Her conjunctivae are pale. Ears without lesion. Nasal septum is midline. Oral mucosa is moist. There are intact. No open lesions no split this in the lips. There are no nodes in the neck or supraclavicular areas. Trachea is midline mobile. Thyroid is not enlarged. No tenderness in the neck or thyroid. Lungs are clear to auscultation without rales or rhonchi. Equal percussion. Heart fairly regular at this time. For there is some intermittent irregularity. I do not hear a bruit but her tones are a bit distant. No bruit in the neck. Her abdomen is protuberant and perhaps mildly distended. Mild tenderness in the low upper abdomen. No guarding. No ventral hernias appreciated. Visible skin has no lesions except there is a bandage on a chronic sore that she has on her left lower extremity. Her lower extremities are hairless. I do not feel pulses in her feet. Patient is alert and oriented x3. Speech rate and content are appropriate. Affect is appropriate. Patient seems to be very knowledgeable about her medical issues. Objective Labs Result Diagrams: 06/15/20 05:10 06/15/20 05:10 Labs: Laboratory Results - last 24 hr 06/14/20 06/14/20 06/14/20 22:00 22:00 22:00 WBC 7.0 RBC 3.38 L Hgb 10.7 L Hct 32.6 L MCV 96.5 MCH 31.7 MCHC 32.8 RDW 15.0 H Plt Count 315 Neut % (Auto) 71.1 Lymph % (Auto) 13.6 L [place] % (Auto) 8.4 Eos % (Auto) 5.7 H Baso % (Auto) 1.2 Neut # (Auto) 5000 Lymph # (Auto) 900 L [place] # (Auto) 600 Eos # (Auto) 400 Baso # (Auto) 100 PT 16.3 H INR 1.4 H APTT 36 Sodium 139 Potassium 4.0 Chloride 107 Carbon Dioxide 26 BUN 57 H Creatinine 1.92 H Estimated GFR 25.8 L BUN/Creatinine Ratio 29.7 H Glucose 125 H Lactate Calcium 8.7 Magnesium Total Bilirubin 0.2 AST 24 ALT 13 Alkaline Phosphatase 160 H NT-Pro-B Natriuret Pep Total Protein 8.0 Albumin 3.8 Globulin 4.2 H Albumin/Globulin Ratio 0.9 L Lipase 123 SARS-CoV-2 (PCR) Blood Type Antibody Screen 06/14/20 06/14/20 06/14/20 22:00 22:00 22:00 WBC RBC Hgb Hct MCV MCH MCHC RDW Plt Count Neut % (Auto) Lymph % (Auto) [place] % (Auto) Eos % (Auto) Baso % (Auto) Neut # (Auto) Lymph # (Auto) [place] # (Auto) Eos # (Auto) Baso # (Auto) PT INR APTT Sodium Potassium Chloride Carbon Dioxide BUN Creatinine Estimated GFR BUN/Creatinine Ratio Glucose Lactate 1.2 Calcium Magnesium 1.8 Total Bilirubin AST ALT Alkaline Phosphatase NT-Pro-B Natriuret Pep Total Protein Albumin Globulin Albumin/Globulin Ratio Lipase SARS-CoV-2 (PCR) Blood Type O Positive Antibody Screen Negative 06/14/20 06/15/20 06/15/20 23:49 05:10 05:10 WBC 5.2 RBC 2.81 L Hgb 8.8 L Hct 27.5 L MCV 97.8 MCH 31.5 MCHC 32.2 RDW 14.4 Plt Count 234 Neut % (Auto) 66.0 Lymph % (Auto) 15.3 L [place] % (Auto) 11.6 Eos % (Auto) 6.0 H Baso % (Auto) 1.1 Neut # (Auto) 3400 Lymph # (Auto) 800 L [place] # (Auto) 600 Eos # (Auto) 300 Baso # (Auto) 100 PT 16.9 H INR 1.5 H APTT Sodium Potassium Chloride Carbon Dioxide BUN Creatinine Estimated GFR BUN/Creatinine Ratio Glucose Lactate Calcium Magnesium Total Bilirubin AST ALT Alkaline Phosphatase NT-Pro-B Natriuret Pep Total Protein Albumin Globulin Albumin/Globulin Ratio Lipase SARS-CoV-2 (PCR) Negative Blood Type Antibody Screen 06/15/20 05:10 WBC RBC Hgb Hct MCV MCH MCHC RDW Plt Count Neut % (Auto) Lymph % (Auto) [place] % (Auto) Eos % (Auto) Baso % (Auto) Neut # (Auto) Lymph # (Auto) [place] # (Auto) Eos # (Auto) Baso # (Auto) PT INR APTT Sodium 141 Potassium 4.0 Chloride 110 H Carbon Dioxide 28 BUN 55 H Creatinine 1.88 H Estimated GFR 26.5 L BUN/Creatinine Ratio 29.3 H Glucose 93 Lactate Calcium 7.9 L Magnesium Total Bilirubin AST ALT Alkaline Phosphatase NT-Pro-B Natriuret Pep 2390 H Total Protein Albumin Globulin Albumin/Globulin Ratio Lipase SARS-CoV-2 (PCR) Blood Type Antibody Screen Assessment & Plan Assessment & Plan narrative: Patient is a woman with good leg in her is granulomatosis. I suspect this is why she has had renal failure with dialysis and has pulseless feet as she has never smoked. Would also explain vasculitis as a cause of ulcerations that are chronic on her leg. Patient had what appears to be an upper GI bleed. She is on anticoagulation because of her cardiac status. I would like to proceed with an EGD. It is been over 24 hours since her last does of apixaban. I have discussed the procedure with which she is quite familiar. Risks of bleeding and perforation discussed. I did talk to her about dilatation possibility though I probably would not do that in the face of her still having some affect of anticoagulation and this upper intestinal bleeding. I do not believe she probably requires a colonoscopy at this time given her history. All questions were answered. Will proceed with the assistance of anesthesia to protect her airway should she have a large amount of blood or clot in her stomach.
--- NOTE | 2020-06-15 13:56 | PC.NURSE ---
Vital signs stable. Patient is on telemetry AFib w/ BBB. Patient is alert and orientated. Having bowel movements dark black. No signs of dizziness or lightheadedness. Patient has bilateral cellulitis and the right side she changes wound dressing on every day. Dressing changed this AM. ABD pad and curlex for the dressing. Normal Saline is running at 100ml/hr. Patient has been NPO w/ only medications available.
[2020-06-15] MEDS: LORazepam 0.5 MG TABLET PO (14:09)
[2020-06-15 14:28] LABS: Hematocrit 30.8 % (36-46); Hemoglobin 9.9 g/dL (12.0-16.0)
--- NOTE | 2020-06-15 15:53 | CM.IDA ---
Initial DCP Assessment Note Patient is a 69 yo female, resident of [facility] in [place]. Patient presents w.black bowel movements, surgery consulted and patient scheduled for EGD this afternoon. PMH includes chronic atrial fibrillation on apixaban, diastolic heart failure, cor pulmonale, Crow's granulomatosis, chronic kidney disease previously requiring dialysis, recent ruptured fistula left arm, hyperlipidemia and osteoarthritis PCP: Bri Vargas Payer: [facility] Patient off the floor for EGD this afternoon; chart review indicates patient A+O and will likely be able to return home to [facility] once medical POC unfolds and medically cleared for DC Following closely and will plan to assess DC needs and/or concerns BRITTANY Villalobos Discharge Planning/Care Management CM Discharge Assessment Start: 06/15/20 15:51 Freq: Status: Active Protocol: Document 06/15/20 15:51 RYLAND (Rec: 06/15/20 15:53 RYLAND [id number]) Discharge Planning Assessment Assigned Heel Slugger BRITTANY Mills DPOA/Assigned Designee Name Elizabeth Kendrick dtr Contact Information [phone] [place] Advance Directives? Yes Advance Directives on File Yes History Provided By Medical Record Prior Living Arrangements Assisted Living Comment [facility] Household Members caregiver Type of transporation used prior to Relies on Others admit Facility Name Admitted From: [facility] Willing to Return to Facility? Yes Independent with ADL's No Is patient alert and oriented? Yes Discharge Plan Assisted Living Facility Transportation Arrangement Facility [facility]
[2020-06-15] MEDS: LACTATED RINGERS 1,000 ML 42 ML IV (16:15)
--- NOTE | 2020-06-15 16:17 | PC.NURSE ---
1600 pt transferred off of AC unit via WC for EGD.
--- NOTE | 2020-06-15 16:50 | PM.OP.ENDO ---
Operative Date/Time/Diagnoses Date of procedure: 06/15/20 Time of procedure: 16:50 Pre-op diagnosis: Upper GI bleed presumptive (acute blood loss anemia with black stool) Post-op diagnosis: other (Normal upper GI examination) Procedure & Clinicians Study performed: EGD Same procedure as scheduled: Yes Indications: Evaluate upper GI tract for source of rectal melena Surgeon: Yosvany Angeles Procedure Notes SCOAP/Timeout: Performed Procedure in detail: The patient underwent general endotracheal anesthesia to protect her airway. A bite block was inserted and the scope was advanced through it into the esophagus. The esophagus was unremarkable. The stomach insufflated well. There were no lesions seen in the body, antrum or at the incisura. The pyloric channel was patent. The duodenum was unremarkable to the 4th part. The scope was brought back into the stomach and retroflexed. The proximal stomach normal in appearance. The scope was straightened and brought out through the esophagus again. No lesions were seen. The scope was removed and the patient tolerated the procedure well. She was awakened and extubated taken recovery room good condition Scope withdrawal time: Not applicable Sedation minutes: 0 (Patient underwent general endotracheal anesthesia to protect her airway should there be blood in her upper tracts) Specimen(s): none sent Complications: none Impression: No source of blood loss found in the upper tract. No area of discrete narrowing seen in the esophagus. Post-procedure Recommendations: Other recommendation (Bowel prep for colonoscopy tomorrow) Disposition: PACU
--- NOTE | 2020-06-15 17:09 | SUR.PHASEI ---
Patient coughing frequently, clear phlegm.
--- NOTE | 2020-06-15 17:10 | SUR.PHASEI ---
Pt declines offer to have RN seek order for throat lozenge. Now taking ice chips
--- NOTE | 2020-06-15 17:16 | SUR.PHASEI ---
Report called to BUCK Gomes; coughing has lessened but is still intermittent, no longer productive. States that she has a coughing spell about bedtime every night.
--- NOTE | 2020-06-15 17:44 | SUR.PHASEI ---
1718 to room 203. bed down and locked, call light within reach. Pt preferred to stand/transfer from the stretcher into the bed; stable on feet. Occasional coughing, not currently productive. VS improving with less coughing. Handoff to [employer] and RN.
[2020-06-15] MEDS: LACTATED RINGERS 1,000 ML 84 ML IV (19:20)
[2020-06-15] MEDS: PEG3350/SOD SULF,BICARB,CL/KCL 4,000 ML SOLUTION 2000 ML PO (19:31)
[2020-06-15] MEDS: GABAPENTIN 100 MG CAPSULE PO (21:39)
[2020-06-16] VITALS (20 sets, daily range): BP systolic 101–170; BP diastolic 49–98; PULSE 68–102; RESP 13–20; TEMP 36.1–36.9; O2SAT 88–100; BMI 36.6
--- NOTE | 2020-06-16 | PATH_ITS ---
[facility] Accession Number: [id number] . 01 Material submitted: . body - TUMOR AT 35CM . 01 Clinical history: . ABD PAIN X2 DAYS . 02 Diagnosis: Colon, Tumor at 35 cm, Biopsy: Invasive adenocarcinoma, moderately differentiated. Please see comment. MRV 06/21/2020 1503 Local . 02 Comment: As part of routine quality compliance coordinator, Dr. yLle also reviewed this case and agrees with the diagnosis. Mismatch repair IHC will be performed and the results reported as an addendum. Dr. Ibarra gave preliminary results to Trisha in Dr. Angeles's office 06/21/2020. . 02 Electronically signed: . Rupali Ibarra MD, Pathologist NPI- [id number] . 01 Gross description: . TUMOR AT 35CM: Received in formalin are multiple fragment(s) of buckley, soft tissue measuring 0.8 x 0.4 x 0.2 cm in aggregate submitted entirely in 1 cassette(s) /QBJ 06/17/2020 0839 Local . 02 Pathologist provided ICD-10: C18.9 . 02 CPT . 719715 Performed at: 01 [facility] [address], [place], [place] [id number] MD Jordan Castro MD Phone: [phone] Performed at: 02 [facility] [address] [place], [place] [id number] MD Rupali Ibarra MD Phone: [phone]
[2020-06-16] MEDS: ACETAMINOPHEN 325 MG TABLET 650 MG PO ×3 (00:19→19:33)
[2020-06-16] MEDS: PEG3350/SOD SULF,BICARB,CL/KCL 4,000 ML SOLUTION 2000 ML PO (05:15)
[2020-06-16 07:15] LABS: Add Manual Diff / Slide Review NO; Basophils Absolute Auto 100 /uL (0-100); Basophils Percent Auto 1.1 % (0-2); Eosinophils Absolute Auto 300 /uL (0-450); Eosinophils Percent Auto 6.5 % (2-4); Hemoglobin 9.2 g/dL (12.0-16.0); Lymphocytes Absolute Auto 700 /uL (1100-4500); Lymphocytes Percent Auto 14.9 % (25-40); Mean Corpuscular Hemoglobin 32.3 PG (26-34); Mean Corpuscular Volume 97.7 fL (80-100); Monocytes Absolute Auto 600 /uL (0-900); Monocytes Percent Auto 12.3 % (3-14); Neutrophils Absolute Auto 3200 /uL (1500-7000); Neutrophils Percent Auto 65.2 % (50-75); Platelet Count 256 X10^3/uL (150-400); Red Blood Cell Count 2.86 X10^6/uL (4.0-5.2); Red Cell Distribution Width 14.6 % (11.6-14.8); White Blood Cell Count 4.9 X10^3/uL (4.5-11.0)
[2020-06-16 07:25] LABS: Alanine Aminotransferase 8 IU/L (<35); Albumin Globulin Ratio 0.9 (1.0-2.8); Alkaline Phosphatase 113 U/L (38-126); Aspartate Aminotransferase 19 IU/L (14-36); BUN Creatinine Ratio 29.4 (6-22); Bilirubin Total 0.4 mg/dL (0.2-1.3); Bilirubin Unconjugated 0.4 mg/dL (0.0-1.1); Blood Urea Nitrogen 40 mg/dL (7-17); Calcium 8.1 mg/dL (8.4-10.2); Carbon Dioxide 26 mmol/L (22-32); Chloride 112 mmol/L (98-107); Estimated Glomerular Filt Rate 38.4 mL/min (>60); Globulin 3.4 g/dL (1.7-4.1); Glucose 83 mg/dL (80-110); HEMOLYSIS < 15 (0-50); Magnesium 1.7 mg/dL (1.6-2.3); Potassium 4.4 mmol/L (3.4-5.1); Sodium 142 mmol/L (137-145); Total Protein 6.4 g/dL (6.3-8.2)
[2020-06-16] MEDS: ASCORBIC ACID 500 MG TABLET PO (08:39)
[2020-06-16] MEDS: GABAPENTIN 100 MG CAPSULE PO ×2 (08:39→20:48)
[2020-06-16] MEDS: DULOXETINE 30 MG CAPSULE 60 MG PO (08:39)
[2020-06-16] MEDS: LACTATED RINGERS 1,000 ML 84 ML IV ×3 (08:40→14:18)
--- NOTE | 2020-06-16 10:27 | PM.PREOP ---
Pre-operative Note COVID-19 COVID-19 status: Negative Result date/Date tested (Pos, Neg/Pending): 06/14/20 Interval Note History & Physical reviewed/Exam performed by Physician: Yes Changes to H&P: Yes H&P completed within 30 days and has changed as indicated here:: Hematocrit slightly down from yesterday. About the same as the day before. ASA Class (for procedural sedation): III
[2020-06-16] MEDS: FLEETS ENEMA 1 EACH PR (12:05)
--- NOTE | 2020-06-16 12:14 | PC.NURSE ---
1130- Pt left for colonoscopy via wheelchair, picked up by FLAMER SEALER.
[2020-06-16] MEDS: MIDAZOLAM 5 MG/5 ML VIAL IV (12:16)
[2020-06-16] MEDS: fentaNYL 250 MCG/5 ML INJ IV (12:16)
--- NOTE | 2020-06-16 12:48 | P.OP.ENDO_ITS ---
Operative Date/Time/Diagnoses Date of procedure: 06/16/20 Time of procedure: 12:49 Pre-op diagnosis: Acute blood loss anemia Post-op diagnosis: same (Tumor at 35 cm from the anal verge. Tattooed just distal to the lesion. Incomplete exam. Could not get beyond the hepatic fl exure due to colonic redundancy.) Procedure & Clinicians Study performed: Attempted colonoscopy with cold biopsy and injection of Adry ink Same procedure as scheduled: Yes Indications: Diagnostic to determine cause of hemorrhage from the GI tract Surgeon: Yosvany Angeles Procedure Notes SCOAP/Timeout: Performed Procedure in detail: The patient was placed in the left lateral decubitus position and underwent IV sedation directed by the surgeon consisting of fentanyl and Versed. Digital exam was unremarkable. The scope was inserted and advanced through the rectum into the sigmoid, descending, and transverse colon . The his colon was somewhat tubular in appearance despite its redundancy. The patient had a very redundant colon and I inserted a stiffener, applied pressure and repositioned the patient but could not get beyond the hepatic flexure. Even getting that far was challenging.. The scope was gradually brought out. A colonic mass occupying about a 3rd of the wall was encountered. There was a lesion just proximal to it that was small and I chose not to deal with it because of this larger lesion in the close proximity to it. The lesion had the appearance of a typical colon cancer with a hard surface, central ulceration and heaped up edges. Multiple biopsies were taken. I then injected Adry ink into 3 places around the colon just distal to the lesion. The scope was ultimately backed out completely. The scope ultimately was retroflexed in the rectum. The appearance was remarkable for scarring on internal hemorrhoids.. The scope was removed and the patient tolerated the procedure well. The prep was actually very good as far as I was able to go. Scope withdrawal time: Not applicable Sedation minutes: 26 Findings: possible cancer Specimen(s): other (Biopsies of lesion at 35 cm. ) Complications: none Post-procedure Recommendations: Other recommendation (Will ultimately require a metastatic workup.) Disposition: PACU
[2020-06-16] MEDS: TORSEMIDE 10 MG TABLET 20 MG PO (14:18)
--- NOTE | 2020-06-16 14:38 | CM.DPNOTE ---
DCJonathan Wang Attempted to check in w/patient at bedside this afternoon; BUCK Hamm explains patient had her colonoscopy w/ Dr Angeles today and a 35cm colonic mass was found and biopsied. Patient very groggy, visit likely will be more appropriate tomorrow. BUCK Hamm calling kamari Johnson to update on today's findings- biopsy results are pending and patient will likely DC w/close outpatient f/u recommended. Placed call to Kirstin at [facility], they need to complete a bedside assessment and can do that tomorrow AM. RYLAND
--- NOTE | 2020-06-16 15:17 | DI.CT.S_ITS ---
PROCEDURE: CT CHEST ABD PEL W CON INDICATIONS: colon cancer staging CT (mass on cololonscopy) TECHNIQUE: After the administration of intravenous contrast, 5 mm thick sections acquired from the lung apices to the symphysis. 5 mm coronal and sagittal reformats were performed, with additional 7 mm MIP reformats through the lungs. For radiation dose reduction, the following was used: automated exposure control, adjustment of mA and/or kV according to patient size. COMPARISON: [facility], CT, CT ANGIO CHEST PE PROTOCOL, 09/09/2018, 23:33. [facility], CT, CT KUB, 03/22/2015, 14:50. [facility], CR, XR CHEST 1V, 03/11/2019, 16:25. FINDINGS: Image quality: Excellent. CHEST: Lungs and pleura: There are ground-glass infiltrate in right upper and middle lobes, and to a lesser degree right lower lobe and left upper, consistent with pneumonia. No pleural effusions or pneumothorax. Central and peripheral airways appear patent and normal in caliber. Mediastinum: Heart size is mildly increased. No pericardial effusion. Moderate coronary artery calcification. No mediastinal or hilar adenopathy by size criteria. Thoracic aorta and central pulmonary arteries are normal in size. Esophagus is normal in caliber. Small hiatal hernia. Chest wall: No axillary or supraclavicular adenopathy by size criteria. Thyroid gland is normal . ABDOMEN: Solid organs: Liver is normal in size and enhancement. Gallbladder contains gallstones. Possible stone in the common bile duct. Biliary system is non dilated. Pancreas enhances normally. Spleen is normal in size and enhancement. No adrenal nodules. Kidneys demonstrate normal size and enhancement, without hydronephrosis. Peritoneum and bowel: Bowel loops demonstrate normal wall thickness and caliber. No free fluid or air. Nodes and vessels: No retroperitoneal or mesenteric adenopathy by size criteria. Aorta and inferior vena cava are normal in size. Miscellaneous: No ventral hernias. PELVIS: Genitourinary: Bladder wall thickness is normal. Uterus is normal. No adnexal mass. No free fluid in pelvis. Miscellaneous: No inguinal hernias or adenopathy. Bones: Scoliosis. No suspicious bony lesions. No vertebral body compression fractures. IMPRESSION: 1. No findings to suggest metastatic disease. 2. The colon mass seen on colonoscopy is not visualized on CT. 3. Right upper and middle lobe infiltrates consistent with pneumonia. Recommend follow-up to resolution. 4. Cholelithiasis. Possible stone in the common bile duct. If clinically indicated, MRCP may be helpful. 5. Mild cardiomegaly and moderate coronary artery atherosclerosis. Dictated by: Porsche Chavez M.D. on 06/16/2020 at 16:21 Approved by: Porsche Chavez M.D. on 06/16/2020 at 16:51
--- NOTE | 2020-06-16 20:41 | PM.PN.1 ---
Subjective Subjective Date Patient Seen: 06/16/20 Time Patient Seen: 17:00 Interval history: Ms. Rhoda Shore is a 69-year-old female with a past medical history significant for chronic atrial fibrillation on apixaban, diastolic heart failure, cor pulmonale, Crow's granulomatosis, chronic kidney disease previously requiring dialysis, recent ruptured fistula left arm, hyperlipidemia and osteoarthritis who presents to the ER with abdominal pain and bloody stools. Initially she underwent an EGD which did not show evidence of I source of bleeding. She underwent colonoscopy today which revealed a colonic mass. Surgery recommended a staging CT S as biopsies were taken. CT did not show evidence of metastases. Exam Vital Signs (past 8 hours): - 06/16/20 12:54 06/16/20 12:59 06/16/20 13:04 Temperature 98.3 F Pulse Rate 102 H 94 H 99 H Respiratory Rate 17 17 20 Blood Pressure 126/60 133/49 L 148/65 H Pulse Oximetry 88 L 100 97 06/16/20 13:05 06/16/20 13:08 06/16/20 13:14 Temperature 97.0 F L 97.1 F L Pulse Rate 81 101 H 95 H Respiratory Rate 13 20 13 Blood Pressure 135/79 150/86 H 146/74 H Pulse Oximetry 93 94 98 06/16/20 13:18 06/16/20 13:35 06/16/20 14:05 Temperature 97.7 F 97.1 F L 97.0 F L Pulse Rate 92 H 90 82 Respiratory Rate 16 13 14 Blood Pressure 136/76 138/87 120/72 Pulse Oximetry 97 92 92 06/16/20 14:35 06/16/20 16:05 06/16/20 17:45 Temperature 97.3 F L 97.9 F Pulse Rate 79 89 92 H Respiratory Rate 14 18 Blood Pressure 132/70 170/90 H 104/61 Pulse Oximetry 93 93 06/16/20 19:40 Temperature 98.5 F Pulse Rate 100 H Respiratory Rate 16 Blood Pressure 159/98 H Pulse Oximetry 94 Oxygen Delivery Method Room Air Oxygen Flow Rate 0 Narrative Exam Narrative: GENERAL APPEARANCE: well developed, obese female with BMI of 36.6, lying semi recumbent in bed in no acute distress. HEENT: Normocephalic, PERRLA, conjunctiva pale, sclera anicteric, EOMs intact without nystagmus, mucous membranes are moist and pink without lesions or exudate. NECK/THYROID: neck supple, no JVD, no carotid bruit, no thyromegaly, trachea midline. LYMPH NODES: no cervical or supraclavicular lymphadenopathy. SKIN: [place], warm and dry, venous stasis skin changes bilateral lower extremities, will venous stasis wound left ankle HEART: Irregularly irregular, S1-S2, no murmur, no rubs or gallops, brisk capillary refill, no edema. LUNGS: Bibasilar crackles without coarseness or wheezing, no cough present CHEST: Symmetrical movement, no accessory muscle use, good tidal volume. ABDOMEN: Soft, protuberant, epigastric and right sided abdominal pain on palpation, no guarding or peritoneal signs, no organomegaly, no flank or suprapubic tenderness, active bowel tones.ion EXTREMITIES: moves all extremities, strength is 5/5 and symmetrical, no deformities or joint effusions. NEUROLOGIC: AAO x4, cranial nerves II-XII grossly intact, sensation intact to light touch, hearing grossly normal to speech. PSYCH: cooperative, appropriate with stable behavior Objective Imaging CT scan - chest: Radiologist's impression: PROCEDURE: CT CHEST ABD PEL W CON INDICATIONS: colon cancer staging CT (mass on cololonscopy) TECHNIQUE: After the administration of intravenous contrast, 5 mm thick sections acquired from the lung apices to the symphysis. 5 mm coronal and sagittal reformats were performed, with additional 7 mm MIP reformats through the lungs. For radiation dose reduction, the following was used: automated exposure control, adjustment of mA and/or kV according to patient size. COMPARISON: [facility], CT, CT ANGIO CHEST PE PROTOCOL, 09/09/2018, 23:33. [facility], CT, CT KUB, 03/22/2015, 14:50. [facility], CR, XR CHEST 1V, 03/11/2019, 16:25. FINDINGS: Image quality: Excellent. CHEST: Lungs and pleura: There are ground-glass infiltrate in right upper and middle lobes, and to a lesser degree right lower lobe and left upper, consistent with pneumonia. No pleural effusions or pneumothorax. Central and peripheral airways appear patent and normal in caliber. Mediastinum: Heart size is mildly increased. No pericardial effusion. Moderate coronary artery calcification. No mediastinal or hilar adenopathy by size criteria. Thoracic aorta and central pulmonary arteries are normal in size. Esophagus is normal in caliber. Small hiatal hernia. Chest wall: No axillary or supraclavicular adenopathy by size criteria. Thyroid gland is normal . ABDOMEN: Solid organs: Liver is normal in size and enhancement. Gallbladder contains gallstones. Possible stone in the common bile duct. Biliary system is non dilated. Pancreas enhances normally. Spleen is normal in size and enhancement. No adrenal nodules. Kidneys demonstrate normal size and enhancement, without hydronephrosis. Peritoneum and bowel: Bowel loops demonstrate normal wall thickness and caliber. No free fluid or air. Nodes and vessels: No retroperitoneal or mesenteric adenopathy by size criteria. Aorta and inferior vena cava are normal in size. Miscellaneous: No ventral hernias. PELVIS: Genitourinary: Bladder wall thickness is normal. Uterus is normal. No adnexal mass. No free fluid in pelvis. Miscellaneous: No inguinal hernias or adenopathy. Bones: Scoliosis. No suspicious bony lesions. No vertebral body compression fractures. IMPRESSION: 1. No findings to suggest metastatic disease. 2. The colon mass seen on colonoscopy is not visualized on CT. 3. Right upper and middle lobe infiltrates consistent with pneumonia. Recommend follow-up to resolution. 4. Cholelithiasis. Possible stone in the common bile duct. If clinically indicated, MRCP may be helpful. 5. Mild cardiomegaly and moderate coronary artery atherosclerosis. Labs Result Diagrams: 06/16/20 07:00 06/16/20 07:00 Labs: Laboratory Results - last 24 hr 06/16/20 06/16/20 07:00 07:00 WBC 4.9 RBC 2.86 L Hgb 9.2 L Hct 28.0 L MCV 97.7 MCH 32.3 MCHC 33.0 RDW 14.6 Plt Count 256 Neut % (Auto) 65.2 Lymph % (Auto) 14.9 L [place] % (Auto) 12.3 Eos % (Auto) 6.5 H Baso % (Auto) 1.1 Neut # (Auto) 3200 Lymph # (Auto) 700 L [place] # (Auto) 600 Eos # (Auto) 300 Baso # (Auto) 100 Sodium 142 Potassium 4.4 Chloride 112 H Carbon Dioxide 26 BUN 40 H Creatinine 1.36 H Estimated GFR 38.4 L BUN/Creatinine Ratio 29.4 H Glucose 83 Calcium 8.1 L Magnesium 1.7 Total Bilirubin 0.4 Conjugated Bilirubin 0.0 Unconjugated Bilirubin 0.4 AST 19 ALT 8 Alkaline Phosphatase 113 Total Protein 6.4 Albumin 3.0 L Globulin 3.4 Albumin/Globulin Ratio 0.9 L [facility] Medical History Chronic kidney disease Cor pulmonale Depression Diastolic heart failure Hyperlipidemia Iron (Fe) deficiency anemia Left leg DVT Osteoarthritis Polyneuropathy Crow's granulomatosis Surgical History (Updated 06/15/20 @ 13:43 by Yosvany Angeles MD) History of Achilles tendon repair History of esophagogastroduodenoscopy (EGD) Status post creation of arteriovenous fistula Family History Brother FH: kidney cancer Father CVA (cerebral vascular accident) Mother CVA (cerebral vascular accident) Atrial fibrillation Social History household members: caregiver Smoking Status: Never smoker alcohol intake: former substance use type: does not use Assessment & Plan Assessment & Plan narrative: This is a 69-year-old female patient who presents to the ER with 2 days of abdominal pain and reporting to bloody diarrhea stools today. The patient is presently anticoagulated on Eliquis for chronic atrial fibrillation and has had a previous history of GI bleed 1 year ago that was observed with no intervention and has had a previous upper endoscopy but no colonoscopy. 1. Gastrointestinal bleeding secondary to colonic mass, acute, present on admission, active. -patient with 2 days of abdominal pain with 2 bloody bowel movements today described as between soft black maroon stools. Patient has been treated with daily iron supplement and Arancep every 4 weeks.. 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 Horvath. Hemoglobin has been stable around 9 to 10 while here. She has had no further bowel movements and no melanotic stools. -General surgery, Dr. Angeles, performed upper endoscopy initially which did not reveal a source of bleeding. Patient was prepped for colonoscopy which she underwent the next day. During her colonoscopy she was found have a colonic mass which was biopsied. -CT chest abdomen pelvis did not reveal evidence of the test disease. 2. 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 -patient takes torsemide 40 mg daily, Will resume tomorrow. -patient has AV fistula left antecubital fossa that had ruptured and was treated at [facility] with residual hematoma that appears resolving and reported clot extending to the shoulder. -avoid all nephrotoxic agents -will follow renal function, Dr. Hernandez patient's handbag designer. 3. Diastolic heart failure, chronic, present on admission, resolved. -in the ER the patient received 1500 cc of normal saline, cardiomegaly on chest x-ray without evidence of pulmonary edema. Patient with exertional dyspnea unable climb a flight of stairs, she was never hypoxic and her symptoms have now improved to her baseline after discontinuation of fluids and she appears to have regained her euvolemic status at this time. 4. Chronic Atrial fibrillation, present on admission, stable -patient denies chest pain and acknowledges occasional palpitations, rate controlled in the 70s with metoprolol succinate twice daily which is continued. -will hold patient's Eliquis due to GI bleeding and mass 5. GERD, chronic, present on admission, stable -patient denies complaints of difficulty swallowing or acid taste in her mouth. -ordered pantoprazole 40 mg IV twice daily initially, patient takes 40 mg PO BID chronically so will continue orally. 6. Cholelithiasis - patient with CT showing cholelithiasis and possible CBD stone. She is currently asymptomatic and tolerating a diet without abdominal pain. She further has no elevated liver enzymes or bilirubin. Will repeat labs in the morning, but she does not require management at this time. Dispo: The patient resides at an assisted living facility. Anticipate discharge to her assisted living facility in the morning. Quality VTE Deep Vein Thrombosis/Pulmonary Embolism Present on Admission: No
[2020-06-16] MEDS: TRAZODONE 50 MG TABLET 25 MG PO (20:47)
[2020-06-16] MEDS: MELATONIN 3 MG TABLET 6 MG PO (20:47)
[2020-06-16] MEDS: METOPROLOL ER 25 MG TABLET PO (20:48)
[2020-06-16] MEDS: PANTOPRAZOLE 40 MG TABLET PO (20:48)
[2020-06-17 06:05] VITALS: BP 123/71; PULSE 82; RESP 16; TEMP 36.4; O2SAT 98
--- NOTE | 2020-06-17 07:21 | P.DS_ITS ---
History of Present Illness History of Present Illness Date Patient Seen: 06/17/20 Time Patient Seen: 07:31 Chief complaint: Abd pain x2 days Narrative: As per NATHAN Heredia: Ms. Rhoda Shore is a 69-year-old female with a past medical history significant for chronic atrial fibrillation on apixaban, diastolic heart failure, cor pulmonale, Crow's granulomatosis, chronic kidney disease previously requiring dialysis, recent ruptured fistula left arm, hyperlipidemia and osteoarthritis who presents to the ER with abdominal pain and bloody stools. Patient states she began having abdominal pain yesterday and this afternoon had 2 soft to semi liquid black and maroon stools. The patient reports having a previous episode of GI bleeding 1 year ago which was monitored and resolved without treatment. The patient has had a previous EGD with esophageal dilation however states she is never had a colonoscopy and has not had previous blood transfusion. The patient does have chronic anemia and is followed by Dr. Fenton who notes her hemoglobin has varied between 8.3 and 11.4 (presently 10.7) and is currently being treated with ferrous sulfate 325 mg 1 daily and Aranesp 40 mcg every 4 weeks. 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 She has undergone chemotherapy which is greatly reduced her exacerbations will still continue to have occasional mouth sores, has sustained kidney damag however he has had no lung complications. The patient denies recent cold or flu symptoms has had no COVID- 19 exposures. She denies fevers or chills. She does endorse chronic nasal congestion but no sore throat. She denies complaints of chest pain and will fe el occasional palpitations from her atrial fibrillation. She denies shortness of breath cough or wheezing. She reports epigastric and right-sided abdominal pain that is crampy in character and rates at a 2/10 stating the gurgling and diarrhea are the most uncomfortable. She denies urinary symptoms of urgency frequency or burning. She denies peripheral edema that has venous stasis changes bilateral lower legs and reports ulcer of the left ankle. Upon arrival to the ER the patient's temperature 98.3?, heart rate of 79, blood pressure 134/87, respirations 16 saturating 96% on room air. No imaging is obtained, 12 lead EKG reveals atrial fibrillation with ventricular rate of 72 without ectopy or infarct. On laboratory analysis she has white count of 7.0, hemoglobin of 10.7, hematocrit of 32.6 and platelets of 315. PT is 16.3 with an INR of 1.4 and a PTT of 36. Electrolytes within normal range however BUN is 57 with a creatinine 1.92 for an EGFR of 25.8. Liver functions are within normal limits except for alkaline phosphatase elevated to 160. Lactic acid is 1.2. In the ER stools confirmed guaiac positive. The patient received Protonix 40 mg IV and normal saline. Dr. Angeles general surgery is contacted and agrees to consult and will evaluate the patient in the morning. The patient is admitted to the hospital service for GI bleed. Discharge Providers Provider Date of admission: 06/14/20 23:10 Discharge Date: 06/17/20 Consults: 06/14/20 23:09 Consult to General Surgery Stat Comment: Consulting Provider: Yosvany Angeles Reason for consultation: gi bleed Has provider been notified: Yes 06/14/20 23:55 Consult to Discharge Planning Routine Comment: Discharge provider: Paxton Mar DO Summary Hospital Course Discharge Diagnosis: Please see hospital course by problem list noted below Hospital Course: This is a 69-year-old female patient who presents to the ER with 2 days of abdominal pain and melena. She underwent an EGD which was unremarkable followed by a colonoscopy which revealed a colonic mass. CT scan did not show evidence metastases. Patient is stable for discharge to return to her assisted living facility, with General for surgery follow-up for pathology results and possible surgical planning. 1. Gastrointestinal bleeding secondary to colonic mass, acute, present on admission, active. -patient with 2 days of abdominal pain with 2 bloody bowel movements today described as between soft black maroon stools. Patient has been treated with daily iron supplement and Arancep every 4 weeks.. 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 Horvath. Hemoglobin has been stable around 9 to 10 while here. She has had no further bowel movements and no melanotic stools. -General surgery, Dr. Angeles, performed upper endoscopy initially which did not reveal a source of bleeding. Patient was prepped for colonoscopy which she underwent the next day. During her colonoscopy she was found have a colonic mass which was biopsied. -CT chest abdomen pelvis did not reveal evidence of the test disease. 2. 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 -patient takes torsemide 40 mg daily, Will resume tomorrow. -patient has AV fistula left antecubital fossa that had ruptured and was treated at [facility] with residual hematoma that appears resolving and reported clot extending to the shoulder. -avoid all nephrotoxic agents -Dr. Hernandez patient's rib builder. 3. Diastolic heart failure, chronic, present on admission, resolved. -in the ER the patient received 1500 cc of normal saline, cardiomegaly on chest x-ray without evidence of pulmonary edema. Patient with exertional dyspnea unable climb a flight of stairs, she was never hypoxic and her symptoms have now improved to her baseline after discontinuation of fluids and she appears to have regained her euvolemic status at this time. 4. Chronic Atrial fibrillation, present on admission, stable -patient denies chest pain and acknowledges occasional palpitations, rate controlled in the 70s with metoprolol succinate twice daily which is continued. -will hold patient's Eliquis due to GI bleeding and mass 5. GERD, chronic, present on admission, stable -patient denies complaints of difficulty swallowing or acid taste in her mouth. -ordered pantoprazole 40 mg IV twice daily initially, patient takes 40 mg PO BID chronically so will continue orally. 6. Cholelithiasis - patient with CT showing cholelithiasis and possible CBD stone. She is currently asymptomatic and tolerating a diet without abdominal pain. She further has no elevated liver enzymes or bilirubin. Will repeat labs in the morning, but she does not require management at this time. Dispo: The patient resides at an assisted living facility, stable for discharge with outpatient general surgery follow up for colonic mass. Exam Vital Signs (past 8 hours): - 06/16/20 23:50 06/16/20 23:51 06/17/20 06:05 Temperature 97.0 F L 97.6 F Pulse Rate 80 80 82 Respiratory Rate 16 16 Blood Pressure 115/65 115/65 123/71 Pulse Oximetry 95 98 Oxygen Delivery Method Room Air Oxygen Flow Rate 0 Narrative Exam Narrative: GENERAL APPEARANCE: well developed, obese female with BMI of 36.6, lying semi recumbent in bed in no acute distress. HEENT: Normocephalic, PERRLA, conjunctiva pale, sclera anicteric, EOMs intact without nystagmus, mucous membranes are moist and pink without lesions or exudate. NECK/THYROID: neck supple, no JVD, no carotid bruit, no thyromegaly, trachea midline. LYMPH NODES: no cervical or supraclavicular lymphadenopathy. SKIN: [place], warm and dry, venous stasis skin changes bilateral lower extremities, will venous stasis wound left ankle HEART: Irregularly irregular, S1-S2, no murmur, no rubs or gallops, brisk capillary refill, no edema. LUNGS: Bibasilar crackles without coarseness or wheezing, no cough present CHEST: Symmetrical movement, no accessory muscle use, good tidal volume. ABDOMEN: Soft, protuberant, epigastric and right sided abdominal pain on palpation, no guarding or peritoneal signs, no organomegaly, no flank or suprapubic tenderness, active bowel tones.ion EXTREMITIES: moves all extremities, strength is 5/5 and symmetrical, no deformities or joint effusions. L arm hematoma stable. NEUROLOGIC: AAO x4, cranial nerves II-XII grossly intact, sensation intact to light touch, hearing grossly normal to speech. PSYCH: cooperative, appropriate with stable behavior Objective Labs Result Diagrams: 06/17/20 07:05 06/17/20 07:05 Labs: Laboratory Results - last 24 hr 06/16/20 07:00 Sodium 142 Potassium 4.4 Chloride 112 H Carbon Dioxide 26 BUN 40 H Creatinine 1.36 H Estimated GFR 38.4 L BUN/Creatinine Ratio 29.4 H Glucose 83 Calcium 8.1 L Magnesium 1.7 Total Bilirubin 0.4 Conjugated Bilirubin 0.0 Unconjugated Bilirubin 0.4 AST 19 ALT 8 Alkaline Phosphatase 113 Total Protein 6.4 Albumin 3.0 L Globulin 3.4 Albumin/Globulin Ratio 0.9 L [facility] Medical History Chronic kidney disease Cor pulmonale Depression Diastolic heart failure Hyperlipidemia Iron (Fe) deficiency anemia Left leg DVT Osteoarthritis Polyneuropathy Crow's granulomatosis Surgical History (Updated 06/15/20 @ 13:43 by Yosvany Angeles MD) History of Achilles tendon repair History of esophagogastroduodenoscopy (EGD) Status post creation of arteriovenous fistula Family History Brother FH: kidney cancer Father CVA (cerebral vascular accident) Mother CVA (cerebral vascular accident) Atrial fibrillation Social History household members: caregiver Smoking Status: Never smoker alcohol intake: former substance use type: does not use Discharge Plan Discharge Plan Patient Disposition: Assisted Living Provider Discharge Comment: 1. Gastrointestinal bleeding secondary to colonic mass, acute, present on admission, active. -patient with 2 days of abdominal pain with 2 bloody bowel movements today described as between soft black maroon stools. Patient has been treated with daily iron supplement and Arancep every 4 weeks.. 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 Horvath. Hemoglobin has been stable around 9 to 10 while here. She has had no further bowel movements and no melanotic stools. -General surgery, Dr. Angeles, performed upper endoscopy initially which did not reveal a source of bleeding. Patient was prepped for colonoscopy which she underwent the next day. During her colonoscopy she was found have a colonic mass which was biopsied. -CT chest abdomen pelvis did not reveal evidence of the test disease. 2. 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 -patient takes torsemide 40 mg daily, Will resume tomorrow. -patient has AV fistula left antecubital fossa that had ruptured and was treated at [facility] with residual hematoma that appears resolving and reported clot extending to the shoulder. -avoid all nephrotoxic agents -Dr. Hernandez patient's rib builder. 3. Diastolic heart failure, chronic, present on admission, resolved. -in the ER the patient received 1500 cc of normal saline, cardiomegaly on chest x-ray without evidence of pulmonary edema. Patient with exertional dyspnea unable climb a flight of stairs, she was never hypoxic and her symptoms have now improved to her baseline after discontinuation of fluids and she appears to have regained her euvolemic status at this time. 4. Chronic Atrial fibrillation, present on admission, stable -patient denies chest pain and acknowledges occasional palpitations, rate controlled in the 70s with metoprolol succinate twice daily which is continued. -will hold patient's Eliquis due to GI bleeding and mass 5. GERD, chronic, present on admission, stable -patient denies complaints of difficulty swallowing or acid taste in her mouth. -ordered pantoprazole 40 mg IV twice daily initially, patient takes 40 mg PO BID chronically so will continue orally. 6. Cholelithiasis - patient with CT showing cholelithiasis and possible CBD stone. She is currently asymptomatic and tolerating a diet without abdominal pain. She further has no elevated liver enzymes or bilirubin. Will repeat labs in the morning, but she does not require management at this time. Dispo: The patient resides at an assisted living facility, stable for discharge with outpatient general surgery follow up for colonic mass. Discharge orders & Medications Discharge Orders: Discharge (Order); Ordered 06/17/20 Ordered By: Paxton Mar Prescriptions: New Cepacol Sore Throat (jose d-men) 15-3.6 mg Lozenge 1 hetal PO Q1HR PRN (Reason: Sore Throat) 5 Days Qty: 16 RF: 0 Continued acetaminophen 325 mg Tablet 650 mg PO TID RF: 0 torsemide 20 mg tablet 20 mg PO QAM RF: 0 hydroxyzine HCl 25 mg tablet 25 mg PO Q8H PRN (Reason: Itching) RF: 0 gabapentin 100 mg capsule 100 mg PO BID RF: 0 nystatin 100,000 unit/gram powder 1 applic topical QID RF: 0 benzocaine 20 % Gel 1 applic MUCOUS MEMBRANE Q6H PRN (Reason: canker sore) RF: 0 sodium chloride [[place] Nasal] 0.65 % Aerosol,[place] 3 spray intranasal BID RF: 0 duloxetine 60 mg capsule,delayed release(DR/EC) 60 mg PO DAILY RF: 0 Aspercreme Max 16 % Liquid 1 applic topical BID RF: 0 pantoprazole 40 mg tablet,delayed release (DR/EC) 40 mg PO BID RF: 0 polyethylene glycol 3350 17 gram Powder In Packet 17 g PO QAM RF: 0 cyanocobalamin (vitamin B-12) [Vitamin B-12] 1,000 mcg Tablet 1,000 mcg PO QAM RF: 0 melatonin 3 mg Tablet 6 mg PO BEDTIME RF: 0 ascorbic acid (vitamin C) 500 mg Tablet 500 mg PO QAM RF: 0 ferrous sulfate 325 mg (65 mg iron) Tablet 325 mg PO DAILY RF: 0 ondansetron HCl 8 mg tablet 8 mg PO DAILY PRN (Reason: Nausea) RF: 0 hydrocortisone 1 % Cream 1 applic TOPICAL Q12H PRN (Reason: Rash) RF: 0 oxycodone 5 mg tablet 2.5 - 5 mg PO Q6H PRN (Reason: pain) Qty: 10 RF: 0 betamethasone valerate 0.1 % ointment 1 applic TOPICAL DAILY RF: 0 patiromer calcium sorbitex 8.4 gram Powder In Packet 8.4 g PO QAM RF: 0 albuterol sulfate [Ventolin HFA] 90 mcg/actuation HFA aerosol inhaler 2 puff INHALATION Q6H PRN (Reason: Shortness Of Breath) RF: 0 Eucerin Original Lotion 1 applic TOPICAL BID RF: 0 trazodone 50 mg Tablet 25 mg PO BEDTIME RF: 0 lorazepam 0.5 mg Tablet 0.5 mg PO Q6HR PRN (Reason: Anxiety) RF: 0 metoprolol succinate 25 mg tablet extended release 24 hr 25 mg PO BID RF: 0 Mucinex DM 30-600 mg Tablet Extended Release 12 Hr 1 tab PO Q12H PRN (Reason: cough, congestion) RF: 0 Discontinued apixaban 5 mg tablet 5 mg PO BID RF: 0 Follow up/Referrals: oYsvany Angeles MD [Physician] - 2 Weeks (follow up biopsy of colonic mass) Discharge Health Status Precautions: [place] Diet/Activity/Treatments Diet: Diet as Tolerated Activity: As tolerated Visit Report/Discharge Packet Instructions: DI for Colon Polypectomy, DI for Hemorrhoid Banding, DI for Gastroesophageal Reflux Disease (GERD), DI for Hemorrhoids, DI for Gastritis, DI for Gastric Ulcer, DI for Hiatal Hernia, DI for Prescription Opioid Use, DI for Diverticulosis, DI for Stomach Polyps Stand Alone Forms: Colonoscopy Result: [facility] Surg, Colonoscopy Result: [facility], Colonoscopy Result: [facility], EGD Result: [facility] Surg, EGD Result: [facility], EGD Results: I[facility] Quality VTE Deep Vein Thrombosis/Pulmonary Embolism Present on Admission: No
[2020-06-17 07:54] LABS: Add Manual Diff / Slide Review NO; Basophils Absolute Auto 0 /uL (0-100); Basophils Percent Auto 0.8 % (0-2); Eosinophils Absolute Auto 300 /uL (0-450); Eosinophils Percent Auto 6.5 % (2-4); Hematocrit 27.6 % (36-46); Hemoglobin 9.3 g/dL (12.0-16.0); Lymphocytes Absolute Auto 500 /uL (1100-4500); Lymphocytes Percent Auto 11.3 % (25-40); Mean Corpuscular HGB Conc 33.8 % (30-36); Mean Corpuscular Hemoglobin 32.5 PG (26-34); Mean Corpuscular Volume 96.3 fL (80-100); Monocytes Absolute Auto 600 /uL (0-900); Monocytes Percent Auto 12.5 % (3-14); Neutrophils Absolute Auto 3300 /uL (1500-7000); Neutrophils Percent Auto 68.9 % (50-75); Platelet Count 253 X10^3/uL (150-400); Red Blood Cell Count 2.86 X10^6/uL (4.0-5.2); Red Cell Distribution Width 14.4 % (11.6-14.8); White Blood Cell Count 4.8 X10^3/uL (4.5-11.0)
[2020-06-17] MEDS: PANTOPRAZOLE 40 MG TABLET PO (08:16)
[2020-06-17] MEDS: ASCORBIC ACID 500 MG TABLET PO (08:18)
[2020-06-17] MEDS: ACETAMINOPHEN 325 MG TABLET 650 MG PO (08:18)
[2020-06-17] MEDS: DULOXETINE 30 MG CAPSULE 60 MG PO (08:18)
[2020-06-17] MEDS: GABAPENTIN 100 MG CAPSULE PO (08:18)
[2020-06-17 08:19] VITALS: BP 125/79; PULSE 77
[2020-06-17] MEDS: METOPROLOL ER 25 MG TABLET PO (08:19)
[2020-06-17] MEDS: TORSEMIDE 10 MG TABLET 20 MG PO (08:19)
[2020-06-17 08:20] LABS: Alanine Aminotransferase 7 IU/L (<35); Albumin Globulin Ratio 0.9 (1.0-2.8); Alkaline Phosphatase 108 U/L (38-126); Aspartate Aminotransferase 18 IU/L (14-36); BUN Creatinine Ratio 21.7 (6-22); Bilirubin Total 0.2 mg/dL (0.2-1.3); Bilirubin Unconjugated 0.3 mg/dL (0.0-1.1); Blood Urea Nitrogen 30 mg/dL (7-17); Calcium 8.2 mg/dL (8.4-10.2); Carbon Dioxide 28 mmol/L (22-32); Chloride 109 mmol/L (98-107); Estimated Glomerular Filt Rate 37.8 mL/min (>60); Globulin 3.3 g/dL (1.7-4.1); Glucose 85 mg/dL (80-110); HEMOLYSIS < 15 (0-50); Magnesium 1.7 mg/dL (1.6-2.3); Sodium 141 mmol/L (137-145); Total Protein 6.3 g/dL (6.3-8.2)
[2020-06-17 09:27] VITALS: BP 110/62; PULSE 80; RESP 15; TEMP 36.3; O2SAT 97
[2020-06-17] MEDS: BENZOCAINE/MENTHOL 1 LOZ PKT 1 EACH PO (10:03)
[2020-06-17 11:24] VITALS: BP 132/81; PULSE 67; RESP 14; TEMP 36.5; O2SAT 95
--- NOTE | 2020-06-17 12:43 | PC.NURSE ---
Pt dressed independently. No IV present. Tele removed, ICU nurse informed. Discharge instructions given to patient, discussed- diet, post-op expectations, follow-up appts, s/s of infection, s/s of stroke, reasons to respond to medical delivery driver. Paper prescription given to pt. All belongings given to pt. 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
--- NOTE | 2020-06-17 14:39 | CM.DPNOTE ---
DC Note DC order in place and patient aware and agreeable to plan- back to [facility]. Kirstin at [facility] called to update that patient okay to return home, facility van arranged for p/u at 1200, RN Ilana made aware. Faxed signed and completed med list and DC Summary to [facility]# [phone] Plan: DC back to [facility] via [facility] w/close outpatient f/u JW
== END 2020-06-17 12:00 | DRG 375 ==
LOC: ED 23:09 → AC 06-15 07:30
PROVIDERS: Internal Medicine; Specialist; Admitting Provider Nurse Practitioner Adult Health; Emergency Provider Emergency Medicine; Referring Provider Emergency Medicine; Visit Provider Nurse Practitioner Adult Health
PROC: 0DJ08ZZ Inspection of Upper Intestinal Tract, Via Natural or Artificial Opening Endoscopic (ICD-10-PCS; CPT 43235; principal; 2020-06-15 16:15)
PROC: 0DJD8ZZ Inspection of Lower Intestinal Tract, Via Natural or Artificial Opening Endoscopic (ICD-10-PCS; CPT 45378; principal; 2020-06-16 11:30)
DX: C18.7 Malignant neoplasm of sigmoid colon (principal); K92.1 Melena; I48.20 Chronic atrial fibrillation, unspecified; N18.4 Chronic kidney disease, stage 4 (severe); D62 Acute posthemorrhagic anemia; I50.32 Chronic diastolic (congestive) heart failure; L97.929 Non-pressure chronic ulcer of unspecified part of left lower leg with unspecified severity; L97.919 Non-pressure chronic ulcer of unspecified part of right lower leg with unspecified severity; M31.31 Wegener's granulomatosis with renal involvement; Z79.01 Long term (current) use of anticoagulants; K21.9 Gastro-esophageal reflux disease without esophagitis; Z20.822 Contact with and (suspected) exposure to COVID-19
CPT/HCPCS: 36415; 43235; 45378; 45381; 71260; 74177; 80048; 80053; 80076; 83605; 83690; 83735; 83880; 85014; 85018; 85025; 85610; 85730; 86850; 86900; 86901; 87635; 93005; 94760; 96361; 96374; 99152; 99232; 99281; 99284; C9803; A9270; C9113; J0330; J2250; J2405; J2704; J3010; Q9967

== ENCOUNTER → 2020-06-21 08:09 | Outpatient (ROUT) | payer MEDICARE, MEDICAID, SELFPAY ==
[2020-06-15 00:11] VITALS: BMI 36.6
[2020-06-21 08:44] LABS: Add Manual Diff / Slide Review NO; Basophils Absolute Auto 0 /uL (0-100); Eosinophils Absolute Auto 400 /uL (0-450); Eosinophils Percent Auto 7.4 % (2-4); Hematocrit 26.9 % (36-46); Hemoglobin 8.7 g/dL (12.0-16.0); Lymphocytes Absolute Auto 800 /uL (1100-4500); Mean Corpuscular HGB Conc 32.4 % (30-36); Mean Corpuscular Hemoglobin 31.5 PG (26-34); Mean Corpuscular Volume 97.4 fL (80-100); Monocytes Absolute Auto 700 /uL (0-900); Monocytes Percent Auto 13.6 % (3-14); Neutrophils Absolute Auto 3200 /uL (1500-7000); Platelet Count 283 X10^3/uL (150-400); Red Blood Cell Count 2.76 X10^6/uL (4.0-5.2); Red Cell Distribution Width 14.6 % (11.6-14.8); White Blood Cell Count 5.2 X10^3/uL (4.5-11.0)
== END ==
PROVIDERS: Visit Provider Nurse Practitioner Family
DX: I48.20 Chronic atrial fibrillation, unspecified (principal); D63.1 Anemia in chronic kidney disease
CPT/HCPCS: 36415; 85025

== ENCOUNTER → 2020-06-30 15:03 | Outpatient (CLI) | payer MEDICARE, MEDICAID, SELFPAY ==
[2019-03-11 22:23] VITALS: BMI 33.3
[2020-06-15 00:11] VITALS: BMI 36.6
[2020-06-30 15:23] VITALS: BP 148/85; PULSE 72; RESP 16; TEMP 37.1; O2SAT 94
--- NOTE | 2020-06-30 15:39 | PC.NURSE ---
Pt reported they were just Dx with Colon Cancer and will be having an appointment and potential suregery in the upcoming weeks. Pt will let us know.
== END ==
PROVIDERS: PCP Internal Medicine; Referring Provider Internal Medicine; Visit Provider Internal Medicine Hematology & Oncology
DX: N18.4 Chronic kidney disease, stage 4 (severe) (principal); D63.1 Anemia in chronic kidney disease; M31.31 Wegener's granulomatosis with renal involvement; C18.7 Malignant neoplasm of sigmoid colon

== ENCOUNTER → 2020-07-07 11:43 | Outpatient (ROUT) | payer MEDICARE, MEDICAID, SELFPAY ==
[2020-06-15 00:11] VITALS: BMI 36.6
[2020-07-07 11:52] LABS: Hematocrit 32.1 % (36-46); Hemoglobin 10.2 g/dL (12.0-16.0)
== END ==
PROVIDERS: PCP Internal Medicine; Visit Provider Nurse Practitioner Family
DX: K92.1 Melena (principal)
CPT/HCPCS: 85014; 85018

== ENCOUNTER → 2020-07-20 11:07 | Outpatient (CLI) | payer MEDICARE, MEDICAID, SELFPAY ==
[2020-06-15 00:11] VITALS: BMI 36.6
--- NOTE | 2020-07-20 | DI.US.S_ITS ---
PROCEDURE: US ABDOMEN LIMITED INDICATIONS: Localized swelling, mass and lump, left upper limb TECHNIQUE: Real-time focused scanning was performed of the abdomen, with image documentation. COMPARISON: [facility], US, US ABDOMEN COMPLETE, 02/03/2019, 13:21. FINDINGS: The liver is normal in echotexture and size. The gallbladder is tender during sonographic palpation and there is a mobile stone measuring 6 x 5 x 8 mm at the gallbladder neck. The gallbladder wall, however, is not abnormally thickened at 1.9 mm. No adjacent pericholecystic free fluid is seen. IMPRESSION: There is tenderness over the gallbladder and a mobile stone at the gallbladder neck area but no impacted stone within the gallbladder neck is seen. Biliary distension is not found with the common duct measuring up to only 2.4 mm. The findings focally are nonspecific. If clinically desired a nuclear medicine hepatobiliary scan could be utilized to determine patency of the cystic duct. Dictated by: John Beltre M.D. on 07/20/2020 at 14:15 Approved by: John Beltre M.D. on 07/20/2020 at 14:17
== END ==
PROVIDERS: PCP Internal Medicine; Referring Provider Internal Medicine; Visit Provider Internal Medicine
DX: C18.7 Malignant neoplasm of sigmoid colon (principal); R10.11 Right upper quadrant pain; K80.20 Calculus of gallbladder without cholecystitis without obstruction
CPT/HCPCS: 76705

== ENCOUNTER → 2020-07-26 07:45 | Outpatient (ROUT) | payer MEDICARE, MEDICAID, SELFPAY ==
[2020-06-15 00:11] VITALS: BMI 36.6
[2020-07-26 08:22] LABS: BUN Creatinine Ratio 36.8 (6-22); Blood Urea Nitrogen 71 mg/dL (7-17); Calcium 8.4 mg/dL (8.4-10.2); Carbon Dioxide 26 mmol/L (22-32); Chloride 111 mmol/L (98-107); Estimated Glomerular Filt Rate 25.6 mL/min (>60); Glucose 85 mg/dL (80-110); HEMOLYSIS < 15 (0-50); Magnesium 2.1 mg/dL (1.6-2.3); Potassium 3.8 mmol/L (3.4-5.1); Sodium 140 mmol/L (137-145)
== END ==
PROVIDERS: PCP Internal Medicine; Visit Provider Nurse Practitioner Gerontology
DX: Z79.899 Other long term (current) drug therapy (principal)
CPT/HCPCS: 36415; 80048; 83735

== ENCOUNTER → 2020-07-28 11:28 | Outpatient (CLI) | payer MEDICARE, MEDICAID, SELFPAY ==
[2019-03-11 22:23] VITALS: BMI 33.3
[2020-06-15 00:11] VITALS: BMI 36.6
[2020-07-28 12:10] VITALS: BP 112/64; PULSE 70; RESP 16; TEMP 36.6; O2SAT 95
== END ==
PROVIDERS: PCP Internal Medicine; Referring Provider Internal Medicine Hematology & Oncology; Visit Provider Internal Medicine Hematology & Oncology
DX: N18.4 Chronic kidney disease, stage 4 (severe) (principal); D63.1 Anemia in chronic kidney disease; M31.31 Wegener's granulomatosis with renal involvement; C18.7 Malignant neoplasm of sigmoid colon

== ENCOUNTER → 2020-08-23 08:52 | Outpatient (ROUT) | payer MEDICARE, MEDICAID, SELFPAY ==
[2020-06-15 00:11] VITALS: BMI 36.6
[2020-08-23 09:20] LABS: Add Manual Diff / Slide Review NO; Basophils Absolute Auto 100 /uL (0-100); Basophils Percent Auto 1.1 % (0-2); Eosinophils Absolute Auto 300 /uL (0-450); Eosinophils Percent Auto 6.6 % (2-4); Hematocrit 26.5 % (36-46); Hemoglobin 8.7 g/dL (12.0-16.0); Lymphocytes Absolute Auto 700 /uL (1100-4500); Lymphocytes Percent Auto 15.3 % (25-40); Mean Corpuscular HGB Conc 32.6 % (30-36); Mean Corpuscular Hemoglobin 32.5 PG (26-34); Mean Corpuscular Volume 99.6 fL (80-100); Monocytes Absolute Auto 600 /uL (0-900); Monocytes Percent Auto 13.9 % (3-14); Neutrophils Absolute Auto 2900 /uL (1500-7000); Neutrophils Percent Auto 63.1 % (50-75); Platelet Count 303 X10^3/uL (150-400); Red Blood Cell Count 2.66 X10^6/uL (4.0-5.2); Red Cell Distribution Width 14.5 % (11.6-14.8); White Blood Cell Count 4.6 X10^3/uL (4.5-11.0)
[2020-08-23 09:41] LABS: BUN Creatinine Ratio 22.1 (6-22); Blood Urea Nitrogen 34 mg/dL (7-17); Calcium 8.3 mg/dL (8.4-10.2); Carbon Dioxide 28 mmol/L (22-32); Chloride 105 mmol/L (98-107); Estimated Glomerular Filt Rate 33.2 mL/min (>60); Glucose 80 mg/dL (80-110); HEMOLYSIS < 15 (0-50); Potassium 4.4 mmol/L (3.4-5.1); Sodium 138 mmol/L (137-145)
== END ==
PROVIDERS: PCP Internal Medicine; Visit Provider Nurse Practitioner Family
DX: N18.9 Chronic kidney disease, unspecified (principal); T81.9XXA Unspecified complication of procedure, initial encounter
CPT/HCPCS: 36415; 80048; 85025

== ENCOUNTER → 2020-08-25 14:10 | Outpatient (CLI) | payer MEDICARE, MEDICAID, SELFPAY ==
[2020-06-15 00:11] VITALS: BMI 36.6
== END ==
PROVIDERS: PCP Internal Medicine; Referring Provider Internal Medicine; Visit Provider Internal Medicine Hematology & Oncology
DX: C18.7 Malignant neoplasm of sigmoid colon (principal); N18.4 Chronic kidney disease, stage 4 (severe); D63.1 Anemia in chronic kidney disease; M31.31 Wegener's granulomatosis with renal involvement

== ENCOUNTER → 2020-08-30 08:03 | Outpatient (ROUT) | payer MEDICARE, MEDICAID, SELFPAY ==
[2020-06-15 00:11] VITALS: BMI 36.6
[2020-08-30 08:51] LABS: Hemoglobin 10.1 g/dL (12.0-16.0)
[2020-08-30 09:13] LABS: Blood Urea Nitrogen 54 mg/dL (7-17); Calcium 8.8 mg/dL (8.4-10.2); Carbon Dioxide 23 mmol/L (22-32); Chloride 108 mmol/L (98-107); Estimated Glomerular Filt Rate 28.8 mL/min (>60); Glucose 97 mg/dL (80-110); HEMOLYSIS < 15 (0-50); Potassium 4.1 mmol/L (3.4-5.1); Sodium 141 mmol/L (137-145)
== END ==
PROVIDERS: PCP Internal Medicine; Visit Provider Nurse Practitioner Family
DX: D64.9 Anemia, unspecified (principal); N18.9 Chronic kidney disease, unspecified
CPT/HCPCS: 36415; 80048; 85014; 85018

== ENCOUNTER → 2020-09-13 11:00 | Outpatient (ROUT) | payer MEDICARE, MEDICAID, SELFPAY ==
[2020-06-15 00:11] VITALS: BMI 36.6
[2020-09-13 12:03] LABS: BUN Creatinine Ratio 35.2 (6-22); Blood Urea Nitrogen 68 mg/dL (7-17); Calcium 8.6 mg/dL (8.4-10.2); Carbon Dioxide 26 mmol/L (22-32); Chloride 107 mmol/L (98-107); Estimated Glomerular Filt Rate 25.6 mL/min (>60); Glucose 70 mg/dL (80-110); HEMOLYSIS < 15 (0-50); Magnesium 2.1 mg/dL (1.6-2.3); Potassium 3.7 mmol/L (3.4-5.1); Sodium 142 mmol/L (137-145)
== END ==
PROVIDERS: PCP Internal Medicine; Visit Provider Internal Medicine
DX: R25.2 Cramp and spasm (principal)
CPT/HCPCS: 36415; 80048; 83735

== ENCOUNTER 2020-09-18 20:09 | Emergency (ER) | payer MEDICARE, MEDICAID, SELFPAY ==
[2020-06-15 00:11] VITALS: BMI 36.6
--- NOTE | 2020-09-18 20:27 | ED.GENADULT ---
HPI - General Adult General Chief complaint: Nasal Problem Stated complaint: Nose bleed Time Seen by Provider: 09/18/20 20:24 Source: patient Mode of arrival: EMS Limitations: no limitations History of Present Illness HPI narrative: Patient is a 70-year-old female. She is on anticoagulation. Is here for evaluation of a nosebleed. She has had nose bleeds in the past. Has had to have nasal packing in the past. She does state that she has a deviated nasal septum from an unknown reason. She states she started having nose bleeds earlier today. No specific trauma. Has tried multiple times today to get it to stop has been unable to. She does have a nose clamp at home that she had from a prior nosebleed and was using this without any improvement. States she normally uses Afrin to help with the nose bleed but she was out of Afrin. When she arrived she had a nose clamp in place. Related Data Home Medications Medication Instructions Recorded Confirmed Aspercreme Max 1 applic TOPICAL BID 12/25/18 08/25/20 acetaminophen 650 mg PO TID 12/25/18 08/25/20 benzocaine 1 applic MUCOUS MEMBRANE Q6H PRN 12/25/18 08/25/20 duloxetine 60 mg PO DAILY 12/25/18 08/25/20 gabapentin 100 mg PO BID 12/25/18 08/25/20 hydroxyzine HCl 25 mg PO Q8H PRN 12/25/18 08/25/20 sodium chloride [[place] Nasal] 3 spray INTRANASAL BID 12/25/18 08/25/20 torsemide 20 mg PO QAM 12/25/18 08/25/20 ascorbic acid (vitamin C) 500 mg PO QAM 03/11/19 08/25/20 cyanocobalamin (vitamin B-12) 1,000 mcg PO QAM 03/11/19 08/25/20 [Vitamin B-12] ferrous sulfate 325 mg PO BID 03/11/19 09/08/20 hydrocortisone 1 applic TOPICAL Q12H PRN 03/11/19 08/25/20 melatonin 6 mg PO BEDTIME 03/11/19 08/25/20 ondansetron HCl 8 mg PO DAILY PRN 03/11/19 08/25/20 pantoprazole 40 mg PO BID 03/11/19 08/25/20 polyethylene glycol 3350 17 g PO QAM 03/11/19 08/25/20 Eucerin Original 1 applic TOPICAL BID 06/16/19 08/25/20 betamethasone valerate 1 applic TOPICAL DAILY 06/16/19 08/25/20 trazodone 25 mg PO BEDTIME 12/10/19 08/25/20 Mucinex DM 1 tab PO Q12H PRN 03/10/20 08/25/20 lorazepam 0.5 mg PO Q6HR PRN 03/10/20 08/25/20 metoprolol succinate 25 mg PO BID 03/10/20 06/27/20 apixaban 5 mg tablet 5 mg PO BID 06/27/20 08/25/20 Previous Rx's Medication Instructions Recorded oxycodone 2.5 - 5 mg PO Q6H PRN #10 tab 03/13/19 Allergies Allergy/AdvReac Type Severity Reaction Status Date / Time adhesive tape Allergy Verified 06/27/20 09:43 basil Allergy Verified 06/27/20 09:43 cephalexin [From Keflex] Allergy Verified 06/27/20 09:43 marlena Allergy Verified 06/27/20 09:43 Penicillins Allergy Verified 06/27/20 09:43 sulfamethoxazole AdvReac Severe Hyperkalemia/worsening Verified 06/27/20 09:43 [From Bactrim] CKD trimethoprim [From Bactrim] AdvReac Severe Hyperkalemia/worsening Verified 06/27/20 09:43 CKD Review of Systems Constitutional Constitutional: Denies fatigue, Denies fever(s) and Denies headache(s) Eyes Eyes: Denies change in vision ENT Ears, Nose, Mouth, and Throat: Denies headache(s) and Denies sore throat Comments: Nose bleed Cardiovascular Cardiovascular: Denies chest pain and Denies dyspnea Respiratory Respiratory: Denies dyspnea Gastrointestinal Gastrointestinal: Denies abdominal pain Integumentary/Breasts Skin/Breast: Denies rash Neurologic Neurologic: Denies behavioral changes and Denies headache(s) Psychiatric Psychiatric: Denies behavioral changes Endocrine Endocrine: Denies fatigue Hematologic/Lymphatic On Anticoagulants: Yes Allergic/Immunologic Allergic/Immunologic: Denies urticaria Patient History Medical History Chronic kidney disease Cor pulmonale Degenerative joint disease of knee Depression Diastolic heart failure Hyperlipidemia Iron (Fe) deficiency anemia Left leg DVT Osteoarthritis Osteoarthritis, hand Polyneuropathy Traumatic coccydynia Crow's granulomatosis Surgical History History of Achilles tendon repair History of esophagogastroduodenoscopy (EGD) Status post creation of arteriovenous fistula Family History Brother FH: kidney cancer Father CVA (cerebral vascular accident) Mother CVA (cerebral vascular accident) Atrial fibrillation Social History household members: caregiver Smoking Status: Never smoker alcohol intake: former substance use type: does not use Smoking Status: Never smoker alcohol intake frequency: holidays/special occasions only Substance Use Type: does not use Exam Initial Vital Signs Initial Vital Signs: Vital Signs Pulse Rate 68 09/18/20 20:33 Respiratory Rate 20 09/18/20 20:33 Blood Pressure 139/92 H 09/18/20 20:33 Pulse Oximetry 97 09/18/20 20:33 Const General: cooperative and comfortable Limitations: mental status not altered HENDE Head: normal to inspection and normocephalic Nose: external nose normal, No septum normal, epistaxis and septum abnormal (Patient has a hole in her septum) Face and sinus: normal facial exam Mouth: oral mucosae normal Eyes General: appearance normal, both eyes and all related structures Resp Effort & Inspection: normal respiratory effort Auscultation: clear to auscultation bilaterally Cardio Rate: regular rate Rhythm: regular rhythm Skin Lesions: no lesions Rashes: no rashes Neuro General: patient alert and patient awake Cognition: normal cognition Speech: speech normal Extrem General: capillary refill normal Psych Appearance: grossly normal and well kempt Course Orders Ordered: Discontinued Medications Oxymetazoline HCl (Oxymetazoline Nasal [place] 15 Ml) 2 sprays NASAL NOW ONE Stop: 09/18/20 20:28 Last Admin: 09/18/20 21:00 Dose: 2 sprays Documented by: GELY Vital Signs Vital signs: Vital Signs - 8 hr 09/18/20 20:33 09/18/20 21:46 Pulse Rate 68 67 Respiratory Rate 20 95 H Blood Pressure 139/92 H 139/92 H Pulse Oximetry 97 95 Medical Decision Making [facility] Narrative Medical decision making narrative: Patient arrived with a nose clamp in place without any signs of bleeding. It was removed and several minutes later started bleeding from her left nostril. I then had her blow her nose lightly. Afrin was then used and then clamp was replaced. After several minutes the clamp was removed and she was observed to the emergency department for period of time afterwards without any rebleeding. There was a large clot in the hole in her septum. She was not in any respiratory distress. She was discharged home with her Afrin that she was given here in the ER with instructions on its use and also a nasal clamp. We discussed return precautions and follow-up instructions. She will continue with her anticoagulation. She expressed understanding and agreement. Discharge Plan Departure Patient Disposition: Home Clinical Impression: Epistaxis Instructions: DI for Nosebleed Activity Restrictions/Additional Instructions: Continue all of your medications as directed. If you nose starts bleeding again and performed the procedures like we discussed here in the ER. Use the Afrin as we discussed. Return to the emergency department for any new or worsening symptoms Prescriptions: No Action acetaminophen 325 mg Tablet 650 mg PO TID RF: 0 torsemide 20 mg tablet 20 mg PO QAM RF: 0 hydroxyzine HCl 25 mg tablet 25 mg PO Q8H PRN (Reason: Itching) RF: 0 gabapentin 100 mg capsule 100 mg PO BID RF: 0 benzocaine 20 % Gel 1 applic MUCOUS MEMBRANE Q6H PRN (Reason: canker sore) RF: 0 sodium chloride [[place] Nasal] 0.65 % Aerosol,[place] 3 spray intranasal BID RF: 0 duloxetine 60 mg capsule,delayed release(DR/EC) 60 mg PO DAILY RF: 0 Aspercreme Max 16 % Liquid 1 applic topical BID RF: 0 pantoprazole 40 mg tablet,delayed release (DR/EC) 40 mg PO BID RF: 0 polyethylene glycol 3350 17 gram Powder In Packet 17 g PO QAM RF: 0 cyanocobalamin (vitamin B-12) [Vitamin B-12] 1,000 mcg Tablet 1,000 mcg PO QAM RF: 0 melatonin 3 mg Tablet 6 mg PO BEDTIME RF: 0 ascorbic acid (vitamin C) 500 mg Tablet 500 mg PO QAM RF: 0 ferrous sulfate 325 mg (65 mg iron) Tablet 325 mg PO BID RF: 0 ondansetron HCl 8 mg tablet 8 mg PO DAILY PRN (Reason: Nausea) RF: 0 hydrocortisone 1 % Cream 1 applic TOPICAL Q12H PRN (Reason: Rash) RF: 0 oxycodone 5 mg tablet 2.5 - 5 mg PO Q6H PRN (Reason: pain) Qty: 10 RF: 0 betamethasone valerate 0.1 % ointment 1 applic TOPICAL DAILY RF: 0 Eucerin Original Lotion 1 applic TOPICAL BID RF: 0 trazodone 50 mg Tablet 25 mg PO BEDTIME RF: 0 lorazepam 0.5 mg Tablet 0.5 mg PO Q6HR PRN (Reason: Anxiety) RF: 0 metoprolol succinate 25 mg tablet extended release 24 hr 25 mg PO BID RF: 0 Mucinex DM 30-600 mg Tablet Extended Release 12 Hr 1 tab PO Q12H PRN (Reason: cough, congestion) RF: 0 Eliquis 5 mg tablet 5 mg PO BID RF: 0 Referrals: Bri Vargas MD [Primary Care Provider] -
[2020-09-18 20:33] VITALS: BP 139/92; PULSE 68; RESP 20; O2SAT 97; BMI 34.9
[2020-09-18] MEDS: OXYMETAZOLINE NASAL SPRAY 15 ML 2 SPRAYS NASAL (21:00)
[2020-09-18 21:46] VITALS: BP 139/92; PULSE 67; RESP 95; O2SAT 95
== END 2020-09-18 21:49 | disposition home or self-care (01) ==
PROVIDERS: Emergency Provider Emergency Medicine; PCP Internal Medicine
DX: R04.0 Epistaxis (principal); Z79.01 Long term (current) use of anticoagulants
CPT/HCPCS: 99282; A9270

== ENCOUNTER → 2020-09-27 08:02 | Outpatient (ROUT) | payer MEDICARE, MEDICAID, SELFPAY ==
[2020-06-15 00:11] VITALS: BMI 36.6
[2020-09-27 09:34] LABS: Blood Urea Nitrogen 64 mg/dL (7-17); Calcium 8.7 mg/dL (8.4-10.2); Carbon Dioxide 22 mmol/L (22-32); Chloride 108 mmol/L (98-107); Estimated Glomerular Filt Rate 30.9 mL/min (>60); Glucose 78 mg/dL (80-110); HEMOLYSIS < 15 (0-50); Potassium 3.8 mmol/L (3.4-5.1); Sodium 141 mmol/L (137-145)
== END ==
PROVIDERS: PCP Internal Medicine; Visit Provider Nurse Practitioner Family
DX: N18.9 Chronic kidney disease, unspecified (principal)
CPT/HCPCS: 36415; 80048

== ENCOUNTER → 2020-10-18 08:02 | Outpatient (ROUT) | payer MEDICARE, MEDICAID, SELFPAY ==
[2020-06-15 00:11] VITALS: BMI 36.6
[2020-10-18 08:54] LABS: BUN Creatinine Ratio 31.4 (6-22); Blood Urea Nitrogen 44 mg/dL (7-17); Calcium 8.2 mg/dL (8.4-10.2); Carbon Dioxide 25 mmol/L (22-32); Chloride 110 mmol/L (98-107); Estimated Glomerular Filt Rate 37.1 mL/min (>60); Glucose 84 mg/dL (80-110); HEMOLYSIS < 15 (0-50); Potassium 3.7 mmol/L (3.4-5.1); Sodium 142 mmol/L (137-145)
== END ==
PROVIDERS: PCP Internal Medicine; Visit Provider Nurse Practitioner Family
DX: N18.9 Chronic kidney disease, unspecified (principal)
CPT/HCPCS: 36415; 80048

== ENCOUNTER → 2020-11-15 07:55 | Outpatient (ROUT) | payer MEDICARE, MEDICAID, SELFPAY ==
[2020-11-01 11:22] VITALS: BMI 36.6
[2020-11-15 08:54] LABS: BUN Creatinine Ratio 29.2 (6-22); Blood Urea Nitrogen 49 mg/dL (7-17); Calcium 9.1 mg/dL (8.4-10.2); Carbon Dioxide 27 mmol/L (22-32); Chloride 108 mmol/L (98-107); Glucose 79 mg/dL (80-110); HEMOLYSIS < 15 (0-50); Potassium 4.5 mmol/L (3.4-5.1); Sodium 139 mmol/L (137-145)
== END ==
PROVIDERS: PCP Internal Medicine; Visit Provider Nurse Practitioner Family
DX: N18.9 Chronic kidney disease, unspecified (principal)
CPT/HCPCS: 36415; 80048

== ENCOUNTER 2020-12-14 19:42 | Emergency (ER) | payer MEDICARE, MEDICAID, SELFPAY ==
[2020-11-01 11:22] VITALS: BMI 36.6
[2020-12-14] VITALS (18 sets, daily range): BP systolic 172–214; BP diastolic 86–170; PULSE 62–80; RESP 16–18; TEMP 36.5; O2SAT 94–100
--- NOTE | 2020-12-14 19:55 | ED_ITS ---
HPI - General Adult General Chief complaint: Nasal Problem Stated complaint: Epistaxis Time Seen by Provider: 12/14/20 19:47 History of Present Illness HPI narrative: Patient is a 70-year-old female. She is on anticoagulation for atrial fibrillation. Since starting this medication she has had frequent nose bleeds. She had a nosebleed earlier today and was seen at an outside facility where she had a nasal packing placed. States since that time the bleeding has continued. Despite the nasal packing. She does states she has a septal deviation has had some bleeding out of the left nostril. She also describes bleeding from her right eye. No problems breathing. She feels like there is a clot in the back of her throat. Related Data Home Medications Medication Instructions Recorded Confirmed acetaminophen 325 mg tablet 650 mg PO TID 12/25/18 08/25/20 benzocaine 20 % mucosal gel 1 applic MUCOUS MEMBRANE Q6H PRN 12/25/18 08/25/20 duloxetine 60 mg capsule,delayed 60 mg PO DAILY 12/25/18 08/25/20 release gabapentin 100 mg capsule 100 mg PO BID 12/25/18 08/25/20 hydroxyzine HCl 25 mg tablet 25 mg PO Q8H PRN 12/25/18 08/25/20 menthol 16 % topical liquid 1 applic TOPICAL BID 12/25/18 08/25/20 (Aspercreme Max) sodium chloride 0.65 % nasal spray 3 spray INTRANASAL BID 12/25/18 08/25/20 aerosol ([place] Nasal) torsemide 20 mg tablet 20 mg PO QAM 12/25/18 08/25/20 ascorbic acid (vitamin C) 500 mg 500 mg PO QAM 03/11/19 08/25/20 tablet cyanocobalamin (vitamin B-12) 1,000 mcg PO QAM 03/11/19 08/25/20 1,000 mcg tablet (Vitamin B-12) ferrous sulfate 325 mg (65 mg 325 mg PO BID 03/11/19 09/08/20 iron) tablet hydrocortisone 1 % topical cream 1 applic TOPICAL Q12H PRN 03/11/19 08/25/20 melatonin 3 mg tablet 6 mg PO BEDTIME 03/11/19 08/25/20 ondansetron HCl 8 mg tablet 8 mg PO DAILY PRN 03/11/19 08/25/20 pantoprazole 40 mg tablet,delayed 40 mg PO BID 03/11/19 08/25/20 release polyethylene glycol 3350 17 gram 17 g PO QAM 03/11/19 08/25/20 oral powder packet betamethasone valerate 0.1 % 1 applic TOPICAL DAILY 06/16/19 08/25/20 topical ointment lanolin-mineral oil lotion 1 applic TOPICAL BID 06/16/19 08/25/20 (Eucerin Original) trazodone 50 mg tablet 25 mg PO BEDTIME 12/10/19 08/25/20 dextromethorphan-guaifenesin 30 1 tab PO Q12H PRN 03/10/20 08/25/20 mg-600 mg tablet extended hr (Mucinex DM) lorazepam 0.5 mg tablet 0.5 mg PO Q6HR PRN 03/10/20 08/25/20 metoprolol succinate 25 mg 25 mg PO BID 03/10/20 06/27/20 tablet,extended release 24 hr apixaban 5 mg tablet (Eliquis) 5 mg PO BID 06/27/20 08/25/20 Previous Rx's Medication Instructions Recorded oxycodone 5 mg tablet 2.5 - 5 mg PO Q6H PRN #10 tab 03/13/19 Allergies Allergy/AdvReac Type Severity Reaction Status Date / Time adhesive tape Allergy Verified 12/14/20 20:07 basil Allergy Verified 12/14/20 20:07 cephalexin [From Keflex] Allergy Verified 12/14/20 20:07 marlena Allergy Verified 12/14/20 20:07 Penicillins Allergy Verified 12/14/20 20:07 sulfamethoxazole AdvReac Severe Hyperkalemia/worsening Verified 12/14/20 20:07 [From Bactrim] CKD trimethoprim [From Bactrim] AdvReac Severe Hyperkalemia/worsening Verified 12/14/20 20:07 CKD Review of Systems Constitutional Constitutional: Denies headache(s) Eyes Comments: Bleeding from right eye ENT Ears, Nose, Mouth, and Throat: Reports as per HPI and Denies headache(s) Cardiovascular Cardiovascular: Denies dyspnea Respiratory Respiratory: Denies cough and Denies dyspnea Gastrointestinal Gastrointestinal: Reports system reviewed and no additional complaints, except as documented Genitourinary Genitourinary: Reports system reviewed and no additional complaints, except as documented Musculoskeletal Musculoskeletal: Reports system reviewed and no additional complaints, except as documented Integumentary/Breasts Skin/Breast: Reports system reviewed and no additional complaints, except as documented Neurologic Neurologic: Denies headache(s) Psychiatric Psychiatric: Reports system reviewed and no additional complaints, except as documented Hematologic/Lymphatic On Anticoagulants: Yes Allergic/Immunologic Allergic/Immunologic: Reports system reviewed and no additional complaints, exce pt as documented Patient History Medical History Chronic kidney disease Cor pulmonale Degenerative joint disease of knee Depression Diastolic heart failure Hyperlipidemia Iron (Fe) deficiency anemia Left leg DVT Osteoarthritis Osteoarthritis, hand Polyneuropathy Traumatic coccydynia Crow's granulomatosis Surgical History History of Achilles tendon repair History of esophagogastroduodenoscopy (EGD) Status post creation of arteriovenous fistula Family History Brother FH: kidney cancer Father CVA (cerebral vascular accident) Mother CVA (cerebral vascular accident) Atrial fibrillation Social History household members: caregiver Smoking Status: Never smoker alcohol intake: former substance use type: does not use Smoking Status: Never smoker alcohol intake frequency: holidays/special occasions only Substance Use Type: does not use Exam Initial Vital Signs Initial Vital Signs: Vital Signs Temperature 97.7 F 12/14/20 19:45 Pulse Rate 62 12/14/20 19:45 Respiratory Rate 18 12/14/20 19:45 Blood Pressure 182/108 H 12/14/20 19:45 Pulse Oximetry 100 12/14/20 19:45 Const General: cooperative and healthy appearing [facility] Nose: nares normal, epistaxis and septum abnormal Eyes Other: Patient does have bleeding from the lacrimal ducts of the right eye Resp Effort & Inspection: normal respiratory effort Auscultation: clear to auscultation bilaterally Cardio Rate: regular rate Rhythm: regular rhythm Skin General: no rashes or lesions noted Neuro General: patient alert, patient awake and patient oriented x3 Extrem General: normal to inspection and capillary refill normal Psych Appearance: grossly normal Procedures Epistaxis Control Time Out Performed: No Nostril: right Direct Inspection: unable to visualize Clots Removed by: blowing nose Device Inserted: other Patient Tolerated Procedure: well and no complications Course Orders Ordered: ED Orders 12/14/20 20:00 Basic Metabolic Panel Stat Complete Blood Count AUTO DIFF Stat Partial Thromboplastin Time Stat Prothrombin Time INR Stat Discontinued Medications Oxymetazoline HCl (Oxymetazoline Nasal [place] 15 Ml) 2 sprays NASAL NOW ONE Stop: 12/14/20 20:18 Vital Signs Vital signs: Vital Signs - 8 hr 12/14/20 20:27 12/14/20 20:30 12/14/20 20:31 Pulse Rate 71 72 71 Respiratory Rate 16 Blood Pressure 197/111 H Pulse Oximetry 94 97 97 12/14/20 20:45 12/14/20 21:00 12/14/20 21:01 Pulse Rate 68 64 70 Respiratory Rate Blood Pressure 214/170 H Pulse Oximetry 96 95 96 12/14/20 21:15 12/14/20 21:30 12/14/20 21:45 Pulse Rate 77 72 68 Respiratory Rate Blood Pressure 202/100 H Pulse Oximetry 96 95 95 12/14/20 22:00 12/14/20 22:15 12/14/20 22:30 Pulse Rate 74 69 70 Respiratory Rate Blood Pressure 179/95 H 172/96 H Pulse Oximetry 97 96 95 12/14/20 22:45 12/14/20 23:00 12/14/20 23:15 Pulse Rate 70 80 69 Respiratory Rate Blood Pressure 179/87 H Pulse Oximetry 95 94 94 12/14/20 23:30 12/14/20 23:45 12/15/20 00:00 Pulse Rate 79 72 70 Respiratory Rate Blood Pressure 184/86 H 175/84 H Pulse Oximetry 96 94 93 Medical Decision Making Lab Data Result diagrams: 12/14/20 20:00 12/14/20 20:00 Labs: Lab Results 12/14/20 12/14/20 12/14/20 Range/Units 20:00 20:00 20:00 WBC 7.6 (4.5-11.0) X10^3/uL RBC 3.34 L (4.0-5.2) X10^6/uL Hgb 10.8 L (12.0-16.0) g/dL Hct 32.7 L (36-46) % MCV 97.8 (80-100) fL MCH 32.2 (26-34) PG MCHC 32.9 (30-36) % RDW 13.9 (11.6-14.8) % Plt Count 200 (150-400) X10^3/uL Neut % (Auto) 74.3 (50-75) % Lymph % (Auto) 14.1 L (25-40) % [place] % (Auto) 8.7 (3-14) % Eos % (Auto) 1.7 L (2-4) % Baso % (Auto) 1.2 (0-2) % Neut # (Auto) 5600 (3500-7009) /uL Lymph # (Auto) 1100 (8562-5162) /uL [place] # (Auto) 700 (0-900) /uL Eos # (Auto) 100 (0-450) /uL Baso # (Auto) 100 (0-100) /uL PT 14.1 H (10.1-12.7) SECONDS INR 1.2 (0.9-1.3) APTT 35 (26.4-36.2) SECONDS Sodium 142 (137-145) mmol/L Potassium 4.2 (3.4-5.1) mmol/L Chloride 111 H (98-107) mmol/L Carbon Dioxide 22 (22-32) mmol/L BUN 64 H (7-17) mg/dL Creatinine 1.24 H (0.52-1.04) mg/dL Estimated GFR 42.6 L (>60) mL/min BUN/Creatinine Ratio 51.6 H (6-22) Glucose 88 (80-110) mg/dL Calcium 8.7 (8.4-10.2) mg/dL [facility] Narrative Medical decision making narrative: I did discuss the case with Dr. montoya who is on-call for Ear Nose and Throat. He recommended removing the nasal packing from the right nares and then using FloSeal (hemostatic gel) and replacing the nasal packing. This was done. Patient gently blew her nose afterwards. After very short time of observation there did not seem to be any active bleeding. The FloSeal was placed in the right nares. A nasal clamp then was placed over the area. After an extended period of observation in the emergency department the clamp was removed and there was no active bleeding. She was observed for another extended period of time without any active bleeding. Feel that we can hold on any nasal packing given what appears to be control of any bleeding. She is in no respiratory distress. Will have her follow-up with ENT and she was given instructions in information for this. He is given return precautions she expressed understanding and agreement. Discharge Plan Departure Patient Disposition: Home Clinical Impression: Epistaxis Instructions: DI for Nosebleed Activity Restrictions/Additional Instructions: I recommend that tomorrow you contact the [facility] ENT group here in an [place] at [phone]. Do your best not to rub your nose or blow her nose. If the bleeding restarts please return to the emergency department for further evaluation. Prescriptions: No Action acetaminophen 325 mg Tablet 650 mg PO TID RF: 0 torsemide 20 mg tablet 20 mg PO QAM RF: 0 hydroxyzine HCl 25 mg tablet 25 mg PO Q8H PRN (Reason: Itching) RF: 0 gabapentin 100 mg capsule 100 mg PO BID RF: 0 benzocaine 20 % Gel 1 applic MUCOUS MEMBRANE Q6H PRN (Reason: canker sore) RF: 0 sodium chloride [[place] Nasal] 0.65 % Aerosol,[place] 3 spray intranasal BID RF: 0 duloxetine 60 mg capsule,delayed release(DR/EC) 60 mg PO DAILY RF: 0 Aspercreme Max 16 % Liquid 1 applic topical BID RF: 0 pantoprazole 40 mg tablet,delayed release (DR/EC) 40 mg PO BID RF: 0 polyethylene glycol 3350 17 gram Powder In Packet 17 g PO QAM RF: 0 cyanocobalamin (vitamin B-12) [Vitamin B-12] 1,000 mcg Tablet 1,000 mcg PO QAM RF: 0 melatonin 3 mg Tablet 6 mg PO BEDTIME RF: 0 ascorbic acid (vitamin C) 500 mg Tablet 500 mg PO QAM RF: 0 ferrous sulfate 325 mg (65 mg iron) Tablet 325 mg PO BID RF: 0 ondansetron HCl 8 mg tablet 8 mg PO DAILY PRN (Reason: Nausea) RF: 0 hydrocortisone 1 % Cream 1 applic TOPICAL Q12H PRN (Reason: Rash) RF: 0 oxycodone 5 mg tablet 2.5 - 5 mg PO Q6H PRN (Reason: pain) Qty: 10 RF: 0 betamethasone valerate 0.1 % ointment 1 applic TOPICAL DAILY RF: 0 Eucerin Original Lotion 1 applic TOPICAL BID RF: 0 trazodone 50 mg Tablet 25 mg PO BEDTIME RF: 0 lorazepam 0.5 mg Tablet 0.5 mg PO Q6HR PRN (Reason: Anxiety) RF: 0 metoprolol succinate 25 mg tablet extended release 24 hr 25 mg PO BID RF: 0 Mucinex DM 30-600 mg Tablet Extended Release 12 Hr 1 tab PO Q12H PRN (Reason: cough, congestion) RF: 0 Eliquis 5 mg tablet 5 mg PO BID RF: 0 Referrals: Bri Vargas MD [Primary Care Provider] -
[2020-12-14 20:14] LABS: Add Manual Diff / Slide Review NO; Basophils Absolute Auto 100 /uL (0-100); Basophils Percent Auto 1.2 % (0-2); Eosinophils Absolute Auto 100 /uL (0-450); Eosinophils Percent Auto 1.7 % (2-4); Hematocrit 32.7 % (36-46); Hemoglobin 10.8 g/dL (12.0-16.0); Lymphocytes Absolute Auto 1100 /uL (1100-4500); Lymphocytes Percent Auto 14.1 % (25-40); Mean Corpuscular HGB Conc 32.9 % (30-36); Mean Corpuscular Hemoglobin 32.2 PG (26-34); Mean Corpuscular Volume 97.8 fL (80-100); Monocytes Absolute Auto 700 /uL (0-900); Monocytes Percent Auto 8.7 % (3-14); Neutrophils Absolute Auto 5600 /uL (1500-7000); Neutrophils Percent Auto 74.3 % (50-75); Platelet Count 200 X10^3/uL (150-400); Red Blood Cell Count 3.34 X10^6/uL (4.0-5.2); Red Cell Distribution Width 13.9 % (11.6-14.8); White Blood Cell Count 7.6 X10^3/uL (4.5-11.0)
[2020-12-14 20:23] LABS: INR 1.2 (0.9-1.3); Prothrombin Time 14.1 SECONDS (10.1-12.7)
[2020-12-14 20:26] LABS: PTT Partial Thromboplastin Tim 35 SECONDS (26.4-36.2)
[2020-12-14 20:29] LABS: BUN Creatinine Ratio 51.6 (6-22); Blood Urea Nitrogen 64 mg/dL (7-17); Calcium 8.7 mg/dL (8.4-10.2); Carbon Dioxide 22 mmol/L (22-32); Chloride 111 mmol/L (98-107); Estimated Glomerular Filt Rate 42.6 mL/min (>60); Glucose 88 mg/dL (80-110); HEMOLYSIS < 15 (0-50); Potassium 4.2 mmol/L (3.4-5.1); Sodium 142 mmol/L (137-145)
[2020-12-15] VITALS: BP 175/84; PULSE 70; O2SAT 93
== END 2020-12-15 | disposition home or self-care (01) ==
PROVIDERS: Emergency Provider Emergency Medicine; PCP Internal Medicine
DX: R04.0 Epistaxis (principal); Z79.01 Long term (current) use of anticoagulants
CPT/HCPCS: 30903; 36415; 80048; 85025; 85610; 85730; 99283

== ENCOUNTER → 2020-12-20 07:57 | Outpatient (ROUT) | payer MEDICARE, MEDICAID, SELFPAY ==
[2020-11-01 11:22] VITALS: BMI 36.6
[2020-12-20 09:40] LABS: BUN Creatinine Ratio 29.3 (6-22); Blood Urea Nitrogen 36 mg/dL (7-17); Calcium 8.1 mg/dL (8.4-10.2); Carbon Dioxide 22 mmol/L (22-32); Chloride 113 mmol/L (98-107); Glucose 90 mg/dL (80-110); HEMOLYSIS < 15 (0-50); Potassium 3.8 mmol/L (3.4-5.1); Sodium 142 mmol/L (137-145)
== END ==
PROVIDERS: PCP Internal Medicine; Visit Provider Nurse Practitioner Family
DX: N18.9 Chronic kidney disease, unspecified (principal)
CPT/HCPCS: 36415; 80048

== ENCOUNTER → 2021-01-10 08:07 | Outpatient (ROUT) | payer MEDICARE, MEDICAID, SELFPAY ==
[2020-11-01 11:22] VITALS: BMI 36.6
[2021-01-10 09:11] LABS: BUN Creatinine Ratio 34.2 (6-22); Blood Urea Nitrogen 55 mg/dL (7-17); Calcium 8.2 mg/dL (8.4-10.2); Carbon Dioxide 24 mmol/L (22-32); Chloride 107 mmol/L (98-107); Estimated Glomerular Filt Rate 31.5 mL/min (>60); Glucose 79 mg/dL (80-110); HEMOLYSIS < 15 (0-50); Potassium 3.8 mmol/L (3.4-5.1); Sodium 140 mmol/L (137-145)
[2021-01-10 09:12] LABS: Add Manual Diff / Slide Review NO; Basophils Absolute Auto 0 /uL (0-100); Basophils Percent Auto 0.5 % (0-2); Eosinophils Absolute Auto 300 /uL (0-450); Eosinophils Percent Auto 4.7 % (2-4); Hematocrit 33.3 % (36-46); Hemoglobin 10.9 g/dL (12.0-16.0); Lymphocytes Absolute Auto 800 /uL (1100-4500); Lymphocytes Percent Auto 14.2 % (25-40); Mean Corpuscular HGB Conc 32.6 % (30-36); Mean Corpuscular Hemoglobin 32.1 PG (26-34); Mean Corpuscular Volume 98.4 fL (80-100); Monocytes Absolute Auto 600 /uL (0-900); Monocytes Percent Auto 12.1 % (3-14); Neutrophils Absolute Auto 3700 /uL (1500-7000); Neutrophils Percent Auto 68.5 % (50-75); Platelet Count 223 X10^3/uL (150-400); Red Blood Cell Count 3.38 X10^6/uL (4.0-5.2); Red Cell Distribution Width 13.6 % (11.6-14.8); White Blood Cell Count 5.4 X10^3/uL (4.5-11.0)
== END ==
PROVIDERS: PCP Internal Medicine; Visit Provider Nurse Practitioner Family
DX: N18.9 Chronic kidney disease, unspecified (principal); D64.9 Anemia, unspecified
CPT/HCPCS: 36415; 80048; 85025

== ENCOUNTER 2021-01-10 09:45 | Outpatient (RCR) | payer MEDICARE, MEDICAID, SELFPAY ==
[2020-11-01 11:22] VITALS: BMI 36.6
--- NOTE | 2021-01-05 17:16 | PT.OIE ---
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 Past Surgical History (Last Reviewed 06/27/20 @ 10:18 by Beto Rice DO) History of Achilles tendon repair History of esophagogastroduodenoscopy (EGD) Status post creation of arteriovenous fistula Visit Care Team Role Provider Type Bri Vargas MD Attending Provider Physician Primary Care Provider Referring Provider Specialty: Medical Address: [address], [address] Email: Physical Therapy Initial Evaluation PT-OP-A Visit Information Start: 01/03/21 08:48 Freq: Status: Active Protocol: Document 01/03/21 09:50 [facility] (Rec: 01/03/21 10:00 [facility] [id number]) Out-Patient Physical Therapy Visit Information Visit Information Visit Type Initial Evaluation Visit Start Time 09:45 Visit Stop Time 10:30 Total Visit Minutes 45 Visit Number 1 PT-OP-B Current Condition Start: 01/03/21 08:48 Freq: Status: Active Protocol: Document 01/03/21 09:50 [facility] (Rec: 01/03/21 10:00 [facility] [id number]) Current Condition History of Current Condition Onset Date chronic Current Complaints tail bone and low back pain History of Current Condition pt complains of tail bone pain that she has had for 50 years . She had broke her tailbone as a child and then her births were very hard. She had a posterior and after that she had severe pain. Now walking she feels like every step she takes she has more pain and after 10 steps she has to bend over to ease the pain. She wals with a front wheeled walker. pt leans to the left in sitting but she notes she doesn't feel pain until she moves. Sitting isn' t a problem. Standing she feels its her knees that causes her pain and standing its her tailbone. She does sit with a coushin. Prior Treatments and Tests hx of left sided ruptured achiles tendon 1988 when she was 38 years old Xrays taken revie L4-5 and L5- S1 stenosis Treatment Goals Patient/Caregiver Goals Debi's goals include being able to walk longer distance without pain Current Functional Impairments (Reported) Functional Limitations- Mobility/Gait pain when walking and needs to use a fww due to coccyx and low back pain PT-OP-C Subjective Start: 01/03/21 08:48 Freq: Status: Active Protocol: Document 01/03/21 09:45 [facility] (Rec: 01/05/21 08:36 [facility] [email or web address]) OP-PT Pain Assessment Location sacrum Intensity 4 Scale Used Numeric (0 - 10) tailbone Pain Location Details tailbone Intensity 4 Scale Used Numeric (0 - 10) Pain Aggravating Factors Walking PT-OP-F Manual Assessment Start: 01/03/21 08:48 Freq: Status: Active Protocol: Document 01/03/21 09:45 [facility] (Rec: 01/05/21 08:36 [facility] [email or web address]) Manual Assessments Soft Tissue Assessment Soft Tissue Mobility Assessment tightness and muscle guarding right>Left side gluteals, piriformis, attachments to the sacral DANIEL's Joint Mobility Assessment Joint Mobility Assessment sacrum is in a nutated position with increased lordosis of the lumbar spine Decreased hip ER mobility on the right PT-OP-I Pelvic Floor Start: 01/03/21 08:48 Freq: Status: Active Protocol: Document 01/03/21 09:45 [facility] (Rec: 01/05/21 08:32 [facility] [email or web address]) Pelvic Floor Assessment Urine Pelvic Floor Surgery No PT-OP-J Posture/Palpation/Skin Start: 01/03/21 08:48 Freq: Status: Active Protocol: Document 01/03/21 09:45 [facility] (Rec: 01/03/21 11:13 [facility] [email or web address]) Posture Evaluation Comments Posture Comments pt is using a walker to help her with balance but also due to sacral and tail bone pain, she has an exxagerated lumbar lordosis but also stands in a flexed forward posture. In sitting she leans away from the right side leaning to the left Palpation Assessment Location coccyx bone Palpation Findings Soft Tissue Tightness,Spasm, Tenderness Palpation Details tenderness at the coccyx, coccygeus and deep pelvic floor attachments to the coccyx bone sacrum Palpation Findings Soft Tissue Tightness,Spasm, Muscle Guarding,Tenderness Palpation Details pt is very tender along the DANIEL's of the sacrum bilaterally, she is tender to palpation at the piriformis attachments R>L Skin Assessment Other Assessments Skin Assessment Comments the skin in the intergluteal cleft is red and swollen with visable skin tearing in this region. Pt was notified of this and she would benefit from seeing wound care or obtaining ointment for this area. PT-OP-K Range of Motion Start: 01/03/21 08:48 Freq: Status: Active Protocol: Document 01/03/21 09:45 [facility] (Rec: 01/05/21 08:36 [facility] [email or web address]) Hip Goniometric Range of Motion Hip ROM Limitations Hip ROM Limitations Soft Tissue Tightness Comments limited in right sided hip mobility in ER as compared to the left tightness in the iliopsoasd bilaterally with decreased hip extension PT-OP-M Strength Start: 01/03/21 08:48 Freq: Status: Active Protocol: Document 01/03/21 09:45 [facility] (Rec: 01/05/21 08:45 [facility] [email or web address]) Hip Strength Hip Manual Muscle Testing Right Extension (S1) 2+ Poor+ Abduction 2+ Poor+ External Rotation 2+ Poor+ Left Extension (S1) 2+ Poor+ Abduction 2+ Poor+ External Rotation 2+ Poor+ PT-OP-Q Treatments Start: 01/03/21 08:48 Freq: Status: Active Protocol: Document 01/03/21 09:45 [facility] (Rec: 01/03/21 11:10 [facility] [email or web address]) Therapeutic Exercises Supine Exercises miracle ball release with balls placed near the sacral DANIEL's bilaterally Side bilateral Comments pt able to tolerate the release, right greater than left sided tightness hip roll outs bilaterally Reps/Minutes 3 x 10 reps Comments no resistance single knee to chest stretch Reps/Minutes 1-2 min each side x 2 reps Manual Therapy Treatment Soft Tissue Mobilization STM of the sacram muscle attachments B Body Position Prone Comments pt positioned on the prone body pillow and she tolerated this well for STM, she is tighter on her right side than her left side of the pirformis and sacral muscle attachments PT-OP-T Assessment and Plan Start: 01/03/21 08:48 Freq: Status: Active Protocol: Document 01/03/21 09:45 [facility] (Rec: 01/05/21 08:55 [facility] [id number]) Physical Therapy Assessment Rehab Potential Rehabilitation Potential Good Evaluation Complexity Number of Personal Factors/Comorbidities 0 Number of Body Systems Impaired 1-2 Clinical Presentation at Evaluation Stable Impairments Impairments Activity Tolerance,Functional Activities,Functional Mobility ,Gait,Pain,Posture,ROM Goals pt is able to wak 15-20 minutes without tailbone pain Impairment tailbone pain with walking [facility] Goal (LTG) pt is able to ambulate 15-20 minutes without c/o tailbone pain LTG Duration 8 weeks Pt is instructed in a home stretching and stabilization program Impairment pt lacks a home exercise program [facility] Goal (LTG) pt is independent with a HEP for stretching the hips and low back and for stabilization of the SI joint and low back LTG Duration 8 weeks Decreased muscle spasm and guarding of the gluteals and piriformis Impairment Muscle guarding and spasm of the gluteals and piriformis musculature [facility] Goal (LTG) Debi has a overall reduction in muscle guarding and spasm of the gluteals and piriformis LTG Duration 8 weeks pt is able to sit straight up in a chair without having to lean to the left Impairment pain prevents Debi from sitting symmetrical [facility] Goal (LTG) Debi is able to sit in good posture without increased pain onto her sacrum or tailbone One Impairment pain to palpation on either side of the sacrum and coccyx Short Term Goal (STG) with gentle massage and stretching Debi is able to tolerate palpation to the sacrum and coccyx bone STG Duration 4 weeks Assessment Summary Assessment Debi is a 70 year old female who presents to PT today with long standing history of coccyx and sacral pain. Debi's pain became pronounced with her first vaginal delivery of posterior occiput baby. She reports she has had pain since this time and has never had treatments for her tailbone pain. At this time walking is what brings on her pain the most and she is very limited in how far she is able to walk. She uses a fww due to her pain in her tailbone and her knee pain. X-rays have been taken and show L4-5 L5-S1 stenosis. Debi has a history of colon cancer, chronic A fib, chronic kidney disease, and osteoarthritis. With examination today Debi is very tender to palpation all along the borders of the sacrum. She is guarded and tight in her gluteal musculature especially the piriformis right greater than left. I was able to palpate the coccyx but due to muscle guarding I am unable to feel if it is in a flexed position. She has a skin tear in the gluteal cleft region that was red and small amount of bleeding was present. She would benefit from having this looked at and possibly some medicated ointment for this prior to coccyx work. She does report her skin is very sensitive and tears easily. I did start her today with gentle STM along the gluteals as well as gentle stretches she can to do start relaxing the gluteals. I had her work with miracle balls for gentle self release of the gluteals and she was able to relax into these and felt some relief of her tension. Debi is a good candidate for PT and treatment will focus on pain relief, releasing tension in the muscles that attachment to the sacrum and coccyx, manual therapy techniques and home stretching/stabilization program Physical Therapy Plan Frequency and Duration Frequency of Treatment 2x/Week Duration of Treatment 8 Plan of Care Start Date 01/03/21 Plan of Care End Date 02/28/21 Therapeutic Interventions Therapeutic Interventions Home Exercise Program,Manual Therapy,Patient/Caregiver Education,Self-Care/Home Management,Soft Tissue Mobilization,Therapeutic Exercises Modalities Ultrasound Next Visit Focus/Plan Next Note Type Treatment Note Next Visit Plan begin with gentle stretches, use MFR balls, manual therapy work along the sacrum and coccyx
--- NOTE | 2021-01-10 17:24 | PT.OTN ---
Current Diagnoses Pain, unspecified (01/10/21) Physical Therapy Treatment Note PT-OP-A Visit Information Start: 01/03/21 08:48 Freq: Status: Active Protocol: Document 01/10/21 09:52 [facility] (Rec: 01/10/21 10:09 [facility] [id number]) Out-Patient Physical Therapy Visit Information Visit Information Visit Type Treatment Note Visit Start Time 09:45 Visit Stop Time 10:30 Total Visit Minutes 45 Visit Number 2 PT-OP-B Current Condition Start: 01/03/21 08:48 Freq: Status: Active Protocol: Document 01/03/21 09:50 [facility] (Rec: 01/03/21 10:00 [facility] [id number]) Current Condition History of Current Condition Onset Date chronic Current Complaints tail bone and low back pain History of Current Condition pt complains of tail bone pain that she has had for 50 years . She had broke her tailbone as a child and then her births were very hard. She had a posterior and after that she had severe pain. Now walking she feels like every step she takes she has more pain and after 10 steps she has to bend over to ease the pain. She wals with a front wheeled walker. pt leans to the left in sitting but she notes she doesn't feel pain until she moves. Sitting isn' t a problem. Standing she feels its her knees that causes her pain and standing its her tailbone. She does sit with a coushin. Prior Treatments and Tests hx of left sided ruptured achiles tendon 1988 when she was 38 years old Xrays taken revie L4-5 and L5- S1 stenosis Treatment Goals Patient/Caregiver Goals Debi's goals include being able to walk longer distance without pain Current Functional Impairments (Reported) Functional Limitations- Mobility/Gait pain when walking and needs to use a fww due to coccyx and low back pain PT-OP-C Subjective Start: 01/03/21 08:48 Freq: Status: Active Protocol: Document 01/10/21 09:52 [facility] (Rec: 01/10/21 10:09 [facility] [id number]) OP-PT Subjective Patient Comments Patient Comments pt reports she was pretty sore for a few days after last treatment. She has been putting ulcer cream on her open wound area in the gluteals. PT-OP-F Manual Assessment Start: 01/03/21 08:48 Freq: Status: Active Protocol: Document 01/03/21 09:45 [facility] (Rec: 01/05/21 08:36 [facility] [email or web address]) Manual Assessments Soft Tissue Assessment Soft Tissue Mobility Assessment tightness and muscle guarding right>Left side gluteals, piriformis, attachments to the sacral DANIEL's Joint Mobility Assessment Joint Mobility Assessment sacrum is in a nutated position with increased lordosis of the lumbar spine Decreased hip ER mobility on the right PT-OP-I Pelvic Floor Start: 01/03/21 08:48 Freq: Status: Active Protocol: Document 01/03/21 09:45 [facility] (Rec: 01/05/21 08:32 [facility] [email or web address]) Pelvic Floor Assessment Urine Pelvic Floor Surgery No PT-OP-J Posture/Palpation/Skin Start: 01/03/21 08:48 Freq: Status: Active Protocol: Document 01/03/21 09:45 [facility] (Rec: 01/03/21 11:13 [facility] [email or web address]) Posture Evaluation Comments Posture Comments pt is using a walker to help her with balance but also due to sacral and tail bone pain, she has an exxagerated lumbar lordosis but also stands in a flexed forward posture. In sitting she leans away from the right side leaning to the left Palpation Assessment Location coccyx bone Palpation Findings Soft Tissue Tightness,Spasm, Tenderness Palpation Details tenderness at the coccyx, coccygeus and deep pelvic floor attachments to the coccyx bone sacrum Palpation Findings Soft Tissue Tightness,Spasm, Muscle Guarding,Tenderness Palpation Details pt is very tender along the DANIEL's of the sacrum bilaterally, she is tender to palpation at the piriformis attachments R>L Skin Assessment Other Assessments Skin Assessment Comments the skin in the intergluteal cleft is red and swollen with visable skin tearing in this region. Pt was notified of this and she would benefit from seeing wound care or obtaining ointment for this area. PT-OP-K Range of Motion Start: 01/03/21 08:48 Freq: Status: Active Protocol: Document 01/03/21 09:45 [facility] (Rec: 01/05/21 08:36 [facility] [email or web address]) Hip Goniometric Range of Motion Hip ROM Limitations Hip ROM Limitations Soft Tissue Tightness Comments limited in right sided hip mobility in ER as compared to the left tightness in the iliopsoasd bilaterally with decreased hip extension PT-OP-M Strength Start: 01/03/21 08:48 Freq: Status: Active Protocol: Document 01/03/21 09:45 [facility] (Rec: 01/05/21 08:45 [facility] [email or web address]) Hip Strength Hip Manual Muscle Testing Right Extension (S1) 2+ Poor+ Abduction 2+ Poor+ External Rotation 2+ Poor+ Left Extension (S1) 2+ Poor+ Abduction 2+ Poor+ External Rotation 2+ Poor+ PT-OP-Q Treatments Start: 01/03/21 08:48 Freq: Status: Active Protocol: Document 01/10/21 09:52 [facility] (Rec: 01/10/21 10:09 [facility] [id number]) Therapeutic Exercises Supine Exercises manual supine hamstring stretch Reps/Minutes 60 seconds Comments pt shown seated hamstring stretch for home miracle ball release with balls placed near the sacral DANIEL's bilaterally Side bilateral Comments pt able to tolerate the release, right greater than left sided tightness hip roll outs bilaterally Reps/Minutes 3 x 10 reps Comments no resistance single knee to chest stretch Reps/Minutes 1-2 min each side x 2 reps Manual Therapy Treatment Soft Tissue Mobilization STM of the sacram muscle attachments B Body Position Prone Comments pt positioned on the prone body pillow and she tolerated this well for STM, she is tighter on her right side than her left side of the pirformis and sacral muscle attachments PT-OP-T Assessment and Plan Start: 01/03/21 08:48 Freq: Status: Active Protocol: Document 01/10/21 09:45 [facility] (Rec: 01/10/21 17:24 [facility] [email or web address]) Physical Therapy Assessment Assessment Summary Assessment Debi tolerated treatment much better today and wasn't as sore along the sacral attachments. She did still have a small open area in the gluteal cleft but it wasn't as red today. She also has a pressure spot on her left ischial region that was red. I talked to her about this and recommended frequent positional changes Physical Therapy Plan Frequency and Duration Frequency of Treatment 2x/Week Duration of Treatment 8 Plan of Care Start Date 01/03/21 Plan of Care End Date 02/28/21 Therapeutic Interventions Therapeutic Interventions Home Exercise Program,Manual Therapy,Patient/Caregiver Education,Self-Care/Home Management,Soft Tissue Mobilization,Therapeutic Exercises Modalities Ultrasound Next Visit Focus/Plan Next Note Type Treatment Note Next Visit Plan begin with gentle stretches, progress stretching routine, use MFR balls, manual therapy work along the sacrum and coccyx
== END 2021-07-11 08:31 ==
LOC: PHYS 09:45
PROVIDERS: PCP Internal Medicine; Referring Provider Internal Medicine; Visit Provider Internal Medicine
DX: R52 Pain, unspecified (principal)
CPT/HCPCS: 97110; 97140; 97161

== ENCOUNTER → 2021-01-24 08:16 | Outpatient (ROUT) | payer MEDICARE, MEDICAID, SELFPAY ==
[2020-11-01 11:22] VITALS: BMI 36.6
[2021-01-24 11:02] LABS: Vitamin B12 948 pg/mL (239-931)
== END ==
PROVIDERS: PCP Internal Medicine; Visit Provider Internal Medicine
DX: E53.8 Deficiency of other specified B group vitamins (principal)
CPT/HCPCS: 36415; 82607

== ENCOUNTER → 2021-02-21 07:57 | Outpatient (ROUT) | payer MEDICARE, MEDICAID, SELFPAY ==
[2020-11-01 11:22] VITALS: BMI 36.6
[2021-02-21 09:23] LABS: BUN Creatinine Ratio 28.1 (6-22); Blood Urea Nitrogen 41 mg/dL (7-17); Calcium 8.2 mg/dL (8.4-10.2); Carbon Dioxide 25 mmol/L (22-32); Chloride 110 mmol/L (98-107); Estimated Glomerular Filt Rate 35.3 mL/min (>60); Glucose 87 mg/dL (80-110); HEMOLYSIS < 15 (0-50); Potassium 3.8 mmol/L (3.4-5.1); Sodium 141 mmol/L (137-145)
== END ==
PROVIDERS: PCP Internal Medicine; Visit Provider Nurse Practitioner Family
DX: N18.9 Chronic kidney disease, unspecified (principal)
CPT/HCPCS: 36415; 80048

== ENCOUNTER → 2021-03-14 08:19 | Outpatient (ROUT) | payer MEDICARE, MEDICAID, SELFPAY ==
[2020-11-01 11:22] VITALS: BMI 36.6
[2021-03-14 10:02] LABS: Carcinoembryonic Antigen 1.2 ng/mL (0.1-3.0)
== END ==
PROVIDERS: PCP Internal Medicine; Visit Provider Nurse Practitioner Gerontology
DX: C18.7 Malignant neoplasm of sigmoid colon (principal)
CPT/HCPCS: 36415; 82378

== ENCOUNTER → 2021-04-04 08:28 | Outpatient (ROUT) | payer MEDICARE, MEDICAID, SELFPAY ==
[2020-11-01 11:22] VITALS: BMI 36.6
[2021-04-04 12:14] LABS: BUN Creatinine Ratio 25.8 (6-22); Blood Urea Nitrogen 41 mg/dL (7-17); Calcium 8.4 mg/dL (8.4-10.2); Carbon Dioxide 28 mmol/L (22-32); Chloride 108 mmol/L (98-107); Glucose 73 mg/dL (80-110); HEMOLYSIS < 15 (0-50); Potassium 4.2 mmol/L (3.4-5.1); Sodium 143 mmol/L (137-145)
== END ==
PROVIDERS: PCP Internal Medicine; Visit Provider Nurse Practitioner Family
DX: N18.9 Chronic kidney disease, unspecified (principal)
CPT/HCPCS: 36415; 80048

== ENCOUNTER → 2021-04-14 08:59 | Outpatient (CLI) | payer MEDICARE, MEDICAID, SELFPAY ==
[2021-04-05 14:08] VITALS: BMI 36.6
--- NOTE | 2021-04-14 | DI.MG.S_ITS ---
BILATERAL DIGITAL DIAGNOSTIC MAMMOGRAM 3D/2D: 04/14/2021 CLINICAL: Baseline exam. Right breast pain. No prior exams were available for comparison. There are scattered fibroglandular elements in both breasts. There are benign vascular calcifications in both breasts. No significant masses, calcifications, or other findings are seen in either breast. IMPRESSION: BENIGN There is no abnormality seen in either breast to correspond with the diffuse pain, however, clinical followup is recommended. There is no mammographic evidence of malignancy. A 1 year screening mammogram is recommended. This exam was interpreted at Station ID: [id number]. NOTE: For mammograms, a report in lay terms will be sent to the patient. Approximately 15% of breast malignancies will not be visualized mammographically. In the management of a palpable breast mass, a negative mammogram must not discourage biopsy of a clinically suspicious lesion. Electronically Signed By: Nolan howell/desiree:04/14/2021 09:34:28 letter sent: Clinical Evaluation ACR BI-RADS Category 2: Benign Finding(s) [id number]
== END ==
PROVIDERS: PCP Internal Medicine; Referring Provider Registered Nurse; Visit Provider Registered Nurse
DX: N64.4 Mastodynia (principal)
CPT/HCPCS: 77066; G0279

== ENCOUNTER → 2021-05-01 15:06 | Outpatient (CLI) | payer MEDICARE, MEDICAID, SELFPAY ==
[2021-04-05 14:08] VITALS: BMI 36.6
--- NOTE | 2021-05-01 15:08 | DI.CT.S_ITS ---
PROCEDURE: CT CHEST WO CON INDICATIONS: Chronic cough TECHNIQUE: Noncontrast 5 mm thick sections acquired from the pulmonary apices to the posterior costophrenic angles. 1 mm lung window, 5 mm thick coronal and sagittal and 7 mm axial MIP reformats were then acquired. For radiation dose reduction, the following was used: automated exposure control, adjustment of mA and/or kV according to patient size. COMPARISON: [facility], CT, CT CHEST ABD PEL W CON, 06/16/2020, 15:39. FINDINGS: Image quality: Excellent. Lungs and pleura: There are multiple ill-defined rounded ground-glass densities throughout the bilateral lung parenchyma, worst in the right lower lobe. No pleural effusions or pneumothorax. Central and peripheral airways are patent and normal in caliber. Mediastinum: Heart size is enlarged. There is moderate calcification of the coronary vasculature. No pericardial effusion. No mediastinal adenopathy by size criteria. Thoracic aorta and central pulmonary arteries are normal in size. Esophagus is normal in caliber. No hiatal hernia. Bones and chest wall: No suspicious bony lesions. No vertebral body compression fractures. No axillary or supraclavicular adenopathy by size criteria. Thyroid gland is grossly unremarkable on noncontrast imaging . Abdomen: Visualized portions of the upper abdomen demonstrate calculi within the gallbladder lumen, as well as a nodular hepatic contour. IMPRESSION: 1. Mild degree of patchy bilateral ground-glass pulmonary opacity, consistent with atypical pneumonia versus bronchiolitis. 2. Coronary artery disease. 3. Cholelithiasis. 4. Cardiomegaly. 5. Findings suggestive of cirrhosis. Dictated by: Coty Sommers M.D. on 05/01/2021 at 15:49 Approved by: Coty Sommers M.D. on 05/01/2021 at 16:52
== END ==
PROVIDERS: PCP Internal Medicine; Referring Provider Nurse Practitioner Gerontology; Visit Provider Nurse Practitioner Gerontology
DX: R05.3 Chronic cough (principal); R91.8 Other nonspecific abnormal finding of lung field; I25.10 Atherosclerotic heart disease of native coronary artery without angina pectoris; K80.20 Calculus of gallbladder without cholecystitis without obstruction; I51.7 Cardiomegaly
CPT/HCPCS: 71250

== ENCOUNTER → 2021-05-02 08:08 | Outpatient (ROUT) | payer MEDICARE, MEDICAID, SELFPAY ==
[2021-04-05 14:08] VITALS: BMI 36.6
[2021-05-02 09:31] LABS: BUN Creatinine Ratio 26.7 (6-22); Blood Urea Nitrogen 32 mg/dL (7-17); Calcium 8.5 mg/dL (8.4-10.2); Carbon Dioxide 22 mmol/L (22-32); Chloride 110 mmol/L (98-107); Estimated Glomerular Filt Rate 44.3 mL/min (>60); Glucose 79 mg/dL (80-110); HEMOLYSIS < 15 (0-50); Sodium 140 mmol/L (137-145)
== END ==
PROVIDERS: PCP Internal Medicine; Visit Provider Nurse Practitioner Family
DX: N18.9 Chronic kidney disease, unspecified (principal)
CPT/HCPCS: 36415; 80048

== ENCOUNTER → 2021-05-16 07:53 | Outpatient (ROUT) | payer MEDICARE, MEDICAID, SELFPAY ==
[2021-04-05 14:08] VITALS: BMI 36.6
[2021-05-16 08:33] LABS: Add Manual Diff / Slide Review NO; Basophils Absolute Auto 100 /uL (0-100); Basophils Percent Auto 1.1 % (0-2); Eosinophils Absolute Auto 400 /uL (0-450); Eosinophils Percent Auto 7.6 % (2-4); Hematocrit 35.3 % (36-46); Hemoglobin 11.8 g/dL (12.0-16.0); Lymphocytes Absolute Auto 900 /uL (1100-4500); Lymphocytes Percent Auto 14.7 % (25-40); Mean Corpuscular HGB Conc 33.4 % (30-36); Mean Corpuscular Hemoglobin 32.3 PG (26-34); Mean Corpuscular Volume 96.7 fL (80-100); Monocytes Absolute Auto 800 /uL (0-900); Monocytes Percent Auto 13.9 % (3-14); Neutrophils Absolute Auto 3700 /uL (1500-7000); Neutrophils Percent Auto 62.7 % (50-75); Platelet Count 242 X10^3/uL (150-400); Red Blood Cell Count 3.65 X10^6/uL (4.0-5.2); Red Cell Distribution Width 13.7 % (11.6-14.8); White Blood Cell Count 5.9 X10^3/uL (4.5-11.0)
[2021-05-16 08:51] LABS: Erythrocyte Sedimentation Rate 67 MM/HR (0-20)
[2021-05-16 08:56] LABS: Alanine Aminotransferase 20 IU/L (<35); Albumin 3.3 g/dL (3.5-5.0); Albumin Globulin Ratio 0.9 (1.0-2.8); Alkaline Phosphatase 108 U/L (38-126); Aspartate Aminotransferase 30 IU/L (14-36); BUN Creatinine Ratio 25.4 (6-22); Bilirubin Total 0.5 mg/dL (0.2-1.3); Blood Urea Nitrogen 36 mg/dL (7-17); Calcium 8.5 mg/dL (8.4-10.2); Carbon Dioxide 26 mmol/L (22-32); Chloride 107 mmol/L (98-107); Estimated Glomerular Filt Rate 36.5 mL/min (>60); Globulin 3.7 g/dL (1.7-4.1); Glucose 98 mg/dL (80-110); HEMOLYSIS < 15 (0-50); Potassium 4.1 mmol/L (3.4-5.1); Sodium 139 mmol/L (137-145)
[2021-05-16 09:00] LABS: NT-proBNP (BNP-Adult 18+) 1280 pg/mL (<125)
== END ==
PROVIDERS: PCP Internal Medicine; Visit Provider Internal Medicine
DX: M30.1 Polyarteritis with lung involvement [Churg-Strauss] (principal); I50.9 Heart failure, unspecified
CPT/HCPCS: 36415; 80053; 83880; 85025; 85651; 86140

== ENCOUNTER → 2021-05-23 08:28 | Outpatient (ROUT) | payer MEDICARE, MEDICAID, SELFPAY ==
[2021-04-05 14:08] VITALS: BMI 36.6
[2021-05-23 10:01] LABS: HEMOLYSIS < 15 (0-50); Potassium 3.7 mmol/L (3.4-5.1)
[2021-05-23 10:02] LABS: BUN Creatinine Ratio 37.9 (6-22); Blood Urea Nitrogen 69 mg/dL (7-17); Calcium 8.2 mg/dL (8.4-10.2); Carbon Dioxide 27 mmol/L (22-32); Chloride 109 mmol/L (98-107); Estimated Glomerular Filt Rate 27.4 mL/min (>60); Glucose 82 mg/dL (80-110); Sodium 143 mmol/L (137-145)
== END ==
PROVIDERS: PCP Internal Medicine; Visit Provider Internal Medicine
DX: I50.9 Heart failure, unspecified (principal)
CPT/HCPCS: 36415; 80048

== ENCOUNTER → 2021-06-14 12:11 | Outpatient (CLI) | payer MEDICARE, MEDICAID, SELFPAY ==
[2021-04-05 14:08] VITALS: BMI 36.6
--- NOTE | 2021-06-14 12:22 | DI.CT.S_ITS ---
PROCEDURE: CT CHEST ABDOMEN WO CON INDICATIONS: Other specified diseases of liver TECHNIQUE: After the administration of oral contrast, 5 mm thick sections acquired from the pulmonary apices to the iliac crests. 5 mm thick coronal and sagittal reformats acquired, with additional 7 mm coronal MIP reformats through the lungs. For radiation dose reduction, the following was used: automated exposure control, adjustment of mA and/or kV according to patient size. COMPARISON: [facility], CT, CT CHEST ABD PEL W CON, 06/16/2020, 15:39. [facility], CT, CT CHEST WO CON, 05/01/2021, 15:23. FINDINGS: Image quality: Excellent. Evaluation of the solid parenchymal organs is limited without IV contrast. CHEST: Lungs and pleura: Patchy ground-glass opacity, [id number] severity. This is most pronounced in the right lung. Overall this is not significantly changed compared to 05/01/2021. No pleural effusions or pneumothorax. Central and peripheral airways are patent and normal in caliber. Mediastinum: Heart size is enlarged. Three-vessel coronary artery calcifications. No pericardial effusion. No mediastinal adenopathy by size criteria. Thoracic aorta and central pulmonary arteries are normal in size. Esophagus is normal in caliber. No hiatal hernia. Chest wall: No axillary or supraclavicular adenopathy by size criteria. Thyroid gland is unremarkable. ABDOMEN: Solid organs: Liver is normal in size. Gallbladder is not distended. Calcified gallstones. Pancreas is normal in contours. Spleen is normal in size. No adrenal nodules. Both kidneys are normal in size, without hydronephrosis or nephrolithiasis. Scarring at the inferior pole of the right kidney is unchanged. Peritoneum and bowel: Small and large bowel loops are normal in caliber and wall thickness. No free fluid or air. Nodes and vessels: No retroperitoneal or mesenteric adenopathy by size criteria. Minimal aortic ectasia. 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 Moderate plaque. Miscellaneous: No ventral hernias. IMPRESSION: 1. Similar patchy ground-glass opacity compared to April 2021. This is in keeping with infectious/inflammatory etiology likely the sequelae of COVID-19 pneumonia. 2. Cardiomegaly. 3. No hydronephrosis. Similar scarring at the inferior pole of the right kidney. 4. Cholelithiasis. Dictated by: Eligio Ravi M.D. on 06/14/2021 at 15:26 Approved by: Eligio Ravi M.D. on 06/14/2021 at 15:37
== END ==
PROVIDERS: PCP Internal Medicine; Referring Provider Internal Medicine; Visit Provider Internal Medicine
DX: K76.89 Other specified diseases of liver (principal); J18.8 Other pneumonia, unspecified organism; I51.7 Cardiomegaly; K80.20 Calculus of gallbladder without cholecystitis without obstruction
CPT/HCPCS: 71250; 74150

== ENCOUNTER → 2021-06-22 12:34 | Outpatient (CLI) | payer MEDICARE, MEDICAID, SELFPAY ==
[2021-04-05 14:08] VITALS: BMI 36.6
--- NOTE | 2021-06-22 | DI.ECHO.S_ITS ---
[facility]---------+ [facility] +---------+ : : [address] : : : : [place] : : : : [id number] : : : : Phone: [phone]+ Echocardiogram Report + + :Name: LELA GODINEZ Study Date: 06/22/2021 Height: 63 in : :[facility] ReadingLocation: Weight: 220 lb : : Gender: Female BSA: 2.0 m2 : :: 1950 Age: 70 yrs BP: 127/93 mmHg: :Reason For Study: SOB : :Ordering Physician: : :JASON Performed By: Ricardo Basilio : :Referring: PER MEI : + + Interpretation Summary The left ventricle is normal in size. Left ventricular systolic function appears normal without focal wall motion abnormalities. The ejection fraction is estimated to be 55-60%. LVEF appears to have slightly improved. The right ventricle is mildly dilated. The right ventricular systolic function is normal. The right ventricular systolic pressure is estimated to be at least 46 mmHg based on an estimated right atrial pressure of 3 mm Hg. Both atria are severely dilated. There is mild mitral regurgitation. There is mild aortic regurgitation. There is moderate to severe tricuspid regurgitation. The aortic root is normal size. Ascending aorta mildly dilated at 3.8 cm. Procedure: A two-dimensional transthoracic echocardiogram with color flow and Doppler was performed. Comparison is made with the echocardiogram of 12/26/2018. Overall fair image quality. The patient was in atrial fibrillation with heart rates between 63 - 71 bpm during the exam. Left Ventricle: The left ventricle is normal in size. Left ventricular wall thickness is borderline increased. Left ventricular systolic function appears normal without focal wall motion abnormalities. The ejection fraction is estimated to be 55-60%. There is a mild dyssynchronous contraction pattern, consistent with a conduction abnormality. Diastolic function could not be accurately assessed due to atrial fibrillation. Right Ventricle: The right ventricle is mildly dilated. The right ventricular systolic function is normal. Atria: Both atria are severely dilated. There is no Doppler evidence for an interatrial shunt. Mitral Valve: There is mild mitral annular calcification. There is mild mitral regurgitation. Aortic Valve: The aortic valve is trileaflet. The aortic valve opens well. The aortic valve is slightly calcified. There is mild aortic regurgitation. Tricuspid Valve: The tricuspid valve is normal. There is moderate to severe tricuspid regurgitation. The right ventricular systolic pressure is estimated to be at least 46 mmHg based on an estimated right atrial pressure of 3 mm Hg. Pulmonic Valve: The pulmonic valve is not well seen, but is grossly normal. There is mild pulmonic regurgitation. Great Vessels: The aortic root is normal size. Ascending aorta mildly dilated at 3.8 cm. The aortic arch is at the upper limits of normal in size. The IVC is of normal diameter and collapses greater than 50% with a sniff. This suggests a low right atrial pressure of 3 mm Hg. Pericardium/ Pleura There is no pericardial effusion. There is an anterior echo-free space consistent with a fat pad. There is no pleural effusion. MMode/2D Measurements & Calculations LVIDd: 5.1 cm LVOT diam: 1.7 cm LVIDs: 3.7 cm Ao root diam: 3.1 cm FS: 27.5 % asc Aorta Diam: 3.8 cm IVSd: 1.1 cm Ao Arch Diam (Prox Trans): 3.2 cm LVPWd: 1.2 cm LV lakhani. diameter/BSA (cm/m^2): 2.5 LV sys. diameter/BSA (cm/m^2): 1.8 LA A2 area: 36.1 cm2 RA long axis: 8.3 cm LA A4 area: 31.8 cm2 LA length (vol): 8.1 cm LA vol: 120.4 ml LA vol index: 59.8 ml/m2 LVLs ap4: 5.1 cm LVLd ap2: 7.3 cm LVLs ap2: 5.0 cm TAPSE_phl: 1.9 cm Doppler Measurements & Calculations Ao V2 max: 121.0 cm/sec LVOT Max Shekhar: 82.8 cm/sec Ao V2 mean: 91.7 cm/sec LV V1 max P.7 mmHg Ao max P.0 mmHg LV V1 VTI: 16.5 cm Ao mean P.0 mmHg WALI(I,D): 1.3 cm2 Ao V2 VTI: 28.6 cm WALI(V,D): 1.6 cm2 sev ratio: 0.58 WALI indexed to BSA (cm^2/m^2): 0.65 MV E max shekhar: 118.4 cm/sec TR max shekhar: 328.5 cm/sec MV dec time: 0.23 sec TR max P.2 mmHg PA V2 max: 106.0 cm/sec PA V2 mean: 71.5 cm/sec PA mean P.0 mmHg PA pr(Accel): 38.5 mmHg SV(LVOT): 37.5 ml AV VR_phl: 0.68 WALI(VTI)/BSA_phl: 0.65 Reading Physician:03:03 PM
== END ==
PROVIDERS: PCP Internal Medicine; Referring Provider Internal Medicine; Visit Provider Internal Medicine
DX: R06.02 Shortness of breath (principal); I35.1 Nonrheumatic aortic (valve) insufficiency; I34.0 Nonrheumatic mitral (valve) insufficiency; I07.1 Rheumatic tricuspid insufficiency; I37.1 Nonrheumatic pulmonary valve insufficiency
CPT/HCPCS: 93306

== ENCOUNTER → 2021-08-10 13:27 | Outpatient (CLI) | payer MEDICARE, MEDICAID, SELFPAY ==
[2021-04-05 14:08] VITALS: BMI 36.6
--- NOTE | 2021-08-10 13:29 | DI.RAD.S_ITS ---
PROCEDURE: XR KNEE RT 3V INDICATIONS: knee djd TECHNIQUE: 3 views of the knee were acquired. COMPARISON: [facility], , XR KNEE RT 3V, 04/13/2020, 11:33. FINDINGS: Bones: No fractures or dislocations. No suspicious bony lesions. Severe degenerative joint disease, most pronounced in the medial femorotibial compartment and patellofemoral compartment. Soft tissues: Trace joint effusion. No suspicious soft tissue calcifications. IMPRESSION: Severe osteoarthritis. Dictated by: Porsche Chavez M.D. on 08/10/2021 at 17:25 Approved by: Porsche Chavez M.D. on 08/10/2021 at 17:26
--- NOTE | 2021-08-10 13:29 | DI.RAD.S_ITS ---
PROCEDURE: XR KNEE LT 3V INDICATIONS: knee djd TECHNIQUE: 3 views of the knee were acquired. COMPARISON: [facility], CR, XR KNEE LT 3V, 04/13/2020, 11:33. FINDINGS: Bones: No fractures or dislocations. No suspicious bony lesions. Tricompartment degenerative change with tricompartment osteophytes. Patellofemoral joint space obliteration. Soft tissues: No joint effusion. No suspicious soft tissue calcifications. 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 Dictated by: Carlos Manuel Bar M.D. on 08/10/2021 at 15:42 Approved by: Carlos Manuel Bar M.D. on 08/10/2021 at 15:45
== END ==
PROVIDERS: PCP Internal Medicine; Referring Provider Physical Medicine & Rehabilitation; Visit Provider Physical Medicine & Rehabilitation
DX: M17.0 Bilateral primary osteoarthritis of knee (principal); M53.3 Sacrococcygeal disorders, not elsewhere classified; M19.041 Primary osteoarthritis, right hand; M19.042 Primary osteoarthritis, left hand; K92.2 Gastrointestinal hemorrhage, unspecified; I26.99 Other pulmonary embolism without acute cor pulmonale; N17.9 Acute kidney failure, unspecified; N18.9 Chronic kidney disease, unspecified
CPT/HCPCS: 20611; 73562; 99215; J0702

== ENCOUNTER → 2021-10-24 08:15 | Outpatient (ROUT) | payer MEDICARE, MEDICAID, SELFPAY ==
[2021-04-05 14:08] VITALS: BMI 36.6
[2021-10-24 08:32] LABS: Add Manual Diff / Slide Review NO; Basophils Absolute Auto 100 /uL (0-100); Basophils Percent Auto 0.9 % (0-2); Eosinophils Absolute Auto 300 /uL (0-450); Hematocrit 34.9 % (36-46); Hemoglobin 11.8 g/dL (12.0-16.0); Lymphocytes Absolute Auto 700 /uL (1100-4500); Lymphocytes Percent Auto 12.3 % (25-40); Mean Corpuscular HGB Conc 33.9 % (30-36); Mean Corpuscular Hemoglobin 32.4 PG (26-34); Mean Corpuscular Volume 95.5 fL (80-100); Monocytes Absolute Auto 600 /uL (0-900); Monocytes Percent Auto 9.6 % (3-14); Neutrophils Absolute Auto 4400 /uL (1500-7000); Neutrophils Percent Auto 72.2 % (50-75); Platelet Count 232 X10^3/uL (150-400); Red Blood Cell Count 3.65 X10^6/uL (4.0-5.2); Red Cell Distribution Width 13.6 % (11.6-14.8); White Blood Cell Count 6.1 X10^3/uL (4.5-11.0)
[2021-10-24 08:47] LABS: BUN Creatinine Ratio 30.4 (6-22); Blood Urea Nitrogen 45 mg/dL (7-17); Calcium 8.1 mg/dL (8.4-10.2); Carbon Dioxide 25 mmol/L (22-32); Chloride 110 mmol/L (98-107); Estimated Glomerular Filt Rate 37 mL/min (>60); Glucose 91 mg/dL (80-110); HEMOLYSIS < 15 (0-50); Magnesium 1.9 mg/dL (1.6-2.3); Potassium 3.8 mmol/L (3.4-5.1); Sodium 141 mmol/L (137-145)
== END ==
PROVIDERS: PCP Internal Medicine; Visit Provider Internal Medicine
DX: I11.0 Hypertensive heart disease with heart failure (principal); D50.9 Iron deficiency anemia, unspecified; D53.9 Nutritional anemia, unspecified
CPT/HCPCS: 36415; 80048; 83735; 85025

== ENCOUNTER → 2021-11-14 08:38 | Outpatient (ROUT) | payer MEDICARE, MEDICAID, SELFPAY ==
[2021-04-05 14:08] VITALS: BMI 36.6
[2021-11-14 10:40] LABS: Add Manual Diff / Slide Review NO; Basophils Absolute Auto 0 /uL (0-100); Basophils Percent Auto 0.5 % (0-2); Eosinophils Absolute Auto 400 /uL (0-450); Hematocrit 39.1 % (36-46); Lymphocytes Absolute Auto 900 /uL (1100-4500); Lymphocytes Percent Auto 19.5 % (25-40); Mean Corpuscular HGB Conc 33.3 % (30-36); Mean Corpuscular Hemoglobin 32.1 PG (26-34); Mean Corpuscular Volume 96.5 fL (80-100); Monocytes Absolute Auto 700 /uL (0-900); Neutrophils Absolute Auto 2500 /uL (1500-7000); Platelet Count 198 X10^3/uL (150-400); Red Blood Cell Count 4.06 X10^6/uL (4.0-5.2); Red Cell Distribution Width 13.5 % (11.6-14.8); White Blood Cell Count 4.5 X10^3/uL (4.5-11.0)
[2021-11-14 11:07] LABS: HEMOLYSIS < 15 (0-50); Iron 96 ug/dL (37-170)
[2021-11-14 11:08] LABS: Alanine Aminotransferase 11 IU/L (<35); Albumin Globulin Ratio 0.9 (1.0-2.8); Alkaline Phosphatase 96 U/L (38-126); Aspartate Aminotransferase 27 IU/L (14-36); BUN Creatinine Ratio 31.7 (6-22); Bilirubin Total 0.4 mg/dL (0.2-1.3); Blood Urea Nitrogen 60 mg/dL (7-17); Calcium 8.3 mg/dL (8.4-10.2); Carbon Dioxide 28 mmol/L (22-32); Chloride 101 mmol/L (98-107); Estimated Glomerular Filt Rate 28 mL/min (>60); Globulin 4.3 g/dL (1.7-4.1); Glucose 82 mg/dL (80-110); HEMOLYSIS < 15 (0-50); Potassium 3.8 mmol/L (3.4-5.1); Sodium 140 mmol/L (137-145); Total Protein 8.3 g/dL (6.3-8.2)
[2021-11-14 11:17] LABS: Percent Iron Saturation 38 % (15-50); Total Iron Binding Capacity 256 ug/dL (265-497); Transferrin 189 mg/dL (206-381)
[2021-11-14 11:46] LABS: Ferritin 243 ng/mL (11-264)
[2021-11-16 02:19] LABS: Cancer Antigen 27.29 41.2 U/mL (0.0-38.6)
== END ==
PROVIDERS: Internal Medicine Hematology & Oncology; PCP Internal Medicine; Visit Provider Nurse Practitioner Family
DX: C18.7 Malignant neoplasm of sigmoid colon (principal); N17.9 Acute kidney failure, unspecified; N18.9 Chronic kidney disease, unspecified; D64.9 Anemia, unspecified
CPT/HCPCS: 36415; 80053; 82728; 83540; 83550; 85025; 86300

== ENCOUNTER → 2021-11-14 12:58 | Outpatient (CLI) | payer MEDICARE, MEDICAID, SELFPAY ==
[2021-04-05 14:08] VITALS: BMI 36.6
--- NOTE | 2021-11-14 13:01 | DI.RAD.S_ITS ---
PROCEDURE: XR CHEST 2V INDICATIONS: Cough TECHNIQUE: 2 views of the chest were acquired. COMPARISON: [facility], CR, XR CHEST 2V, 11/27/2018, 10:05. FINDINGS: Surgical changes and devices: None. Lungs and pleura: Lungs are clear. No pleural effusions or pneumothorax. Mediastinum: Mediastinal contours are normal. Heart size is enlarged. Bones and chest wall: No suspicious bony abnormalities. Soft tissues appear unremarkable. IMPRESSION: 1. No acute process. 2. Cardiomegaly. Dictated by: Coty Sommers M.D. on 11/14/2021 at 14:12 Approved by: Coty Sommers M.D. on 11/14/2021 at 16:19
== END ==
PROVIDERS: PCP Internal Medicine; Referring Provider Internal Medicine; Visit Provider Internal Medicine
DX: C18.7 Malignant neoplasm of sigmoid colon (principal); N18.9 Chronic kidney disease, unspecified; N17.9 Acute kidney failure, unspecified; D64.9 Anemia, unspecified; R05.9 Cough, unspecified; I51.7 Cardiomegaly
CPT/HCPCS: 36415; 71046; 80053; 82728; 83540; 83550; 85025; 86300

== ENCOUNTER → 2021-11-28 08:28 | Outpatient (ROUT) | payer MEDICARE, MEDICAID, SELFPAY ==
[2021-04-05 14:08] VITALS: BMI 36.6
[2021-11-28 09:11] LABS: BUN Creatinine Ratio 32.1 (6-22); Blood Urea Nitrogen 52 mg/dL (7-17); Calcium 7.9 mg/dL (8.4-10.2); Carbon Dioxide 25 mmol/L (22-32); Chloride 108 mmol/L (98-107); Estimated Glomerular Filt Rate 34 mL/min (>60); Glucose 84 mg/dL (80-110); HEMOLYSIS < 15 (0-50); Sodium 141 mmol/L (137-145)
== END ==
PROVIDERS: PCP Internal Medicine; Visit Provider Nurse Practitioner Family
DX: I50.9 Heart failure, unspecified (principal)
CPT/HCPCS: 36415; 80048

== ENCOUNTER → 2021-12-08 15:42 | Outpatient (CLI) | payer MEDICARE, MEDICAID, SELFPAY ==
[2021-04-05 14:08] VITALS: BMI 36.6
--- NOTE | 2021-12-08 | DI.US.S_ITS ---
PROCEDURE: US PERIPH VENOUS UP EXTREM LT INDICATIONS: RULE OUT SUBCLAVIAN BLOCKAGE TECHNIQUE: Real-time imaging, as well as color and pulse Doppler interrogation, was performed of the left upper extremity deep veins from the inferior neck to the antecubital fossa. COMPARISON: None. FINDINGS: The internal jugular vein, visualized portions of the subclavian vein, axillary, and brachial veins are free of intraluminal thrombus. Where physically possible, the veins are normally compressible. Color and pulse Doppler demonstrate normal intraluminal flow, with expected phasicity and pulsatility. 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 IMPRESSION: 1. No deep venous thrombosis identified within the left upper extremity. 2. 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 If indicated, dedicated ultrasound of the arterial venous fistula could be performed. Multiple attempts were made to contact Dr. Vargas without success and so urgent finding was placed on Pacs. Dictated by: Renny Brown [facility] Interpreted: Miguelito Perry MD on 12/08/2021 at 16:45 Transcribed by: [email or web address] on 12/08/2021 at 17:15 Approved by: John Perry M.D. on 12/19/2021 at 8:08
== END ==
PROVIDERS: PCP Internal Medicine; Referring Provider Internal Medicine; Visit Provider Internal Medicine
DX: I82.612 Acute embolism and thrombosis of superficial veins of left upper extremity (principal); R22.32 Localized swelling, mass and lump, left upper limb
CPT/HCPCS: 93971

== ENCOUNTER → 2021-12-26 08:16 | Outpatient (ROUT) | payer MEDICARE, MEDICAID, SELFPAY ==
[2021-04-05 14:08] VITALS: BMI 36.6
[2021-12-26 09:37] LABS: BUN Creatinine Ratio 30.4 (6-22); Blood Urea Nitrogen 42 mg/dL (7-17); Calcium 8.2 mg/dL (8.4-10.2); Carbon Dioxide 27 mmol/L (22-32); Chloride 109 mmol/L (98-107); Estimated Glomerular Filt Rate 41 mL/min (>60); Glucose 74 mg/dL (80-110); HEMOLYSIS < 15 (0-50); Sodium 142 mmol/L (137-145)
== END ==
PROVIDERS: PCP Internal Medicine; Visit Provider Nurse Practitioner Family
DX: N18.9 Chronic kidney disease, unspecified (principal)
CPT/HCPCS: 36415; 80048

== ENCOUNTER → 2022-03-29 15:08 | Outpatient (CLI) | payer MEDICARE, MEDICAID, SELFPAY ==
[2021-04-05 14:08] VITALS: BMI 36.6
[2022-03-29 15:51] LABS: Add Manual Diff / Slide Review NO; Basophils Absolute Auto 100 /uL (0-100); Basophils Percent Auto 1.2 % (0-2); Eosinophils Absolute Auto 300 /uL (0-450); Eosinophils Percent Auto 4.9 % (2-4); Hematocrit 35.6 % (36-46); Hemoglobin 11.6 g/dL (12.0-16.0); Lymphocytes Absolute Auto 800 /uL (1100-4500); Lymphocytes Percent Auto 14.1 % (25-40); Mean Corpuscular HGB Conc 32.7 % (30-36); Mean Corpuscular Hemoglobin 31.8 PG (26-34); Mean Corpuscular Volume 97.5 fL (80-100); Monocytes Absolute Auto 600 /uL (0-900); Monocytes Percent Auto 9.4 % (3-14); Neutrophils Absolute Auto 4200 /uL (1500-7000); Neutrophils Percent Auto 70.4 % (50-75); Platelet Count 247 X10^3/uL (150-400); Red Blood Cell Count 3.65 X10^6/uL (4.0-5.2); Red Cell Distribution Width 13.5 % (11.6-14.8)
[2022-03-29 16:35] LABS: BUN Creatinine Ratio 30.8 (6-22); Blood Urea Nitrogen 49 mg/dL (7-17); Calcium 8.8 mg/dL (8.4-10.2); Carbon Dioxide 26 mmol/L (22-32); Chloride 108 mmol/L (98-107); Estimated Glomerular Filt Rate 34 mL/min (>60); Glucose 99 mg/dL (80-110); HEMOLYSIS < 15 (0-50); Potassium 5.1 mmol/L (3.4-5.1); Sodium 144 mmol/L (137-145)
== END ==
PROVIDERS: PCP Internal Medicine; Referring Provider Internal Medicine; Visit Provider Internal Medicine
DX: M62.830 Muscle spasm of back (principal); R59.9 Enlarged lymph nodes, unspecified
CPT/HCPCS: 36415; 80048; 83735; 85025

== ENCOUNTER → 2022-04-03 13:38 | Outpatient (CLI) | payer MEDICARE, MEDICAID, SELFPAY ==
[2021-04-05 14:08] VITALS: BMI 36.6
--- NOTE | 2022-04-03 | DI.US.S_ITS ---
PROCEDURE: US SOFT TISSUE HEAD AND NECK INDICATIONS: RIGHT NECK TENDERNESS TECHNIQUE: Real-time scanning was performed of the neck region of interest, with image documentation. COMPARISON: None. FINDINGS: Enlarged morphologically normal appearing right neck lymph node measuring up to 1.1 cm in maximal short axis. IMPRESSION: Enlarged right neck lymph node corresponding to the palpable abnormality measuring up to 1.1 cm. Recommend clinical correlation and follow-up. Dictated by: Renny MENON Interpreted: Tracie Gallagher MD on 04/03/2022 at 14:08 Transcribed by: IZABEL on 04/03/2022 at 14:09 Approved by: Tracie Gallagher M.D. on 04/03/2022 at 15:39
[2022-04-03 16:42] LABS: BUN Creatinine Ratio 24.1 (6-22); Blood Urea Nitrogen 42 mg/dL (7-17); Calcium 8.6 mg/dL (8.4-10.2); Carbon Dioxide 24 mmol/L (22-32); Chloride 108 mmol/L (98-107); Estimated Glomerular Filt Rate 31 mL/min (>60); Glucose 101 mg/dL (80-110); Potassium 5.3 mmol/L (3.4-5.1); Sodium 144 mmol/L (137-145)
== END ==
PROVIDERS: PCP Internal Medicine; Referring Provider Nurse Practitioner Family; Visit Provider Nurse Practitioner Family
DX: M54.2 Cervicalgia (principal); R59.9 Enlarged lymph nodes, unspecified; N18.9 Chronic kidney disease, unspecified
CPT/HCPCS: 36415; 76536; 80048

== ENCOUNTER → 2022-04-10 16:11 | Outpatient (CLI) | payer MEDICARE, MEDICAID, SELFPAY ==
[2021-04-05 14:08] VITALS: BMI 36.6
[2022-04-10 17:39] LABS: Add Manual Diff / Slide Review NO; Basophils Absolute Auto 0 /uL (0-100); Basophils Percent Auto 0.5 % (0-2); Eosinophils Absolute Auto 300 /uL (0-450); Eosinophils Percent Auto 4.7 % (2-4); Hematocrit 35.3 % (36-46); Hemoglobin 11.7 g/dL (12.0-16.0); Lymphocytes Absolute Auto 800 /uL (1100-4500); Lymphocytes Percent Auto 13.3 % (25-40); Mean Corpuscular HGB Conc 33.2 % (30-36); Mean Corpuscular Hemoglobin 32.1 PG (26-34); Mean Corpuscular Volume 96.7 fL (80-100); Monocytes Absolute Auto 500 /uL (0-900); Monocytes Percent Auto 7.7 % (3-14); Neutrophils Absolute Auto 4700 /uL (1500-7000); Neutrophils Percent Auto 73.8 % (50-75); Platelet Count 224 X10^3/uL (150-400); Red Blood Cell Count 3.65 X10^6/uL (4.0-5.2); Red Cell Distribution Width 13.3 % (11.6-14.8); White Blood Cell Count 6.3 X10^3/uL (4.5-11.0)
[2022-04-10 17:53] LABS: BUN Creatinine Ratio 27.3 (6-22); Blood Urea Nitrogen 45 mg/dL (7-17); Calcium 8.4 mg/dL (8.4-10.2); Carbon Dioxide 20 mmol/L (22-32); Chloride 111 mmol/L (98-107); Estimated Glomerular Filt Rate 33 mL/min (>60); Glucose 99 mg/dL (80-110); Potassium 4.2 mmol/L (3.4-5.1); Sodium 143 mmol/L (137-145)
[2022-04-10 18:53] LABS: Creatinine Urine Random 45.2 mg/dL; Protein (Total) Urine Random 29 mg/dL (0-12); Protein Creatinine Ratio Urine 0.64 GRAM/24H
[2022-04-13 07:19] LABS: Parathyroid Hormone Int 152 pg/mL (15-65)
[2022-04-16 15:28] LABS: HEMOLYSIS < 15 (0-50)
== END ==
PROVIDERS: PCP Internal Medicine; Referring Provider Internal Medicine Nephrology; Visit Provider Internal Medicine Nephrology
DX: N05.9 Unspecified nephritic syndrome with unspecified morphologic changes (principal); D70.9 Neutropenia, unspecified; D63.1 Anemia in chronic kidney disease; E83.30 Disorder of phosphorus metabolism, unspecified; N25.81 Secondary hyperparathyroidism of renal origin; R80.9 Proteinuria, unspecified
CPT/HCPCS: 36415; 80048; 82570; 83970; 84100; 84156; 85025

== ENCOUNTER → 2022-04-18 11:42 | Outpatient (CLI) | payer MEDICARE, MEDICAID, SELFPAY ==
[2021-04-05 14:08] VITALS: BMI 36.6
[2022-04-18 12:25] LABS: Add Manual Diff / Slide Review NO; Basophils Absolute Auto 0 /uL (0-100); Basophils Percent Auto 0.5 % (0-2); Eosinophils Absolute Auto 300 /uL (0-450); Eosinophils Percent Auto 3.6 % (2-4); Hematocrit 35.7 % (36-46); Hemoglobin 11.9 g/dL (12.0-16.0); Lymphocytes Absolute Auto 700 /uL (1100-4500); Lymphocytes Percent Auto 8.2 % (25-40); Mean Corpuscular HGB Conc 33.3 % (30-36); Mean Corpuscular Hemoglobin 32.4 PG (26-34); Mean Corpuscular Volume 97.1 fL (80-100); Monocytes Absolute Auto 700 /uL (0-900); Monocytes Percent Auto 8.7 % (3-14); Neutrophils Absolute Auto 6600 /uL (1500-7000); Platelet Count 266 X10^3/uL (150-400); Red Blood Cell Count 3.68 X10^6/uL (4.0-5.2); Red Cell Distribution Width 13.9 % (11.6-14.8); White Blood Cell Count 8.3 X10^3/uL (4.5-11.0)
[2022-04-18 12:32] LABS: HEMOLYSIS < 15 (0-50); Iron 107 ug/dL (37-170)
[2022-04-18 12:45] LABS: Percent Iron Saturation 44 % (15-50); Total Iron Binding Capacity 244 ug/dL (265-497); Transferrin 193 mg/dL (206-381)
[2022-04-18 13:30] LABS: Ferritin 186 ng/mL (11-264)
[2022-04-20 00:09] LABS: Parathyroid Hormone Int 145 pg/mL (15-65)
== END ==
PROVIDERS: PCP Internal Medicine; Referring Provider Internal Medicine Nephrology; Visit Provider Internal Medicine Nephrology
DX: D64.9 Anemia, unspecified (principal); N18.30 Chronic kidney disease, stage 3 unspecified; D70.9 Neutropenia, unspecified; D63.1 Anemia in chronic kidney disease; D50.0 Iron deficiency anemia secondary to blood loss (chronic); E83.30 Disorder of phosphorus metabolism, unspecified; N25.81 Secondary hyperparathyroidism of renal origin
CPT/HCPCS: 36415; 82728; 83540; 83550; 83970; 84100; 85025

== ENCOUNTER → 2022-04-24 07:44 | Outpatient (ROUT) | payer MEDICARE, MEDICAID, SELFPAY ==
[2021-04-05 14:08] VITALS: BMI 36.6
[2022-04-24 08:14] LABS: Add Manual Diff / Slide Review NO; Basophils Absolute Auto 0 /uL (0-100); Basophils Percent Auto 0.5 % (0-2); Eosinophils Absolute Auto 300 /uL (0-450); Eosinophils Percent Auto 4.3 % (2-4); Hematocrit 33.4 % (36-46); Hemoglobin 10.9 g/dL (12.0-16.0); Lymphocytes Absolute Auto 800 /uL (1100-4500); Mean Corpuscular HGB Conc 32.5 % (30-36); Mean Corpuscular Hemoglobin 31.8 PG (26-34); Mean Corpuscular Volume 97.7 fL (80-100); Monocytes Absolute Auto 500 /uL (0-900); Monocytes Percent Auto 8.9 % (3-14); Neutrophils Absolute Auto 4400 /uL (1500-7000); Neutrophils Percent Auto 73.3 % (50-75); Platelet Count 233 X10^3/uL (150-400); Red Blood Cell Count 3.42 X10^6/uL (4.0-5.2); Red Cell Distribution Width 13.5 % (11.6-14.8); White Blood Cell Count 5.9 X10^3/uL (4.5-11.0)
[2022-04-24 08:27] LABS: Alanine Aminotransferase 11 IU/L (<35); Albumin 3.3 g/dL (3.5-5.0); Albumin Globulin Ratio 0.8 (1.0-2.8); Alkaline Phosphatase 99 U/L (38-126); Aspartate Aminotransferase 20 IU/L (14-36); BUN Creatinine Ratio 25.7 (6-22); Bilirubin Total 0.4 mg/dL (0.2-1.3); Blood Urea Nitrogen 36 mg/dL (7-17); Calcium 7.9 mg/dL (8.4-10.2); Carbon Dioxide 25 mmol/L (22-32); Chloride 107 mmol/L (98-107); Estimated Glomerular Filt Rate 40 mL/min (>60); Globulin 4.1 g/dL (1.7-4.1); Glucose 85 mg/dL (80-110); HEMOLYSIS < 15 (0-50); Potassium 4.6 mmol/L (3.4-5.1); Sodium 140 mmol/L (137-145); Total Protein 7.4 g/dL (6.3-8.2)
[2022-04-26 10:09] LABS: Cancer Antigen 27.29 22.3 U/mL (0.0-38.6)
== END ==
PROVIDERS: PCP Internal Medicine; Visit Provider Internal Medicine Hematology & Oncology
DX: C18.7 Malignant neoplasm of sigmoid colon (principal); I82.402 Acute embolism and thrombosis of unspecified deep veins of left lower extremity
CPT/HCPCS: 36415; 80053; 85025; 86300

== ENCOUNTER → 2022-05-30 13:30 | Outpatient (ROUT) | payer MEDICARE, MEDICAID, SELFPAY ==
[2021-04-05 14:08] VITALS: BMI 36.6
[2022-05-30 14:18] LABS: Influenza A - CEPHEID Flu A NEGATIVE (NEGATIVE); Influenza B - CEPHEID Flu B NEGATIVE (NEGATIVE); Respiratory Syncytial Virus NEGATIVE (Not Detect)
== END ==
PROVIDERS: PCP Internal Medicine; Visit Provider Nurse Practitioner Family
DX: R50.9 Fever, unspecified (principal); R52 Pain, unspecified
CPT/HCPCS: 87502; 87634

== ENCOUNTER → 2022-06-11 15:48 | Outpatient (ROUT) | payer MEDICARE, MEDICAID, SELFPAY ==
[2021-04-05 14:08] VITALS: BMI 36.6
[2022-06-11 16:50] LABS: COVID-19 CEPHEID PCR (VTM/NP) Negative (Negative)
== END ==
PROVIDERS: PCP Internal Medicine; Visit Provider Internal Medicine
DX: I11.0 Hypertensive heart disease with heart failure (principal)
CPT/HCPCS: U0003; U0005

== ENCOUNTER → 2022-06-21 18:48 | Outpatient (ROUT) | payer MEDICARE, MEDICAID, SELFPAY ==
[2021-04-05 14:08] VITALS: BMI 36.6
[2022-06-21 18:55] LABS: Appearance Urine UA CLEAR; Bilirubin Urine UA NEGATIVE (NEGATIVE); Color Urine UA YELLOW; Glucose Urine UA NEGATIVE (Negative); Ketones Urine UA NEGATIVE (NEGATIVE); Leukocyte Esterase Urine UA NEGATIVE (NEGATIVE); Nitrite Urine UA NEGATIVE (Negative); Occult Blood Urine UA TRACE-INTACT (Negative); Protein Urine UA 2+ (Negative); Urobilinogen Urine UA 0.2 E.U./dL (0.2)
[2022-06-21 19:06] LABS: Bacteria Urine Few (2-10); Culture Indicated Urine Cult Not Indicated; Hyaline Casts Urine 1-5/LPF; RBC Urine 0-1/HPF (0-5/HPF); Squamous Epithelial Cell Urine 1-5 /HPF (0-5/HPF); WBC Urine 1-5/HPF (0-5/HPF)
== END ==
PROVIDERS: PCP Internal Medicine; Visit Provider Nurse Practitioner Family
DX: N39.498 Other specified urinary incontinence (principal)
CPT/HCPCS: 81001

== ENCOUNTER → 2022-06-25 11:50 | Outpatient (CLI) | payer MEDICARE, MEDICAID, SELFPAY ==
[2021-04-05 14:08] VITALS: BMI 36.6
--- NOTE | 2022-06-25 | DI.US.S_ITS ---
PROCEDURE: US THYROID INDICATIONS: ENLARGED LYMPH NODES TECHNIQUE: Real-time scanning was performed of the thyroid gland, with image documentation. COMPARISON: [facility], CT, CT CHEST ABDOMEN WO CON, 06/14/2021, 12:24. [facility], US, US SOFT TISSUE HEAD AND NECK, 04/03/2022, 13:50. FINDINGS: Right: Thyroid lobe measures 3.3 x 2 x 1.4 cm, and is homogeneous in echotexture. Left: Thyroid lobe measures 2.9 x 2.2 x 1.6 cm, and is homogenous in echotexture. Isthmus: 0.6 cm thick. Nodule number: 1. Location: Left mid Size: 0.5 x 0.5 x 0.4 cm Composition: Cystic Echogenicity: Hypoechoic Shape: wider than tall. Margins: Smooth Echogenic foci: Macro calcification. Total points: 3 ACR TI-RADS category: TR 3, mildly suspicious IMPRESSION: No significant thyroid nodules. The previously seen right neck lymph node was not evaluated. The patient could be brought back to evaluate this lymph node. Alternatively, CT neck with IV contrast could be considered for further evaluation to evaluate for additional lymph nodes and potential etiology. ACR TI-RADS definitions and recommendations: TI-RADS 1 (benign): 0 points. FNA not needed. TI-RADS 2 (not suspicious): 2 points. FNA not needed. TI-RADS 3 (mildly suspicious): 3 points. * FNA if 2.5 cm or larger, follow up if 1.5 cm or larger (at 1, 3, and 5 years). TI-RADS 4 (moderately suspicious): 4-6 points. * FNA if 1.5 cm or larger, follow up if 1 cm or larger (at 1, 2, 3, and 5 years). TI-RADS 5 (highly suspicious): 7 points or more. * FNA if 1 cm or larger, follow up if 0.5 cm or larger (every year for 5 years). Dictated by: Eligio Ravi M.D. on 06/26/2022 at 11:35 Approved by: Eligio Ravi M.D. on 06/26/2022 at 11:45
== END ==
PROVIDERS: PCP Internal Medicine; Referring Provider Nurse Practitioner Family; Visit Provider Nurse Practitioner Family
DX: E04.1 Nontoxic single thyroid nodule (principal); R59.9 Enlarged lymph nodes, unspecified
CPT/HCPCS: 76536

== ENCOUNTER → 2022-07-03 07:35 | Outpatient (ROUT) | payer MEDICARE, MEDICAID, SELFPAY ==
[2021-04-05 14:08] VITALS: BMI 36.6
[2022-07-03 08:18] LABS: BUN Creatinine Ratio 25.8 (6-22); Blood Urea Nitrogen 47 mg/dL (7-17); Calcium 7.9 mg/dL (8.4-10.2); Carbon Dioxide 23 mmol/L (22-32); Chloride 110 mmol/L (98-107); Estimated Glomerular Filt Rate 29 mL/min (>60); Glucose 97 mg/dL (80-110); HEMOLYSIS < 15 (0-50); Potassium 3.9 mmol/L (3.4-5.1); Sodium 143 mmol/L (137-145)
== END ==
PROVIDERS: PCP Internal Medicine; Visit Provider Nurse Practitioner Family
DX: N18.9 Chronic kidney disease, unspecified (principal)
CPT/HCPCS: 36415; 80048

== ENCOUNTER → 2022-07-06 10:50 | Outpatient (CLI) | payer MEDICARE, MEDICAID, SELFPAY ==
[2021-04-05 14:08] VITALS: BMI 36.6
--- NOTE | 2022-07-06 | DI.CT.S_ITS ---
PROCEDURE: CT SOFT TISSUE NECK W CON INDICATIONS: ENLARGED LYMPH NODES TECHNIQUE: After the administration of intravenous contrast, 3.0 mm axial sections acquired from the sella to the aortic arch. Additional oblique axial 3.0 mm sections acquired through the pharynx. 3 mm thick coronal and sagittal reformats were generated. For radiation dose reduction, the following was used: automated exposure control. COMPARISON: [facility], CT, CT CHEST ABDOMEN WO [facility], 06/14/2021, 12:24. FINDINGS: Image quality: This study is limited by body habitus. Lymph nodes: No enlarged lymph nodes seen throughout the neck. Vessels: Abdomen lying enlarged venous structures can be seen throughout the neck, which are overall worst involving the structures of the right face. Tortuosity can be seen throughout the carotid system. Neck spaces: The oropharynx, nasopharynx, and pharynx demonstrate no mucosal lesions. The vocal cords, false vocal cords, pyriform sinuses, epiglottis, vallecula, and tongue base all appear normal. Extramucosal spaces appear unremarkable. Glands: The parotid and submandibular glands appear normal. Thyroid gland demonstrates no significant abnormality. Miscellaneous: Visualized brain and orbits appear normal. Small bilateral pleural effusions are seen, left larger than right. Superficial soft tissues appear normal. Bones: No suspicious bony lesions. Visualized sinuses and mastoids appear unremarkable. [id number] cervical spine degenerative changes are seen, which are worst inferiorly. IMPRESSION: No frankly enlarged lymph nodes are seen. Abnormally enlarged veins can be seen throughout the neck, which are overall worst involving the deep right face. A cause of these enlarged veins is not seen on this study. Please correlate with known patient history. Small bilateral pleural effusions are seen, left worse than right. These are new compared to the prior CT study. Dictated by: Ren Bruno M.D. on 07/06/2022 at 13:24 Approved by: Ren Bruno M.D. on 07/06/2022 at 13:31
[2022-07-06 11:36] LABS: Add Manual Diff / Slide Review NO; Basophils Absolute Auto 0 /uL (0-100); Basophils Percent Auto 0.6 % (0-2); Eosinophils Absolute Auto 200 /uL (0-450); Eosinophils Percent Auto 3.6 % (2-4); Hematocrit 38.4 % (36-46); Hemoglobin 12.5 g/dL (12.0-16.0); Lymphocytes Absolute Auto 600 /uL (1100-4500); Lymphocytes Percent Auto 10.7 % (25-40); Mean Corpuscular HGB Conc 32.6 % (30-36); Mean Corpuscular Hemoglobin 32.1 PG (26-34); Mean Corpuscular Volume 98.3 fL (80-100); Monocytes Absolute Auto 500 /uL (0-900); Monocytes Percent Auto 9.6 % (3-14); Neutrophils Absolute Auto 4100 /uL (1500-7000); Neutrophils Percent Auto 75.5 % (50-75); Platelet Count 214 X10^3/uL (150-400); Red Blood Cell Count 3.91 X10^6/uL (4.0-5.2); Red Cell Distribution Width 14.9 % (11.6-14.8); White Blood Cell Count 5.4 X10^3/uL (4.5-11.0)
[2022-07-06 11:53] LABS: Alanine Aminotransferase 13 IU/L (<35); Albumin 3.6 g/dL (3.5-5.0); Albumin Globulin Ratio 0.8 (1.0-2.8); Alkaline Phosphatase 103 U/L (38-126); Aspartate Aminotransferase 22 IU/L (14-36); Bilirubin Total 1.2 mg/dL (0.2-1.3); Blood Urea Nitrogen 41 mg/dL (7-17); Calcium 8.4 mg/dL (8.4-10.2); Carbon Dioxide 23 mmol/L (22-32); Chloride 110 mmol/L (98-107); Estimated Glomerular Filt Rate 33 mL/min (>60); Globulin 4.7 g/dL (1.7-4.1); Glucose 105 mg/dL (80-110); HEMOLYSIS < 15 (0-50); Potassium 4.6 mmol/L (3.4-5.1); Sodium 146 mmol/L (137-145); Total Protein 8.3 g/dL (6.3-8.2)
[2022-07-06 12:03] LABS: HEMOLYSIS < 15 (0-50); Iron 115 ug/dL (37-170)
[2022-07-06 12:13] LABS: Percent Iron Saturation 33 % (15-50); Total Iron Binding Capacity 348 ug/dL (265-497); Transferrin 232 mg/dL (206-381)
[2022-07-06 12:28] LABS: Ferritin 62 ng/mL (11-264)
== END ==
PROVIDERS: Internal Medicine Hematology & Oncology; PCP Internal Medicine; Referring Provider Registered Nurse; Visit Provider Registered Nurse
DX: C18.7 Malignant neoplasm of sigmoid colon (principal); J90 Pleural effusion, not elsewhere classified; I87.8 Other specified disorders of veins; R59.9 Enlarged lymph nodes, unspecified; N18.9 Chronic kidney disease, unspecified; D64.9 Anemia, unspecified; R97.8 Other abnormal tumor markers; M31.30 Wegener's granulomatosis without renal involvement
CPT/HCPCS: 36415; 70491; 80053; 82378; 82728; 83540; 83550; 85025; 86300; Q9967

== ENCOUNTER → 2022-07-10 07:31 | Outpatient (ROUT) | payer MEDICARE, MEDICAID, SELFPAY ==
[2021-04-05 14:08] VITALS: BMI 36.6
[2022-07-10 07:38] LABS: Add Manual Diff / Slide Review NO; Basophils Absolute Auto 0 /uL (0-100); Basophils Percent Auto 0.8 % (0-2); Eosinophils Absolute Auto 300 /uL (0-450); Eosinophils Percent Auto 6.1 % (2-4); Hematocrit 35.6 % (36-46); Hemoglobin 11.6 g/dL (12.0-16.0); Lymphocytes Absolute Auto 700 /uL (1100-4500); Mean Corpuscular HGB Conc 32.5 % (30-36); Mean Corpuscular Hemoglobin 31.9 PG (26-34); Mean Corpuscular Volume 98.2 fL (80-100); Monocytes Absolute Auto 600 /uL (0-900); Monocytes Percent Auto 12.3 % (3-14); Neutrophils Absolute Auto 3300 /uL (1500-7000); Neutrophils Percent Auto 65.8 % (50-75); Platelet Count 174 X10^3/uL (150-400); Red Blood Cell Count 3.62 X10^6/uL (4.0-5.2); Red Cell Distribution Width 15.5 % (11.6-14.8); White Blood Cell Count 4.9 X10^3/uL (4.5-11.0)
[2022-07-10 07:45] LABS: BUN Creatinine Ratio 23.7 (6-22); Blood Urea Nitrogen 36 mg/dL (7-17); Carbon Dioxide 23 mmol/L (22-32); Chloride 108 mmol/L (98-107); Estimated Glomerular Filt Rate 36 mL/min (>60); Glucose 89 mg/dL (80-110); HEMOLYSIS < 15 (0-50); Potassium 4.3 mmol/L (3.4-5.1); Sodium 142 mmol/L (137-145)
== END ==
PROVIDERS: PCP Internal Medicine; Visit Provider Nurse Practitioner Family
DX: N17.9 Acute kidney failure, unspecified (principal); R53.83 Other fatigue
CPT/HCPCS: 36415; 80048; 85025

== ENCOUNTER → 2022-08-14 07:41 | Outpatient (ROUT) | payer MEDICARE, MEDICAID, SELFPAY ==
[2021-04-05 14:08] VITALS: BMI 36.6
[2022-08-14 08:17] LABS: BUN Creatinine Ratio 25.3 (6-22); Blood Urea Nitrogen 76 mg/dL (7-17); Carbon Dioxide 19 mmol/L (22-32); Chloride 107 mmol/L (98-107); Estimated Glomerular Filt Rate 16 mL/min (>60); Glucose 96 mg/dL (80-110); HEMOLYSIS < 15 (0-50); Potassium 4.6 mmol/L (3.4-5.1); Sodium 140 mmol/L (137-145)
== END ==
PROVIDERS: Family Provider Internal Medicine; PCP Internal Medicine; Visit Provider Physician Assistant
DX: E87.70 Fluid overload, unspecified (principal)
CPT/HCPCS: 36415; 80048

== ENCOUNTER 2022-08-15 08:14 | Emergency (ER) | payer MEDICARE, MEDICAID, SELFPAY ==
[2021-04-05 14:08] VITALS: BMI 36.6
[2022-08-15] VITALS (22 sets, daily range): BP systolic 101–149; BP diastolic 65–110; PULSE 71–81; RESP 18–27; TEMP 36.2; O2SAT 90–94; BMI 45.1
--- NOTE | 2022-08-15 08:29 | PC.NURSE ---
Pt arrives to ER by EMS, Modified Trauma activated. Pt awake, alert, oriented x4/4. Airway intact, breathing even and unlabored. CCollar placed by EMS, c-spine cleared by Dr. Anderson at 0829. Pt pink, warm, dry with normal strength pulses to bilateral radial and dorsalis pedis. GCS 15, eyes equal and reactive. Room warmed and warm blankets applied to pt. Pt undressed and assessed for injury, reports pain to mid back. 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 Laceration to bridge of nose, bleeding controlled, blood in bilateral nostrils, ecchymosis around eyes and worse under left eye.
--- NOTE | 2022-08-15 08:38 | DI.RAD.S_ITS ---
PROCEDURE: XR CHEST 1V INDICATIONS: fall, hit face/neck, [facility] sent for chf, pleural effusion TECHNIQUE: One view of the chest was acquired. COMPARISON: [facility], , XR CHEST 1V, 12/25/2018, 15:25. FINDINGS: Surgical changes and devices: None. Lungs and pleura: Question pulmonary edema. No pleural effusions or pneumothorax. Mediastinum: Mediastinal contours appear normal. Marked cardiomegaly as before. Bones and chest wall: No suspicious bony lesions. Overlying soft tissues appear unremarkable. IMPRESSION: Marked cardiomegaly, as before. Question pulmonary edema. Dictated by: Carlos Manuel Bar M.D. on 08/15/2022 at 9:56 Approved by: Carlos Manuel Bar M.D. on 08/15/2022 at 9:57
--- NOTE | 2022-08-15 08:38 | DI.RAD.S_ITS ---
PROCEDURE: XR PELVIS 1-2V INDICATIONS: fall, hit face/neck, [facility] sent for chf, pleural effusion TECHNIQUE: 1 view(s) of the pelvis acquired. COMPARISON: None. FINDINGS: Bones: Question right inferior pubic ramus fracture. No suspicious bony lesions. Soft tissues: Visualized bowel gas pattern is normal. No suspicious soft tissue calcifications. IMPRESSION: Question right inferior pubic ramus fracture. Comment: If there is point tenderness in this region, consider CT pelvis. Dictated by: Carlos Manuel Bar M.D. on 08/15/2022 at 9:55 Approved by: Carlos Manuel Bar M.D. on 08/15/2022 at 9:56
--- NOTE | 2022-08-15 08:38 | DI.CT.S_ITS ---
PROCEDURE: CT FACIAL BONES WO CON INDICATIONS: nose, left cheek injury TECHNIQUE: Noncontrast 2.5 mm thick axial images acquired from the mandible through the frontal sinuses, with coronal and sagittal reformatting. For radiation dose reduction, the following was used: automated exposure control, adjustment of mA and/or kV according to patient size. COMPARISON: None. FINDINGS: Image quality: Excellent. Bones and teeth: Orbital harrell are intact. Sinus harrell show no fracture or deformity. There is minimal lobulated soft tissue in the dependent portion of the left maxillary sinus. This is consistent with chronic sinus disease. Other paranasal sinuses and mastoids are clear. Nasal bones and septum are intact. Visualized portions of the mandible demonstrate no fractures or subluxation. Zygomatic arches are intact. Pterygoid plates are intact. Visualized portions of the skull base and auditory canals are intact. Question right TMJ subluxation. Sinuses: Paranasal sinuses are aerated, without fluid levels, mucosal thickening, or mucoceles. Mastoid air cells are aerated. Soft tissues: No edema, masses, or fluid collections. No enlarged lymph nodes. No soft tissue lacerations or debris. Vascular: Visualized vascular structures appear normal in the absence of contrast. Bony vascular foramina and canals are intact. IMPRESSION: 1. No evidence of displaced facial bone fracture or mandibular fracture. 2. Minimal left maxillary sinus disease. 3. Suspect right TMJ subluxation. Dictated by: Carlos Manuel Bar M.D. on 08/15/2022 at 9:19 Approved by: Carlos Manuel Bar M.D. on 08/15/2022 at 9:23
--- NOTE | 2022-08-15 08:39 | DI.CT.S_ITS ---
PROCEDURE: CT CERVICAL SPINE WO CON INDICATIONS: Trauma TECHNIQUE: Noncontrast 3 mm thick sections acquired from the skull base to the T4 level. Sagittal and coronal reformats were then constructed. For radiation dose reduction, the following was used: automated exposure control, adjustment of mA and/or kV according to patient size. COMPARISON: None. FINDINGS: Image quality: Excellent. Bones: No fractures or dislocations. Visualized superior ribs are intact. Cervical spondylosis. There is mild anterolisthesis of C3 on C4. It measures approximately 2 mm. There is question of minimal disc space widening anteriorly at C3-C4. There is no associated anterior soft tissue swelling. Soft tissues: Prevertebral soft tissues are normal in thickness. No paravertebral hematomas. No apical pneumothoraces. IMPRESSION: 1. No evidence of acute cervical fracture or dislocation. 2. Mild anterolisthesis of C3 on C4 with question of anterior disc space widening, without prevertebral soft tissue swelling. Comment: Consider cervical spine MRI to evaluate for possible ligamentous injury. Dictated by: Carlos Manuel Bar M.D. on 08/15/2022 at 9:12 Approved by: Carlos Manuel Bar M.D. on 08/15/2022 at 9:17
--- NOTE | 2022-08-15 08:39 | DI.CT.S_ITS ---
PROCEDURE: CT HEAD/BRAIN WO CON INDICATIONS: Trauma TECHNIQUE: Noncontrast 4.5 mm thick angled axial sections acquired from the foramen magnum to the vertex, with coronal and sagittal reformats. For radiation dose reduction, the following was used: automated exposure control, adjustment of mA and/or kV according to patient size. COMPARISON: None. FINDINGS: Image quality: Excellent. CSF spaces: Basal cisterns are patent. No extra-axial fluid collections. The ventricles are symmetric in size and shape. Brain: No intracranial bleeds or masses. There is cerebral volume loss for age, with resultant ventricular and sulcal prominence. There are periventricular and deep white matter chronic small vessel ischemic changes. There is intracranial internal carotid artery atherosclerosis. Skull and face: Subgaleal hematoma, left high frontal region. Calvarium and visualized facial bones appear intact, without suspicious lesions. Sinuses: Small air-fluid level, left maxillary sinus. IMPRESSION: 1. Subgaleal hematoma. 2. Small air-fluid level, left maxillary sinus. 3. Age-related volume loss and small vessel ischemic change. 4. No evidence acute intracranial abnormality. Dictated by: Carlos Manuel Bar M.D. on 08/15/2022 at 9:18 Approved by: Carlos Manuel Bar M.D. on 08/15/2022 at 9:19
--- NOTE | 2022-08-15 08:41 | ED.TRAUMA ---
HPI - Trauma General Chief Complaint: Trauma Stated Complaint: Fall, on thinners Time Seen by Provider: 08/15/22 08:28 Source: patient and EMS Mode of arrival: EMS History of Present Illness HPI narrative: This is a 72-year-old female with history of Galileo's, chronic kidney disease stage III, on Eliquis for atrial fibrillation, hypertension, dyslipidemia, CHF, major depression, chronic ulcer of the left leg, cor pulmonale, prior colon cancer treated with resection who presents for worsening renal function on outpatient labs, patient was sent from her assisted living facility and when EMS arrived she was in the bathroom. They states she ambulated out went to turn to pick something up and fell striking her face on the metal frame of her bed and had approximately 20 seconds loss of consciousness. Patient did not have a prolonged altered mental status afterwards. She is on Eliquis. Patient states that the bathroom was wet and her slippers had mother bottoms and this made it slippery and that is likely what caused her to fall. She does not remember hitting the ground and was unsure if she would had any loss of consciousness. She complains of pain in her nose and cheek. States there was bleeding it seems to have stopped. She denies active headache currently, she denies chest pain or shortness of breath, denies any neck or back pain, she denies any nausea or vomiting, no numbness, tingling or weakness, she denies any diarrhea constipation, no other new urinary symptoms. Patient denies any new swelling in her extremities. She does note that she was supposed to come because her labs showed her creatinine had worsened. She states that she had a procedure on the 14 of June to have a clip placed in her heart to help with her CHF. She notes that she had a brief episode of dialysis in the past but is not actively dialysis now. She states she has a fistula in the left but it is non working. Patient notes her only other surgery is a colon resection for colon cancer remotely, she notes several medication allergies including penicillin and Bactrim. No tobacco, alcohol or illicit. She states she is currently at [facility]. Dr. Vargas is her primary care, Dr. Hernandez is her offensive coordinator, her unit assembler is out of [place], she went to [facility] for the clip procedure for heart. She has seen ENT for nosebleeds in the past. Related Data Home Medications Medication Instructions Recorded Confirmed acetaminophen 325 mg tablet 650 mg PO TID 12/25/18 05/21/22 gabapentin 100 mg capsule 100 mg PO BID 12/25/18 05/21/22 hydroxyzine HCl 25 mg tablet 25 mg PO Q8H PRN Itching 12/25/18 05/21/22 sodium chloride 0.65 % nasal spray 3 spray intranasal BID 12/25/18 05/21/22 aerosol ([place] Nasal) torsemide 20 mg tablet 20 mg PO QAM 12/25/18 05/21/22 ascorbic acid (vitamin C) 500 mg 500 mg PO QAM 03/11/19 05/21/22 tablet hydrocortisone 1 % topical cream 1 applic topical Q12H PRN Rash 03/11/19 05/21/22 melatonin 3 mg tablet 6 mg PO BEDTIME 03/11/19 05/21/22 ondansetron HCl 8 mg tablet 8 mg PO DAILY PRN Nausea 03/11/19 05/21/22 polyethylene glycol 3350 17 gram 17 g PO QAM 03/11/19 05/21/22 oral powder packet betamethasone valerate 0.1 % 1 applic topical DAILY 06/16/19 05/21/22 topical ointment trazodone 50 mg tablet 25 mg PO BEDTIME 12/10/19 05/21/22 dextromethorphan-guaifenesin 30 1 tab PO Q12H PRN cough, congestion 03/10/20 05/21/22 mg-600 mg tablet extended hr (Mucinex DM) lorazepam 0.5 mg tablet 0.5 mg PO Q6HR PRN Anxiety 03/10/20 05/21/22 metoprolol succinate 25 mg 50 mg PO BID 03/10/20 05/21/22 tablet,extended release 24 hr apixaban 5 mg tablet (Eliquis) 2.5 mg PO DAILY 06/27/20 05/21/22 lisinopril 10 mg tablet 10 mg PO DAILY 04/05/21 05/21/22 albuterol 90 mcg/actuation aerosol 90 mcg inhalation PRN PRN 05/21/22 05/21/22 inhaler Shortness Of Breath vitamin [id number] B1 1,000 1 ml IM Q7D 05/21/22 05/21/22 mcg-100 mg/mL injection solution Previous Rx's Medication Instructions Recorded oxycodone 5 mg tablet 2.5 - 5 mg PO Q6H PRN pain #10 tabs 03/13/19 Allergies Allergy/AdvReac Type Severity Reaction Status Date / Time adhesive tape Allergy Verified 08/15/22 08:21 basil Allergy Verified 08/15/22 08:21 cephalexin [From Keflex] Allergy Verified 08/15/22 08:21 marlena Allergy Verified 08/15/22 08:21 Penicillins Allergy Verified 08/15/22 08:21 sulfamethoxazole AdvReac Severe Hyperkalemia/worsening Verified 08/15/22 08:21 [From Bactrim] CKD trimethoprim [From Bactrim] AdvReac Severe Hyperkalemia/worsening Verified 08/15/22 08:21 CKD Review of Systems Review of Systems ROS Unobtainable: All systems reviewed & are unremarkable except as noted in HPI and below Patient History Medical History Chronic kidney disease Cor pulmonale Degenerative joint disease of knee Depression Diastolic heart failure DJD (degenerative joint disease) Hyperlipidemia Iron (Fe) deficiency anemia Left knee DJD Left leg DVT Osteoarthritis Osteoarthritis, hand Polyneuropathy Traumatic coccydynia Crow's granulomatosis Surgical History History of Achilles tendon repair History of esophagogastroduodenoscopy (EGD) Status post creation of arteriovenous fistula Family History Brother FH: kidney cancer Father CVA (cerebral vascular accident) Mother CVA (cerebral vascular accident) Atrial fibrillation Social History household members: caregiver Smoking Status: Never smoker alcohol intake: former substance use type: does not use Smoking Status: Never smoker alcohol intake frequency: holidays/special occasions only Substance Use Type: does not use Exam Narrative Exam Narrative: GEN: C-collar prior to arrival patient was removed is nontender with full range of motion, Patient appears in mild distress. HEAD: Patient has ecchymosis below the left orbit, she also has ecchymosis over the nose with some mild deformity and laceration over the bridge of the nose proximally 0.5 cm, stellate no raccoon/Schneider sign. NECK: Nontender, painless range of motion, trachea midline Negative for Nexus criteria, there is no midline line tenderness, distracting injury, altered mental status, neuro deficit, recent EtOH. EYES: PERRLA, EOMI ENT: External inspection normal other than noted above, trachea is midline, TM's are normal no hemotypanum, Nares have bilateral dried blood, no septal hematoma, no dental or oral injury, airway is normal and with normal occlusion, No bony tenderness RESP: Chest is nontender and has symmetric movement, no ecchymosis, breath sounds are normal no crackles, wheezes or rales, speaks in full sentences. CVS: Heart sounds are normal, no murmur noted, No JVD. ABG/GI: Nontender, soft, normal bowel sounds, no distention, no organomegaly, pelvic rock is negative NEURO: Oriented AOx3, neuro is grossly intact, sensation and motor is normal all 4 extremities moving, cranial nerves II through XII are intact, GCS is 15 PSYCH: Normal mood and affect SKIN: Intact, warm and dry, no crepitus and without decubitus, patient does have wrap on left leg. BACK: No CVA tenderness, no vertebral tenderness, no step-off's, no crepitus EXT: Atraumatic, hips are nontender, no pedal edema, normal color and temperature, patient has normal radiation motion bilateral upper extremities. Able to fully straight leg lift both legs off the bed without issue. Initial Vital Signs Initial Vital Signs: Vital Signs Temperature 97.1 F L 08/15/22 08:21 Pulse Rate 81 08/15/22 08:21 Respiratory Rate 20 08/15/22 08:21 Blood Pressure 143/96 H 08/15/22 08:21 Pulse Oximetry 93 08/15/22 08:21 Oxygen Delivery Method Room Air 08/15/22 08:[address] Head Rule Patient on blood thinners: Yes Age greater or equal to 65 years: Yes GCS [place] coma scale eye opening: Spontaneous [place] coma scale verbal response: Orientated [place] coma scale motor response: Obey commands [place] coma scale total score: 15 Course Orders Ordered: ED Orders 08/15/22 12:08 UA Complete [Urinalysis and Microscopic] Stat Discontinued Medications Acetaminophen (Acetaminophen 325 Mg Tablet) 975 mg PO NOW ONE Stop: 08/15/22 08:39 Last Admin: 08/15/22 09:24 Dose: 975 mg Documented By: AT Diphtheria/Tetanus/Acell Pertussis (Tet,Diph,Pertuss(Acell),Vac/Pf 0.5 Ml Syringe) 0.5 ml IM .ONCE ONE Stop: 08/15/22 08:39 Last Admin: 08/15/22 09:24 Dose: 0.5 ml Documented By: AT Vital Signs Vital signs: Vital Signs - 8 hr 08/15/22 11:30 08/15/22 11:30 08/15/22 11:45 Pulse Rate 75 73 Respiratory Rate 22 23 Blood Pressure 148/97 H Pulse Oximetry 90 L 92 Oxygen Delivery Method Room Air 08/15/22 11:45 08/15/22 12:00 08/15/22 12:01 Pulse Rate 75 Respiratory Rate 22 Blood Pressure 149/110 H 132/108 H Pulse Oximetry 90 L Oxygen Delivery Method Room Air 08/15/22 12:01 08/15/22 12:30 08/15/22 12:31 Pulse Rate 75 72 73 Respiratory Rate 26 H 23 Blood Pressure Pulse Oximetry 93 92 93 Oxygen Delivery Method Room Air 08/15/22 12:31 08/15/22 12:46 08/15/22 12:46 Pulse Rate 74 Respiratory Rate Blood Pressure 101/65 140/94 H Pulse Oximetry 92 Oxygen Delivery Method Room Air 08/15/22 13:00 08/15/22 13:00 08/15/22 13:15 Pulse Rate 72 73 Respiratory Rate 24 21 Blood Pressure 141/88 H Pulse Oximetry 92 92 Oxygen Delivery Method Room Air 08/15/22 13:15 Pulse Rate Respiratory Rate Blood Pressure 149/105 H Pulse Oximetry Oxygen Delivery Method MDM - Trauma Lab Data 08/15/22 08:20 08/15/22 08:20 Labs: Lab Results 08/15/22 08/15/22 08/15/22 Range/Units 08:20 08:20 08:20 WBC 5.1 (4.5-11.0) X10^3/uL RBC 4.12 (4.0-5.2) X10^6/uL Hgb 12.8 (12.0-16.0) g/dL Hct 40.1 (36-46) % MCV 97.4 (80-100) fL MCH 31.2 (26-34) PG MCHC 32.0 (30-36) % RDW 17.3 H (11.6-14.8) % Plt Count 250 (150-400) X10^3/uL Neut % (Auto) Calender Inspector Lymph % (Auto) Calender Inspector [place] % (Auto) Calender Inspector Eos % (Auto) Calender Inspector Baso % (Auto) Calender Inspector Neut # (Auto) Calender Inspector Lymph # (Auto) Calender Inspector [place] # (Auto) Calender Inspector Eos # (Auto) Calender Inspector Baso # (Auto) Calender Inspector Total Counted 100 Seg Neutrophils % 74.0 H (38-70) % Lymphocytes % (Manual) 11.0 L (25-45) % Atypical Lymphs % 2.0 H ( - 0) % Monocytes % (Manual) 13.0 H (2-11) % Neutrophils # (Manual) 3774 ([id number]) /uL Nucleated RBCs 2 H ( - 0) #/Diff RBC Morphology Not Reportable Polychromasia 1+ H Anisocytosis 1+ H PT 20.7 H (10.1-12.7) SECONDS INR 1.8 H (0.9-1.3) APTT 32 (26-36) SECONDS Sodium 141 (137-145) mmol/L Potassium 4.6 (3.4-5.1) mmol/L Chloride 104 (98-107) mmol/L Carbon Dioxide 21 L (22-32) mmol/L BUN 83 H (7-17) mg/dL Creatinine 3.18 H (0.52-1.04) mg/dL Estimated GFR 15 L (>60) mL/min BUN/Creatinine Ratio 26.1 H (6-22) Glucose 102 (80-110) mg/dL Calcium 8.3 L (8.4-10.2) mg/dL Total Bilirubin 1.0 (0.2-1.3) mg/dL AST 20 (14-36) IU/L ALT 16 (<35) IU/L Alkaline Phosphatase 95 (38-126) U/L Total Protein 8.4 H (6.3-8.2) g/dL Albumin 3.6 (3.5-5.0) g/dL Globulin 4.8 H (1.7-4.1) g/dL Albumin/Globulin Ratio 0.8 L (1.0-2.8) Lipase 159 (23-300) U/L Urine Color Urine Appearance Urine pH (4.5-8.0) Ur Specific [place] (1.000-1.035) Urine Protein (Negative) Urine Glucose (UA) (Negative) g/dL Urine Ketones (NEGATIVE) Urine Occult Blood (Negative) Urine Nitrate (Negative) Urine Bilirubin (NEGATIVE) Urine Urobilinogen (0.2) E.U./dL Ur Leukocyte Esterase (NEGATIVE) Urine RBC (0-5/HPF) Urine WBC (0-5/HPF) Urine Bacteria (None) Ur Culture Indicated? Micro UA Comment Ethyl Alcohol < 10 ( - 10) mg/dL 08/15/22 Range/Units 12:08 WBC (4.5-11.0) X10^3/uL RBC (4.0-5.2) X10^6/uL Hgb (12.0-16.0) g/dL Hct (36-46) % MCV (80-100) fL MCH (26-34) PG MCHC (30-36) % RDW (11.6-14.8) % Plt Count (150-400) X10^3/uL Neut % (Auto) Lymph % (Auto) [place] % (Auto) Eos % (Auto) Baso % (Auto) Neut # (Auto) Lymph # (Auto) [place] # (Auto) Eos # (Auto) Baso # (Auto) Total Counted Seg Neutrophils % (38-70) % Lymphocytes % (Manual) (25-45) % Atypical Lymphs % ( - 0) % Monocytes % (Manual) (2-11) % Neutrophils # (Manual) ([id number]) /uL Nucleated RBCs ( - 0) #/Diff RBC Morphology Polychromasia Anisocytosis PT (10.1-12.7) SECONDS INR (0.9-1.3) APTT (26-36) SECONDS Sodium (137-145) mmol/L Potassium (3.4-5.1) mmol/L Chloride (98-107) mmol/L Carbon Dioxide (22-32) mmol/L BUN (7-17) mg/dL Creatinine (0.52-1.04) mg/dL Estimated GFR (>60) mL/min BUN/Creatinine Ratio (6-22) Glucose (80-110) mg/dL Calcium (8.4-10.2) mg/dL Total Bilirubin (0.2-1.3) mg/dL AST (14-36) IU/L ALT (<35) IU/L Alkaline Phosphatase (38-126) U/L Total Protein (6.3-8.2) g/dL Albumin (3.5-5.0) g/dL Globulin (1.7-4.1) g/dL Albumin/Globulin Ratio (1.0-2.8) Lipase (23-300) U/L Urine Color Yellow Urine Appearance Clear Urine pH 5.0 (4.5-8.0) Ur Specific [place] 1.020 (1.000-1.035) Urine Protein Negative (Negative) Urine Glucose (UA) Negative (Negative) g/dL Urine Ketones Negative (NEGATIVE) Urine Occult Blood Negative (Negative) Urine Nitrate Negative (Negative) Urine Bilirubin Negative (NEGATIVE) Urine Urobilinogen 0.2 (0.2) E.U./dL Ur Leukocyte Esterase Negative (NEGATIVE) Urine RBC None seen (0-5/HPF) Urine WBC None seen (0-5/HPF) Urine Bacteria None seen (None) Ur Culture Indicated? Cult not indicated Micro UA Comment Microscopic normal Ethyl Alcohol ( - 10) mg/dL ECG Data Attestation: I personally reviewed and interpreted this ECG as follows: Prior ECG tracings: available for review Interpretation: AFib rate of 68 QRS of 118 QTC 452. Patient has quite a bit of motion artifact but no obvious ST changes are appreciated. It is difficult to tell. Right bundle-branch. MDM Narrative Medical decision making narrative: This is a 72-year-old female who comes emergency department with [facility] Patient was initially supposed to come because she is had worsening renal function on outpatient her creatinine yesterday 08/14/2022 was 3, appears her baseline is in the 1.8 1.5 range normally. Patient notes that she did have clip placed in June at you did for her. Patient when EMS had arrived was leaving the bathroom went to turn fell hit her head on a metal frame of the bed and had a brief loss of consciousness. She has obvious injury to her nose with laceration and ecchymosis under the orbit. Likely has nasal bone fractures, being on a thinner head CT, C-spine based on age and facial bones as well as chest x-ray and pelvic x-ray, labs including CBC, CMP, UA to evaluate renal function. Head CT and facial bones do not show bleed or obvious fracture, C-spine shows possible anterolisthesis C3-4, patient does not have any pain discomfort or other changes, she is noted she is had some longstanding numbness tingling down her arm at times. After discussion with patient will defer MR C-spine at this time. Patient does note that she had her torsemide increased from 2 tablets to 5 tablets about 4 5 days ago could be contributing to her change in renal function, patient also notes she is currently on prednisone for several days she is had more aphthous ulcers in her mouth. We reviewed her chest x-ray shows quite enlarged heart but I suspect this is her baseline, awaiting CT KUB, urine sample. Patient's imaging does show cardiomegaly, does not appear to be new or changed, CT could be does not show any obstructive changes kidneys are somewhat small, UA is negative. Labs were reviewed show acute on chronic renal failure, no significant electrolyte changes, anemia is baseline. Spoke with patient's offensive coordinator Dr. Hernandez he recommends decreasing patient's torsemide from 80-40 mg rechecking labs in a week to see if her renal function improves. He is aware of her Crow's in cardiac history and we discussed that if it was increased secondary to shortness of breath she may need some additional workup or treatment. Spoke with Dr. Vargas from [facility] who is patient's primary care and follows her at the facility. She is comfortable with this plan we discussed no fluids were given today, her findings from today and recommendations from Nephrology she is agreeable for patient to return. Discharge Plan Departure Patient Disposition: Home Clinical Impression: Laceration of nose, Acute on chronic kidney failure, Head injury, Fall Instructions: Closed Head Injury Activity Restrictions/Additional Instructions: Follow-up with Dr. Vargas, they will recheck your labs in the next week. I spoke with your offensive coordinator today he recommends decreasing your torsemide back to your normal dose to see if this improves your renal function. Your cervical spine showed small change I suspect this is old after our discussion and your physical evaluation if you have new neck pain numbness tingling weakness or other new changes please return for evaluation. Allow Steri-Strips to fall off if they peel at the edges you can trim these and let them fall off. Wound Care: Keep wound(s) clean and dry. Wash daily with soap and water only. Do not use over the counter products (alcohol or peroxide)on the wounds unless instructed by a physician. If wound condition worsens (increased/expanding redness, developing fluid blisters, or worsening pain), either contact your doctor for an urgent re-assessment , or return to the Emergency Department. Please return for new swelling, chest pain, shortness of breath, lightheadedness or passing out or other new or concerning changes. Prescriptions: No Action acetaminophen 325 mg Tablet 650 mg PO TID torsemide 20 mg tablet 20 mg PO QAM Rx Instructions: For edema, CHF hydroxyzine HCl 25 mg tablet 25 mg PO Q8H PRN (Reason: Itching) gabapentin 100 mg capsule 100 mg PO BID Rx Instructions: AM, QHS [place] Nasal 0.65 % Aerosol,[place] 3 spray intranasal BID Rx Instructions: for nosebleeds; may keep at bedside and self-medicate polyethylene glycol 3350 17 gram Powder In Packet 17 g PO QAM melatonin 3 mg Tablet 6 mg PO BEDTIME ascorbic acid (vitamin C) 500 mg Tablet 500 mg PO QAM ondansetron HCl 8 mg tablet 8 mg PO DAILY PRN (Reason: Nausea) hydrocortisone 1 % Cream 1 applic TOPICAL Q12H PRN (Reason: Rash) Rx Instructions: rash on breast oxycodone 5 mg tablet 2.5 - 5 mg PO Q6H PRN (Reason: pain) Qty: 10 0RF betamethasone valerate 0.1 % ointment 1 applic TOPICAL DAILY Rx Instructions: Apply to legs every Saturday and Saturday, cover with compression stockings trazodone 50 mg Tablet 25 mg PO BEDTIME Rx Instructions: for insomnia lorazepam 0.5 mg Tablet 0.5 mg PO Q6HR PRN (Reason: Anxiety) metoprolol succinate 25 mg tablet extended release 24 hr 50 mg PO BID Rx Instructions: Hold for SBP<100 and HR less than 60 Mucinex DM 30-600 mg Tablet Extended Release 12 Hr 1 tab PO Q12H PRN (Reason: cough, congestion) vitamin [id number] B1 1,000-100 mg/mL Solution 1 ml IM Q7D albuterol 90 mcg/actuation Aerosol 90 mcg INHALATION PRN PRN (Reason: Shortness Of Breath) Eliquis 5 mg tablet 2.5 mg PO DAILY lisinopril 10 mg tablet 10 mg PO DAILY Referrals: Bri Vargas MD [Primary Care Provider] - Stand Alone Forms: Patient Portal/API
--- NOTE | 2022-08-15 08:53 | DI.CT.S_ITS ---
PROCEDURE: CT KIDNEY URETER BLADDER (KUB) INDICATIONS: acute on chronic renal failure TECHNIQUE: Axial sections were acquired from the lung bases to the pubic symphysis. Coronal and sagittal reformats were performed. For radiation dose reduction, the following was used: automated exposure control, adjustment of mA and/or kV according to patient size. COMPARISON: [facility], CT, CT CHEST ABDOMEN WO CON, 06/14/2021, 12:24. FINDINGS: Image quality: Excellent. Lung bases: Patchy right basilar infiltrate. Heart: At least moderate four-chamber cardiomegaly. Trace pericardial effusion. URINARY: Right Kidney: Somewhat small. No stones or hydronephrosis. Right Ureter: No hydroureter. Left Kidney: Somewhat small. No stones or hydronephrosis. Left Ureter: No hydroureter. Bladder: Normal wall thickness. No stones. ABDOMEN: Liver: Unremarkable. Gallbladder: Again noted are calcified gallstones. No gallbladder wall thickening. Biliary ducts: Unremarkable. Pancreas: Unremarkable. Spleen: Unremarkable. Adrenal Glands: Unremarkable. Stomach and Bowel: Stomach, small bowel loops, and colon are unremarkable. Peritoneum: No abnormal intraperitoneal fluid. No free air. Ventral Wall: No hernia. Abdominal Nodes: No enlarged retroperitoneal or mesenteric lymph nodes. Vessels: Aorta and inferior vena cava are normal in size. PELVIS: Pelvic Organs: Posterior pelvic floor relaxation. Otherwise unremarkable. Pelvic Nodes: Unremarkable. Miscellaneous: No inguinal hernias are seen. Bones: Lumbar degenerative change. No lytic or blastic bony lesions. No compression fractures. IMPRESSION: 1. Kidneys are somewhat small. There are no stones. There is no hydronephrosis. 2. At least moderate cardiomegaly. 3. Cholelithiasis. 4. Patchy right basilar infiltrate. Dictated by: Carlos Manuel Bar M.D. on 08/15/2022 at 9:33 Approved by: Carlos Manuel Bar M.D. on 08/15/2022 at 9:38
[2022-08-15 08:57] LABS: Hematocrit 40.1 % (36-46); Hemoglobin 12.8 g/dL (12.0-16.0); Mean Corpuscular Hemoglobin 31.2 PG (26-34); Mean Corpuscular Volume 97.4 fL (80-100); Platelet Count 250 X10^3/uL (150-400); Red Blood Cell Count 4.12 X10^6/uL (4.0-5.2); Red Cell Distribution Width 17.3 % (11.6-14.8); White Blood Cell Count 5.1 X10^3/uL (4.5-11.0)
[2022-08-15 08:59] LABS: INR 1.8 (0.9-1.3); Prothrombin Time 20.7 SECONDS (10.1-12.7)
[2022-08-15 09:02] LABS: PTT Partial Thromboplastin Tim 32 SECONDS (26-36)
[2022-08-15 09:08] LABS: Add Manual Diff / Slide Review YES; Alanine Aminotransferase 16 IU/L (<35); Albumin 3.6 g/dL (3.5-5.0); Albumin Globulin Ratio 0.8 (1.0-2.8); Alkaline Phosphatase 95 U/L (38-126); Aspartate Aminotransferase 20 IU/L (14-36); BUN Creatinine Ratio 26.1 (6-22); Blood Urea Nitrogen 83 mg/dL (7-17); Calcium 8.3 mg/dL (8.4-10.2); Carbon Dioxide 21 mmol/L (22-32); Chloride 104 mmol/L (98-107); Estimated Glomerular Filt Rate 15 mL/min (>60); Ethanol (ETOH) < 10 mg/dL; Globulin 4.8 g/dL (1.7-4.1); Glucose 102 mg/dL (80-110); HEMOLYSIS < 15 (0-50); Lipase 159 U/L (23-300); Potassium 4.6 mmol/L (3.4-5.1); Sodium 141 mmol/L (137-145); Total Protein 8.4 g/dL (6.3-8.2)
[2022-08-15 09:12] LABS: Anisocytosis 1+; Neutrophils Absolute Manual 3774 /uL (3000-5900); Nucleated Red Blood Cells 2 #/Diff; Polychromasia 1+; Total Cells Counted 100
[2022-08-15] MEDS: TET,DIPH,PERTUSS(ACELL),VAC/PF 0.5 ML SYRINGE IM (09:24)
[2022-08-15] MEDS: ACETAMINOPHEN 325 MG TABLET 975 MG PO (09:24)
[2022-08-15 12:15] LABS: Appearance Urine UA CLEAR; Bilirubin Urine UA NEGATIVE (NEGATIVE); Color Urine UA YELLOW; Glucose Urine UA NEGATIVE (Negative); Ketones Urine UA NEGATIVE (NEGATIVE); Leukocyte Esterase Urine UA NEGATIVE (NEGATIVE); Nitrite Urine UA NEGATIVE (Negative); Occult Blood Urine UA NEGATIVE (Negative); Protein Urine UA NEGATIVE (Negative); Urobilinogen Urine UA 0.2 E.U./dL (0.2)
[2022-08-15 12:18] LABS: Bacteria Urine None Seen; Culture Indicated Urine Cult Not Indicated; RBC Urine None Seen (0-5/HPF); Urine Comments Microscopic Normal; WBC Urine None Seen (0-5/HPF)
--- NOTE | 2022-08-17 | DI.RAD.S_ITS ---
PROCEDURE: XR CHEST 1V INDICATIONS: FALL TECHNIQUE: One view of the chest was acquired. COMPARISON: [facility], CT, CT CHEST ABDOMEN WO CON, 06/14/2021, 12:24. [facility], CR, XR CHEST 1V, 08/15/2022, 8:48. [facility], CR, XR CHEST 2V, 11/14/2021, 13:19. FINDINGS: Surgical changes and devices: None. Lungs and pleura: Mild opacity in the right lung. No pleural effusions or pneumothorax. Mediastinum: Mediastinal contours appear normal. Heart size is enlarged. Bones and chest wall: No suspicious bony lesions. Overlying soft tissues appear unremarkable. IMPRESSION: No obvious acute fracture is identified. Cardiomegaly. Mild opacity in the right lung, stable to decreased. Suspect infectious/inflammatory etiology. Dictated by: Eligio Ravi M.D. on 08/17/2022 at 10:41 Approved by: Eligio Ravi M.D. on 08/17/2022 at 10:44
== END 2022-08-15 13:34 | disposition home or self-care (01) ==
PROVIDERS: Emergency Provider Emergency Medicine; Family Provider Internal Medicine; PCP Internal Medicine
DX: S01.21XA Laceration without foreign body of nose, initial encounter (principal); S09.90XA Unspecified injury of head, initial encounter; N18.9 Chronic kidney disease, unspecified; Z79.01 Long term (current) use of anticoagulants; W18.30XA Fall on same level, unspecified, initial encounter; Z23 Encounter for immunization
CPT/HCPCS: 36415; 70450; 70486; 71045; 72125; 72170; 74176; 80053; 80320; 81001; 83690; 85007; 85025; 85610; 85730; 90471; 93005; 99284; 99285; 90715

== ENCOUNTER 2022-08-17 10:20 | Emergency (ER) | payer MEDICARE, MEDICAID, SELFPAY ==
[2021-04-05 14:08] VITALS: BMI 36.6
[2022-08-17] VITALS (107 sets, daily range): BP systolic 98–163; BP diastolic 57–99; PULSE 74–91; RESP 12–43; TEMP 31.1–36.6; O2SAT 87–100; BMI 43.9
--- NOTE | 2022-08-17 | DI.ECHO.S_ITS ---
[facility] +---------+ [facility] +---------+ : : [address] : : : : [id number] : : : : Phone: [phone]+ Echocardiogram Report + + :Name: LELA GODINEZ Study Date: 08/17/2022 Height: 62 in : :[facility] ReadingLocation: Weight: 240 lb : : Gender: Female BSA: 2.1 m2 : :: 1950 Age: 72 yrs BP: 113/78 mmHg: :Reason For Study: CONGESTIVE HEART FAILURE, CARDIOMEGALY, CARROL : :Ordering Physician: CATRINA, : :CRIS Performed By: Ludivina Berrios : :Referring: CRIS FRITZ : + + Interpretation Summary Afib with controlled rate. Normal LV size and moderate concentric LVH. Normal wall motion and LV systolic function. EF is 55-60%. Severe RV enlargement with moderately reduced RV function. Massive RA enlargement and mild LA enlargement. D shaped LV in systole and diastole consistent with RV pressure overload. By history there is a tricuspid valve clip x4 deployed on 06/14/2022 at for severe TR. Unfortunately there is residual severe TR with estimated PA systolic pressure of 44 mm Hg assuming RA pressure of 20 mm Hg. Compared to prior study 06/22/2021 tricuspid valve clip is newly deployed. Procedure: A two-dimensional transthoracic echocardiogram with color flow and Doppler was performed. The study quality was technically adequate. Comparison is made with the echocardiogram of 06/22/2021. The patient was in atrial fibrillation with heart rates between 77-111 bpm during the exam. Left Ventricle: The left ventricular cavity is small. There is moderate concentric left ventricular hypertrophy. The ejection fraction is estimated to be 55-60%. Right Ventricle: The right ventricle is severely dilated. Atria: The left atrium is severely dilated. The right atrium is severely dilated. There is no Doppler evidence for an interatrial shunt. Mitral Valve: There is mild mitral annular calcification. There is trace mitral regurgitation. Aortic Valve: The aortic valve is trileaflet. There is no aortic valve stenosis. There is trace aortic regurgitation. Tricuspid Valve: There is a tricuspid valve clip present. There is severe tricuspid regurgitation. Right ventricular systolic pressure is underestimated due to the severity of regurgitation. Pulmonic Valve: The pulmonic valve is not well seen, but is grossly normal. There is mild to moderate pulmonic regurgitation. Great Vessels: The aortic root is normal size. The ascending aorta is at the upper limits of normal in size. The IVC is dilated (diameter is greater than 2.1 cm) and it collapses less than 50% with a sniff. This suggests a high right atrial pressure of 15 mm Hg. Patient on Bi-pap. Pericardium/ Pleura There is no pericardial effusion. There is no pleural effusion. MMode/2D Measurements & Calculations LVIDd: 2.8 cm LVOT diam: 2.1 cm LVIDs: 1.9 cm Ao root diam: 3.2 cm FS: 31.5 % asc Aorta Diam: 3.7 cm IVSd: 1.5 cm LVPWd: 1.4 cm LV lakhani. diameter/BSA (cm/m^2): 1.4 LV sys. diameter/BSA (cm/m^2): 0.93 LA A2 area: 29.3 cm2 RA long axis: 9.9 cm LA A4 area: 32.3 cm2 RA area: 66.5 cm2 LA length (vol): 7.9 cm RA vol: 379.1 ml LA vol: 101.0 ml RA : 183.5 ml/m2 LA vol index: 48.9 ml/m2 IVC diam: 3.1 cm RVDd major: 7.6 cm RVD1 (basal): 6.4 cm RVD2 (mid): 5.4 cm TAPSE: 1.9 cm Doppler Measurements & Calculations Ao V2 max: 187.7 cm/sec LVOT Max Shekhar: 34.2 cm/sec Ao V2 mean: 137.1 cm/sec LV V1 max P.47 mmHg Ao max P.1 mmHg LV V1 VTI: 5.5 cm Ao mean P.4 mmHg WALI(I,D): 0.43 cm2 Ao V2 VTI: 45.4 cm WALI(V,D): 0.64 cm2 sev ratio: 0.12 WALI indexed to BSA (cm^2/m^2): 0.21 MV E max shekhar: 62.5 cm/sec TR max shekhar: 218.8 cm/sec MV A max shekhar: 3.1 cm/sec TR max P.4 mmHg MV E/A: 20.1 PA pr(Accel): 51.6 mmHg Med Peak E' Shekhar: 6.0 cm/sec E/E' med: 10.3 Lat Peak E' Shekhar: 10.0 cm/sec E/E' lat: 6.3 E/e' average: 8.3 MV dec time: 0.22 sec SV(LVOT): 19.4 ml Electronically signed by: Jami morse [place] Physician:08/17/2022 04:29 PM
--- NOTE | 2022-08-17 10:23 | DI.CT.S_ITS ---
PROCEDURE: CT HEAD/BRAIN WO CON INDICATIONS: fall on eliquis TECHNIQUE: Noncontrast 4.5 mm thick angled axial sections acquired from the foramen magnum to the vertex, with coronal and sagittal reformats. For radiation dose reduction, the following was used: automated exposure control, adjustment of mA and/or kV according to patient size. COMPARISON: [facility], CT, CT HEAD/BRAIN WO CON, 08/15/2022, 8:46. FINDINGS: Image quality: Excellent. CSF spaces: Basal cisterns are patent. No extra-axial fluid collections. The ventricles are symmetric in size and shape. Brain: No intracranial bleeds or masses. There is cerebral volume loss for age, with resultant ventricular and sulcal prominence. There are periventricular and deep white matter chronic small vessel ischemic changes. There is intracranial internal carotid artery atherosclerosis. Skull and face: Calvarium and visualized facial bones appear intact, without suspicious lesions. Left frontal parietal scalp contusion and small subscalp hematoma, which was present on 08/15/2022. Sinuses: Visualized sinuses and mastoids are clear. IMPRESSION: 1. No acute intracranial abnormalities. 2. Cerebral volume loss and chronic microvascular ischemic changes. 3. Left frontal parietal scalp contusion and small subscalp hematoma. Dictated by: Porsche Chavez M.D. on 08/17/2022 at 11:49 Approved by: Porsche Chavez M.D. on 08/17/2022 at 11:52
--- NOTE | 2022-08-17 10:23 | DI.CT.S_ITS ---
PROCEDURE: CT CERVICAL SPINE WO CON INDICATIONS: fall on eliquis TECHNIQUE: Noncontrast 3 mm thick sections acquired from the skull base to the T4 level. Sagittal and coronal reformats were then constructed. For radiation dose reduction, the following was used: automated exposure control, adjustment of mA and/or kV according to patient size. COMPARISON: [facility], CR, XR CHEST 1V, 08/17/2022, 10:13. [facility], CT, CT CERVICAL SPINE WO CON, 08/15/2022, 8:46. FINDINGS: Image quality: There are motion artifacts. Bones: No fractures or dislocations. Grade 1 anterolisthesis of C3 on C4. Degenerative disc in cervical spine, moderate at C4-C5 and C5-C6. [id number] facet arthropathy scattered in cervical spine bilaterally. 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 Osteopenia. Visualized superior ribs are intact. Soft tissues: Prevertebral soft tissues are normal in thickness. No paravertebral hematomas. No apical pneumothoraces. Respiratory motions versus are infiltrates in visualized lungs. Moderate cardiomegaly. IMPRESSION: 1. No cervical spine fractures. 2. Degenerative changes. 3. Cardiomegaly. 4. There are respiratory motion artifacts versus pulmonary infiltrates. Dictated by: Porsche Chavez M.D. on 08/17/2022 at 11:37 Approved by: Porsche Chavez M.D. on 08/17/2022 at 11:41
--- NOTE | 2022-08-17 10:23 | DI.CT.S_ITS ---
PROCEDURE: CT CHEST ABD PEL W CON INDICATIONS: fall eliquis hypoxia TECHNIQUE: After the administration of oral and intravenous contrast, axial sections acquired from the supraclavicular neck to the pubic symphysis. Coronal and sagittal reformats were performed. For radiation dose reduction, the following was used: automated exposure control, adjustment of mA and/or kV according to patient size. COMPARISON: [facility], CT, CT CHEST ABDOMEN WO CON, 06/14/2021, 12:24. [facility], CT, CT KIDNEY URETER BLADDER (KUB), 08/15/2022, 8:57. [facility], CT, CT CHEST ABD PEL W CON, 06/16/2020, 15:39. FINDINGS: Image quality: Excellent. CHEST: Lower Neck: No enlarged lymph nodes. Thyroid: Within normal limits. Axillae: No enlarged lymph nodes. Chest Wall: Unremarkable. Lungs and Airways: Bilateral ground-glass infiltrates suggesting pulmonary edema. Nodular infiltrate in right lower lobe. Pleura: No pneumothorax or pleural effusions. Heart: Heart size is severely enlarged. Small pericardial effusion. Thoracic Vessels: The aorta and pulmonary arteries demonstrate normal size. Mediastinum and Jennifer: No enlarged lymph nodes. Esophagus: No wall thickening. No hiatal hernia. ABDOMEN: Liver: Unremarkable. Gallbladder: There are gallstones. Biliary ducts: Unremarkable. Pancreas: Unremarkable. Spleen: Unremarkable. Adrenal Glands: Unremarkable. Kidneys and Ureters: Unremarkable. Stomach and Bowel: Stomach, small bowel loops, and colon are unremarkable. Peritoneum: No abnormal intraperitoneal fluid. No free air. Ventral Wall: No hernia. Abdominal Nodes: No retroperitoneal or mesenteric adenopathy by size criteria. Vessels: Aorta and inferior vena cava are normal in size. PELVIS: Pelvic Organs: Unremarkable. Bladder: Unremarkable. Pelvic Nodes: No enlarged lymph nodes. Miscellaneous: No inguinal hernias are seen. Bones: Degenerative changes throughout the thoracic and lumbar spine. IMPRESSION: 1. No traumatic visceral injuries in thorax, abdomen or pelvis. 2. Severe cardiomegaly. Mild pulmonary edema consistent with mild congestive heart failure. 3. Right lower lobe infiltrate suspicious for superimposed pneumonia. 4. Pericardial effusion. 5. Cholelithiasis. Dictated by: Porsche Chavez M.D. on 08/17/2022 at 11:54 Approved by: Porsche Chavez M.D. on 08/17/2022 at 12:06
--- NOTE | 2022-08-17 10:26 | ED_ITS ---
HPI - Fall General Chief Complaint: Fall Stated Complaint: Lt Knee Pain Time Seen by Provider: 08/17/22 10:23 History of Present Illness HPI Narrative: Patient is a 72-year-old female who has history of atrial fibrillation on Eliquis, chronic kidney disease, Crow's, hypertension, CHF, cor pulmonale, presenting today for her 2nd fall of the week. She initially seen evaluated on 08/15/2022, she lives at an assisted living facility she was found in the bathroom. She apparently ambulated went to turn around to pick something up fell striking her face. She apparently was in her slippers but the bathroom floor was wet. Last night she reports falling again she reports that her left knee gave out from her. She is noted to be slightly hypotensive with blood pressure in the 90s and hypoxic on room air in the 80s. She is having some difficulty breathing. She denies any pain. No fevers or chills. There was some adjustment to her torsemide. Apparently about 1 week ago her torsemide was increased from 2 tablets to 5 tablets however at her visit her torsemide was then again decreased. Related Data Home Medications Medication Instructions Recorded Confirmed acetaminophen 325 mg tablet 650 mg PO TID 12/25/18 05/21/22 gabapentin 100 mg capsule 100 mg PO BID 12/25/18 05/21/22 hydroxyzine HCl 25 mg tablet 25 mg PO Q8H PRN Itching 12/25/18 05/21/22 sodium chloride 0.65 % nasal spray 3 spray intranasal BID 12/25/18 05/21/22 aerosol ([place] Nasal) torsemide 20 mg tablet 20 mg PO QAM 12/25/18 05/21/22 ascorbic acid (vitamin C) 500 mg 500 mg PO QAM 03/11/19 05/21/22 tablet hydrocortisone 1 % topical cream 1 applic topical Q12H PRN Rash 03/11/19 05/21/22 melatonin 3 mg tablet 6 mg PO BEDTIME 03/11/19 05/21/22 ondansetron HCl 8 mg tablet 8 mg PO DAILY PRN Nausea 03/11/19 05/21/22 polyethylene glycol 3350 17 gram 17 g PO QAM 03/11/19 05/21/22 oral powder packet betamethasone valerate 0.1 % 1 applic topical DAILY 06/16/19 05/21/22 topical ointment trazodone 50 mg tablet 25 mg PO BEDTIME 12/10/19 05/21/22 dextromethorphan-guaifenesin 30 1 tab PO Q12H PRN cough, congestion 03/10/20 05/21/22 mg-600 mg tablet extended [id number] hr (Mucinex DM) lorazepam 0.5 mg tablet 0.5 mg PO Q6HR PRN Anxiety 03/10/20 05/21/22 metoprolol succinate 25 mg 50 mg PO BID 03/10/20 05/21/22 tablet,extended release 24 hr apixaban 5 mg tablet (Eliquis) 2.5 mg PO DAILY 06/27/20 05/21/22 lisinopril 10 mg tablet 10 mg PO DAILY 04/05/21 05/21/22 albuterol 90 mcg/actuation aerosol 90 mcg inhalation PRN PRN 05/21/22 05/21/22 inhaler Shortness Of Breath vitamin [id number] B1 1,000 1 ml IM Q7D 05/21/22 05/21/22 mcg-100 mg/mL injection solution Previous Rx's Medication Instructions Recorded oxycodone 5 mg tablet 2.5 - 5 mg PO Q6H PRN pain #10 tabs 03/13/19 Allergies Allergy/AdvReac Type Severity Reaction Status Date / Time adhesive tape Allergy Verified 08/15/22 08:21 basil Allergy Verified 08/15/22 08:21 cephalexin [From Keflex] Allergy Verified 08/15/22 08:21 marlena Allergy Verified 08/15/22 08:21 Penicillins Allergy Verified 08/15/22 08:21 sulfamethoxazole AdvReac Severe Hyperkalemia/worsening Verified 08/15/22 08:21 [From Bactrim] CKD trimethoprim [From Bactrim] AdvReac Severe Hyperkalemia/worsening Verified 08/15/22 08:21 CKD Review of Systems Review of Systems ROS Unobtainable: All systems reviewed & are unremarkable except as noted in HPI and below Patient History Medical History Chronic kidney disease Cor pulmonale Degenerative joint disease of knee Depression Diastolic heart failure DJD (degenerative joint disease) Hyperlipidemia Iron (Fe) deficiency anemia Left knee DJD Left leg DVT Osteoarthritis Osteoarthritis, hand Polyneuropathy Traumatic coccydynia Crow's granulomatosis Surgical History History of Achilles tendon repair History of esophagogastroduodenoscopy (EGD) Status post creation of arteriovenous fistula Family History Brother FH: kidney cancer Father CVA (cerebral vascular accident) Mother CVA (cerebral vascular accident) Atrial fibrillation Social History household members: none Smoking Status: Never smoker alcohol intake: former substance use type: does not use Smoking Status: Never smoker alcohol intake frequency: holidays/special occasions only Substance Use Type: does not use Exam Initial Vital Signs Initial Vital Signs: Vital Signs Temperature 98 F 08/17/22 10:22 Pulse Rate 82 08/17/22 10:22 Respiratory Rate 16 08/17/22 10:22 Blood Pressure 98/58 L 08/17/22 10:22 Pulse Oximetry 94 08/17/22 10:22 Oxygen Delivery Method Nasal Cannula 08/17/22 10:22 Oxygen Flow Rate 4 08/17/22 10:22 GENERAL: Alert 72-year-old female of multiple contusions on HEENT: Head atraumatic,EOMI, pupils reactive, facial contusions mostly left- sided CARDIOVASCULAR: Regular rate and rhythm without murmurs, rubs or gallops. RESPIRATORY: Breath sounds equal bilaterally, no wheezes rales or rhonchi. ABDOMEN: Soft, nontender. Normoactive bowel sounds all 4 quadrants. No guarding or rebound. EXTREMITIES: Normal range of motion, no clubbing or edema. Neurovascularly intact NEUROLOGICAL: Alert and oriented x4. SKIN: Left knee contusion facial contusions no significant erythema Course Orders Ordered: ED Orders 08/17/22 10:23 CT cervical spine wo con Stat CT chest abd pel w con Stat CT head/brain wo con Stat 08/17/22 10:30 Complete Blood Count AUTO DIFF Stat Comprehensive Metabolic Panel Stat Lactate (Lactic Acid) Stat Lipase Stat NT-proBNP (BNP-Adult 18+) Stat PTT Partial Thromboplastin Maximino Stat Prothrombin Time INR Stat Troponin & CK Cardiac Panel Stat 08/17/22 10:43 XR knee LT 3V Stat EKG-12 Lead Stat 08/17/22 10:47 Blood Culture Stat 08/17/22 12:30 UA Complete [Urinalysis and Microscopic] Stat 08/17/22 14:15 ABG [Arterial Blood Gas] Stat 08/17/22 16:28 CMP [Comprehensive Metabolic Panel] Stat Trop I [Troponin I] Stat 08/17/22 17:09 Covid-19 + FLU A/B + RSV - PCR Stat Discontinued Medications Furosemide (Furosemide 40 Mg/4 Ml Vial) 40 mg IV NOW ONE Stop: 08/17/22 11:17 Last Admin: 08/17/22 11:54 Dose: 40 mg Documented By: TREV Furosemide 80 mg/ Sodium (Chloride) 58 mls @ 116 mls/hr IV NOW ONE Stop: 08/17/22 13:26 Last Infusion: 08/17/22 14:10 Dose: 0 mls/hr Documented By: Admin: 08/17/22 13:36 Dose: 116 mls/hr Documented By: VIKKI Furosemide 200 mg/ Sodium (Chloride) 70 mls @ 140 mls/hr IV NOW ONE Stop: 08/17/22 17:56 Last Infusion: 08/17/22 18:52 Dose: 0 mls/hr Documented By: Admin: 08/17/22 18:18 Dose: 140 mls/hr Documented By: NASIR Metolazone (Metolazone 2.5 Mg Tablet) 5 mg PO NOW ONE Stop: 08/17/22 16:18 Last Admin: 08/17/22 18:55 Dose: Not Given Documented By: VIKKI Vital Signs Vital signs: Vital Signs - 8 hr 08/17/22 11:59 08/17/22 11:26 08/17/22 11:27 Pulse Rate 76 82 Respiratory Rate 30 H 16 Blood Pressure Pulse Oximetry 95 91 91 Oxygen Delivery Method Venturi Mask Venturi Mask Venturi Mask Oxygen Flow Rate 15 15 15 Fraction of Inspired Oxygen 08/17/22 11:27 08/17/22 11:30 08/17/22 11:30 Pulse Rate 79 Respiratory Rate 23 Blood Pressure 118/76 110/69 Pulse Oximetry 92 Oxygen Delivery Method Oxygen Flow Rate Fraction of Inspired Oxygen 08/17/22 11:35 08/17/22 11:40 08/17/22 11:45 Pulse Rate 85 81 Respiratory Rate 26 H 25 H Blood Pressure 101/66 Pulse Oximetry 91 92 Oxygen Delivery Method Oxygen Flow Rate Fraction of Inspired Oxygen 08/17/22 11:45 08/17/22 11:50 08/17/22 11:55 Pulse Rate 80 83 78 Respiratory Rate 19 22 24 Blood Pressure Pulse Oximetry 90 L 95 Oxygen Delivery Method Oxygen Flow Rate Fraction of Inspired Oxygen 08/17/22 12:00 08/17/22 12:00 08/17/22 12:05 Pulse Rate 79 81 Respiratory Rate 26 H 25 H Blood Pressure 108/78 Pulse Oximetry 96 96 Oxygen Delivery Method Venturi Mask Venturi Mask Venturi Mask Oxygen Flow Rate 15 15 15 Fraction of Inspired Oxygen 08/17/22 12:10 08/17/22 12:15 08/17/22 12:15 Pulse Rate 77 78 Respiratory Rate 23 21 Blood Pressure 113/78 Pulse Oximetry 97 97 Oxygen Delivery Method Venturi Mask Venturi Mask Oxygen Flow Rate 15 15 Fraction of Inspired Oxygen 08/17/22 12:20 08/17/22 12:25 08/17/22 12:30 Pulse Rate 79 82 Respiratory Rate 20 25 H Blood Pressure 121/90 Pulse Oximetry 97 96 Oxygen Delivery Method Venturi Mask Venturi Mask Oxygen Flow Rate 15 15 Fraction of Inspired Oxygen 08/17/22 12:30 08/17/22 12:35 08/17/22 12:40 Pulse Rate 87 85 78 Respiratory Rate 21 18 13 Blood Pressure Pulse Oximetry 94 97 93 Oxygen Delivery Method Venturi Mask Venturi Mask Oxygen Flow Rate 15 15 Fraction of Inspired Oxygen 08/17/22 12:45 08/17/22 12:45 08/17/22 12:50 Pulse Rate 78 79 Respiratory Rate 24 28 H Blood Pressure 113/75 Pulse Oximetry 92 91 Oxygen Delivery Method Venturi Mask Oxygen Flow Rate 15 Fraction of Inspired Oxygen 08/17/22 12:55 08/17/22 13:00 08/17/22 13:00 Pulse Rate 77 85 Respiratory Rate 25 H 18 Blood Pressure 126/82 Pulse Oximetry 92 98 Oxygen Delivery Method Venturi Mask Venturi Mask Oxygen Flow Rate 15 15 Fraction of Inspired Oxygen 08/17/22 13:05 08/17/22 13:10 08/17/22 13:15 Pulse Rate 80 76 Respiratory Rate 27 H 17 Blood Pressure 114/78 Pulse Oximetry 98 97 Oxygen Delivery Method Oxygen Flow Rate Fraction of Inspired Oxygen 08/17/22 13:15 08/17/22 13:20 08/17/22 13:25 Pulse Rate 82 79 77 Respiratory Rate 23 32 H 25 H Blood Pressure Pulse Oximetry 96 96 96 Oxygen Delivery Method Oxygen Flow Rate Fraction of Inspired Oxygen 08/17/22 13:30 08/17/22 13:30 08/17/22 13:35 Pulse Rate 82 84 Respiratory Rate 37 H 23 Blood Pressure 121/80 Pulse Oximetry 96 96 Oxygen Delivery Method Venturi Mask Oxygen Flow Rate 15 Fraction of Inspired Oxygen 08/17/22 13:40 08/17/22 13:45 08/17/22 13:50 Pulse Rate 86 84 82 Respiratory Rate 25 H 23 20 Blood Pressure Pulse Oximetry 92 94 94 Oxygen Delivery Method Oxygen Flow Rate Fraction of Inspired Oxygen 08/17/22 13:55 08/17/22 14:00 08/17/22 14:05 Pulse Rate 81 84 80 Respiratory Rate 24 20 19 Blood Pressure Pulse Oximetry 92 90 L 90 L Oxygen Delivery Method Oxygen Flow Rate Fraction of Inspired Oxygen 08/17/22 14:10 08/17/22 14:15 08/17/22 14:20 Pulse Rate 81 84 86 Respiratory Rate 17 19 20 Blood Pressure Pulse Oximetry 89 L 91 89 L Oxygen Delivery Method Venturi Mask Oxygen Flow Rate 15 Fraction of Inspired Oxygen 08/17/22 14:25 08/17/22 14:30 08/17/22 14:31 Pulse Rate 84 86 86 Respiratory Rate 16 18 15 Blood Pressure Pulse Oximetry 96 96 95 Oxygen Delivery Method Venturi Mask Oxygen Flow Rate 15 Fraction of Inspired Oxygen 08/17/22 14:31 08/17/22 14:35 08/17/22 14:40 Pulse Rate 88 88 Respiratory Rate 14 21 Blood Pressure 113/78 Pulse Oximetry 98 97 Oxygen Delivery Method BiPAP BiPAP Oxygen Flow Rate Fraction of Inspired Oxygen 08/17/22 14:45 08/17/22 14:45 08/17/22 14:50 Pulse Rate 82 85 Respiratory Rate 17 18 Blood Pressure 114/78 Pulse Oximetry 98 98 Oxygen Delivery Method BiPAP BiPAP Oxygen Flow Rate Fraction of Inspired Oxygen 08/17/22 14:55 08/17/22 15:00 08/17/22 15:00 Pulse Rate 79 83 Respiratory Rate 37 H 42 H Blood Pressure 118/75 Pulse Oximetry 99 97 Oxygen Delivery Method BiPAP BiPAP Oxygen Flow Rate Fraction of Inspired Oxygen 08/17/22 15:05 08/17/22 15:10 08/17/22 15:15 Pulse Rate 83 85 87 Respiratory Rate 35 H 32 H 18 Blood Pressure Pulse Oximetry 97 97 97 Oxygen Delivery Method BiPAP BiPAP BiPAP Oxygen Flow Rate Fraction of Inspired Oxygen 08/17/22 15:16 08/17/22 15:16 08/17/22 15:20 Pulse Rate 83 83 Respiratory Rate 21 17 Blood Pressure 124/57 L Pulse Oximetry 97 98 Oxygen Delivery Method BiPAP BiPAP Oxygen Flow Rate Fraction of Inspired Oxygen 08/17/22 15:25 08/17/22 15:30 08/17/22 15:30 Pulse Rate 74 82 Respiratory Rate 19 18 Blood Pressure 119/59 L Pulse Oximetry 98 99 Oxygen Delivery Method BiPAP BiPAP Oxygen Flow Rate Fraction of Inspired Oxygen 08/17/22 15:35 08/17/22 15:40 08/17/22 15:45 Pulse Rate 79 80 80 Respiratory Rate 22 21 28 H Blood Pressure Pulse Oximetry 98 98 98 Oxygen Delivery Method BiPAP BiPAP BiPAP Oxygen Flow Rate Fraction of Inspired Oxygen 08/17/22 15:46 08/17/22 15:46 08/17/22 15:50 Pulse Rate 84 81 Respiratory Rate 29 H 23 Blood Pressure 104/58 L Pulse Oximetry 98 99 Oxygen Delivery Method BiPAP BiPAP Oxygen Flow Rate Fraction of Inspired Oxygen 08/17/22 15:55 08/17/22 16:00 08/17/22 16:00 Pulse Rate 77 83 Respiratory Rate 28 H 24 Blood Pressure 113/62 Pulse Oximetry 99 98 Oxygen Delivery Method BiPAP BiPAP Oxygen Flow Rate Fraction of Inspired Oxygen 08/17/22 16:05 08/17/22 16:10 08/17/22 16:15 Pulse Rate 80 77 Respiratory Rate 28 H 31 H Blood Pressure 104/78 Pulse Oximetry 99 99 Oxygen Delivery Method BiPAP BiPAP Oxygen Flow Rate Fraction of Inspired Oxygen 08/17/22 16:15 08/17/22 16:20 08/17/22 16:25 Pulse Rate 82 79 83 Respiratory Rate 27 H 29 H 31 H Blood Pressure Pulse Oximetry 100 99 98 Oxygen Delivery Method BiPAP BiPAP BiPAP Oxygen Flow Rate Fraction of Inspired Oxygen 08/17/22 16:30 08/17/22 16:30 08/17/22 16:35 Pulse Rate 84 87 Respiratory Rate 35 H 29 H Blood Pressure 117/75 Pulse Oximetry 99 98 Oxygen Delivery Method BiPAP BiPAP Oxygen Flow Rate Fraction of Inspired Oxygen 08/17/22 16:40 08/17/22 14:30 08/17/22 17:00 Pulse Rate 82 Respiratory Rate 19 Blood Pressure 104/78 Pulse Oximetry 99 Oxygen Delivery Method BiPAP Oxygen Flow Rate Fraction of Inspired Oxygen 40 40 08/17/22 16:45 08/17/22 16:46 08/17/22 16:46 Pulse Rate 91 H 87 Respiratory Rate 28 H 32 H Blood Pressure 163/99 H Pulse Oximetry 98 98 Oxygen Delivery Method Venturi Mask Venturi Mask Oxygen Flow Rate Fraction of Inspired Oxygen 08/17/22 16:50 08/17/22 16:55 08/17/22 17:00 Pulse Rate 84 83 87 Respiratory Rate 27 H 26 H 23 Blood Pressure Pulse Oximetry 97 96 95 Oxygen Delivery Method Venturi Mask Venturi Mask Venturi Mask Oxygen Flow Rate Fraction of Inspired Oxygen 08/17/22 17:01 08/17/22 17:01 08/17/22 17:05 Pulse Rate 86 80 Respiratory Rate 33 H 31 H Blood Pressure 147/65 H Pulse Oximetry 95 95 Oxygen Delivery Method Venturi Mask Venturi Mask Oxygen Flow Rate Fraction of Inspired Oxygen 08/17/22 17:10 08/17/22 17:15 08/17/22 17:20 Pulse Rate 85 84 82 Respiratory Rate 33 H 28 H 28 H Blood Pressure Pulse Oximetry 96 94 Oxygen Delivery Method Venturi Mask Venturi Mask Venturi Mask Oxygen Flow Rate Fraction of Inspired Oxygen 08/17/22 17:25 08/17/22 17:30 08/17/22 17:30 Pulse Rate 83 86 Respiratory Rate 24 25 H Blood Pressure 122/83 Pulse Oximetry 94 Oxygen Delivery Method Venturi Mask Oxygen Flow Rate Fraction of Inspired Oxygen 08/17/22 17:35 08/17/22 17:40 08/17/22 17:45 Pulse Rate 76 78 84 Respiratory Rate 32 H 34 H 28 H Blood Pressure Pulse Oximetry 93 93 93 Oxygen Delivery Method Venturi Mask Venturi Mask Venturi Mask Oxygen Flow Rate Fraction of Inspired Oxygen 08/17/22 17:46 08/17/22 17:46 08/17/22 17:50 Pulse Rate 83 80 Respiratory Rate 25 H 43 H Blood Pressure 131/77 Pulse Oximetry 93 94 Oxygen Delivery Method Venturi Mask Venturi Mask Oxygen Flow Rate Fraction of Inspired Oxygen 08/17/22 17:55 08/17/22 18:00 08/17/22 18:01 Pulse Rate 81 82 79 Respiratory Rate 22 23 29 H Blood Pressure Pulse Oximetry 95 94 93 Oxygen Delivery Method Oxygen Flow Rate Fraction of Inspired Oxygen 08/17/22 18:01 08/17/22 18:05 08/17/22 18:10 Pulse Rate 86 82 Respiratory Rate 33 H 20 Blood Pressure 104/75 Pulse Oximetry 93 94 Oxygen Delivery Method Oxygen Flow Rate Fraction of Inspired Oxygen 08/17/22 18:15 08/17/22 18:15 08/17/22 18:20 Pulse Rate 81 83 Respiratory Rate 23 28 H Blood Pressure 118/76 Pulse Oximetry 94 94 Oxygen Delivery Method Oxygen Flow Rate Fraction of Inspired Oxygen 08/17/22 18:25 08/17/22 18:30 08/17/22 18:30 Pulse Rate 85 86 Respiratory Rate 31 H 22 Blood Pressure 119/83 Pulse Oximetry 93 94 Oxygen Delivery Method Oxygen Flow Rate Fraction of Inspired Oxygen 08/17/22 18:35 08/17/22 18:40 Pulse Rate 86 89 Respiratory Rate 30 H 33 H Blood Pressure Pulse Oximetry 95 96 Oxygen Delivery Method Venturi Mask Oxygen Flow Rate Fraction of Inspired Oxygen MDM - Fall Lab Data 08/17/22 10:30 08/17/22 16:28 Labs: Lab Results 08/17/22 08/17/22 08/17/22 Range/Units 10:30 10:30 10:30 WBC 7.2 (4.5-11.0) X10^3/uL RBC 4.01 (4.0-5.2) X10^6/uL Hgb 12.3 (12.0-16.0) g/dL Hct 39.3 (36-46) % MCV 97.9 (80-100) fL MCH 30.7 (26-34) PG MCHC 31.3 (30-36) % RDW 18.1 H (11.6-14.8) % Plt Count 227 (150-400) X10^3/uL Neut % (Auto) Not Reportable Lymph % (Auto) Not Reportable [place] % (Auto) Not Reportable Eos % (Auto) Not Reportable Baso % (Auto) Not Reportable Lymph # (Auto) Not Reportable [place] # (Auto) Not Reportable Baso # (Auto) Not Reportable Total Counted 100 Seg Neutrophils % 88.0 H (38-70) % Lymphocytes % (Manual) 3.0 L (25-45) % Monocytes % (Manual) 6.0 (2-11) % Eosinophils % (Manual) 3.0 (2-4) % Neutrophils # (Manual) 6336 H (7078-4558) /uL Nucleated RBCs 5 H ( - 0) #/Diff RBC Morphology See below Polychromasia 1+ H Poikilocytosis 1+ H Anisocytosis 1+ H PT 23.8 H (10.1-12.7) SECONDS INR 2.1 H (0.9-1.3) APTT 33 (26-36) SECONDS ABG pH (7.35-7.45) ABG pCO2 (35-45) mmHg ABG pO2 (80-100) mmHg ABG HCO3 (23-27) mmol/L ABG Total CO2 (23-27) mmol/L ABG O2 Saturation (95-100) % ABG Base Excess (-2-3) mmol/L FiO2 Sodium 142 (137-145) mmol/L Potassium 4.4 (3.4-5.1) mmol/L Chloride 105 (98-107) mmol/L Carbon Dioxide 24 (22-32) mmol/L BUN 90 H (7-17) mg/dL Creatinine 3.10 H (0.52-1.04) mg/dL Estimated GFR 15 L (>60) mL/min BUN/Creatinine Ratio 29.0 H (6-22) Glucose 91 (80-110) mg/dL Lactate (0.7-2.1) mmol/L Calcium 7.9 L (8.4-10.2) mg/dL Total Bilirubin 1.4 H (0.2-1.3) mg/dL AST 25 (14-36) IU/L ALT 18 (<35) IU/L Alkaline Phosphatase 80 (38-126) U/L Total Creatine Kinase < 20 L (30-135) U/L CK-MB (CK-2) TNP CK-MB (CK-2) Rel Index TNP Troponin I 0.024 (0.01-0.034) ng/mL NT-Pro-B Natriuret Pep 6250 H (<125) pg/mL Total Protein 7.9 (6.3-8.2) g/dL Albumin 3.3 L (3.5-5.0) g/dL Globulin 4.6 H (1.7-4.1) g/dL Albumin/Globulin Ratio 0.7 L (1.0-2.8) Lipase 97 (23-300) U/L Urine Color Urine Appearance Urine pH (4.5-8.0) Ur Specific [place] (1.000-1.035) Urine Protein (Negative) Urine Glucose (UA) (Negative) g/dL Urine Ketones (NEGATIVE) Urine Occult Blood (Negative) Urine Nitrate (Negative) Urine Bilirubin (NEGATIVE) Urine Urobilinogen (0.2) E.U./dL Ur Leukocyte Esterase (NEGATIVE) Urine RBC (0-5/HPF) Urine WBC (0-5/HPF) Ur Squamous Epith Cells (0-5/HPF) Amorphous Sediment Urine Bacteria (None) Urine Mucus (Negative) Ur Culture Indicated? SARS-CoV-2 (PCR) (Negative) Influenza A (RT-PCR) (NEGATIVE) Influenza B (RT-PCR) (NEGATIVE) RSV (PCR) (Negative) 08/17/22 08/17/22 08/17/22 Range/Units 10:30 12:30 13:00 WBC (4.5-11.0) X10^3/uL RBC (4.0-5.2) X10^6/uL Hgb (12.0-16.0) g/dL Hct (36-46) % MCV (80-100) fL MCH (26-34) PG MCHC (30-36) % RDW (11.6-14.8) % Plt Count (150-400) X10^3/uL Neut % (Auto) Lymph % (Auto) [place] % (Auto) Eos % (Auto) Baso % (Auto) Lymph # (Auto) [place] # (Auto) Baso # (Auto) Total Counted Seg Neutrophils % (38-70) % Lymphocytes % (Manual) (25-45) % Monocytes % (Manual) (2-11) % Eosinophils % (Manual) (2-4) % Neutrophils # (Manual) (0722-7579) /uL Nucleated RBCs ( - 0) #/Diff RBC Morphology Polychromasia Poikilocytosis Anisocytosis PT (10.1-12.7) SECONDS INR (0.9-1.3) APTT (26-36) SECONDS ABG pH (7.35-7.45) ABG pCO2 (35-45) mmHg ABG pO2 (80-100) mmHg ABG HCO3 (23-27) mmol/L ABG Total CO2 (23-27) mmol/L ABG O2 Saturation (95-100) % ABG Base Excess (-2-3) mmol/L FiO2 Sodium (137-145) mmol/L Potassium (3.4-5.1) mmol/L Chloride (98-107) mmol/L Carbon Dioxide (22-32) mmol/L BUN (7-17) mg/dL Creatinine (0.52-1.04) mg/dL Estimated GFR (>60) mL/min BUN/Creatinine Ratio (6-22) Glucose (80-110) mg/dL Lactate 2.2 H 1.4 (0.7-2.1) mmol/L Calcium (8.4-10.2) mg/dL Total Bilirubin (0.2-1.3) mg/dL AST (14-36) IU/L ALT (<35) IU/L Alkaline Phosphatase (38-126) U/L Total Creatine Kinase (30-135) U/L CK-MB (CK-2) CK-MB (CK-2) Rel Index Troponin I (0.01-0.034) ng/mL NT-Pro-B Natriuret Pep (<125) pg/mL Total Protein (6.3-8.2) g/dL Albumin (3.5-5.0) g/dL Globulin (1.7-4.1) g/dL Albumin/Globulin Ratio (1.0-2.8) Lipase (23-300) U/L Urine Color Yellow Urine Appearance Clear Urine pH 5.0 (4.5-8.0) Ur Specific [place] 1.020 (1.000-1.035) Urine Protein Trace H (Negative) Urine Glucose (UA) Negative (Negative) g/dL Urine Ketones Negative (NEGATIVE) Urine Occult Blood Negative (Negative) Urine Nitrate Negative (Negative) Urine Bilirubin Negative (NEGATIVE) Urine Urobilinogen 0.2 (0.2) E.U./dL Ur Leukocyte Esterase Negative (NEGATIVE) Urine RBC None seen (0-5/HPF) Urine WBC 0-1/hpf (0-5/HPF) Ur Squamous Epith Cells 1-5 /hpf (0-5/HPF) Amorphous Sediment 1+ Urine Bacteria Occasional (0-1) (None) Urine Mucus 1+ H (Negative) Ur Culture Indicated? Cult not indicated SARS-CoV-2 (PCR) (Negative) Influenza A (RT-PCR) (NEGATIVE) Influenza B (RT-PCR) (NEGATIVE) RSV (PCR) (Negative) 08/17/22 08/17/22 08/17/22 Range/Units 14:15 16:28 16:28 WBC (4.5-11.0) X10^3/uL RBC (4.0-5.2) X10^6/uL Hgb (12.0-16.0) g/dL Hct (36-46) % MCV (80-100) fL MCH (26-34) PG MCHC (30-36) % RDW (11.6-14.8) % Plt Count (150-400) X10^3/uL Neut % (Auto) Lymph % (Auto) [place] % (Auto) Eos % (Auto) Baso % (Auto) Lymph # (Auto) [place] # (Auto) Baso # (Auto) Total Counted Seg Neutrophils % (38-70) % Lymphocytes % (Manual) (25-45) % Monocytes % (Manual) (2-11) % Eosinophils % (Manual) (2-4) % Neutrophils # (Manual) (3798-5647) /uL Nucleated RBCs ( - 0) #/Diff RBC Morphology Polychromasia Poikilocytosis Anisocytosis PT (10.1-12.7) SECONDS INR (0.9-1.3) APTT (26-36) SECONDS ABG pH 7.39 (7.35-7.45) ABG pCO2 40.0 (35-45) mmHg ABG pO2 58 L (80-100) mmHg ABG HCO3 24 (23-27) mmol/L ABG Total CO2 25 (23-27) mmol/L ABG O2 Saturation 89 L (95-100) % ABG Base Excess -1.0 (-2-3) mmol/L FiO2 50 Sodium 140 (137-145) mmol/L Potassium 4.6 (3.4-5.1) mmol/L Chloride 104 (98-107) mmol/L Carbon Dioxide 26 (22-32) mmol/L BUN 90 H (7-17) mg/dL Creatinine 3.25 H (0.52-1.04) mg/dL Estimated GFR 14 L (>60) mL/min BUN/Creatinine Ratio 27.7 H (6-22) Glucose 89 (80-110) mg/dL Lactate (0.7-2.1) mmol/L Calcium 7.9 L (8.4-10.2) mg/dL Total Bilirubin 1.5 H (0.2-1.3) mg/dL AST 22 (14-36) IU/L ALT 17 (<35) IU/L Alkaline Phosphatase 83 (38-126) U/L Total Creatine Kinase (30-135) U/L CK-MB (CK-2) CK-MB (CK-2) Rel Index Troponin I 0.049 H (0.01-0.034) ng/mL NT-Pro-B Natriuret Pep (<125) pg/mL Total Protein 8.0 (6.3-8.2) g/dL Albumin 3.3 L (3.5-5.0) g/dL Globulin 4.7 H (1.7-4.1) g/dL Albumin/Globulin Ratio 0.7 L (1.0-2.8) Lipase (23-300) U/L Urine Color Urine Appearance Urine pH (4.5-8.0) Ur Specific [place] (1.000-1.035) Urine Protein (Negative) Urine Glucose (UA) (Negative) g/dL Urine Ketones (NEGATIVE) Urine Occult Blood (Negative) Urine Nitrate (Negative) Urine Bilirubin (NEGATIVE) Urine Urobilinogen (0.2) E.U./dL Ur Leukocyte Esterase (NEGATIVE) Urine RBC (0-5/HPF) Urine WBC (0-5/HPF) Ur Squamous Epith Cells (0-5/HPF) Amorphous Sediment Urine Bacteria (None) Urine Mucus (Negative) Ur Culture Indicated? SARS-CoV-2 (PCR) (Negative) Influenza A (RT-PCR) (NEGATIVE) Influenza B (RT-PCR) (NEGATIVE) RSV (PCR) (Negative) 08/17/22 Range/Units 17:09 WBC (4.5-11.0) X10^3/uL RBC (4.0-5.2) X10^6/uL Hgb (12.0-16.0) g/dL Hct (36-46) % MCV (80-100) fL MCH (26-34) PG MCHC (30-36) % RDW (11.6-14.8) % Plt Count (150-400) X10^3/uL Neut % (Auto) Lymph % (Auto) [place] % (Auto) Eos % (Auto) Baso % (Auto) Lymph # (Auto) [place] # (Auto) Baso # (Auto) Total Counted Seg Neutrophils % (38-70) % Lymphocytes % (Manual) (25-45) % Monocytes % (Manual) (2-11) % Eosinophils % (Manual) (2-4) % Neutrophils # (Manual) (8123-7089) /uL Nucleated RBCs ( - 0) #/Diff RBC Morphology Polychromasia Poikilocytosis Anisocytosis PT (10.1-12.7) SECONDS INR (0.9-1.3) APTT (26-36) SECONDS ABG pH (7.35-7.45) ABG pCO2 (35-45) mmHg ABG pO2 (80-100) mmHg ABG HCO3 (23-27) mmol/L ABG Total CO2 (23-27) mmol/L ABG O2 Saturation (95-100) % ABG Base Excess (-2-3) mmol/L FiO2 Sodium (137-145) mmol/L Potassium (3.4-5.1) mmol/L Chloride (98-107) mmol/L Carbon Dioxide (22-32) mmol/L BUN (7-17) mg/dL Creatinine (0.52-1.04) mg/dL Estimated GFR (>60) mL/min BUN/Creatinine Ratio (6-22) Glucose (80-110) mg/dL Lactate (0.7-2.1) mmol/L Calcium (8.4-10.2) mg/dL Total Bilirubin (0.2-1.3) mg/dL AST (14-36) IU/L ALT (<35) IU/L Alkaline Phosphatase (38-126) U/L Total Creatine Kinase (30-135) U/L CK-MB (CK-2) CK-MB (CK-2) Rel Index Troponin I (0.01-0.034) ng/mL NT-Pro-B Natriuret Pep (<125) pg/mL Total Protein (6.3-8.2) g/dL Albumin (3.5-5.0) g/dL Globulin (1.7-4.1) g/dL Albumin/Globulin Ratio (1.0-2.8) Lipase (23-300) U/L Urine Color Urine Appearance Urine pH (4.5-8.0) Ur Specific [place] (1.000-1.035) Urine Protein (Negative) Urine Glucose (UA) (Negative) g/dL Urine Ketones (NEGATIVE) Urine Occult Blood (Negative) Urine Nitrate (Negative) Urine Bilirubin (NEGATIVE) Urine Urobilinogen (0.2) E.U./dL Ur Leukocyte Esterase (NEGATIVE) Urine RBC (0-5/HPF) Urine WBC (0-5/HPF) Ur Squamous Epith Cells (0-5/HPF) Amorphous Sediment Urine Bacteria (None) Urine Mucus (Negative) Ur Culture Indicated? SARS-CoV-2 (PCR) Negative (Negative) Influenza A (RT-PCR) Flu a negative (NEGATIVE) Influenza B (RT-PCR) Flu b negative (NEGATIVE) RSV (PCR) Negative (Negative) Imaging Data Chest x-ray: Radiologist's Impression: PROCEDURE:? XR CHEST 1V ? INDICATIONS:? FALL ? TECHNIQUE:? One view of the chest was acquired.? ? COMPARISON:? [facility], CT, CT CHEST ABDOMEN WO CON, 06/14/2021, 12:24.? [facility], CR, XR CHEST 1V, 08/15/2022, 8:48.? [facility], CR, XR CHEST 2V, 11/14/2021, 13:19. ? FINDINGS:? ? Surgical changes and devices:? None.? ? Lungs and pleura:? Mild opacity in the right lung.? No pleural effusions or pneumothorax. ? ? Mediastinum:? Mediastinal contours appear normal.? Heart size is enlarged.? ? Bones and chest wall:? No suspicious bony lesions.? Overlying soft tissues appear unremarkable.? ? IMPRESSION:? No obvious acute fracture is identified. ? Cardiomegaly. Mild opacity in the right lung, stable to decreased.? Suspect infectious/in flammatory etiology.? ? Dictated by: Eligio Ravi M.D. on 08/17/2022 at 10:41 ? ? CT scan - head: Radiologist's Impression: PROCEDURE:? CT HEAD/BRAIN WO CON ? INDICATIONS:? fall on eliquis ? TECHNIQUE:? Noncontrast 4.5 mm thick angled axial sections acquired from the foramen magnum to the vertex, with coronal and sagittal reformats.? For radiation dose reduction, the following was used:? automated exposure control, adjustment of mA and/or kV according to patient size.? ? COMPARISON:? [facility], CT, CT HEAD/BRAIN WO CON, 08/15/2022, 8:46. ? FINDINGS:? Image quality:? Excellent.? ? CSF spaces:? Basal cisterns are patent.? No extra-axial fluid collections.? The ventricles are symmetric in size and shape.? ? Brain:? No intracranial bleeds or masses.? There is cerebral volume loss for age, with resultant ventricular and sulcal prominence.? There are periventricular and deep white matter chronic small vessel ischemic changes.? There is intracranial internal carotid artery atherosclerosis.? ? Skull and face:? Calvarium and visualized facial bones appear intact, without suspicious lesions.? Left frontal parietal scalp contusion and small subscalp hematoma, which was present on 08/15/2022. ? Sinuses:? Visualized sinuses and mastoids are clear.? ? IMPRESSION:? ? 1. No acute intracranial abnormalities. ? 2. Cerebral volume loss and chronic microvascular ischemic changes. ? 3.? Left frontal parietal scalp contusion and small subscalp hematoma. ? ? ? Dictated by: Porsche Chavez M.D. on 08/17/2022 at 11:49 ? ? Approved by: Porsche Chavez M.D. on 08/17/2022 at 11:52? CT - cervical spine: Radiologist's Impression: PROCEDURE:? CT CERVICAL SPINE WO CON ? INDICATIONS:? fall on eliquis ? TECHNIQUE:? Noncontrast 3 mm thick sections acquired from the skull base to the T4 level.? Sagittal and coronal reformats were then constructed.? For radiation dose reduction, the following was used:? automated exposure control, adjustment of mA and/or kV according to patient size.? ? COMPARISON:? [facility], CR, XR CHEST 1V, 08/17/2022, 10:13.? [facility], CT, CT CERVICAL SPINE WO CON, 08/15/2022, 8:46. ? FINDINGS:? Image quality:? There are motion artifacts.? ? Bones:? No fractures or dislocations.? Grade 1 anterolisthesis of C3 on C4.? Degenerative disc in cervical spine, moderate at C4-C5 and C5-C6.? Oijv-fa-bdgpwdty facet arthropathy scattered in cervical spine bilaterally.? There is severe atlantoaxial joint degeneration.? Osteopenia.? Visualized superior ribs are intact.? ? Soft tissues:? Prevertebral soft tissues are normal in thickness.? No paraverteb ral hematomas.? No apical pneumothoraces.? Respiratory motions versus are infiltrates in visualized lungs.? Moderate cardiomegaly. ? ? IMPRESSION:? ? 1. No cervical spine fractures. 2. Degenerative changes. 3. Cardiomegaly. 4. There are respiratory motion artifacts versus pulmonary infiltrates.? Dictated by: Porsche Chavez M.D. on 08/17/2022 at 11:37 ?? CT scan - chest: Radiologist's Impression: PROCEDURE:? CT CHEST ABD PEL W CON ? INDICATIONS:? fall eliquis hypoxia ? TECHNIQUE:? After the administration of oral and intravenous contrast, axial sections acquired from the supraclavicular neck to the pubic symphysis.? Coronal and sagittal reformats were performed.? For radiation dose reduction, the following was used:? automated exposure control, adjustment of mA and/or kV according to patient size.? ? COMPARISON: ? [facility], CT, CT CHEST ABDOMEN WO CON, 06/14/2021, 12:24.? [facility], CT, CT KIDNEY URETER BLADDER (KUB), 08/15/2022, 8:57.? [facility], CT, CT CHEST ABD PEL W CON, 06/16/2020, 15:39. ? FINDINGS:? Image quality:? Excellent.? ? CHEST: Lower Neck: No enlarged lymph nodes.? Thyroid: Within normal limits. Axillae: No enlarged lymph nodes. Chest Wall:? Unremarkable.? ? Lungs and Airways:? Bilateral ground-glass infiltrates suggesting pulmonary edema.? Nodular infiltrate in right lower lobe. Pleura: No pneumothorax or pleural effusions.? ? Heart: Heart size is severely enlarged.? Small pericardial effusion. Thoracic Vessels: The aorta and pulmonary arteries demonstrate normal size.? Mediastinum and Jennifer: No enlarged lymph nodes.? Esophagus: No wall thickening.? No hiatal hernia. ? ? ABDOMEN: Liver:? Unremarkable.? ? Gallbladder:? There are gallstones.? ? Biliary ducts:? Unremarkable.? ? Pancreas:? Unremarkable.? ? Spleen:? Unremarkable.? ? Adrenal Glands:? Unremarkable.? ? Kidneys and Ureters:? Unremarkable.? ? ? Stomach and Bowel:? Stomach, small bowel loops, and colon are unremarkable.? Peritoneum:? No abnormal intraperitoneal fluid.? No free air.? ? Ventral Wall: ? No hernia.? Abdominal Nodes:? No retroperitoneal or mesenteric adenopathy by size criteria.? Vessels:? Aorta and inferior vena cava are normal in size.? ? PELVIS: Pelvic Organs:? Unremarkable.? ? Bladder:? Unremarkable.? ? Pelvic Nodes: No enlarged lymph nodes.? Miscellaneous: No inguinal hernias are seen. ? ? ? Bones:? Degenerative changes throughout the thoracic and lumbar spine.? ? ? IMPRESSION:? ? 1.? No traumatic visceral injuries in thorax, abdomen or pelvis. ? 2.? Severe cardiomegaly.? Mild pulmonary edema consistent with mild congestive heart failure. ? 3.? Right lower lobe infiltrate suspicious for superimposed pneumonia. ? 4.? Pericardial effusion. ? 5.? Cholelithiasis.? Dictated by: Porsche Chavez M.D. on 08/17/2022 at 11:54 Extremity x-ray #1: Radiologist's Impression: PROCEDURE:? XR KNEE LT 3V ? INDICATIONS:? fall ? TECHNIQUE:? 3 views of the knee were acquired.? ? COMPARISON:? [facility], , XR KNEE LT 3V, 08/10/2021, 13:19. ? FINDINGS:? ? Bones:? No definitive fractures or dislocations.? A lucency in the superior lateral aspect of the patella is probably caused by remote injury or a large osteophyte.? No suspicious bony lesions.? Moderate tricompartmental knee joint degeneration, most pronounced in the patellofemoral joint. ? Soft tissues:? Small joint effusion.? No suspicious soft tissue calcifications.? ? ? IMPRESSION:? ? 1. No definitive acute osseous abnormality.? A lucency in the superior lateral aspect of the patella is probably caused by remote injury or a large osteophyte.? If clinical symptoms persist or clinical suspicion for acute pathology is high, advanced imaging such as CT or MRI is suggested for further evaluation. 2. Moderate degenerative joint disease. 3. Small knee joint effusion.? ? ? Dictated by: Porsche Chavez M.D. on 08/17/2022 at 12:38 ?? Echo: Radiologist's Impression: ? [facility]? +---------+ : ? :? [address] ? : ? : : ? :? [place] ? : ? : : ? :? [id number] ? : ? : : ? : ? Phone: [phone] : ? : +---------[phone]? [phone]? +---------+ ? Echocardiogram Report + + :Name: HERBERT LELA J ? ? ? Study Date: 08/17/2022 ? Height: 62 in? : :Hospital ? ? ReadingLocation: ? Weight: 240 lb : : ? Gender: Female ? BSA: 2.1 m2? ? : :: 1950? Age: 72 yrs? BP: 113/78 mmHg: :Reason For Study: CONGESTIVE HEART FAILURE, CARDIOMEGALY, CARROL? : :Ordering Physician: CATRINA, ? : :CRIS? Performed By: Ludivina Berrios? : :Referring: CRIS FRITZ? : + + Interpretation Summary Afib with controlled rate. Normal LV size and moderate concentric LVH. Normal wall motion and LV systolic function. EF is 55-60%. ? Severe RV enlargement with moderately reduced RV function. Massive RA enlargement and mild LA enlargement. D shaped LV in systole and diastole consistent with RV pressure overload. ? By history there is a tricuspid valve clip x4 deployed on 06/14/2022 at for severe TR. Unfortunately there is residual severe TR with estimated PA systolic pressure of 44 mm Hg assuming RA pressure of 20 mm Hg. ? Compared to prior study 06/22/2021 tricuspid valve clip is newly deployed. ? Procedure: ? A two-dimensional transthoracic echocardiogram with color flow and Doppler was performed. The study quality was technically adequate. Comparison is made with the echocardiogram of 06/22/2021. The patient was in atrial fibrillation with heart rates between 77-111 bpm during the exam. Left Ventricle: ? The left ventricular cavity is small. There is moderate concentric left ventricular hypertrophy. The ejection fraction is estimated to be 55-60%. Right Ventricle: ? The right ventricle is severely dilated. Atria: ? The left atrium is severely dilated. The right atrium is severely dilated. There is no Doppler evidence for an interatrial shunt. Mitral Valve: ? There is mild mitral annular calcification. There is trace mitral regurgitation. Aortic Valve: ? The aortic valve is trileaflet. There is no aortic valve stenosis. There is trace aortic regurgitation. Tricuspid Valve: ? There is a tricuspid valve clip present. There is severe tricuspid regurgitation. Right ventricular systolic pressure is underestimated due to the severity of regurgitation. Pulmonic Valve: ? The pulmonic valve is not well seen, but is grossly normal. There is mild to moderate pulmonic regurgitation. Great Vessels: ? The aortic root is normal size. The ascending aorta is at the upper limits of normal in size. The IVC is dilated (diameter is greater than 2.1 cm) and it collapses less than 50% with a sniff. This suggests a high right atrial pressure of 15 mm Hg. Patient on Bi-pap. Pericardium/ Pleura ? There is no pericardial effusion. There is no pleural effusion. ? MMode/2D Measurements & Calculations LVIDd: 2.8 cm ? LVOT diam: 2.1 cm LVIDs: 1.9 cm ? Ao root diam: 3.2 cm FS: 31.5 %? asc Aorta Diam: 3.7 cm IVSd: 1.5 cm LVPWd: 1.4 cm LV lakhani. diameter/BSA (cm/m^2): 1.4 LV sys. diameter/BSA (cm/m^2): 0.93 ? LA A2 area: 29.3 cm2? RA long axis: 9.9 cm LA A4 area: 32.3 cm2? RA area: 66.5 cm2 LA length (vol): 7.9 cm ? RA vol: 379.1 ml LA vol: 101.0 ml? RA : 183.5 ml/m2 LA vol index: 48.9 ml/m2? IVC diam: 3.1 cm ? RVDd major: 7.6 cm ? RVD1 (basal): 6.4 cm RVD2 (mid): 5.4 cm TAPSE: 1.9 cm ? Doppler Measurements & Calculations Ao V2 max: 187.7 cm/sec ? LVOT Max Shekhar: 34.2 cm/sec Ao V2 mean: 137.1 cm/sec? LV V1 max P.47 mmHg Ao max P.1 mmHg? LV V1 VTI: 5.5 cm Ao mean P.4 mmHg? WALI(I,D): 0.43 cm2 Ao V2 VTI: 45.4 cm? WALI(V,D): 0.64 cm2 ? sev ratio: 0.12 ? WALI indexed to BSA (cm^2/m^2): 0.21 ? MV E max shekhar: 62.5 cm/sec ? TR max shekhar: 218.8 cm/sec MV A max shekhar: 3.1 cm/sec? TR max P.4 mmHg MV E/A: 20.1? PA pr(Accel): 51.6 mmHg Med Peak E' Shekhar: 6.0 cm/sec E/E' med: 10.3 Lat Peak E' Shekhar: 10.0 cm/sec E/E' lat: 6.3 E/e' average: 8.3 MV dec time: 0.22 sec ? SV(LVOT): 19.4 ml ? Electronically signed by: Jami Harris M.D. on Reading Physician:08/17/2022 04:29 PM ECG Data Interpretation: Atrial fibrillation rate [address] changes low voltage similar to previous EKG on August 15 [facility] Narrative Medical decision making narrative: Patient is 72-year-old female presenting for the 2nd time this week for a fall. She initially was here 2 days ago thought to be over diuresed from an increase in her torsemide causing increasing creatinine from 1.5-3.0. Nephrology was consulted at that time and released back to assisted care. Presents today for a 2nd fall on she reports that her left knee gave out and she fell. She has a knee contusion. Her x-ray for any is negative. She was again rescanned head and neck which are both negative. Face was not be scanned it was initially scan on the 8th. She was hypoxic and soft blood pressures systolic in the 98 CT with contrast chest abdomen and pelvis was ordered concern for possible hemorrhage or bleed. After further evaluation and results. She is found to be in congestive heart failure with BNP 6200, initial troponin 0.024 with a increase and a 2nd troponin of 0.049. This increases thought to be possibly d emand ischemia versus non clearing from CARROL. CT chest abdomen pelvis and other imaging did not show any injury. Patient is therefore treated for congestive heart failure. She is initially given 40 mg of Lasix she had no response given a repeat dose of 80 mg of Lasix Hong catheter placed. He is had very minimal output. She is requiring oxygen. She does become more tachypneic never really hypoxic. ABG does not show any significant hypercapnia or severe hypoxia. Trial of BiPAP to help her workup bleeding and increase diuresis. Patient tolerated BiPAP she kept falling asleep but was arousable. She reports that she just wants to take a nap. Initially talked with Dr. Fritz on-call hospitalist who request echocardiogram prior to admission. Echocardiogram confirms that patient has had a failed tricuspid. 16:15 I have personally spoken with on-call Cardiology here Dr. Dent who c onfirms a failure of tricuspid clip recommends transferring to [facility]. This is something that was done there and that [facility] can not help. He understands that patient is not diuresing he suggested metolzone. She had minimal output from metolozone 17:14 Dr. Marc Gonzalez CVT at [facility] updated patient's symptoms test results and area respiratory status agrees that patient needs to come to the [facility]. He recommends trying to 100 mg of Lasix to help stimulate output. Patient has a bed at [facility] and is accepted Patient remains on a 50% venturi mask. She is awake and alert. She was previously on BiPAP which she tolerated found think she needs. At this point she is speaking she is not significantly hypoxic hypercapnic she is mentating and managing her airway. There is no reason for intubation. Critical Care Time Critical Care Time Critical Care Time: Yes Total Critical Care Time: 45 Attestation: The high probability of a clinically significant, sudden or life threatening deterioration of the [cardiovascular] system(s) required my full and direct attention, intervention and personal management. The aggregate critical care time was [45] minutes. This time is in addition to time spent performing reported procedures but includes the following: [x] Data Review and interpretation [x] Patient assessment and monitoring of vital signs [x] Documentation [x] Medication orders and management Discharge Plan Departure [facility] Clinical Impression: Diastolic heart failure, Falls, Acute kidney injury, Hypoxia Prescriptions: No Action acetaminophen 325 mg Tablet 650 mg PO TID torsemide 20 mg tablet 20 mg PO QAM Rx Instructions: For edema, CHF hydroxyzine HCl 25 mg tablet 25 mg PO Q8H PRN (Reason: Itching) gabapentin 100 mg capsule 100 mg PO BID Rx Instructions: AM, [facility] [place] Nasal 0.65 % Aerosol,[place] 3 spray intranasal BID Rx Instructions: for nosebleeds; may keep at bedside and self-medicate polyethylene glycol 3350 17 gram Powder In Packet 17 g PO QAM melatonin 3 mg Tablet 6 mg PO BEDTIME ascorbic acid (vitamin C) 500 mg Tablet 500 mg PO QAM ondansetron HCl 8 mg tablet 8 mg PO DAILY PRN (Reason: Nausea) hydrocortisone 1 % Cream 1 applic TOPICAL Q12H PRN (Reason: Rash) Rx Instructions: rash on breast oxycodone 5 mg tablet 2.5 - 5 mg PO Q6H PRN (Reason: pain) Qty: 10 0RF betamethasone valerate 0.1 % ointment 1 applic TOPICAL DAILY Rx Instructions: Apply to legs every Saturday and Saturday, cover with compression stockings trazodone 50 mg Tablet 25 mg PO BEDTIME Rx Instructions: for insomnia lorazepam 0.5 mg Tablet 0.5 mg PO Q6HR PRN (Reason: Anxiety) metoprolol succinate 25 mg tablet extended release 24 hr 50 mg PO BID Rx Instructions: Hold for SBP<100 and HR less than 60 Mucinex DM 30-600 mg Tablet Extended Release 12 Hr 1 tab PO Q12H PRN (Reason: cough, congestion) vitamin [id number] B1 1,000-100 mg/mL Solution 1 ml IM Q7D albuterol 90 mcg/actuation Aerosol 90 mcg INHALATION PRN PRN (Reason: Shortness Of Breath) Eliquis 5 mg tablet 2.5 mg PO DAILY lisinopril 10 mg tablet 10 mg PO DAILY Referrals: Bri Vargas MD [Primary Care Provider] -
--- NOTE | 2022-08-17 10:33 | PC.NURSE ---
Patient hit her face with a mechanical fall earlier this week hitting her face on the bed frame. Patient has extensive bilateral ocular bruising and nasal bruising. Patient has a Fistula of her left upper arm that used to be used for dialysis but patient no longer attends dialysis.
--- NOTE | 2022-08-17 10:43 | DI.RAD.S_ITS ---
PROCEDURE: XR KNEE LT 3V INDICATIONS: fall TECHNIQUE: 3 views of the knee were acquired. COMPARISON: [facility], CR, XR KNEE LT 3V, 08/10/2021, 13:19. FINDINGS: Bones: No definitive fractures or dislocations. A lucency in the superior lateral aspect of the patella is probably caused by remote injury or a large osteophyte. No suspicious bony lesions. Moderate tricompartmental knee joint degeneration, most pronounced in the patellofemoral joint. Soft tissues: Small joint effusion. No suspicious soft tissue calcifications. IMPRESSION: 1. No definitive acute osseous abnormality. A lucency in the superior lateral aspect of the patella is probably caused by remote injury or a large osteophyte. If clinical symptoms persist or clinical suspicion for acute pathology is high, advanced imaging such as CT or MRI is suggested for further evaluation. 2. Moderate degenerative joint disease. 3. Small knee joint effusion. Dictated by: Porsche Chavez M.D. on 08/17/2022 at 12:38 Approved by: Porsche Chavez M.D. on 08/17/2022 at 12:40
[2022-08-17 10:47] LABS: INR 2.1 (0.9-1.3); Prothrombin Time 23.8 SECONDS (10.1-12.7)
[2022-08-17 10:50] LABS: Hematocrit 39.3 % (36-46); Hemoglobin 12.3 g/dL (12.0-16.0); Mean Corpuscular HGB Conc 31.3 % (30-36); Mean Corpuscular Hemoglobin 30.7 PG (26-34); Mean Corpuscular Volume 97.9 fL (80-100); PTT Partial Thromboplastin Tim 33 SECONDS (26-36); Platelet Count 227 X10^3/uL (150-400); Red Blood Cell Count 4.01 X10^6/uL (4.0-5.2); Red Cell Distribution Width 18.1 % (11.6-14.8); White Blood Cell Count 7.2 X10^3/uL (4.5-11.0)
[2022-08-17 10:54] LABS: Add Manual Diff / Slide Review YES; Lactate (Lactic Acid) 2.2 mmol/L (0.7-2.1)
[2022-08-17 10:55] LABS: Alanine Aminotransferase 18 IU/L (<35); Albumin 3.3 g/dL (3.5-5.0); Albumin Globulin Ratio 0.7 (1.0-2.8); Alkaline Phosphatase 80 U/L (38-126); Aspartate Aminotransferase 25 IU/L (14-36); Bilirubin Total 1.4 mg/dL (0.2-1.3); Blood Urea Nitrogen 90 mg/dL (7-17); Calcium 7.9 mg/dL (8.4-10.2); Carbon Dioxide 24 mmol/L (22-32); Chloride 105 mmol/L (98-107); Creatine Kinase < 20 U/L (30-135); Estimated Glomerular Filt Rate 15 mL/min (>60); Globulin 4.6 g/dL (1.7-4.1); Glucose 91 mg/dL (80-110); HEMOLYSIS 19 (0-50); Lipase 97 U/L (23-300); Potassium 4.4 mmol/L (3.4-5.1); Sodium 142 mmol/L (137-145); Total Protein 7.9 g/dL (6.3-8.2)
[2022-08-17 11:07] LABS: NT-proBNP (BNP-Adult 18+) 6250 pg/mL (<125); Troponin I 0.024 ng/mL (0.01-0.034)
[2022-08-17 11:17] LABS: Neutrophils Absolute Manual 6336 /uL (3000-5900); Nucleated Red Blood Cells 5 #/Diff; Total Cells Counted 100
[2022-08-17 11:20] LABS: Polychromasia 1+
[2022-08-17 11:21] LABS: Anisocytosis 1+; Poikilocytosis 1+
[2022-08-17] MEDS: FUROSEMIDE 40 MG/4 ML VIAL IV (11:54)
[2022-08-17 12:36] LABS: Reflexed Lactate in 2 Hours Y
[2022-08-17 12:53] LABS: Appearance Urine UA CLEAR; Bilirubin Urine UA NEGATIVE (NEGATIVE); Color Urine UA YELLOW; Glucose Urine UA NEGATIVE (Negative); Ketones Urine UA NEGATIVE (NEGATIVE); Leukocyte Esterase Urine UA NEGATIVE (NEGATIVE); Nitrite Urine UA NEGATIVE (Negative); Occult Blood Urine UA NEGATIVE (Negative); Protein Urine UA TRACE (Negative); Urobilinogen Urine UA 0.2 E.U./dL (0.2)
--- NOTE | 2022-08-17 13:04 | CM.DANOTE ---
Addendum entered by BRITTANY Lewis 08/17/22 13:29: ADD: SW received a return call from [facility] RN Valerie and confirmed that pt is not on oxygen at their facility and has not been motivated with ambulating and has been refusing recommendations and sometimes going to the ED and has gained a fair amount of weight recently which has not helped her CHF. Valerie inquired about maybe Psychiatrist consult or Goals of Care discussion as pt seems to be less interested in improving. [facility] RN feels pt has been slowly needing more assist and weak and feels SNF will likely be needed at d/c and confirms they cannot accept return pts over the weekend although SW discussed if no medical need to remain in the hospital there might not be justification for keeping pt admitted and she acknowledged understanding but states they do not have RN to accept admission back on the w/e. Pt likely though will require a few days of admission for medical tx. BF Original Note: Patient is a 72 yo who was admitted to [place] ED on 08/17/22 for GLF. Pt has [facility] and [facility] for insurance and her PCP is Dr. Bri Vargas. EMR was reviewed. Per ED MD, pt with second ED visit in a couple days for GLF and labs and pt currently SOB and requiring oxygen and imaging to confirm pt has no fxs and may have possible pneumonia. OMAIRA attempted to meet bedside with pt in the ED in anticipation of admission but pt too drowsy to stay awake. OMAIRA called [facility] and left [facility] [place] and RN station and faxed initial clinicals for review. OMAIRA called pt's Dtr Elizabeth ([phone]) and explained role and she confirms she is pt's DPOA and pt used to live with her for many years until she became too high of care needs and moved into [facility] in 2019. Dtr states pt is very A&Ox4 and very witty at baseline but has become more and more drowsy and groggy and has been staying in bed up to 20 hours a day and sometimes falling asleep mid-sentence. Dtr states pt can ambulate but has not been motivated or enough energy to do that much lately. Dtr recently had pt up to her house in [place] for a weekend visit and stated pt remained in her bed all day and did not come out to the couch to see the grandkids or other family which is not typical of pt. She has been much less engaged and had multiple ED and doctors visits. Pt has a hx of [facility] SNF a few years ago before she moved into [facility] as pt was living with Dtr in [place] at the time. SW discussed need for likely PT/OT when pt more medically appropriate and coordination with [facility] to determine return to LONG TERM vs possible SNF. SW discussed if SNF, need for [facility] contracted SNF and to get auth. Dtr acknowledges understanding and states if SNF needed, preference would be [place] [facility] as she could visit easier and family would be willing to provide transport but she would also be agreeable to [facility] SNF if needed. Plan: SW to follow closely for imaging and likely need of PT/OT when pt admitted to Acute Care floor and more medically appropriate towards determining return to [facility] vs SNF. [facility] auth would be needed if SNF. BRITTANY Lewis Discharge Planning/Care Management CM Discharge Assessment Start: 08/17/22 13:02 Freq: Status: Active Protocol: Document 08/17/22 13:02 BF (Rec: 08/17/22 13:04 [id number]) Discharge Planning Assessment Assigned Office Support Clerk BRITTANY Hernandez DPOA/Assigned Designee Name Dtr Elizabeth Richmonddenia Contact Information [phone] Advance Directives? Yes: POLST Advance Directives on File Yes History Provided By Family Member,Medical Record Has Patient been admitted in last 30 No days? Prior Living Arrangements Assisted Living Household Members none Type of transporation used prior to Relies on Others admit Independent with ADL's No Is patient alert and oriented? Yes Needs Assistance With Meal Prep,Managing Medications ,Home Chores / Shopping Caregiver for Another No DME Already Rented / Owned FWW / Walker Patient/Family Preference Fpc Facility Comment SNF vs return to [facility] pending progress Barriers to Discharge No Discharge Plan [facility] Facility Transportation Arrangement Facility van Additional Comment Pending further workup and PT/ OT eval once admitted Review Status In Process Please Provide Date Initial DC 08/17/22 Assessment Was Performed Next Review Type Continued Stay Review
[2022-08-17 13:07] LABS: Amorphous Sediment Urine 1+; Bacteria Urine Occasional (0-1); Culture Indicated Urine Cult Not Indicated; Mucus Urine 1+ (Negative); RBC Urine None Seen (0-5/HPF); Squamous Epithelial Cell Urine 1-5 /HPF (0-5/HPF); WBC Urine 0-1/HPF (0-5/HPF)
[2022-08-17 13:14] LABS: Lactate 2HR (Lactic Acid Rflx) 1.4 mmol/L (0.7-2.1)
[2022-08-17] MEDS: FUROSEMIDE 80 MG in SODIUM CHLORIDE 0.9% 50 ML 116 MG IV (13:36)
[2022-08-17 15:10] LABS: HCO3 ABG 24 mmol/L (23-27); PO2 ABG 58 mmHg (80-100); pH ABG 7.39 (7.35-7.45)
[2022-08-17 15:11] LABS: Fractionated Inspired Oxygen 50; Oxygen Saturation ABG 89 % (95-100); TCO2 ABG 25 mmol/L (23-27)
--- NOTE | 2022-08-17 16:31 | PC.NURSE ---
Addendum entered by Sheron Mullins R.N. 08/17/22 16:50: Patient requested break from bipap, put back on venturi mask on 50% and requested to be allowed to nap. Provider in room during this. Original Note: Assessed patient for ability to stay awake to swallow PO meds. Called patient by name, patient opened her eyes, asked can you stay awake long enough to take a pill, patient nodded her head but promptly laid it down on pillow and closed eyes. Notified provider that this RN has concerns about patient's ability to swallow safely, provider aware.
[2022-08-17 16:46] LABS: Alanine Aminotransferase 17 IU/L (<35); Albumin 3.3 g/dL (3.5-5.0); Albumin Globulin Ratio 0.7 (1.0-2.8); Alkaline Phosphatase 83 U/L (38-126); Aspartate Aminotransferase 22 IU/L (14-36); BUN Creatinine Ratio 27.7 (6-22); Bilirubin Total 1.5 mg/dL (0.2-1.3); Blood Urea Nitrogen 90 mg/dL (7-17); Calcium 7.9 mg/dL (8.4-10.2); Carbon Dioxide 26 mmol/L (22-32); Chloride 104 mmol/L (98-107); Estimated Glomerular Filt Rate 14 mL/min (>60); Globulin 4.7 g/dL (1.7-4.1); Glucose 89 mg/dL (80-110); HEMOLYSIS < 15 (0-50); Potassium 4.6 mmol/L (3.4-5.1); Sodium 140 mmol/L (137-145)
[2022-08-17 17:22] LABS: Troponin I 0.049 ng/mL (0.01-0.034)
[2022-08-17] MEDS: FUROSEMIDE 200 MG in SODIUM CHLORIDE 0.9% 50 ML 140 MG IV (18:18)
[2022-08-17 18:40] LABS: Influenza A - CEPHEID Flu A NEGATIVE (NEGATIVE); Influenza B - CEPHEID Flu B NEGATIVE (NEGATIVE); Respiratory Syncytial Virus Negative (Negative)
[2022-08-17 18:47] LABS: COVID-19 CEPHEID 4-PLEX PCR Negative (Negative)
== END 2022-08-17 19:15 | disposition short-term general hospital (02) ==
PROVIDERS: Emergency Provider Emergency Medicine; Family Provider Internal Medicine; PCP Internal Medicine
DX: I50.30 Unspecified diastolic (congestive) heart failure (principal); N17.9 Acute kidney failure, unspecified; R09.02 Hypoxemia; I95.9 Hypotension, unspecified; M25.562 Pain in left knee; W18.30XA Fall on same level, unspecified, initial encounter; Z79.899 Other long term (current) drug therapy; Z79.01 Long term (current) use of anticoagulants
CPT/HCPCS: 0241U; 36415; 36600; 70450; 71045; 71260; 72125; 73562; 74177; 80053; 81001; 82550; 82805; 83605; 83690; 83880; 84484; 85007; 85025; 85610; 85730; 87040; 93005; 93010; 93306; 94660; 96365; 96366; 96375; 99285; 99291; G0390; J1940